=== PATIENT | female | born 1945 | race Caucasian/White ===

== ENCOUNTER 2017-05-10 16:34 | Inpatient (IN) | payer MEDICARE ==
[~2017-05-10] VITALS: Ht 157.5 cm; Wt 82.7 kg
[~2017-05-10 16:34] MED LIST: AMLO10TA2 PO; AMLO5TAB2 PO; ASPI-515 PO; ASPI-614 PO; ATOR40TA78 PO; CARV6.252 PO; CIPR250T27 PO; CITA20TA5 PO; DOCU-30 PO; DOCU100C8 PO; DOXY100T PO; FURO20TA3 PO; HYDR-3138 PO; HYDR-3241 PO; HYDR-3342 PO; ISOS30TA8 PO; LEVO100T5 PO; LEVO75TA5 PO; LORA-446 PO; LORA10TA62 PO; MECL12.5 PO; MECL12.52 PO; METO10TA82 PO; MOME17SP NAS; OMEP-110 PO; ONDA-39 PO; OXYB10TA PO; OXYB5TAB7 PO; POLY17PO5 PO; POTA10TA11 PO; RAMI10CA PO; TEMA15CA PO; TIZA2TAB PO
[2017-05-10] MEDS ORDERED: SODIUM CHLORIDE 0.9% 1,000 ML IV ONE (16:54)
[2017-05-10] MEDS ORDERED: SODIUM CHLORIDE FLUSH 10ML SYR IVF ONE (17:00)
[2017-05-10 17:26] LABS: BLOOD UREA NITROGEN 23 mg/dL (7-18)
[2017-05-10 17:34] LABS: IS PT STATUS REG ER OR PRE ER? YES
[2017-05-10] MEDS ORDERED: HYDROcodone/APAP 5/325 TABLET ONE (18:27)
[2017-05-10] MEDS ORDERED: HYDROcodone/APAP 5/325 TABLET PO ONE (18:30)
[2017-05-10] MEDS ORDERED: PROMETHAZINE 25 MG/ML, 1ML IM PRN (19:30)
[2017-05-10] MEDS ORDERED: LISINOPRIL 20 MG TABLET PO ONE (19:30)
[2017-05-10] MEDS ORDERED: ACETAMINOPHEN 325 MG TABLET PO PRN (19:30)
[2017-05-10] MEDS ORDERED: ONDANSETRON 2MG/ML, 2ML IVPush PRN (19:30)
[2017-05-10 20:00] VITALS: BP 190/79
[2017-05-10] MEDS ORDERED: TEMPLATE NON-FORMULARY MED. (Ramipril** 10 MG) PO SCH (21:00)
[2017-05-10] MEDS: NS + 20MEQ KCL 1,000 ML IV SCH ×2 (21:00→21:41)
[2017-05-10] MEDS: DOCUSATE 100 MG CAPSULE PO SCH (21:00)
[2017-05-10] MEDS: hydrALAzine 20 MG/ML, 1ML IVPush PRN (21:39)
[2017-05-10] MEDS: LORazepam 1MG TABLET PO PRN (21:39)
[2017-05-10] MEDS: OMEPRAZOLE 20 MG CAPSULE.DR PO SCH (21:40)
[2017-05-10] MEDS: ENOXAPARIN 40 MG/0.4 ML SQ SCH (21:40)
[2017-05-10] MEDS: CEFDINIR 300 MG CAPSULE PO SCH (21:40)
[2017-05-10] MEDS: DOXYCYCLINE 100MG TABLET PO SCH (21:40)
[2017-05-11 00:07] VITALS: BP 180/85
[2017-05-11] MEDS ORDERED: DIPHENHYDRAMINE 25 MG CAPSULE ONE ×2 (00:20→21:45)
[2017-05-11] MEDS: DIPHENHYDRAMINE 50 MG CAPSULE PO PRN ×2 (00:27→21:57)
[2017-05-11] MEDS ORDERED: AMLODIPINE 5 MG TABLET PO ONE (02:00)
[2017-05-11 02:10] VITALS: BP 182/82
[2017-05-11 02:47] LABS: IS PT STATUS REG ER OR PRE ER? NO
[2017-05-11] MEDS: NS + 20MEQ KCL 1,000 ML IV SCH ×2 (03:40→15:34)
[2017-05-11 03:41] VITALS: BP 174/82
[2017-05-11] MEDS: LORazepam 1MG TABLET PO PRN (03:41)
[2017-05-11 05:43] LABS: BLOOD UREA NITROGEN 17 mg/dL (7-18)
[2017-05-11 05:58] LABS: IS PT STATUS REG ER OR PRE ER? NO
[2017-05-11] MEDS ORDERED: POTASSIUM CHLORIDE 20 MEQ TAB.ER.PRT PO ONE (08:00)
[2017-05-11] MEDS ORDERED: LEVOTHYROXINE 75 MCG TABLET PO SCH (09:00)
[2017-05-11] MEDS: OXYBUTYNIN CHLORIDE 10 MG HOMEMEDPO SCH (09:00)
[2017-05-11] MEDS ORDERED: OMNIPAQUE 350 MG/ML, 100ML BOTTLE ONE (09:07)
[2017-05-11] MEDS: LISINOPRIL 20 MG TABLET PO SCH (09:15)
[2017-05-11] MEDS: DOXYCYCLINE 100MG TABLET PO SCH ×2 (09:15→21:56)
[2017-05-11] MEDS: CEFDINIR 300 MG CAPSULE PO SCH ×2 (09:15→21:56)
[2017-05-11] MEDS: OMEPRAZOLE 20 MG CAPSULE.DR PO SCH ×2 (09:15→21:56)
[2017-05-11] MEDS: DOCUSATE 100 MG CAPSULE PO SCH ×2 (09:15→21:00)
[2017-05-11] MEDS: ASPIRIN 81 MG TABLET EC PO SCH (09:15)
[2017-05-11 09:44] VITALS: BP 169/89
[2017-05-11] MEDS: LIDODERM 5% PATCH TD PRN (10:32)
[2017-05-11 14:25] VITALS: BP 179/83
[2017-05-11] MEDS: CARVEDILOL 6.25 MG TABLET PO SCH (17:45)
[2017-05-11] MEDS: ENOXAPARIN 40 MG/0.4 ML SQ SCH (21:00)
[2017-05-11] MEDS: AMLODIPINE 5 MG TABLET PO SCH (21:56)
[2017-05-12] MEDS: NS + 20MEQ KCL 1,000 ML IV SCH ×2 (00:04→09:30)
[2017-05-12 01:33] VITALS: BP 187/75
[2017-05-12] MEDS: LORazepam 1MG TABLET PO PRN (01:42)
[2017-05-12] MEDS: hydrALAzine 20 MG/ML, 1ML IVPush PRN (01:42)
[2017-05-12] MEDS ORDERED: LEVOTHYROXINE 88 MCG TABLET PO SCH (06:00)
[2017-05-12 06:22] VITALS: BP 163/88
[2017-05-12] MEDS: CARVEDILOL 6.25 MG TABLET PO SCH (06:22)
[2017-05-12 08:06] VITALS: BP 158/79
[2017-05-12 08:13] VITALS: BP_SYST 134; BP_SYST 139; BP_SYST 151; BP_DIAS 78; BP_DIAS 80; BP_DIAS 84
[2017-05-12 09:09] LABS: BLOOD UREA NITROGEN 11 mg/dL (7-18)
[2017-05-12] MEDS: AMLODIPINE 5 MG TABLET PO SCH (09:29)
[2017-05-12] MEDS: DOXYCYCLINE 100MG TABLET PO SCH (09:29)
[2017-05-12] MEDS: LISINOPRIL 20 MG TABLET PO SCH (09:29)
[2017-05-12] MEDS: CEFDINIR 300 MG CAPSULE PO SCH (09:29)
[2017-05-12] MEDS: DOCUSATE 100 MG CAPSULE PO SCH (09:30)
[2017-05-12] MEDS: OMEPRAZOLE 20 MG CAPSULE.DR PO SCH (09:30)
[2017-05-12] MEDS: ASPIRIN 81 MG TABLET EC PO SCH (09:30)
[2017-05-12] MEDS: OXYBUTYNIN CHLORIDE 10 MG HOMEMEDPO SCH (09:30)
[2017-05-12 13:45] VITALS: BP_SYST 110; BP_SYST 121; BP_SYST 140; BP_DIAS 68; BP_DIAS 69; BP_DIAS 73
[2017-05-12] MEDS: LIDODERM 5% PATCH TD PRN (14:57)
[2017-05-12] MEDS ORDERED: AMLO5TAB2 PO (16:12)
[2017-05-12] MEDS ORDERED: CARV6.2512 PO (16:12)
[2017-05-12] MEDS ORDERED: LISI-170 PO (16:12)
[2017-05-12] MEDS ORDERED: CEFD300C37 PO (16:12)
[2017-05-12] MEDS ORDERED: DOXY100T PO (16:12)
[2017-05-12] MEDS ORDERED: LEVO88TA2 PO (16:12)
== END 2017-05-12 17:20 | disposition home or self-care (01) | DRG 292 ==
LOC: ED 18:12 → EDIP 18:15 → 4EST 19:08 → DCLOUNGE 05-12 16:54
DX: I13.0 Hypertensive heart and chronic kidney disease with heart failure and stage 1 through stage 4 chronic kidney disease, or unspecified chronic kidney disease (principal); I50.32 Chronic diastolic (congestive) heart failure; G90.8 Other disorders of autonomic nervous system; R55 Syncope and collapse; E78.5 Hyperlipidemia, unspecified; E03.9 Hypothyroidism, unspecified; G47.33 Obstructive sleep apnea (adult) (pediatric); K21.9 Gastro-esophageal reflux disease without esophagitis; N18.2 Chronic kidney disease, stage 2 (mild); Z80.1 Family history of malignant neoplasm of trachea, bronchus and lung; Z82.49 Family history of ischemic heart disease and other diseases of the circulatory system; Z85.828 Personal history of other malignant neoplasm of skin; Z86.73 Personal history of transient ischemic attack (TIA), and cerebral infarction without residual deficits; Z87.01 Personal history of pneumonia (recurrent); Z88.2 Allergy status to sulfonamides; Z91.018 Allergy to other foods; Z90.49 Acquired absence of other specified parts of digestive tract; Z90.710 Acquired absence of both cervix and uterus; Z98.51 Tubal ligation status; Z98.49 Cataract extraction status, unspecified eye
CPT/HCPCS: 36415; 36569; 70450; 71010; 71275; 76700; 76937; 77001; 80048; 81001; 82040; 82533; 83735; 83880; 84439; 84443; 84484; 85025; 87086; 93005; 93306; J1650; J3480; Q9967; C1751; J0360

== ENCOUNTER 2017-12-08 14:28 | Emergency (ER) | payer MEDICARE ==
[~2017-12-08] VITALS: Ht 157.5 cm; Wt 87.0 kg
[~2017-12-08 14:28] MED LIST changes: +ATOR-2 PO; +CARV6.2512 PO; +CEFD300C37 PO; +CLON-275 PO; +DOCU-131 PO; -DOCU-30 PO; +DOCU100C33 PO; -DOCU100C8 PO; +GABA300C10 PO; -HYDR-3138 PO; +HYDR-3237 PO; +HYDR-3341 PO; +LEVO88TA2 PO; +LISI-170 PO; -ONDA-39 PO; +ONDA4TAB10 PO; +ONDA4TAB12 PO; +ONDA4TAB7 PO; +TIZA4CAP PO
[2017-12-08 14:37] VITALS: BP 156/96
[2017-12-08 16:10] LABS: BASOPHILS # (AUTO) 0.02 x10^3/uL (0-0.1); BASOPHILS % (AUTO) 0 % (0-1); EOSINOPHILS # (AUTO) 0.08 x10^3/uL (0-0.4); EOSINOPHILS % (AUTO) 1 % (1-7); LYMPHOCYTES # (AUTO) 1.57 x10^3/uL (1-3.4); LYMPHOCYTES % (AUTO) 26 % (22-44); MD NO; MEAN CORPUSCULAR HEMOGLOBIN 31.1 pg (27.0-34.8); MEAN CORPUSCULAR HGB CONC 33.5 g/dL (32.4-35.8); MEAN PLATELET VOLUME 8.9 fL (7.4-10.4); MONOCYTES # (AUTO) 0.46 x10^3/uL (0.2-0.8); MONOCYTES % (AUTO) 8 % (2-9); NEUTROPHILS # (AUTO) 3.85 x10^3/uL (1.8-6.8); NEUTROPHILS % (AUTO) 64 % (42-75); PLATELET COUNT 211 x10^3/uL (130-400); RED BLOOD COUNT 4.53 x10^6/uL (3.82-5.3); RED CELL DISTRIBUTION WIDTH 15.6 % (9.6-15.2)
[2017-12-08 16:17] LABS: MICROSCOPIC AUTO
[2017-12-08 16:20] LABS: ALANINE AMINOTRANSFERASE 28 U/L (12-78); ALBUMIN 3.6 g/dL (3.4-5.0); ANION GAP 8 mmol/L (5-15); CALCIUM 8.5 mg/dL (8.5-10.1); CHLORIDE 110 mmol/L (98-107); CREATININE 0.85 mg/dL (0.55-1.02)
[2017-12-08 16:21] LABS: CULTURE INDICATED? YES
[2017-12-08 16:23] LABS: ALKALINE PHOSPHATASE 42 U/L (45-117); BILIRUBIN,TOTAL 0.4 mg/dL (0.2-1.0); TOTAL PROTEIN 6.8 g/dL (6.4-8.2)
[2017-12-08] MEDS ORDERED: MECLIZINE CHEWABLE 25 MG TAB PO ONE (17:00)
[2017-12-08] MEDS ORDERED: MECLIZINE CHEWABLE 25 MG TAB ONE (17:12)
== END 2017-12-08 17:18 | disposition home or self-care (01) ==
LOC: ED 16:27
DX: S63.522A Sprain of radiocarpal joint of left wrist, initial encounter (principal); I12.9 Hypertensive chronic kidney disease with stage 1 through stage 4 chronic kidney disease, or unspecified chronic kidney disease; N18.2 Chronic kidney disease, stage 2 (mild); E03.9 Hypothyroidism, unspecified; G89.29 Other chronic pain; W18.39XA Other fall on same level, initial encounter; Y93.89 Activity, other specified; Y92.098 Other place in other non-institutional residence as the place of occurrence of the external cause; Y99.8 Other external cause status
CPT/HCPCS: 36415; 80053; 81001; 85025; 87086; 99285

== ENCOUNTER 2017-12-11 17:24 | Observation (INO) | payer MEDICARE ==
[~2017-12-11] VITALS: Ht 157.5 cm; Wt 85.2 kg
[2017-12-11] MEDS ORDERED: ASPIRIN 81 MG TABLET CHEW ONE (18:16)
[2017-12-11] MEDS ORDERED: NITROGLYCERIN SINGLE TAB 0.4 MG SL ONE (18:16)
[2017-12-11] MEDS ORDERED: SODIUM CHLORIDE FLUSH 10ML SYR IVF ONE (18:30)
[2017-12-11] MEDS ORDERED: ASPIRIN 81 MG TABLET CHEW PO ONE (18:30)
[2017-12-11] MEDS ORDERED: NITROGLYCERIN SINGLE TAB 0.4 MG SL PRN (18:30)
[2017-12-11 18:40] LABS: BASOPHILS # (AUTO) 0.07 x10^3/uL (0-0.1); BASOPHILS % (AUTO) 1 % (0-1); EOSINOPHILS # (AUTO) 0.07 x10^3/uL (0-0.4); EOSINOPHILS % (AUTO) 1 % (1-7); LYMPHOCYTES # (AUTO) 2.09 x10^3/uL (1-3.4); LYMPHOCYTES % (AUTO) 33 % (22-44); MD NO; MEAN CORPUSCULAR HEMOGLOBIN 30.8 pg (27.0-34.8); MEAN CORPUSCULAR HGB CONC 33.4 g/dL (32.4-35.8); MEAN CORPUSCULAR VOLUME 92.3 fL (80-100); MEAN PLATELET VOLUME 8.8 fL (7.4-10.4); MONOCYTES # (AUTO) 0.47 x10^3/uL (0.2-0.8); MONOCYTES % (AUTO) 8 % (2-9); NEUTROPHILS # (AUTO) 3.61 x10^3/uL (1.8-6.8); NEUTROPHILS % (AUTO) 57 % (42-75); PLATELET COUNT 202 x10^3/uL (130-400); RED BLOOD COUNT 4.34 x10^6/uL (3.82-5.3); RED CELL DISTRIBUTION WIDTH 15.9 % (9.6-15.2)
[2017-12-11 18:53] LABS: ALBUMIN 3.2 g/dL (3.4-5.0); ANION GAP 8 mmol/L (5-15); CALCIUM 7.9 mg/dL (8.5-10.1); CHLORIDE 114 mmol/L (98-107)
[2017-12-11 18:54] LABS: INTERNATIONAL NORMALIZED RATIO 0.97 (0.93-1.1)
[2017-12-11 18:59] LABS: ALANINE AMINOTRANSFERASE 22 U/L (12-78); ALKALINE PHOSPHATASE 36 U/L (45-117); BILIRUBIN,TOTAL 0.5 mg/dL (0.2-1.0); CREATININE 1.15 mg/dL (0.55-1.02); TOTAL PROTEIN 6.1 g/dL (6.4-8.2); TROPONIN I < 0.015 ng/mL (0.000-0.045)
[2017-12-11] MEDS ORDERED: MORPHINE SULFATE 4 MG/ML, 1ML ONE (19:14)
[2017-12-11] MEDS ORDERED: MORPHINE SULFATE 4 MG/ML, 1ML IVPush ONE (19:30)
[2017-12-11] MEDS ORDERED: OMNIPAQUE 350 MG/ML, 100ML BOTTLE ONE (20:00)
[2017-12-11] MEDS ORDERED: LABETALOL 5MG/ML, 20ML ONE (21:56)
[2017-12-11] MEDS ORDERED: ONDANSETRON ODT 4 MG PO PRN (22:00)
[2017-12-11] MEDS ORDERED: DOCUSATE 100 MG CAPSULE PO PRN (22:00)
[2017-12-11] MEDS ORDERED: ACETAMINOPHEN 325 MG TABLET PO PRN (22:00)
[2017-12-11] MEDS: LABETALOL 5MG/ML, 20ML IVPush PRN (22:03)
[2017-12-11 22:50] VITALS: BP 202/105
[2017-12-11 23:05] VITALS: BP 202/105
[2017-12-11] MEDS: DOCUSATE 100 MG CAPSULE PO SCH (23:17)
[2017-12-11] MEDS: HEPARIN 5,000 UNITS/ML, 1ML SQ SCH (23:18)
[2017-12-11] MEDS: OMEPRAZOLE 20 MG CAPSULE.DR PO SCH (23:18)
[2017-12-11] MEDS: AMLODIPINE 5 MG TABLET PO SCH (23:18)
[2017-12-11] MEDS: TEMAZEPAM 15 MG CAPSULE PO PRN (23:26)
[2017-12-11] MEDS ORDERED: POTASSIUM CHLORIDE 20 MEQ TAB.ER.PRT PO ONE (23:30)
[2017-12-12 00:48] LABS: TROPONIN I < 0.015 ng/mL (0.000-0.045)
[2017-12-12 01:52] VITALS: BP 167/82
[2017-12-12] MEDS: TEMAZEPAM 15 MG CAPSULE PO PRN ×2 (04:01→20:42)
[2017-12-12] MEDS: LEVOTHYROXINE 88 MCG TABLET PO SCH (06:17)
[2017-12-12] MEDS: CARVEDILOL 6.25 MG TABLET PO SCH ×2 (06:17→17:03)
[2017-12-12 06:21] LABS: BASOPHILS # (AUTO) 0.01 x10^3/uL (0-0.1); BASOPHILS % (AUTO) 0 % (0-1); EOSINOPHILS # (AUTO) 0.06 x10^3/uL (0-0.4); EOSINOPHILS % (AUTO) 1 % (1-7); LYMPHOCYTES # (AUTO) 1.22 x10^3/uL (1-3.4); LYMPHOCYTES % (AUTO) 28 % (22-44); MD NO; MEAN CORPUSCULAR HEMOGLOBIN 30.9 pg (27.0-34.8); MEAN CORPUSCULAR HGB CONC 33.1 g/dL (32.4-35.8); MEAN CORPUSCULAR VOLUME 93.2 fL (80-100); MEAN PLATELET VOLUME 8.6 fL (7.4-10.4); MONOCYTES # (AUTO) 0.36 x10^3/uL (0.2-0.8); MONOCYTES % (AUTO) 8 % (2-9); NEUTROPHILS # (AUTO) 2.67 x10^3/uL (1.8-6.8); NEUTROPHILS % (AUTO) 62 % (42-75); PLATELET COUNT 175 x10^3/uL (130-400); RED BLOOD COUNT 4.18 x10^6/uL (3.82-5.3); RED CELL DISTRIBUTION WIDTH 15.3 % (9.6-15.2)
[2017-12-12 06:28] LABS: ANION GAP 6 mmol/L (5-15); CALCIUM 7.9 mg/dL (8.5-10.1); CHLORIDE 115 mmol/L (98-107); CHOLESTEROL, TOTAL 170 mg/dL (140-239); CREATININE 0.78 mg/dL (0.55-1.02); TRIGLYCERIDES 59 mg/dL (50-200); VLDL CHOLESTEROL 12 mg/dL (0-25)
[2017-12-12 06:31] LABS: HDL CHOL % 34 % (28-40); HDL CHOLESTEROL (DIRECT) 57 mg/dL (40-60); LDL CHOLESTEROL,CALCULATED 101 mg/dL (54-169); LDL/HDL RATIO 1.8 (0.5-3.0)
[2017-12-12 06:44] LABS: TROPONIN I < 0.015 ng/mL (0.000-0.045)
[2017-12-12 08:03] VITALS: BP 156/94
[2017-12-12] MEDS: OMEPRAZOLE 20 MG CAPSULE.DR PO SCH ×2 (08:09→20:41)
[2017-12-12] MEDS: DOCUSATE 100 MG CAPSULE PO SCH ×2 (08:09→20:41)
[2017-12-12] MEDS: ASPIRIN 81 MG TABLET EC PO SCH (08:10)
[2017-12-12] MEDS: AMLODIPINE 5 MG TABLET PO SCH ×2 (08:10→20:42)
[2017-12-12] MEDS: GABAPENTIN 300 MG CAPSULE PO SCH (08:10)
[2017-12-12] MEDS ORDERED: REGADENOSON 0.4 MG/5 ML SYRINGE ONE (08:49)
[2017-12-12] MEDS: HEPARIN 5,000 UNITS/ML, 1ML SQ SCH ×2 (08:54→17:03)
[2017-12-12] MEDS ORDERED: ONDANSETRON 2MG/ML, 2ML IVPush PRN (09:00)
[2017-12-12 13:47] VITALS: BP 176/95
[2017-12-12] MEDS: LABETALOL 5MG/ML, 20ML IVPush PRN (13:54)
[2017-12-12] MEDS ORDERED: IBUPROFEN 200 MG TABLET PO ONE (15:00)
[2017-12-12 15:08] VITALS: BP 146/76
[2017-12-12 17:05] VITALS: BP 154/77
[2017-12-12] MEDS ORDERED: SCOPOLAMINE PATCH, 1.5MG PATCH.TD72 TD SCH (18:00)
[2017-12-12 21:14] VITALS: BP 135/75
[2017-12-13] MEDS: HEPARIN 5,000 UNITS/ML, 1ML SQ SCH ×2 (01:17→08:24)
[2017-12-13 01:24] VITALS: BP 152/79
[2017-12-13] MEDS: TEMAZEPAM 15 MG CAPSULE PO PRN (02:42)
[2017-12-13] MEDS: LEVOTHYROXINE 88 MCG TABLET PO SCH (06:28)
[2017-12-13] MEDS: CARVEDILOL 6.25 MG TABLET PO SCH (06:29)
[2017-12-13 07:58] VITALS: BP 164/79
[2017-12-13] MEDS: GABAPENTIN 300 MG CAPSULE PO SCH (08:23)
[2017-12-13] MEDS: ASPIRIN 81 MG TABLET EC PO SCH (08:23)
[2017-12-13] MEDS: DOCUSATE 100 MG CAPSULE PO SCH (08:24)
[2017-12-13] MEDS: OMEPRAZOLE 20 MG CAPSULE.DR PO SCH (08:24)
[2017-12-13] MEDS: AMLODIPINE 5 MG TABLET PO SCH (08:24)
[2017-12-13 12:31] VITALS: BP 186/79
[2017-12-13] MEDS ORDERED: ACET650S21 PO (14:40)
[2017-12-13] MEDS ORDERED: IBUP200C8 PO (14:41)
== END 2017-12-13 13:45 | disposition home or self-care (01) ==
LOC: ED 19:39 → EDIP 21:26 → INTOOBSV 21:26 → 5SO 22:32
PROVIDERS: ADMIT Family Medicine; ATTEND Family Medicine
DX: R07.9 Chest pain, unspecified (principal); I13.0 Hypertensive heart and chronic kidney disease with heart failure and stage 1 through stage 4 chronic kidney disease, or unspecified chronic kidney disease; I50.32 Chronic diastolic (congestive) heart failure; N18.2 Chronic kidney disease, stage 2 (mild); I73.9 Peripheral vascular disease, unspecified; G47.33 Obstructive sleep apnea (adult) (pediatric); F33.9 Major depressive disorder, recurrent, unspecified; I16.0 Hypertensive urgency; E87.6 Hypokalemia; N17.0 Acute kidney failure with tubular necrosis; E03.9 Hypothyroidism, unspecified; E44.1 Mild protein-calorie malnutrition; E78.5 Hyperlipidemia, unspecified; I25.10 Atherosclerotic heart disease of native coronary artery without angina pectoris; Z80.1 Family history of malignant neoplasm of trachea, bronchus and lung; Z82.49 Family history of ischemic heart disease and other diseases of the circulatory system
CPT/HCPCS: 36415; 71045; 71275; 76770; 78452; 80048; 80053; 80061; 83690; 83735; 83880; 84484; 85025; 85379; 85610; 85730; 93005; 93017; 93306; 96372; 96374; 96375; 96376; 99285; A9502; C9898; G0378; J1644; J2405; J2785; Q9967

== ENCOUNTER 2017-12-13 13:51 | Emergency (ER) | payer MEDICARE ==
[2017-12-13 14:07] VITALS: BP 175/88
[2017-12-13] MEDS ORDERED: ACET650S21 PO (14:40)
[2017-12-13] MEDS ORDERED: IBUP200C8 PO (14:41)
== END 2017-12-13 15:18 | disposition home or self-care (01) ==
LOC: ED 14:45
DX: F41.1 Generalized anxiety disorder (principal); K21.9 Gastro-esophageal reflux disease without esophagitis; E78.5 Hyperlipidemia, unspecified; E03.9 Hypothyroidism, unspecified; J44.9 Chronic obstructive pulmonary disease, unspecified; I25.10 Atherosclerotic heart disease of native coronary artery without angina pectoris; Z86.73 Personal history of transient ischemic attack (TIA), and cerebral infarction without residual deficits; I13.0 Hypertensive heart and chronic kidney disease with heart failure and stage 1 through stage 4 chronic kidney disease, or unspecified chronic kidney disease; N18.2 Chronic kidney disease, stage 2 (mild); I50.9 Heart failure, unspecified
CPT/HCPCS: 71045; 93005; 99284

== ENCOUNTER 2018-01-04 16:59 | Emergency (ER) | payer MEDICARE ==
[~2018-01-04] VITALS: Ht 157.5 cm; Wt 81.0 kg
[~2018-01-04 16:59] MED LIST changes: +ACET650S21 PO; +IBUP200C8 PO
[2018-01-04] MEDS ORDERED: GABA300C10 PO (17:09)
[2018-01-04] MEDS ORDERED: CLON0.1T PO (17:09)
[2018-01-04] MEDS ORDERED: ONDANSETRON 2MG/ML, 2ML ONE (17:24)
[2018-01-04] MEDS ORDERED: LORazepam 1MG TABLET ONE (17:25)
[2018-01-04] MEDS ORDERED: LORazepam 1MG TABLET PO ONE (17:30)
[2018-01-04] MEDS ORDERED: SODIUM CHLORIDE 0.9% 1,000ML IVBOLUS ONE (17:30)
[2018-01-04] MEDS ORDERED: SODIUM CHLORIDE FLUSH 10ML SYR IVF ONE (17:30)
[2018-01-04] MEDS ORDERED: ONDANSETRON 2MG/ML, 2ML IVPush ONE (17:30)
[2018-01-04 17:47] LABS: BASOPHILS # (AUTO) 0.03 x10^3/uL (0-0.1); BASOPHILS % (AUTO) 1 % (0-1); EOSINOPHILS # (AUTO) 0.05 x10^3/uL (0-0.4); EOSINOPHILS % (AUTO) 1 % (1-7); LYMPHOCYTES # (AUTO) 1.54 x10^3/uL (1-3.4); LYMPHOCYTES % (AUTO) 33 % (22-44); MD NO; MEAN CORPUSCULAR HEMOGLOBIN 30.5 pg (27.0-34.8); MEAN CORPUSCULAR HGB CONC 33.2 g/dL (32.4-35.8); MEAN CORPUSCULAR VOLUME 91.6 fL (80-100); MEAN PLATELET VOLUME 8.5 fL (7.4-10.4); MONOCYTES % (AUTO) 7 % (2-9); NEUTROPHILS # (AUTO) 2.77 x10^3/uL (1.8-6.8); NEUTROPHILS % (AUTO) 59 % (42-75); PLATELET COUNT 185 x10^3/uL (130-400); RED BLOOD COUNT 4.44 x10^6/uL (3.82-5.3); RED CELL DISTRIBUTION WIDTH 15.6 % (9.6-15.2)
[2018-01-04 17:57] LABS: ALANINE AMINOTRANSFERASE 15 U/L (12-78); ALBUMIN 3.3 g/dL (3.4-5.0); ANION GAP 9 mmol/L (5-15); CALCIUM 8.5 mg/dL (8.5-10.1); CHLORIDE 112 mmol/L (98-107); CREATININE 0.81 mg/dL (0.55-1.02)
[2018-01-04 18:02] LABS: ALKALINE PHOSPHATASE 31 U/L (45-117); BILIRUBIN,TOTAL 0.3 mg/dL (0.2-1.0); TOTAL PROTEIN 6.1 g/dL (6.4-8.2); TROPONIN I < 0.015 ng/mL (0.000-0.045)
[2018-01-04 18:42] LABS: CULTURE INDICATED? YES; MICROSCOPIC INDICATED
[2018-01-04 19:37] VITALS: BP 192/90
== END 2018-01-04 20:31 | disposition home or self-care (01) ==
LOC: ED 18:16
DX: N30.00 Acute cystitis without hematuria (principal); E86.0 Dehydration; R11.2 Nausea with vomiting, unspecified; Z90.49 Acquired absence of other specified parts of digestive tract; Z90.710 Acquired absence of both cervix and uterus; E03.9 Hypothyroidism, unspecified; E78.5 Hyperlipidemia, unspecified; F32.9 Major depressive disorder, single episode, unspecified; F41.9 Anxiety disorder, unspecified; G89.29 Other chronic pain; I25.10 Atherosclerotic heart disease of native coronary artery without angina pectoris; J44.9 Chronic obstructive pulmonary disease, unspecified; K21.9 Gastro-esophageal reflux disease without esophagitis; Z95.0 Presence of cardiac pacemaker
CPT/HCPCS: 36415; 71045; 80053; 81001; 83690; 84484; 85025; 87086; 93005; 96361; 96374; 99285; J2405; J7030

== ENCOUNTER 2018-01-06 15:43 | Inpatient (IN) | payer MEDICARE ==
[~2018-01-06] VITALS: Ht 157.5 cm; Wt 86.4 kg
[~2018-01-06 15:43] MED LIST changes: +CLON0.1T PO
[2018-01-06] MEDS ORDERED: SODIUM CHLORIDE FLUSH 10ML SYR IVF ONE (16:00)
[2018-01-06] MEDS ORDERED: ACETAMINOPHEN 325 MG TABLET PO ONE (16:00)
[2018-01-06] MEDS ORDERED: ACETAMINOPHEN 325 MG TABLET ONE (16:02)
[2018-01-06 16:20] LABS: BASOPHILS # (AUTO) 0.02 x10^3/uL (0-0.1); BASOPHILS % (AUTO) 0 % (0-1); EOSINOPHILS # (AUTO) 0.03 x10^3/uL (0-0.4); EOSINOPHILS % (AUTO) 1 % (1-7); LYMPHOCYTES # (AUTO) 1.55 x10^3/uL (1-3.4); LYMPHOCYTES % (AUTO) 28 % (22-44); MD NO; MEAN CORPUSCULAR HGB CONC 33.5 g/dL (32.4-35.8); MEAN CORPUSCULAR VOLUME 92.7 fL (80-100); MEAN PLATELET VOLUME 8.4 fL (7.4-10.4); MONOCYTES # (AUTO) 0.37 x10^3/uL (0.2-0.8); MONOCYTES % (AUTO) 7 % (2-9); NEUTROPHILS # (AUTO) 3.49 x10^3/uL (1.8-6.8); NEUTROPHILS % (AUTO) 64 % (42-75); PLATELET COUNT 176 x10^3/uL (130-400); RED BLOOD COUNT 4.48 x10^6/uL (3.82-5.3); RED CELL DISTRIBUTION WIDTH 15.9 % (9.6-15.2)
[2018-01-06 16:30] LABS: ALANINE AMINOTRANSFERASE 15 U/L (12-78); ALBUMIN 3.6 g/dL (3.4-5.0); ANION GAP 10 mmol/L (5-15); CALCIUM 8.7 mg/dL (8.5-10.1); CHLORIDE 112 mmol/L (98-107); CREATININE 1.08 mg/dL (0.55-1.02)
[2018-01-06 16:35] LABS: ALKALINE PHOSPHATASE 35 U/L (45-117); BILIRUBIN,TOTAL 0.4 mg/dL (0.2-1.0); TOTAL PROTEIN 6.5 g/dL (6.4-8.2); TROPONIN I < 0.015 ng/mL (0.000-0.045)
[2018-01-06 16:41] LABS: THYROID STIMULATING HORMONE 0.808 mIU/L (0.358-3.740)
[2018-01-06] MEDS ORDERED: AMLO10TA2 PO (16:46)
[2018-01-06] MEDS ORDERED: MECL-76 PO (16:46)
[2018-01-06] MEDS ORDERED: ISOS30TA8 PO (16:46)
[2018-01-06] MEDS ORDERED: HYDR-3343 PO (16:46)
[2018-01-06 17:14] LABS: MICROSCOPIC NOT IND
[2018-01-06 17:18] LABS: CULTURE INDICATED? NO
[2018-01-06] MEDS ORDERED: hydrALAzine 20 MG/ML, 1ML ONE (17:42)
[2018-01-06] MEDS ORDERED: hydrALAzine 20 MG/ML, 1ML IV ONE (18:00)
[2018-01-06] MEDS ORDERED: SODIUM CHLORIDE FLUSH 10ML SYR IVF PRN (18:00)
[2018-01-06] MEDS ORDERED: ACETAMINOPHEN 325 MG TABLET PO PRN (19:00)
[2018-01-06] MEDS ORDERED: POLYETHYLENE GLYCOL 17 GM PACKET PO PRN (19:00)
[2018-01-06] MEDS ORDERED: MAGNESIUM SULFATE PMX 2GM/50ML 50 ML IV ONE (19:00)
[2018-01-06] MEDS ORDERED: hydrALAzine 20 MG/ML, 1ML IVPush PRN (19:00)
[2018-01-06] MEDS ORDERED: BISACODYL 10 MG SUPP PR PRN (19:00)
[2018-01-06] MEDS: HEPARIN 5,000 UNITS/ML, 1ML SQ SCH (20:07)
[2018-01-06] MEDS: MECLIZINE CHEWABLE 25 MG TAB PO SCH (20:08)
[2018-01-06] MEDS: POTASSIUM CHLORIDE 20 MEQ TAB.ER.PRT PO SCH (20:09)
[2018-01-06] MEDS: SODIUM CHLORIDE FLUSH 10ML SYR IVF SCH (20:09)
[2018-01-06] MEDS ORDERED: ATORVASTATIN 80 MG TABLET PO SCH (21:00)
[2018-01-06 22:54] VITALS: BP 199/98
[2018-01-06 22:54] LABS: TROPONIN I < 0.015 ng/mL (0.000-0.045)
[2018-01-07] VITALS (8 sets, daily range): BP systolic 100–165; BP diastolic 58–82
[2018-01-07] MEDS: TEMAZEPAM 15 MG CAPSULE PO PRN ×2 (01:21→21:51)
[2018-01-07] MEDS: HEPARIN 5,000 UNITS/ML, 1ML SQ SCH ×3 (02:45→18:23)
[2018-01-07] MEDS: ONDANSETRON 2MG/ML, 2ML IVPush PRN ×3 (03:49→20:15)
[2018-01-07 05:16] LABS: BASOPHILS # (AUTO) 0.02 x10^3/uL (0-0.1); BASOPHILS % (AUTO) 1 % (0-1); EOSINOPHILS # (AUTO) 0.06 x10^3/uL (0-0.4); EOSINOPHILS % (AUTO) 1 % (1-7); LYMPHOCYTES # (AUTO) 1.44 x10^3/uL (1-3.4); LYMPHOCYTES % (AUTO) 32 % (22-44); MD NO; MEAN CORPUSCULAR HEMOGLOBIN 30.7 pg (27.0-34.8); MEAN CORPUSCULAR HGB CONC 33.3 g/dL (32.4-35.8); MEAN CORPUSCULAR VOLUME 92.3 fL (80-100); MEAN PLATELET VOLUME 8.8 fL (7.4-10.4); MONOCYTES # (AUTO) 0.38 x10^3/uL (0.2-0.8); MONOCYTES % (AUTO) 8 % (2-9); NEUTROPHILS # (AUTO) 2.64 x10^3/uL (1.8-6.8); NEUTROPHILS % (AUTO) 58 % (42-75); PLATELET COUNT 165 x10^3/uL (130-400); RED BLOOD COUNT 4.05 x10^6/uL (3.82-5.3); RED CELL DISTRIBUTION WIDTH 16.4 % (9.6-15.2)
[2018-01-07 05:25] LABS: CHLORIDE 113 mmol/L (98-107)
[2018-01-07 05:39] LABS: ALANINE AMINOTRANSFERASE 14 U/L (12-78); ALBUMIN 2.9 g/dL (3.4-5.0); ALKALINE PHOSPHATASE 29 U/L (45-117); ANION GAP 9 mmol/L (5-15); BILIRUBIN,TOTAL 0.3 mg/dL (0.2-1.0); CALCIUM 8.1 mg/dL (8.5-10.1); CREATININE 1.05 mg/dL (0.55-1.02); TOTAL PROTEIN 5.6 g/dL (6.4-8.2); TROPONIN I < 0.015 ng/mL (0.000-0.045)
[2018-01-07] MEDS: NITROGLYCERIN 0.4 MG BOTTLE (25 TABS) SL PRN ×2 (07:15→07:23)
[2018-01-07] MEDS ORDERED: NITROGLYCERIN 0.4 MG/SPRAY SL PRN (07:30)
[2018-01-07] MEDS: POTASSIUM CHLORIDE 20 MEQ TAB.ER.PRT PO SCH ×2 (09:02→16:58)
[2018-01-07] MEDS: SENNA/DOCUSATE TABLET PO SCH (09:02)
[2018-01-07] MEDS: ISOSORBIDE MONONITRATE ER 30 MG TABLET PO SCH (09:02)
[2018-01-07] MEDS: AMLODIPINE 5 MG TABLET PO SCH (09:02)
[2018-01-07] MEDS: SODIUM CHLORIDE FLUSH 10ML SYR IVF SCH ×2 (09:03→20:15)
[2018-01-07] MEDS: MECLIZINE CHEWABLE 25 MG TAB PO SCH ×3 (09:10→21:51)
[2018-01-07] MEDS: KETOROLAC 30 MG/1 ML IVPush SCH ×2 (12:38→18:23)
[2018-01-07] MEDS: ATORVASTATIN 40 MG TABLET PO SCH (21:51)
[2018-01-08] VITALS (7 sets, daily range): BP systolic 113–160; BP diastolic 67–85
[2018-01-08] MEDS: KETOROLAC 30 MG/1 ML IVPush SCH ×2 (01:18→07:42)
[2018-01-08] MEDS: HEPARIN 5,000 UNITS/ML, 1ML SQ SCH ×3 (03:39→18:29)
[2018-01-08] MEDS: POTASSIUM CHLORIDE 20 MEQ TAB.ER.PRT PO SCH (07:43)
[2018-01-08] MEDS: SODIUM CHLORIDE FLUSH 10ML SYR IVF SCH ×2 (09:09→20:13)
[2018-01-08] MEDS: ISOSORBIDE MONONITRATE ER 30 MG TABLET PO SCH (09:11)
[2018-01-08] MEDS: SENNA/DOCUSATE TABLET PO SCH (09:11)
[2018-01-08] MEDS: AMLODIPINE 5 MG TABLET PO SCH (09:11)
[2018-01-08] MEDS: MECLIZINE CHEWABLE 25 MG TAB PO SCH ×3 (09:11→20:12)
[2018-01-08] MEDS ORDERED: CALCIUM CARBONATE 500 MG TAB.CHEW PO PRN (12:00)
[2018-01-08] MEDS: TEMAZEPAM 15 MG CAPSULE PO PRN (20:12)
[2018-01-08] MEDS: ATORVASTATIN 40 MG TABLET PO SCH (20:13)
[2018-01-09] MEDS: HEPARIN 5,000 UNITS/ML, 1ML SQ SCH ×3 (01:59→19:30)
[2018-01-09 02:01] VITALS: BP 168/73
[2018-01-09 08:09] VITALS: BP 179/81
[2018-01-09] MEDS: SODIUM CHLORIDE FLUSH 10ML SYR IVF SCH ×2 (08:23→19:30)
[2018-01-09] MEDS: AMLODIPINE 5 MG TABLET PO SCH (08:24)
[2018-01-09] MEDS: ISOSORBIDE MONONITRATE ER 30 MG TABLET PO SCH (08:24)
[2018-01-09] MEDS: MECLIZINE CHEWABLE 25 MG TAB PO SCH ×3 (08:25→21:00)
[2018-01-09] MEDS: SENNA/DOCUSATE TABLET PO SCH (08:25)
[2018-01-09 09:20] VITALS: BP 115/68
[2018-01-09] MEDS ORDERED: ASA/APAP/ CAFFEINE TABLET ONE (09:49)
[2018-01-09] MEDS: ASA/APAP/ CAFFEINE TABLET PO PRN ×4 (09:53→23:49)
[2018-01-09] MEDS ORDERED: SODIUM CHLORIDE 0.9% 1,000 ML IV SCH (11:00)
[2018-01-09 14:55] VITALS: BP 152/75
[2018-01-09 16:57] VITALS: BP_SYST 107; BP_SYST 125; BP_SYST 130; BP_DIAS 68; BP_DIAS 69; BP_DIAS 72
[2018-01-09] MEDS: SODIUM CHLORIDE 0.9% 1,000 ML IV SCH (17:19)
[2018-01-09 19:34] VITALS: BP 119/68
[2018-01-09] MEDS: ATORVASTATIN 40 MG TABLET PO SCH (21:30)
[2018-01-09] MEDS: TEMAZEPAM 15 MG CAPSULE PO PRN (21:30)
[2018-01-10 02:23] VITALS: BP 117/68
[2018-01-10] MEDS: ONDANSETRON 2MG/ML, 2ML IVPush PRN (03:20)
[2018-01-10] MEDS: HEPARIN 5,000 UNITS/ML, 1ML SQ SCH ×2 (03:22→09:33)
[2018-01-10] MEDS: SODIUM CHLORIDE 0.9% 1,000 ML IV SCH (03:24)
[2018-01-10 06:32] VITALS: BP 161/80
[2018-01-10 06:34] VITALS: BP 161/82
[2018-01-10 06:36] VITALS: BP 151/86
[2018-01-10] MEDS: ISOSORBIDE MONONITRATE ER 30 MG TABLET PO SCH (07:29)
[2018-01-10] MEDS: AMLODIPINE 5 MG TABLET PO SCH (07:29)
[2018-01-10] MEDS: SODIUM CHLORIDE FLUSH 10ML SYR IVF SCH (07:30)
[2018-01-10] MEDS: MECLIZINE CHEWABLE 25 MG TAB PO SCH (07:30)
[2018-01-10] MEDS: SENNA/DOCUSATE TABLET PO SCH (07:31)
[2018-01-10] MEDS ORDERED: SODIUM CHLORIDE 0.9% 1,000 ML IV SCH (11:00)
== END 2018-01-10 12:05 | disposition home health service (06) | DRG 73 ==
LOC: ED 16:26 → EDIP 17:47 → 5SO 18:13 → DCLOUNGE 01-10 11:59
PROVIDERS: ADMIT Family Medicine; ATTEND Hospitalist
PROC: 0T9B70Z Drainage of Bladder with Drainage Device, Via Natural or Artificial Opening (ICD-10-PCS; principal; 2018-01-06)
DX: G90.8 Other disorders of autonomic nervous system (principal); E43 Unspecified severe protein-calorie malnutrition; E87.8 Other disorders of electrolyte and fluid balance, not elsewhere classified; I50.32 Chronic diastolic (congestive) heart failure; I13.0 Hypertensive heart and chronic kidney disease with heart failure and stage 1 through stage 4 chronic kidney disease, or unspecified chronic kidney disease; E87.6 Hypokalemia; Z91.030 Bee allergy status; Z88.2 Allergy status to sulfonamides; Z91.018 Allergy to other foods; E03.9 Hypothyroidism, unspecified; E78.5 Hyperlipidemia, unspecified; F32.9 Major depressive disorder, single episode, unspecified; F41.1 Generalized anxiety disorder; G47.33 Obstructive sleep apnea (adult) (pediatric); I25.10 Atherosclerotic heart disease of native coronary artery without angina pectoris; I69.30 Unspecified sequelae of cerebral infarction; I73.9 Peripheral vascular disease, unspecified; J44.9 Chronic obstructive pulmonary disease, unspecified; K21.9 Gastro-esophageal reflux disease without esophagitis; N18.2 Chronic kidney disease, stage 2 (mild); R62.7 Adult failure to thrive; Z82.49 Family history of ischemic heart disease and other diseases of the circulatory system; Z90.710 Acquired absence of both cervix and uterus; Z95.0 Presence of cardiac pacemaker
CPT/HCPCS: 36415; 71045; 80053; 81003; 83690; 83735; 83880; 84443; 84484; 85025; 93005; 93880; 96374; J1644; J1885; J2405; J0360; J3475; J7030

== ENCOUNTER 2018-01-14 12:41 | Emergency (ER) | payer MEDICARE ==
[~2018-01-14] VITALS: Ht 157.5 cm; Wt 81.4 kg
[~2018-01-14 12:41] MED LIST changes: +HYDR-3343 PO; +MECL-76 PO
[2018-01-14 13:35] LABS: BASOPHILS # (AUTO) 0.04 x10^3/uL (0-0.1); BASOPHILS % (AUTO) 1 % (0-1); EOSINOPHILS # (AUTO) 0.05 x10^3/uL (0-0.4); EOSINOPHILS % (AUTO) 1 % (1-7); LYMPHOCYTES % (AUTO) 34 % (22-44); MD NO; MEAN CORPUSCULAR HEMOGLOBIN 30.4 pg (27.0-34.8); MEAN CORPUSCULAR HGB CONC 32.7 g/dL (32.4-35.8); MEAN CORPUSCULAR VOLUME 92.8 fL (80-100); MEAN PLATELET VOLUME 8.9 fL (7.4-10.4); MONOCYTES # (AUTO) 0.34 x10^3/uL (0.2-0.8); MONOCYTES % (AUTO) 7 % (2-9); NEUTROPHILS # (AUTO) 2.64 x10^3/uL (1.8-6.8); NEUTROPHILS % (AUTO) 57 % (42-75); PLATELET COUNT 192 x10^3/uL (130-400); RED BLOOD COUNT 4.46 x10^6/uL (3.82-5.3)
[2018-01-14 13:40] LABS: INTERNATIONAL NORMALIZED RATIO 0.96 (0.93-1.1)
[2018-01-14 13:44] LABS: ALBUMIN 3.5 g/dL (3.4-5.0); ANION GAP 7 mmol/L (5-15); CALCIUM 8.3 mg/dL (8.5-10.1); CHLORIDE 115 mmol/L (98-107); CREATININE 1.03 mg/dL (0.55-1.02)
[2018-01-14 14:03] LABS: TROPONIN I < 0.015 ng/mL (0.000-0.045)
[2018-01-14 14:06] VITALS: BP 193/96
[2018-01-14] MEDS ORDERED: AMLODIPINE 5 MG TABLET PO ONE (14:30)
[2018-01-14] MEDS ORDERED: AMLODIPINE 5 MG TABLET ONE (14:41)
== END 2018-01-14 15:06 | disposition home or self-care (01) ==
LOC: ED 13:00
DX: R07.89 Other chest pain (principal); R06.00 Dyspnea, unspecified; J44.9 Chronic obstructive pulmonary disease, unspecified; E03.9 Hypothyroidism, unspecified; I25.10 Atherosclerotic heart disease of native coronary artery without angina pectoris; Z86.73 Personal history of transient ischemic attack (TIA), and cerebral infarction without residual deficits; E78.5 Hyperlipidemia, unspecified; I11.0 Hypertensive heart disease with heart failure; I50.9 Heart failure, unspecified; K21.9 Gastro-esophageal reflux disease without esophagitis; Z90.710 Acquired absence of both cervix and uterus
CPT/HCPCS: 36415; 71045; 80048; 82040; 84484; 85025; 85610; 85730; 93005; 99285

== ENCOUNTER 2018-01-18 17:46 | Emergency (ER) | payer MEDICARE ==
[~2018-01-18] VITALS: Ht 162.6 cm; Wt 80.0 kg
[2018-01-18] MEDS ORDERED: PLEASE ENTER HEIGHT AND WEIGHT MC SCH (18:00)
[2018-01-18] MEDS ORDERED: LORazepam 1MG TABLET PO ONE (18:00)
[2018-01-18 18:18] LABS: BASOPHILS # (AUTO) 0.03 x10^3/uL (0-0.1); BASOPHILS % (AUTO) 0 % (0-1); EOSINOPHILS # (AUTO) 0.04 x10^3/uL (0-0.4); EOSINOPHILS % (AUTO) 1 % (1-7); LYMPHOCYTES # (AUTO) 1.79 x10^3/uL (1-3.4); LYMPHOCYTES % (AUTO) 29 % (22-44); MD NO; MEAN CORPUSCULAR HGB CONC 33.4 g/dL (32.4-35.8); MEAN CORPUSCULAR VOLUME 92.8 fL (80-100); MONOCYTES # (AUTO) 0.43 x10^3/uL (0.2-0.8); MONOCYTES % (AUTO) 7 % (2-9); NEUTROPHILS # (AUTO) 3.97 x10^3/uL (1.8-6.8); NEUTROPHILS % (AUTO) 64 % (42-75); PLATELET COUNT 229 x10^3/uL (130-400); RED BLOOD COUNT 4.76 x10^6/uL (3.82-5.3); RED CELL DISTRIBUTION WIDTH 15.9 % (9.6-15.2)
[2018-01-18 18:26] LABS: ALANINE AMINOTRANSFERASE 15 U/L (12-78); ANION GAP 13 mmol/L (5-15); CHLORIDE 110 mmol/L (98-107)
[2018-01-18 18:31] LABS: ALKALINE PHOSPHATASE 38 U/L (45-117); BILIRUBIN,TOTAL 0.4 mg/dL (0.2-1.0); TOTAL PROTEIN 7.3 g/dL (6.4-8.2); TROPONIN I < 0.015 ng/mL (0.000-0.045)
[2018-01-18] MEDS ORDERED: LORazepam 1MG TABLET ONE (18:33)
[2018-01-18 18:37] VITALS: BP 171/77
[2018-01-18 18:38] LABS: MICROSCOPIC AUTO
[2018-01-18 18:48] LABS: CULTURE INDICATED? YES
== END 2018-01-18 19:32 | disposition home or self-care (01) ==
LOC: ED 18:33
DX: N30.00 Acute cystitis without hematuria (principal); F41.1 Generalized anxiety disorder; K21.9 Gastro-esophageal reflux disease without esophagitis; J44.9 Chronic obstructive pulmonary disease, unspecified; E03.9 Hypothyroidism, unspecified; I13.0 Hypertensive heart and chronic kidney disease with heart failure and stage 1 through stage 4 chronic kidney disease, or unspecified chronic kidney disease; N18.2 Chronic kidney disease, stage 2 (mild); I50.9 Heart failure, unspecified; Z86.73 Personal history of transient ischemic attack (TIA), and cerebral infarction without residual deficits; I25.10 Atherosclerotic heart disease of native coronary artery without angina pectoris; Z90.49 Acquired absence of other specified parts of digestive tract; Z90.710 Acquired absence of both cervix and uterus
CPT/HCPCS: 36415; 71045; 74018; 80053; 81001; 82140; 83690; 83880; 84484; 85025; 87086; 93005; 99285

== ENCOUNTER 2018-01-25 16:38 | Inpatient (IN) | payer MEDICARE ==
[~2018-01-25] VITALS: Ht 157.5 cm; Wt 79.1 kg
[2018-01-25] MEDS ORDERED: SODIUM CHLORIDE FLUSH 10ML SYR IVF ONE ×2 (17:00)
[2018-01-25 17:41] LABS: ALBUMIN 3.4 g/dL (3.4-5.0); ANION GAP 10 mmol/L (5-15); CALCIUM 8.3 mg/dL (8.5-10.1); CHLORIDE 115 mmol/L (98-107)
[2018-01-25 17:47] LABS: ALANINE AMINOTRANSFERASE 18 U/L (12-78); ALKALINE PHOSPHATASE 33 U/L (45-117); BILIRUBIN,TOTAL 0.4 mg/dL (0.2-1.0); CREATININE 1.18 mg/dL (0.55-1.02); TOTAL PROTEIN 6.4 g/dL (6.4-8.2); TROPONIN I < 0.015 ng/mL (0.000-0.045)
[2018-01-25] MEDS ORDERED: MECLIZINE CHEWABLE 25 MG TAB ONE (18:11)
[2018-01-25] MEDS ORDERED: MECLIZINE CHEWABLE 25 MG TAB PO ONE (18:30)
[2018-01-25 19:18] LABS: MICROSCOPIC INDICATED
[2018-01-25 19:21] LABS: CULTURE INDICATED? YES
[2018-01-25 19:44] LABS: BASOPHILS # (AUTO) 0.03 x10^3/uL (0-0.1); BASOPHILS % (AUTO) 1 % (0-1); EOSINOPHILS # (AUTO) 0.07 x10^3/uL (0-0.4); EOSINOPHILS % (AUTO) 2 % (1-7); LYMPHOCYTES # (AUTO) 1.62 x10^3/uL (1-3.4); LYMPHOCYTES % (AUTO) 36 % (22-44); MD NO; MEAN CORPUSCULAR HEMOGLOBIN 30.7 pg (27.0-34.8); MEAN CORPUSCULAR HGB CONC 33.1 g/dL (32.4-35.8); MEAN CORPUSCULAR VOLUME 92.8 fL (80-100); MEAN PLATELET VOLUME 9.1 fL (7.4-10.4); MONOCYTES # (AUTO) 0.38 x10^3/uL (0.2-0.8); MONOCYTES % (AUTO) 9 % (2-9); NEUTROPHILS # (AUTO) 2.35 x10^3/uL (1.8-6.8); NEUTROPHILS % (AUTO) 53 % (42-75); PLATELET COUNT 196 x10^3/uL (130-400); RED BLOOD COUNT 4.85 x10^6/uL (3.82-5.3); RED CELL DISTRIBUTION WIDTH 16.1 % (9.6-15.2)
[2018-01-25] MEDS ORDERED: hydrALAzine 20 MG/ML, 1ML IVPush PRN (21:30)
[2018-01-25] MEDS ORDERED: ACETAMINOPHEN 325 MG TABLET PO PRN (21:30)
[2018-01-25] MEDS ORDERED: KETOROLAC 30 MG/1 ML IVPush SCH (23:00)
[2018-01-25] MEDS: KETOROLAC 30 MG/1 ML IVPush PRN (23:09)
[2018-01-25] MEDS: HEPARIN 5,000 UNITS/ML, 1ML SQ SCH (23:10)
[2018-01-25] MEDS: ONDANSETRON 4 MG TABLET PO PRN (23:10)
[2018-01-25] MEDS: SODIUM CHLORIDE 0.9% 1,000 ML IV SCH (23:10)
[2018-01-25] MEDS: ATORVASTATIN 40 MG TABLET PO SCH (23:10)
[2018-01-25 23:19] VITALS: BP_SYST 167; BP_SYST 172; BP_SYST 175; BP_DIAS 80; BP_DIAS 84; BP_DIAS 89
[2018-01-26] VITALS (7 sets, daily range): BP systolic 110–177; BP diastolic 66–82
[2018-01-26 06:07] LABS: ALANINE AMINOTRANSFERASE 15 U/L (12-78); ALBUMIN 2.9 g/dL (3.4-5.0); ANION GAP 8 mmol/L (5-15); CALCIUM 7.9 mg/dL (8.5-10.1); CHLORIDE 115 mmol/L (98-107)
[2018-01-26 06:19] LABS: ALKALINE PHOSPHATASE 31 U/L (45-117); BILIRUBIN,TOTAL 0.4 mg/dL (0.2-1.0); CREATININE 0.88 mg/dL (0.55-1.02); TOTAL PROTEIN 5.6 g/dL (6.4-8.2)
[2018-01-26 06:23] LABS: BASOPHILS # (AUTO) 0.03 x10^3/uL (0-0.1); BASOPHILS % (AUTO) 1 % (0-1); EOSINOPHILS # (AUTO) 0.07 x10^3/uL (0-0.4); EOSINOPHILS % (AUTO) 2 % (1-7); LYMPHOCYTES # (AUTO) 1.76 x10^3/uL (1-3.4); LYMPHOCYTES % (AUTO) 45 % (22-44); MD NO; MEAN CORPUSCULAR HEMOGLOBIN 30.7 pg (27.0-34.8); MEAN CORPUSCULAR VOLUME 93.1 fL (80-100); MEAN PLATELET VOLUME 9.3 fL (7.4-10.4); MONOCYTES # (AUTO) 0.33 x10^3/uL (0.2-0.8); MONOCYTES % (AUTO) 9 % (2-9); NEUTROPHILS % (AUTO) 44 % (42-75); PLATELET COUNT 172 x10^3/uL (130-400); RED BLOOD COUNT 4.12 x10^6/uL (3.82-5.3); RED CELL DISTRIBUTION WIDTH 16.2 % (9.6-15.2)
[2018-01-26] MEDS: KETOROLAC 30 MG/1 ML IVPush PRN (06:31)
[2018-01-26] MEDS: HEPARIN 5,000 UNITS/ML, 1ML SQ SCH ×3 (07:00→23:00)
[2018-01-26] MEDS: SODIUM CHLORIDE 0.9% 1,000 ML IV SCH ×3 (07:15→22:00)
[2018-01-26] MEDS: MECLIZINE CHEWABLE 25 MG TAB PO SCH ×4 (09:00→21:52)
[2018-01-26] MEDS: ISOSORBIDE MONONITRATE ER 30 MG TABLET PO SCH (09:00)
[2018-01-26] MEDS: AMLODIPINE 5 MG TABLET PO SCH (09:00)
[2018-01-26] MEDS: IBUPROFEN 200 MG TABLET PO PRN ×3 (11:06→23:22)
[2018-01-26] MEDS: ATORVASTATIN 40 MG TABLET PO SCH (21:52)
[2018-01-27 01:36] VITALS: BP 182/81
[2018-01-27 01:55] VITALS: BP 169/73
[2018-01-27 07:56] VITALS: BP 158/78
[2018-01-27] MEDS: HEPARIN 5,000 UNITS/ML, 1ML SQ SCH ×2 (09:00→17:00)
[2018-01-27] MEDS: SODIUM CHLORIDE 0.9% 1,000 ML IV SCH ×2 (09:19→20:30)
[2018-01-27] MEDS: ISOSORBIDE MONONITRATE ER 30 MG TABLET PO SCH (09:20)
[2018-01-27] MEDS: MECLIZINE CHEWABLE 25 MG TAB PO SCH ×3 (09:20→21:09)
[2018-01-27] MEDS: IBUPROFEN 200 MG TABLET PO PRN (09:20)
[2018-01-27] MEDS: AMLODIPINE 5 MG TABLET PO SCH (09:20)
[2018-01-27 13:17] VITALS: BP 159/71
[2018-01-27 16:43] LABS: MICROSCOPIC NOT IND
[2018-01-27 17:04] LABS: CULTURE INDICATED? NO
[2018-01-27] MEDS: HYDROcodone/APAP 5/325 TABLET PO PRN ×2 (17:16→23:36)
[2018-01-27 20:04] VITALS: BP 184/78
[2018-01-27] MEDS: ONDANSETRON 4 MG TABLET PO PRN (20:27)
[2018-01-27] MEDS: ATORVASTATIN 40 MG TABLET PO SCH (21:09)
[2018-01-27 21:12] VITALS: BP 143/78
[2018-01-28] MEDS: HEPARIN 5,000 UNITS/ML, 1ML SQ SCH ×3 (01:00→16:05)
[2018-01-28 02:56] VITALS: BP 164/82
[2018-01-28] MEDS: KETOROLAC 30 MG/1 ML IVPush PRN (03:37)
[2018-01-28] MEDS: SODIUM CHLORIDE 0.9% 1,000 ML IV SCH ×2 (06:40→16:05)
[2018-01-28 07:44] VITALS: BP 159/78
[2018-01-28] MEDS: HYDROcodone/APAP 5/325 TABLET PO PRN ×2 (08:11→16:22)
[2018-01-28] MEDS: ONDANSETRON 4 MG TABLET PO PRN (08:11)
[2018-01-28] MEDS: AMLODIPINE 5 MG TABLET PO SCH (10:25)
[2018-01-28] MEDS: ISOSORBIDE MONONITRATE ER 30 MG TABLET PO SCH (10:25)
[2018-01-28] MEDS: MECLIZINE CHEWABLE 25 MG TAB PO SCH ×2 (10:26→16:22)
[2018-01-28] MEDS: IBUPROFEN 200 MG TABLET PO PRN (14:37)
== END 2018-01-28 17:46 | disposition home or self-care (01) | DRG 312 ==
LOC: ED 20:41 → EDIP 21:03 → 4EST 21:36
PROVIDERS: ADMIT Hospitalist; ATTEND Family Medicine
DX: R55 Syncope and collapse (principal); I11.0 Hypertensive heart disease with heart failure; I50.32 Chronic diastolic (congestive) heart failure; R53.1 Weakness; E78.5 Hyperlipidemia, unspecified; F32.9 Major depressive disorder, single episode, unspecified; R51 Headache; Z60.2 Problems related to living alone; F60.3 Borderline personality disorder; F43.10 Post-traumatic stress disorder, unspecified; G47.33 Obstructive sleep apnea (adult) (pediatric); I73.9 Peripheral vascular disease, unspecified; F09 Unspecified mental disorder due to known physiological condition; H53.149 Visual discomfort, unspecified; Z90.49 Acquired absence of other specified parts of digestive tract; Z91.19 Patient's noncompliance with other medical treatment and regimen; Z95.0 Presence of cardiac pacemaker; Z80.1 Family history of malignant neoplasm of trachea, bronchus and lung; Z90.710 Acquired absence of both cervix and uterus; Z91.030 Bee allergy status; Z88.2 Allergy status to sulfonamides; Z91.018 Allergy to other foods
CPT/HCPCS: 36415; 70450; 71045; 80053; 81001; 81003; 83735; 83880; 84100; 84484; 85025; 87086; 93005; 99285; J1644; J1885; Q0162; 92523-GN; G0515-GN; J7030

== ENCOUNTER 2018-06-18 11:04 | Emergency (ER) | payer MEDICARE ==
[~2018-06-18 11:04] MED LIST changes: -CITA20TA5 PO; +CITA20TA6 PO
[2018-06-18] MEDS ORDERED: SODIUM CHLORIDE FLUSH 10ML SYR IVF ONE (11:30)
[2018-06-18] MEDS ORDERED: LORazepam 2 MG/ML, 1ML IVPush ONE (11:30)
[2018-06-18] MEDS ORDERED: LORazepam 2 MG/ML, 1ML ONE (11:48)
[2018-06-18 11:54] LABS: BASOPHILS # (AUTO) 0.02 x10^3/uL (0-0.1); BASOPHILS % (AUTO) 1 % (0-1); EOSINOPHILS # (AUTO) 0.09 x10^3/uL (0-0.4); EOSINOPHILS % (AUTO) 3 % (1-7); LYMPHOCYTES # (AUTO) 1.25 x10^3/uL (1-3.4); LYMPHOCYTES % (AUTO) 41 % (22-44); MD NO; MEAN CORPUSCULAR HEMOGLOBIN 30.9 pg (27.0-34.8); MEAN CORPUSCULAR HGB CONC 34.1 g/dL (32.4-35.8); MEAN CORPUSCULAR VOLUME 90.8 fL (80-100); MEAN PLATELET VOLUME 8.6 fL (7.4-10.4); MONOCYTES # (AUTO) 0.35 x10^3/uL (0.2-0.8); MONOCYTES % (AUTO) 11 % (2-9); NEUTROPHILS # (AUTO) 1.37 x10^3/uL (1.8-6.8); NEUTROPHILS % (AUTO) 45 % (42-75); PLATELET COUNT 193 x10^3/uL (130-400); RED BLOOD COUNT 3.88 x10^6/uL (3.82-5.3); RED CELL DISTRIBUTION WIDTH 14.5 % (9.6-15.2)
[2018-06-18 12:05] LABS: ALANINE AMINOTRANSFERASE 13 U/L (12-78); ALBUMIN 3.6 g/dL (3.4-5.0); ANION GAP 11 mmol/L (5-15); CALCIUM 8.8 mg/dL (8.5-10.1); CHLORIDE 112 mmol/L (98-107); CREATININE 1.27 mg/dL (0.55-1.02)
[2018-06-18 12:09] LABS: ALKALINE PHOSPHATASE 51 U/L (45-117); BILIRUBIN,TOTAL 0.5 mg/dL (0.2-1.0); TOTAL PROTEIN 6.6 g/dL (6.4-8.2); TROPONIN I < 0.015 ng/mL (0.000-0.045)
[2018-06-18] MEDS ORDERED: LEVO100T5 PO (13:56)
[2018-06-18] MEDS ORDERED: OMEP40CA6 PO (13:56)
[2018-06-18] MEDS ORDERED: HYDROXYZINE HCL PO (13:56)
[2018-06-18] MEDS ORDERED: IBUPROFEN PO (13:56)
[2018-06-18] MEDS ORDERED: LEVOTHYROXINE PO (13:56)
[2018-06-18] MEDS ORDERED: METHOCARBAMOL PO (13:56)
[2018-06-18] MEDS ORDERED: MAGNESIUM OXIDE PO (13:56)
[2018-06-18] MEDS ORDERED: ASPI-650 PO (13:56)
[2018-06-18] MEDS ORDERED: CARV12.52 PO (13:56)
[2018-06-18] MEDS ORDERED: OMNIPAQUE 350 MG/ML, 100ML BOTTLE ONE (14:04)
[2018-06-18 14:22] VITALS: BP 179/85
== END 2018-06-18 14:54 | disposition home or self-care (01) ==
LOC: ED 14:51
DX: R07.89 Other chest pain (principal); J44.9 Chronic obstructive pulmonary disease, unspecified; K21.9 Gastro-esophageal reflux disease without esophagitis; E78.5 Hyperlipidemia, unspecified; I13.0 Hypertensive heart and chronic kidney disease with heart failure and stage 1 through stage 4 chronic kidney disease, or unspecified chronic kidney disease; N18.2 Chronic kidney disease, stage 2 (mild); I50.9 Heart failure, unspecified; F32.9 Major depressive disorder, single episode, unspecified; E03.9 Hypothyroidism, unspecified; Z86.73 Personal history of transient ischemic attack (TIA), and cerebral infarction without residual deficits; Z88.1 Allergy status to other antibiotic agents
CPT/HCPCS: 36415; 71045; 71275; 80053; 83880; 84484; 85025; 85379; 93005; 96374; 99285; J2060; Q9967

== ENCOUNTER 2018-06-23 14:22 | Observation (INO) | payer MEDICARE ==
[~2018-06-23] VITALS: Ht 157.5 cm; Wt 78.2 kg
[~2018-06-23 14:22] MED LIST changes: -AMLO10TA2 PO; +AMLO10TA6 PO; -AMLO5TAB2 PO; +AMLO5TAB7 PO; +ASPI-650 PO; +CARV12.52 PO; +HYDROXYZINE HCL PO; +IBUPROFEN PO; +LEVOTHYROXINE PO; +MAGNESIUM OXIDE PO; +METHOCARBAMOL PO; +OMEP40CA6 PO; -RAMI10CA PO; +RAMI10CA59 PO
[2018-06-23] MEDS ORDERED: SODIUM CHLORIDE FLUSH 10ML SYR IVF ONE (15:00)
[2018-06-23] MEDS ORDERED: ASPIRIN 81 MG TABLET CHEW PO ONE (15:00)
[2018-06-23] MEDS ORDERED: NITROGLYCERIN SINGLE TAB 0.4 MG SL ONE (15:01)
[2018-06-23] MEDS ORDERED: MORPHINE SULFATE 4 MG/ML, 1ML ONE ×2 (15:02→15:45)
[2018-06-23] MEDS: NITROGLYCERIN SINGLE TAB 0.4 MG SL PRN ×3 (15:04→15:18)
[2018-06-23 15:25] LABS: BASOPHILS # (AUTO) 0.02 x10^3/uL (0-0.1); BASOPHILS % (AUTO) 1 % (0-1); EOSINOPHILS # (AUTO) 0.08 x10^3/uL (0-0.4); EOSINOPHILS % (AUTO) 2 % (1-7); LYMPHOCYTES # (AUTO) 1.34 x10^3/uL (1-3.4); LYMPHOCYTES % (AUTO) 38 % (22-44); MD NO; MEAN CORPUSCULAR HEMOGLOBIN 30.7 pg (27.0-34.8); MEAN CORPUSCULAR VOLUME 90.2 fL (80-100); MEAN PLATELET VOLUME 8.5 fL (7.4-10.4); MONOCYTES # (AUTO) 0.32 x10^3/uL (0.2-0.8); MONOCYTES % (AUTO) 9 % (2-9); NEUTROPHILS # (AUTO) 1.82 x10^3/uL (1.8-6.8); NEUTROPHILS % (AUTO) 51 % (42-75); PLATELET COUNT 228 x10^3/uL (130-400); RED BLOOD COUNT 4.26 x10^6/uL (3.82-5.3); RED CELL DISTRIBUTION WIDTH 14.4 % (9.6-15.2)
[2018-06-23 15:31] LABS: ALANINE AMINOTRANSFERASE 12 U/L (12-78); ALBUMIN 3.7 g/dL (3.4-5.0); ANION GAP 11 mmol/L (5-15); CALCIUM 8.7 mg/dL (8.5-10.1); CHLORIDE 113 mmol/L (98-107); CREATININE 1.17 mg/dL (0.55-1.02)
[2018-06-23 15:35] LABS: ALKALINE PHOSPHATASE 51 U/L (45-117); BILIRUBIN,TOTAL 0.4 mg/dL (0.2-1.0); TOTAL PROTEIN 6.7 g/dL (6.4-8.2); TROPONIN I < 0.015 ng/mL (0.000-0.045)
[2018-06-23] MEDS: MORPHINE SULFATE 4 MG/ML, 1ML IVPush PRN ×2 (15:38→15:48)
[2018-06-23 15:39] LABS: INTERNATIONAL NORMALIZED RATIO 0.95 (0.93-1.1); PROTHROMBIN TIME 9.9 Seconds (9.6-11.5)
[2018-06-23] MEDS ORDERED: ACETAMINOPHEN 325 MG TABLET PO PRN (16:30)
[2018-06-23] MEDS ORDERED: POLYETHYLENE GLYCOL 17 GM PACKET PO PRN (16:30)
[2018-06-23] MEDS ORDERED: POTASSIUM CHLORIDE 20 MEQ TAB.ER.PRT ONE (16:52)
[2018-06-23] MEDS: SODIUM CHLORIDE 0.9% 1,000 ML IV SCH (16:59)
[2018-06-23] MEDS ORDERED: POTASSIUM CHLORIDE 20 MEQ TAB.ER.PRT PO ONE (17:00)
[2018-06-23 17:40] VITALS: BP 179/96
[2018-06-23] MEDS ORDERED: HYDR25TA11 PO (18:20)
[2018-06-23] MEDS ORDERED: ASPI-621 PO (18:20)
[2018-06-23] MEDS ORDERED: HYDR-3237 PO (18:21)
[2018-06-23] MEDS ORDERED: KETOROLAC 30 MG/1 ML IVPush ONE (19:00)
[2018-06-23 19:17] VITALS: BP 171/100
[2018-06-23] MEDS: hydrALAzine 20 MG/ML, 1ML IVPush PRN (20:35)
[2018-06-23] MEDS: HYDROcodone/APAP 5/325 TABLET PO PRN (21:31)
[2018-06-23] MEDS: MECLIZINE 12.5 MG TABLET PO SCH (21:31)
[2018-06-23 21:37] VITALS: BP 197/97
[2018-06-23] MEDS: CARVEDILOL 12.5 MG TABLET PO SCH (21:38)
[2018-06-23 22:19] VITALS: BP 156/78
[2018-06-23] MEDS ORDERED: ONDANSETRON 4 MG TABLET PO PRN (23:30)
[2018-06-23] MEDS ORDERED: KETOROLAC 30 MG/1 ML IV SCH (23:30)
[2018-06-23 23:31] LABS: TROPONIN I < 0.015 ng/mL (0.000-0.045)
[2018-06-23] MEDS: CALCIUM CARBONATE 500 MG TAB.CHEW PO PRN (23:33)
[2018-06-24 01:18] VITALS: BP 144/75
[2018-06-24] MEDS: SODIUM CHLORIDE 0.9% 1,000 ML IV SCH ×2 (02:21→13:30)
[2018-06-24] MEDS: HYDROcodone/APAP 5/325 TABLET PO PRN ×3 (05:33→19:49)
[2018-06-24 06:01] LABS: TROPONIN I < 0.015 ng/mL (0.000-0.045)
[2018-06-24] MEDS: CALCIUM CARBONATE 500 MG TAB.CHEW PO PRN (06:34)
[2018-06-24 08:20] VITALS: BP 202/97
[2018-06-24] MEDS: AMLODIPINE 10 MG TAB PO SCH (08:44)
[2018-06-24] MEDS: MECLIZINE 12.5 MG TABLET PO SCH ×2 (08:44→21:21)
[2018-06-24] MEDS: LEVOTHYROXINE 100 MCG TABLET PO SCH (08:45)
[2018-06-24] MEDS: ASPIRIN 81 MG TABLET EC PO SCH (08:45)
[2018-06-24] MEDS: CARVEDILOL 12.5 MG TABLET PO SCH ×2 (08:45→21:21)
[2018-06-24] MEDS: OMEPRAZOLE 20 MG CAPSULE.DR PO SCH (08:45)
[2018-06-24 11:12] VITALS: BP 197/75
[2018-06-24] MEDS: hydrALAzine 20 MG/ML, 1ML IVPush PRN (11:23)
[2018-06-24 12:06] VITALS: BP 148/64
[2018-06-24 13:07] VITALS: BP 157/79
[2018-06-24 15:29] LABS: CULTURE INDICATED? NO; MICROSCOPIC NOT IND
[2018-06-24] MEDS: DOCUSATE 100 MG CAPSULE PO PRN (16:16)
[2018-06-24 19:40] VITALS: BP 148/81
[2018-06-25 00:31] VITALS: BP 157/78
[2018-06-25] MEDS: SODIUM CHLORIDE 0.9% 1,000 ML IV SCH ×3 (01:08→21:00)
[2018-06-25] MEDS: HYDROcodone/APAP 5/325 TABLET PO PRN ×4 (01:52→21:13)
[2018-06-25] MEDS: CALCIUM CARBONATE 500 MG TAB.CHEW PO PRN (03:01)
[2018-06-25 07:22] VITALS: BP 165/81
[2018-06-25] MEDS: AMLODIPINE 10 MG TAB PO SCH (07:59)
[2018-06-25] MEDS: ASPIRIN 81 MG TABLET EC PO SCH (07:59)
[2018-06-25] MEDS: OMEPRAZOLE 20 MG CAPSULE.DR PO SCH (07:59)
[2018-06-25] MEDS: LEVOTHYROXINE 100 MCG TABLET PO SCH (07:59)
[2018-06-25] MEDS: MECLIZINE 12.5 MG TABLET PO SCH ×2 (08:00→21:14)
[2018-06-25] MEDS: CARVEDILOL 12.5 MG TABLET PO SCH ×2 (08:00→21:12)
[2018-06-25 09:27] LABS: ALANINE AMINOTRANSFERASE 12 U/L (12-78); ALBUMIN 2.9 g/dL (3.4-5.0); ANION GAP 9 mmol/L (5-15); CHLORIDE 115 mmol/L (98-107)
[2018-06-25 09:30] LABS: ALKALINE PHOSPHATASE 46 U/L (45-117); BILIRUBIN,TOTAL 0.3 mg/dL (0.2-1.0); CREATININE 0.87 mg/dL (0.55-1.02); TOTAL PROTEIN 5.4 g/dL (6.4-8.2)
[2018-06-25 10:07] VITALS: BP_SYST 115; BP_SYST 129; BP_SYST 134; BP_DIAS 69; BP_DIAS 70
[2018-06-25] MEDS ORDERED: OMNIPAQUE 350 MG/ML, 100ML BOTTLE ONE (10:51)
[2018-06-25 12:44] VITALS: BP 150/82
[2018-06-25 19:00] VITALS: BP 180/91
[2018-06-25] MEDS ORDERED: ATORVASTATIN 40 MG TABLET PO SCH (21:00)
[2018-06-25] MEDS: DOCUSATE 100 MG CAPSULE PO PRN (21:14)
[2018-06-26 01:42] VITALS: BP 147/70
[2018-06-26 02:18] VITALS: BP 156/83
[2018-06-26] MEDS: HYDROcodone/APAP 5/325 TABLET PO PRN (04:26)
[2018-06-26 05:02] LABS: BASOPHILS # (AUTO) 0.03 x10^3/uL (0-0.1); BASOPHILS % (AUTO) 1 % (0-1); EOSINOPHILS # (AUTO) 0.13 x10^3/uL (0-0.4); EOSINOPHILS % (AUTO) 4 % (1-7); LYMPHOCYTES # (AUTO) 1.55 x10^3/uL (1-3.4); LYMPHOCYTES % (AUTO) 47 % (22-44); MD NO; MEAN CORPUSCULAR HEMOGLOBIN 30.1 pg (27.0-34.8); MEAN CORPUSCULAR HGB CONC 32.9 g/dL (32.4-35.8); MEAN CORPUSCULAR VOLUME 91.4 fL (80-100); MEAN PLATELET VOLUME 8.3 fL (7.4-10.4); MONOCYTES # (AUTO) 0.37 x10^3/uL (0.2-0.8); MONOCYTES % (AUTO) 12 % (2-9); NEUTROPHILS # (AUTO) 1.19 x10^3/uL (1.8-6.8); NEUTROPHILS % (AUTO) 37 % (42-75); PLATELET COUNT 209 x10^3/uL (130-400); RED BLOOD COUNT 4.13 x10^6/uL (3.82-5.3); RED CELL DISTRIBUTION WIDTH 14.6 % (9.6-15.2)
[2018-06-26 05:06] LABS: ALBUMIN 3.2 g/dL (3.4-5.0); ANION GAP 9 mmol/L (5-15); CALCIUM 8.6 mg/dL (8.5-10.1); CHLORIDE 117 mmol/L (98-107)
[2018-06-26] MEDS ORDERED: LEVOTHYROXINE 100 MCG TABLET PO SCH (06:00)
[2018-06-26 07:21] VITALS: BP 171/77
[2018-06-26] MEDS: AMLODIPINE 10 MG TAB PO SCH (08:26)
[2018-06-26] MEDS: CARVEDILOL 12.5 MG TABLET PO SCH (08:27)
[2018-06-26] MEDS: ASPIRIN 81 MG TABLET EC PO SCH (08:27)
[2018-06-26] MEDS: OMEPRAZOLE 20 MG CAPSULE.DR PO SCH (08:27)
[2018-06-26] MEDS: MECLIZINE 12.5 MG TABLET PO SCH (08:27)
[2018-06-26] MEDS ORDERED: KETOROLAC 30 MG/1 ML IVPush ONE (08:30)
[2018-06-26] MEDS ORDERED: HYDROcodone/APAP 5/325 TABLET PO PRN (10:30)
[2018-06-26 11:01] LABS: TROPONIN I < 0.015 ng/mL (0.000-0.045)
[2018-06-26 13:16] VITALS: BP 121/69
[2018-06-26] MEDS ORDERED: POLY17PO5 PO (15:07)
[2018-06-26] MEDS ORDERED: ATOR40TA78 PO (15:10)
== END 2018-06-26 16:15 | disposition home or self-care (01) ==
LOC: ED 16:18 → SUATTDRO 16:18 → ORIP 16:19 → ED 17:08 → 5SO 17:27 → 3NE 06-24 12:49
PROVIDERS: ADMIT Hospitalist; ATTEND Hospitalist
DX: R07.89 Other chest pain (principal); E03.9 Hypothyroidism, unspecified; E78.5 Hyperlipidemia, unspecified; G47.33 Obstructive sleep apnea (adult) (pediatric); I13.0 Hypertensive heart and chronic kidney disease with heart failure and stage 1 through stage 4 chronic kidney disease, or unspecified chronic kidney disease; I50.9 Heart failure, unspecified; N18.2 Chronic kidney disease, stage 2 (mild); I25.10 Atherosclerotic heart disease of native coronary artery without angina pectoris; I73.9 Peripheral vascular disease, unspecified; J44.9 Chronic obstructive pulmonary disease, unspecified; K21.9 Gastro-esophageal reflux disease without esophagitis; K59.00 Constipation, unspecified; K92.0 Hematemesis; Z86.73 Personal history of transient ischemic attack (TIA), and cerebral infarction without residual deficits; Z95.0 Presence of cardiac pacemaker
CPT/HCPCS: 36415; 70450; 71045; 72126; 72129; 72132; 74018; 80048; 80053; 81003; 82040; 83880; 84439; 84443; 84484; 85025; 85610; 86850; 86900; 92523; 93005; 93308; 93880; 96374; 96375; 96376; 97162; 97166; 99285; G0378; J0360; J1885; J7030; Q0177; Q9967

== ENCOUNTER 2018-07-02 20:46 | Inpatient (IN) | payer MEDICARE ==
[~2018-07-02] VITALS: Ht 167.6 cm; Wt 80.1 kg
[~2018-07-02 20:46] MED LIST changes: +ASPI-621 PO; +HYDR25TA11 PO
[2018-07-02] MEDS ORDERED: ASPIRIN 81 MG TABLET CHEW ONE (21:17)
[2018-07-02] MEDS ORDERED: ONDANSETRON ODT 4 MG ONE (21:17)
[2018-07-02 21:29] LABS: BASOPHILS # (AUTO) 0.04 x10^3/uL (0-0.1); BASOPHILS % (AUTO) 1 % (0-1); EOSINOPHILS # (AUTO) 0.09 x10^3/uL (0-0.4); EOSINOPHILS % (AUTO) 3 % (1-7); LYMPHOCYTES # (AUTO) 1.59 x10^3/uL (1-3.4); LYMPHOCYTES % (AUTO) 46 % (22-44); MD NO; MEAN CORPUSCULAR HEMOGLOBIN 30.7 pg (27.0-34.8); MEAN CORPUSCULAR VOLUME 90.3 fL (80-100); MEAN PLATELET VOLUME 8.4 fL (7.4-10.4); MONOCYTES # (AUTO) 0.33 x10^3/uL (0.2-0.8); MONOCYTES % (AUTO) 10 % (2-9); NEUTROPHILS # (AUTO) 1.38 x10^3/uL (1.8-6.8); NEUTROPHILS % (AUTO) 40 % (42-75); PLATELET COUNT 222 x10^3/uL (130-400); RED BLOOD COUNT 3.85 x10^6/uL (3.82-5.3); RED CELL DISTRIBUTION WIDTH 14.6 % (9.6-15.2)
[2018-07-02] MEDS ORDERED: SODIUM CHLORIDE FLUSH 10ML SYR IVF ONE (21:30)
[2018-07-02] MEDS ORDERED: ASPIRIN 81 MG TABLET CHEW PO ONE (21:30)
[2018-07-02] MEDS ORDERED: SODIUM CHLORIDE 0.9% 1,000ML IVBOLUS ONE (21:30)
[2018-07-02] MEDS ORDERED: ONDANSETRON ODT 4 MG PO ONE (21:30)
[2018-07-02 21:39] LABS: ALANINE AMINOTRANSFERASE 13 U/L (12-78); ALBUMIN 2.9 g/dL (3.4-5.0); ANION GAP 5 mmol/L (5-15); CALCIUM 7.9 mg/dL (8.5-10.1); CHLORIDE 117 mmol/L (98-107)
[2018-07-02 21:43] LABS: ALKALINE PHOSPHATASE 44 U/L (45-117); BILIRUBIN,TOTAL 0.2 mg/dL (0.2-1.0); TOTAL PROTEIN 5.5 g/dL (6.4-8.2); TROPONIN I < 0.015 ng/mL (0.000-0.045)
[2018-07-02 23:35] VITALS: BP 176/90
[2018-07-03] MEDS ORDERED: ONDANSETRON 2MG/ML, 2ML IVPush PRN
[2018-07-03] MEDS ORDERED: D5%-0.9% NACL+KCL 20MEQ 1,000 ML IV SCH
[2018-07-03] MEDS ORDERED: BISACODYL 10 MG SUPP PR PRN
[2018-07-03] MEDS ORDERED: hydrALAzine 20 MG/ML, 1ML IVPush PRN
[2018-07-03] MEDS ORDERED: POLYETHYLENE GLYCOL 17 GM PACKET PO PRN
[2018-07-03] MEDS ORDERED: PROMETHAZINE 25 MG/ML, 1ML IM PRN
[2018-07-03] MEDS ORDERED: ALUMINUM/MAG/SIMETHICONE 30 ML UDC PO PRN
[2018-07-03] MEDS ORDERED: ACETAMINOPHEN 325 MG TABLET PO PRN
[2018-07-03] MEDS ORDERED: DOCUSATE 100 MG CAPSULE PO PRN
[2018-07-03] MEDS: morphine SULFATE 10 MG/ML, 1ML IVPush PRN ×5 (00:56→21:20)
[2018-07-03] MEDS: PANTOPRAZOLE 40 MG IV IVPush SCH ×2 (00:56→11:21)
[2018-07-03] MEDS: ATORVASTATIN 40 MG TABLET PO SCH ×2 (00:57→19:58)
[2018-07-03 01:10] LABS: HEMOGLOBIN A1C 5.8 % (4.2-6.3)
[2018-07-03 01:11] LABS: FREE T4 (FREE THYROXINE) 0.77 ng/dL (0.76-1.46); THYROID STIMULATING HORMONE 11.7 mIU/L (0.358-3.740)
[2018-07-03 05:04] LABS: MICROSCOPIC AUTO
[2018-07-03 05:08] LABS: CULTURE INDICATED? YES
[2018-07-03 06:07] LABS: BASOPHILS # (AUTO) 0.03 x10^3/uL (0-0.1); BASOPHILS % (AUTO) 1 % (0-1); EOSINOPHILS # (AUTO) 0.11 x10^3/uL (0-0.4); EOSINOPHILS % (AUTO) 3 % (1-7); LYMPHOCYTES # (AUTO) 1.41 x10^3/uL (1-3.4); LYMPHOCYTES % (AUTO) 44 % (22-44); MD NO; MEAN CORPUSCULAR HEMOGLOBIN 29.7 pg (27.0-34.8); MEAN CORPUSCULAR HGB CONC 33.2 g/dL (32.4-35.8); MEAN CORPUSCULAR VOLUME 89.4 fL (80-100); MEAN PLATELET VOLUME 8.2 fL (7.4-10.4); MONOCYTES # (AUTO) 0.28 x10^3/uL (0.2-0.8); MONOCYTES % (AUTO) 9 % (2-9); NEUTROPHILS # (AUTO) 1.41 x10^3/uL (1.8-6.8); NEUTROPHILS % (AUTO) 44 % (42-75); PLATELET COUNT 211 x10^3/uL (130-400); RED BLOOD COUNT 4.14 x10^6/uL (3.82-5.3); RED CELL DISTRIBUTION WIDTH 14.6 % (9.6-15.2)
[2018-07-03 06:30] LABS: CALCIUM 8.4 mg/dL (8.5-10.1); CHLORIDE 115 mmol/L (98-107)
[2018-07-03 06:36] LABS: ALANINE AMINOTRANSFERASE 15 U/L (12-78); ALBUMIN 3.3 g/dL (3.4-5.0); ALKALINE PHOSPHATASE 44 U/L (45-117); ANION GAP 7 mmol/L (5-15); BILIRUBIN,TOTAL 0.2 mg/dL (0.2-1.0); CHOL/HDL RATIO 4.8; CHOLESTEROL, TOTAL 240 mg/dL (140-239); CREATININE 0.89 mg/dL (0.55-1.02); HDL CHOL % 21 % (28-40); HDL CHOLESTEROL (DIRECT) 50 mg/dL (40-60); LDL CHOLESTEROL,CALCULATED 155 mg/dL (54-169); LDL/HDL RATIO 3.1 (0.5-3.0); TOTAL PROTEIN 6.1 g/dL (6.4-8.2); TRIGLYCERIDES 174 mg/dL (50-200); VLDL CHOLESTEROL 35 mg/dL (0-25)
[2018-07-03] MEDS: HEPARIN 5,000 UNITS/ML, 1ML SQ SCH ×4 (08:00→19:58)
[2018-07-03 08:29] LABS: TROPONIN I < 0.015 ng/mL (0.000-0.045)
[2018-07-03 08:53] VITALS: BP 161/72
[2018-07-03] MEDS: AMLODIPINE 10 MG TAB PO SCH (08:57)
[2018-07-03] MEDS: MECLIZINE 12.5 MG TABLET PO SCH ×2 (08:57→20:00)
[2018-07-03] MEDS: ASPIRIN 81 MG TABLET EC PO SCH (08:57)
[2018-07-03] MEDS: LEVOTHYROXINE 100 MCG TABLET PO SCH (08:58)
[2018-07-03] MEDS: SODIUM CHLORIDE 0.45% 1,000 ML IV SCH ×2 (08:59→20:08)
[2018-07-03] MEDS: NYSTATIN TOPICAL POWDER 15GM TP SCH ×4 (08:59→21:22)
[2018-07-03 14:45] VITALS: BP 168/77
[2018-07-03 15:04] LABS: TROPONIN I < 0.015 ng/mL (0.000-0.045)
[2018-07-03] MEDS ORDERED: MORPHINE SULFATE 4 MG/ML, 1ML ONE (15:47)
[2018-07-03] MEDS ORDERED: OMNIPAQUE 350 MG/ML, 100ML BOTTLE ONE (16:35)
[2018-07-03 18:55] VITALS: BP 177/75
[2018-07-03] MEDS: CARVEDILOL 12.5 MG TABLET PO SCH (20:00)
[2018-07-03] MEDS ORDERED: HYDROXYZINE HCL 25 MG PO SCH (21:00)
[2018-07-03 21:25] VITALS: BP 153/77
[2018-07-04 00:48] VITALS: BP 144/79
[2018-07-04] MEDS: PANTOPRAZOLE 40 MG IV IVPush SCH ×2 (01:02→13:30)
[2018-07-04] MEDS: HYDROcodone/APAP 5/325 TABLET PO PRN ×3 (01:02→16:44)
[2018-07-04] MEDS: HEPARIN 5,000 UNITS/ML, 1ML SQ SCH ×3 (04:32→20:19)
[2018-07-04] MEDS: SODIUM CHLORIDE 0.45% 1,000 ML IV SCH ×2 (04:32→16:43)
[2018-07-04] MEDS: OXYcodone/APAP 5/325MG TABLET PO PRN ×2 (04:42→19:51)
[2018-07-04 06:27] LABS: MEAN CORPUSCULAR HEMOGLOBIN 30.4 pg (27.0-34.8); MEAN CORPUSCULAR HGB CONC 33.8 g/dL (32.4-35.8); MEAN CORPUSCULAR VOLUME 89.9 fL (80-100); MEAN PLATELET VOLUME 8.4 fL (7.4-10.4); PLATELET COUNT 168 x10^3/uL (130-400); RED BLOOD COUNT 3.84 x10^6/uL (3.82-5.3); RED CELL DISTRIBUTION WIDTH 13.9 % (9.6-15.2)
[2018-07-04 06:32] LABS: ALBUMIN 2.8 g/dL (3.4-5.0); ANION GAP 8 mmol/L (5-15); CALCIUM 7.8 mg/dL (8.5-10.1); CHLORIDE 113 mmol/L (98-107)
[2018-07-04 06:36] LABS: ALANINE AMINOTRANSFERASE 14 U/L (12-78); ALKALINE PHOSPHATASE 49 U/L (45-117); BILIRUBIN,TOTAL 0.4 mg/dL (0.2-1.0); CREATININE 0.77 mg/dL (0.55-1.02); TOTAL PROTEIN 5.5 g/dL (6.4-8.2)
[2018-07-04 07:02] LABS: BASOPHILS # (AUTO) 0.03 x10^3/uL (0-0.1); BASOPHILS % (AUTO) 1 % (0-1); EOSINOPHILS # (AUTO) 0.08 x10^3/uL (0-0.4); EOSINOPHILS % (AUTO) 3 % (1-7); LYMPHOCYTES # (AUTO) 0.96 x10^3/uL (1-3.4); LYMPHOCYTES % (AUTO) 40 % (22-44); MD SCAN; MONOCYTES # (AUTO) 0.31 x10^3/uL (0.2-0.8); MONOCYTES % (AUTO) 13 % (2-9); NEUTROPHILS # (AUTO) 1.05 x10^3/uL (1.8-6.8); NEUTROPHILS % (AUTO) 43 % (42-75)
[2018-07-04 07:21] VITALS: BP 152/77
[2018-07-04] MEDS: MECLIZINE 12.5 MG TABLET PO SCH ×2 (09:34→20:18)
[2018-07-04] MEDS: AMLODIPINE 10 MG TAB PO SCH (09:34)
[2018-07-04] MEDS: ASPIRIN 81 MG TABLET EC PO SCH (09:34)
[2018-07-04] MEDS: LEVOTHYROXINE 100 MCG TABLET PO SCH (09:35)
[2018-07-04] MEDS: CARVEDILOL 12.5 MG TABLET PO SCH ×2 (09:35→20:18)
[2018-07-04] MEDS: NYSTATIN TOPICAL POWDER 15GM TP SCH ×3 (09:36→20:34)
[2018-07-04 12:48] VITALS: BP 160/81
[2018-07-04] MEDS: ONDANSETRON ODT 4 MG PO PRN (13:30)
[2018-07-04] MEDS: morphine SULFATE 10 MG/ML, 1ML IVPush PRN (13:30)
[2018-07-04 13:42] VITALS: BP 169/74
[2018-07-04 13:44] LABS: HCT (SEDRATE) 37.6 % (34.6-47.8)
[2018-07-04 13:52] LABS: C-REACTIVE PROTEIN, QUANT 0.31 mg/dL (0.02-0.49)
[2018-07-04] MEDS ORDERED: CEFTRIAXONE 1,000 MG in SODIUM CHLORIDE 0.9% 50 ML IV SCH (18:00)
[2018-07-04 19:14] VITALS: BP 120/68
[2018-07-04] MEDS: ATORVASTATIN 40 MG TABLET PO SCH (20:18)
[2018-07-04] MEDS ORDERED: DIPHENHYDRAMINE 25 MG CAPSULE PO ONE (20:30)
[2018-07-05] MEDS: SODIUM CHLORIDE 0.45% 1,000 ML IV SCH ×3 (01:13→22:30)
[2018-07-05] MEDS: PANTOPRAZOLE 40 MG IV IVPush SCH ×3 (01:13→23:40)
[2018-07-05 01:16] VITALS: BP 122/66
[2018-07-05] MEDS: HEPARIN 5,000 UNITS/ML, 1ML SQ SCH ×3 (05:00→20:35)
[2018-07-05] MEDS: HYDROcodone/APAP 5/325 TABLET PO PRN ×3 (05:49→23:40)
[2018-07-05 08:08] VITALS: BP 147/71
[2018-07-05] MEDS: OXYcodone/APAP 5/325MG TABLET PO PRN ×3 (08:51→19:31)
[2018-07-05] MEDS: ASPIRIN 81 MG TABLET EC PO SCH (09:56)
[2018-07-05] MEDS: AMLODIPINE 10 MG TAB PO SCH (09:56)
[2018-07-05] MEDS: NYSTATIN TOPICAL POWDER 15GM TP SCH ×3 (09:57→20:36)
[2018-07-05] MEDS: CARVEDILOL 12.5 MG TABLET PO SCH ×2 (09:57→20:35)
[2018-07-05] MEDS: MECLIZINE 12.5 MG TABLET PO SCH ×2 (09:57→20:35)
[2018-07-05] MEDS: LEVOTHYROXINE 100 MCG TABLET PO SCH (09:57)
[2018-07-05 12:10] VITALS: BP 152/69
[2018-07-05] MEDS: ONDANSETRON ODT 4 MG PO PRN (19:30)
[2018-07-05 20:00] VITALS: BP 169/75
[2018-07-05] MEDS: DIPHENHYDRAMINE 25 MG CAPSULE PO PRN (20:28)
[2018-07-05] MEDS: ATORVASTATIN 40 MG TABLET PO SCH (20:35)
[2018-07-06] VITALS (7 sets, daily range): BP systolic 122–187; BP diastolic 64–89
[2018-07-06] MEDS: OXYcodone/APAP 5/325MG TABLET PO PRN (02:54)
[2018-07-06] MEDS: HEPARIN 5,000 UNITS/ML, 1ML SQ SCH ×3 (05:00→20:22)
[2018-07-06] MEDS: HYDROcodone/APAP 5/325 TABLET PO PRN ×3 (06:18→20:20)
[2018-07-06] MEDS ORDERED: SENNA/DOCUSATE TABLET PO PRN (09:00)
[2018-07-06] MEDS: ONDANSETRON ODT 4 MG PO PRN (09:53)
[2018-07-06] MEDS: MECLIZINE 12.5 MG TABLET PO SCH ×2 (09:53→20:19)
[2018-07-06] MEDS: AMLODIPINE 10 MG TAB PO SCH (09:53)
[2018-07-06] MEDS: LEVOTHYROXINE 100 MCG TABLET PO SCH (09:53)
[2018-07-06] MEDS: CARVEDILOL 12.5 MG TABLET PO SCH ×2 (09:54→20:21)
[2018-07-06] MEDS: ASPIRIN 81 MG TABLET EC PO SCH (09:54)
[2018-07-06] MEDS: NYSTATIN TOPICAL POWDER 15GM TP SCH ×3 (09:54→20:21)
[2018-07-06] MEDS: SODIUM CHLORIDE 0.45% 1,000 ML IV SCH (09:55)
[2018-07-06] MEDS: PANTOPRAZOLE 40 MG IV IVPush SCH ×2 (13:37→23:49)
[2018-07-06] MEDS: ATORVASTATIN 40 MG TABLET PO SCH (20:19)
[2018-07-06] MEDS: DIPHENHYDRAMINE 25 MG CAPSULE PO PRN (20:19)
[2018-07-07 01:38] VITALS: BP 117/67
[2018-07-07] MEDS: HYDROcodone/APAP 5/325 TABLET PO PRN ×3 (02:27→20:30)
[2018-07-07] MEDS: SODIUM CHLORIDE 0.45% 1,000 ML IV SCH (04:50)
[2018-07-07] MEDS: HEPARIN 5,000 UNITS/ML, 1ML SQ SCH ×3 (04:50→20:30)
[2018-07-07 05:29] LABS: MEAN CORPUSCULAR HGB CONC 33.4 g/dL (32.4-35.8); MEAN CORPUSCULAR VOLUME 89.8 fL (80-100); MEAN PLATELET VOLUME 8.2 fL (7.4-10.4); PLATELET COUNT 160 x10^3/uL (130-400); RED BLOOD COUNT 3.81 x10^6/uL (3.82-5.3); RED CELL DISTRIBUTION WIDTH 14.5 % (9.6-15.2)
[2018-07-07 06:10] LABS: MD YES
[2018-07-07 06:18] LABS: EOS#(MANUAL) 0.05 x10^3/uL (0.0-0.4); EOS% (MANUAL) 2 % (1-7); LYMPH#(MANUAL) 1.17 x10^3/uL (1-3.4); LYMPHS% (MANUAL) 51 % (22-44); MONOS% (MANUAL) 13 % (2-9); SEG#(MANUAL) 0.78 x10^3/uL (1.8-6.8); SEGS% (MANUAL) 34 % (42-75)
[2018-07-07 06:20] LABS: ANISOCYTOSIS 1+; OVALOCYTES 1+
[2018-07-07 06:21] LABS: <PLATELET ESTIMATE> ADEQUATE; <PLT MORPHOLOGY> NORMAL PLT MORPH
[2018-07-07 08:00] VITALS: BP 150/64
[2018-07-07] MEDS: AMLODIPINE 10 MG TAB PO SCH (09:00)
[2018-07-07] MEDS: MECLIZINE 12.5 MG TABLET PO SCH ×2 (09:00→20:30)
[2018-07-07] MEDS: LEVOTHYROXINE 100 MCG TABLET PO SCH (09:00)
[2018-07-07] MEDS: NYSTATIN TOPICAL POWDER 15GM TP SCH ×3 (09:00→20:32)
[2018-07-07] MEDS: CARVEDILOL 12.5 MG TABLET PO SCH ×2 (09:00→20:30)
[2018-07-07] MEDS ORDERED: MIDAZOLAM 1 MG/ML, 2ML ONE (12:08)
[2018-07-07] MEDS ORDERED: FENTANYL PF 100 MCG/2ML ONE (12:08)
[2018-07-07] MEDS ORDERED: PROPOFOL 10 MG/ML, 20ML ONE (12:10)
[2018-07-07] MEDS ORDERED: FENTANYL PF 100 MCG/2ML IV PRN (13:00)
[2018-07-07] MEDS ORDERED: OXYcodone 5 MG/5 ML ORAL.SOL UDC PO PRN (13:00)
[2018-07-07] MEDS ORDERED: MEPERIDINE/PF 25MG/0.5ML IVPush PRN (13:00)
[2018-07-07] MEDS ORDERED: PROMETHAZINE 25 MG/ML, 1ML IV PRN (13:00)
[2018-07-07] MEDS ORDERED: hydrALAzine 20 MG/ML, 1ML IV PRN (13:00)
[2018-07-07] MEDS ORDERED: HALOPERIDOL 5 MG/ML IV PRN (13:00)
[2018-07-07] MEDS ORDERED: LABETALOL 5MG/ML, 20ML IV PRN (13:00)
[2018-07-07] MEDS ORDERED: ACETAMINOPHEN 325 MG TABLET PO PRN (13:00)
[2018-07-07] MEDS ORDERED: HYDROmorphone 1 MG/ML, 1ML IV PRN (13:00)
[2018-07-07] MEDS ORDERED: ONDANSETRON ODT 8 MG ONE (13:11)
[2018-07-07] MEDS ORDERED: ONDANSETRON ODT 8 MG SL PRN (13:30)
[2018-07-07 14:43] VITALS: BP 150/80
[2018-07-07] MEDS: PANTOPRAZOLE 40 MG IV IVPush SCH (15:31)
[2018-07-07] MEDS: ASPIRIN 81 MG TABLET EC PO SCH (15:31)
[2018-07-07] MEDS: SUCRALFATE 1 GM/10 ML UDC PO SCH ×2 (15:31→20:30)
[2018-07-07 20:26] VITALS: BP 134/69
[2018-07-07] MEDS: ATORVASTATIN 40 MG TABLET PO SCH (20:31)
[2018-07-07] MEDS: DIPHENHYDRAMINE 25 MG CAPSULE PO PRN (20:31)
[2018-07-08] MEDS: PANTOPRAZOLE 40 MG IV IVPush SCH (00:51)
[2018-07-08 00:52] VITALS: BP 128/71
[2018-07-08] MEDS: HYDROcodone/APAP 5/325 TABLET PO PRN ×3 (02:37→16:00)
[2018-07-08] MEDS ORDERED: MAALOX/HYOSCYAMINE/LIDOCAINE 45 ML BTL PO ONE (04:30)
[2018-07-08 04:47] VITALS: BP 139/64
[2018-07-08] MEDS: HEPARIN 5,000 UNITS/ML, 1ML SQ SCH (05:00)
[2018-07-08] MEDS: SUCRALFATE 1 GM/10 ML UDC PO SCH ×2 (05:26→10:14)
[2018-07-08 07:40] VITALS: BP 142/79
[2018-07-08] MEDS ORDERED: PANTOPROZOLE 40MG TABLET PO SCH (08:30)
[2018-07-08] MEDS: NYSTATIN TOPICAL POWDER 15GM TP SCH (08:39)
[2018-07-08] MEDS: AMLODIPINE 10 MG TAB PO SCH (08:39)
[2018-07-08] MEDS: ASPIRIN 81 MG TABLET EC PO SCH (08:40)
[2018-07-08] MEDS: LEVOTHYROXINE 100 MCG TABLET PO SCH (08:40)
[2018-07-08] MEDS: MECLIZINE 12.5 MG TABLET PO SCH (08:40)
[2018-07-08] MEDS: CARVEDILOL 12.5 MG TABLET PO SCH (08:40)
[2018-07-08 12:50] VITALS: BP 115/67
[2018-07-08] MEDS ORDERED: SUCR1ORA5 PO (15:14)
[2018-07-08] MEDS ORDERED: PANT40TA5 PO (15:14)
== END 2018-07-08 17:06 | disposition home or self-care (01) | DRG 381 ==
LOC: ED 22:13 → 4WST 22:47
PROVIDERS: ADMIT Hospitalist; ATTEND Hospitalist
PROC: 0DB58ZX Excision of Esophagus, Via Natural or Artificial Opening Endoscopic, Diagnostic (ICD-10-PCS; principal; 2018-07-07 12:00)
DX: K22.70 Barrett's esophagus without dysplasia (principal); I50.32 Chronic diastolic (congestive) heart failure; E87.0 Hyperosmolality and hypernatremia; E87.1 Hypo-osmolality and hyponatremia; K44.9 Diaphragmatic hernia without obstruction or gangrene; K59.00 Constipation, unspecified; E87.6 Hypokalemia; K21.0 Gastro-esophageal reflux disease with esophagitis; F32.9 Major depressive disorder, single episode, unspecified; E78.5 Hyperlipidemia, unspecified; E03.9 Hypothyroidism, unspecified; D64.9 Anemia, unspecified; I11.0 Hypertensive heart disease with heart failure; E66.9 Obesity, unspecified; I73.9 Peripheral vascular disease, unspecified; G47.33 Obstructive sleep apnea (adult) (pediatric); Z91.030 Bee allergy status; Z88.2 Allergy status to sulfonamides; Z91.018 Allergy to other foods; Z68.28 Body mass index [BMI] 28.0-28.9, adult; Z86.73 Personal history of transient ischemic attack (TIA), and cerebral infarction without residual deficits; Z91.19 Patient's noncompliance with other medical treatment and regimen; Z90.710 Acquired absence of both cervix and uterus; Z90.49 Acquired absence of other specified parts of digestive tract
CPT/HCPCS: 36415; 71045; 74018; 74021; 74177; 80053; 80061; 81001; 82150; 83036; 83735; 84439; 84443; 84484; 85025; 85651; 86140; 87086; 88305; 88312; 93005; 96360; 99285; G0378; J0696; J1644; J2250; J2550; J2704; J3010; Q0162; Q9967; C9113; J0360; J2270; J3480; J7030; Q0163; Q0177

== ENCOUNTER 2018-07-10 11:57 | Emergency (ER) | payer MEDICARE ==
[~2018-07-10] VITALS: Ht 157.5 cm; Wt 72.7 kg
[~2018-07-10 11:57] MED LIST changes: +PANT40TA5 PO; +SUCR1ORA5 PO
[2018-07-10 12:00] VITALS: BP 156/90
[2018-07-10] MEDS ORDERED: FAMOTIDINE 20 MG TABLET ONE (12:27)
[2018-07-10] MEDS ORDERED: FAMOTIDINE 20 MG TABLET PO ONE (12:30)
== END 2018-07-10 13:26 | disposition home or self-care (01) ==
LOC: ED 12:13
DX: S60.561A Insect bite (nonvenomous) of right hand, initial encounter (principal); J44.9 Chronic obstructive pulmonary disease, unspecified; I13.0 Hypertensive heart and chronic kidney disease with heart failure and stage 1 through stage 4 chronic kidney disease, or unspecified chronic kidney disease; N18.2 Chronic kidney disease, stage 2 (mild); I50.9 Heart failure, unspecified; Z90.49 Acquired absence of other specified parts of digestive tract; E78.5 Hyperlipidemia, unspecified; E03.9 Hypothyroidism, unspecified; Z86.73 Personal history of transient ischemic attack (TIA), and cerebral infarction without residual deficits; K21.9 Gastro-esophageal reflux disease without esophagitis; W57.XXXA Bitten or stung by nonvenomous insect and other nonvenomous arthropods, initial encounter; Y93.89 Activity, other specified; Y99.8 Other external cause status; Y92.410 Unspecified street and highway as the place of occurrence of the external cause
CPT/HCPCS: 99283; Q0177

== ENCOUNTER 2018-07-14 11:35 | Emergency (ER) | payer MEDICARE ==
[~2018-07-14] VITALS: Ht 157.5 cm; Wt 70.4 kg
[2018-07-14] MEDS ORDERED: SODIUM CHLORIDE 0.9% 1,000ML IVBOLUS ONE (12:00)
[2018-07-14] MEDS ORDERED: SODIUM CHLORIDE FLUSH 10ML SYR IVF ONE (12:00)
[2018-07-14 12:23] LABS: MEAN CORPUSCULAR HEMOGLOBIN 29.6 pg (27.0-34.8); MEAN CORPUSCULAR VOLUME 89.8 fL (80-100); MEAN PLATELET VOLUME 8.2 fL (7.4-10.4); PLATELET COUNT 195 x10^3/uL (130-400); RED BLOOD COUNT 3.78 x10^6/uL (3.82-5.3); RED CELL DISTRIBUTION WIDTH 15.2 % (9.6-15.2)
[2018-07-14 12:32] LABS: ANION GAP 7 mmol/L (5-15); CHLORIDE 114 mmol/L (98-107)
[2018-07-14 12:37] LABS: ALANINE AMINOTRANSFERASE 19 U/L (12-78); ALKALINE PHOSPHATASE 41 U/L (45-117); BILIRUBIN,TOTAL 0.4 mg/dL (0.2-1.0); CREATININE 0.91 mg/dL (0.55-1.02); TOTAL PROTEIN 5.7 g/dL (6.4-8.2); TROPONIN I < 0.015 ng/mL (0.000-0.045)
[2018-07-14 12:38] LABS: BASOPHILS # (AUTO) 0.02 x10^3/uL (0-0.1); BASOPHILS % (AUTO) 1 % (0-1); EOSINOPHILS % (AUTO) 4 % (1-7); LYMPHOCYTES # (AUTO) 1.18 x10^3/uL (1-3.4); LYMPHOCYTES % (AUTO) 44 % (22-44); MD SCAN; MONOCYTES # (AUTO) 0.24 x10^3/uL (0.2-0.8); MONOCYTES % (AUTO) 9 % (2-9); NEUTROPHILS # (AUTO) 1.17 x10^3/uL (1.8-6.8); NEUTROPHILS % (AUTO) 43 % (42-75)
[2018-07-14 12:44] VITALS: BP 167/85
== END 2018-07-14 13:37 | disposition home or self-care (01) ==
LOC: ED 13:30
DX: K20.9 Esophagitis, unspecified (principal); K21.9 Gastro-esophageal reflux disease without esophagitis; R11.2 Nausea with vomiting, unspecified; Z90.49 Acquired absence of other specified parts of digestive tract; I12.9 Hypertensive chronic kidney disease with stage 1 through stage 4 chronic kidney disease, or unspecified chronic kidney disease; N18.2 Chronic kidney disease, stage 2 (mild); J44.9 Chronic obstructive pulmonary disease, unspecified; F41.1 Generalized anxiety disorder; E78.5 Hyperlipidemia, unspecified; E03.9 Hypothyroidism, unspecified; Z86.73 Personal history of transient ischemic attack (TIA), and cerebral infarction without residual deficits
CPT/HCPCS: 36415; 71045; 80053; 83690; 84484; 85025; 93005; 96360; 96361; 99285; J7030

== ENCOUNTER 2018-07-18 05:10 | Emergency (ER) | payer MEDICARE ==
[~2018-07-18] VITALS: Ht 157.5 cm; Wt 100.0 kg
[2018-07-18] MEDS ORDERED: PROMETHAZINE 25 MG SUPP PR ONE ×2 (05:39→06:00)
[2018-07-18] MEDS ORDERED: PROMETHAZINE 25 MG/ML, 1ML IM ONE (06:00)
[2018-07-18] MEDS ORDERED: ACETAMINOPHEN 500 MG TABLET ONE (06:42)
[2018-07-18] MEDS ORDERED: ACETAMINOPHEN 500 MG TABLET PO ONE (07:00)
[2018-07-18 08:52] VITALS: BP 154/88
== END 2018-07-18 09:01 | disposition home or self-care (01) ==
LOC: ED 06:19
DX: G44.221 Chronic tension-type headache, intractable (principal); I13.0 Hypertensive heart and chronic kidney disease with heart failure and stage 1 through stage 4 chronic kidney disease, or unspecified chronic kidney disease; N18.2 Chronic kidney disease, stage 2 (mild); E78.5 Hyperlipidemia, unspecified; F32.9 Major depressive disorder, single episode, unspecified; Z86.73 Personal history of transient ischemic attack (TIA), and cerebral infarction without residual deficits
CPT/HCPCS: 93005; 99283

== ENCOUNTER 2018-07-23 11:07 | Emergency (ER) | payer MEDICARE ==
[~2018-07-23] VITALS: Ht 157.5 cm; Wt 80.9 kg
[2018-07-23 11:56] LABS: CULTURE INDICATED? YES; MICROSCOPIC INDICATED
[2018-07-23 12:00] LABS: BASOPHILS # (AUTO) 0.01 x10^3/uL (0-0.1); BASOPHILS % (AUTO) 0 % (0-1); EOSINOPHILS # (AUTO) 0.07 x10^3/uL (0-0.4); EOSINOPHILS % (AUTO) 2 % (1-7); LYMPHOCYTES # (AUTO) 1.51 x10^3/uL (1-3.4); LYMPHOCYTES % (AUTO) 33 % (22-44); MD NO; MEAN CORPUSCULAR HEMOGLOBIN 30.3 pg (27.0-34.8); MEAN CORPUSCULAR HGB CONC 33.6 g/dL (32.4-35.8); MEAN CORPUSCULAR VOLUME 90.3 fL (80-100); MONOCYTES # (AUTO) 0.47 x10^3/uL (0.2-0.8); MONOCYTES % (AUTO) 10 % (2-9); NEUTROPHILS % (AUTO) 55 % (42-75); PLATELET COUNT 222 x10^3/uL (130-400); RED BLOOD COUNT 4.04 x10^6/uL (3.82-5.3); RED CELL DISTRIBUTION WIDTH 14.9 % (9.6-15.2)
[2018-07-23] MEDS ORDERED: SODIUM CHLORIDE 0.9% 1,000ML IVBOLUS ONE (12:00)
[2018-07-23] MEDS ORDERED: SODIUM CHLORIDE FLUSH 10ML SYR IVF ONE (12:00)
[2018-07-23 12:13] LABS: ALANINE AMINOTRANSFERASE 17 U/L (12-78); ALBUMIN 3.4 g/dL (3.4-5.0); ANION GAP 9 mmol/L (5-15); CALCIUM 7.9 mg/dL (8.5-10.1); CHLORIDE 111 mmol/L (98-107); CREATININE 0.88 mg/dL (0.55-1.02)
[2018-07-23 12:15] LABS: INTERNATIONAL NORMALIZED RATIO 0.95 (0.93-1.1); PROTHROMBIN TIME 9.8 Seconds (9.6-11.5)
[2018-07-23 12:17] LABS: ALKALINE PHOSPHATASE 41 U/L (45-117); BILIRUBIN,TOTAL 0.2 mg/dL (0.2-1.0); TOTAL PROTEIN 6.3 g/dL (6.4-8.2); TROPONIN I < 0.015 ng/mL (0.000-0.045)
[2018-07-23 12:46] VITALS: BP 187/94
== END 2018-07-23 14:25 | disposition home or self-care (01) ==
LOC: ED 14:15
DX: R55 Syncope and collapse (principal); F41.1 Generalized anxiety disorder; J44.9 Chronic obstructive pulmonary disease, unspecified; I25.10 Atherosclerotic heart disease of native coronary artery without angina pectoris; I13.0 Hypertensive heart and chronic kidney disease with heart failure and stage 1 through stage 4 chronic kidney disease, or unspecified chronic kidney disease; N18.2 Chronic kidney disease, stage 2 (mild); E03.9 Hypothyroidism, unspecified; I50.9 Heart failure, unspecified; K21.9 Gastro-esophageal reflux disease without esophagitis; E78.5 Hyperlipidemia, unspecified; G89.29 Other chronic pain; Z90.89 Acquired absence of other organs; Z86.73 Personal history of transient ischemic attack (TIA), and cerebral infarction without residual deficits; Z90.49 Acquired absence of other specified parts of digestive tract; Z90.710 Acquired absence of both cervix and uterus; Z95.0 Presence of cardiac pacemaker; Z88.2 Allergy status to sulfonamides
CPT/HCPCS: 36415; 70450; 71045; 80053; 81001; 84484; 85025; 85610; 85730; 87077; 87086; 87186; 93005; 99285

== ENCOUNTER 2018-07-28 11:19 | Emergency (ER) | payer MEDICARE ==
[~2018-07-28] VITALS: Ht 157.5 cm; Wt 79.5 kg
[2018-07-28 11:35] VITALS: BP 167/78
[2018-07-28 12:44] LABS: ALANINE AMINOTRANSFERASE 14 U/L (12-78); ALBUMIN 3.2 g/dL (3.4-5.0); ANION GAP 8 mmol/L (5-15); CALCIUM 7.6 mg/dL (8.5-10.1); CHLORIDE 115 mmol/L (98-107); CREATININE 0.97 mg/dL (0.55-1.02)
[2018-07-28 12:47] LABS: MD YES; MEAN CORPUSCULAR HEMOGLOBIN 30.6 pg (27.0-34.8); MEAN CORPUSCULAR HGB CONC 34.1 g/dL (32.4-35.8); MEAN CORPUSCULAR VOLUME 89.8 fL (80-100); MEAN PLATELET VOLUME 8.3 fL (7.4-10.4); PLATELET COUNT 226 x10^3/uL (130-400); RED CELL DISTRIBUTION WIDTH 15.3 % (9.6-15.2)
[2018-07-28 12:48] LABS: ALKALINE PHOSPHATASE 38 U/L (45-117); BILIRUBIN,TOTAL 0.3 mg/dL (0.2-1.0); TROPONIN I < 0.015 ng/mL (0.000-0.045)
[2018-07-28 12:49] LABS: <PLATELET ESTIMATE> ADEQUATE; <PLT MORPHOLOGY> NORMAL PLT MORPH; ANISOCYTOSIS 1+; BAND#(MANUAL) 0.05 x10^3/uL; BANDS%(MANUAL) 1 % (0-7); EOS% (MANUAL) 2 % (1-7); LYMPH#(MANUAL) 2.24 x10^3/uL (1-3.4); LYMPHS% (MANUAL) 43 % (22-44); MONOS#(MANUAL) 0.31 x10^3/uL (0.3-2.7); MONOS% (MANUAL) 6 % (2-9); SEGS% (MANUAL) 48 % (42-75)
[2018-07-28 13:48] LABS: CULTURE INDICATED? NO; MICROSCOPIC NOT IND
== END 2018-07-28 14:47 | disposition home or self-care (01) ==
LOC: ED 12:31
DX: J20.8 Acute bronchitis due to other specified organisms (principal); B97.89 Other viral agents as the cause of diseases classified elsewhere; J44.9 Chronic obstructive pulmonary disease, unspecified; N18.2 Chronic kidney disease, stage 2 (mild); I13.0 Hypertensive heart and chronic kidney disease with heart failure and stage 1 through stage 4 chronic kidney disease, or unspecified chronic kidney disease; I50.9 Heart failure, unspecified; E78.5 Hyperlipidemia, unspecified; K21.9 Gastro-esophageal reflux disease without esophagitis; F32.9 Major depressive disorder, single episode, unspecified; Z86.73 Personal history of transient ischemic attack (TIA), and cerebral infarction without residual deficits; Z90.49 Acquired absence of other specified parts of digestive tract; Z95.0 Presence of cardiac pacemaker
CPT/HCPCS: 36415; 71045; 80053; 81003; 84484; 85025; 93005; 99285

== ENCOUNTER 2018-07-28 15:35 | Emergency (ER) | payer MEDICARE ==
[~2018-07-28] VITALS: Ht 157.5 cm; Wt 77.5 kg
[2018-07-28 15:48] VITALS: BP 188/100
== END 2018-07-28 17:27 | disposition home or self-care (01) ==
LOC: ED 16:25
DX: R06.00 Dyspnea, unspecified (principal)
CPT/HCPCS: 93005; 99283

== ENCOUNTER 2018-08-14 18:16 | Emergency (ER) | payer MEDICARE ==
[~2018-08-14] VITALS: Ht 157.5 cm; Wt 73.0 kg
[2018-08-14] MEDS: ASPIRIN 81 MG TABLET CHEW PO ONE ×2 (18:47→18:48)
[2018-08-14] MEDS ORDERED: OMEP20TA9 PO (18:51)
[2018-08-14] MEDS ORDERED: PROM25TA10 PO (18:55)
[2018-08-14] MEDS ORDERED: MECL25TA4 PO (18:55)
[2018-08-14] MEDS ORDERED: VALS40TA2 PO (19:00)
[2018-08-14 19:45] LABS: ALBUMIN 3.3 g/dL (3.4-5.0); ANION GAP 12 mmol/L (5-15); CALCIUM 8.2 mg/dL (8.5-10.1); CHLORIDE 112 mmol/L (98-107); CREATININE 0.97 mg/dL (0.55-1.02)
[2018-08-14 19:48] LABS: TROPONIN I < 0.015 ng/mL (0.000-0.045)
[2018-08-14 19:55] LABS: MEAN CORPUSCULAR HEMOGLOBIN 30.8 pg (27.0-34.8); MEAN CORPUSCULAR HGB CONC 33.8 g/dL (32.4-35.8); MEAN PLATELET VOLUME 8.5 fL (7.4-10.4); PLATELET COUNT 138 x10^3/uL (130-400); RED BLOOD COUNT 3.97 x10^6/uL (3.82-5.3); RED CELL DISTRIBUTION WIDTH 16.5 % (9.6-15.2)
[2018-08-14 19:56] LABS: BASOPHILS # (AUTO) 0.03 x10^3/uL (0-0.1); BASOPHILS % (AUTO) 1 % (0-1); EOSINOPHILS # (AUTO) 0.08 x10^3/uL (0-0.4); EOSINOPHILS % (AUTO) 2 % (1-7); LYMPHOCYTES # (AUTO) 1.36 x10^3/uL (1-3.4); LYMPHOCYTES % (AUTO) 41 % (22-44); MD MORPH REVIEW ONLY; MONOCYTES % (AUTO) 9 % (2-9); NEUTROPHILS # (AUTO) 1.55 x10^3/uL (1.8-6.8); NEUTROPHILS % (AUTO) 47 % (42-75)
[2018-08-14 19:59] LABS: <PLATELET ESTIMATE> ADEQUATE; <PLT MORPHOLOGY> NORMAL PLT MORPH; ANISOCYTOSIS 1+; OVALOCYTES 1+
[2018-08-14] MEDS ORDERED: ACETAMINOPHEN 500 MG TABLET PO ONE (20:30)
[2018-08-14] MEDS ORDERED: ACETAMINOPHEN 500 MG TABLET ONE (20:36)
[2018-08-14 20:41] VITALS: BP 205/99
== END 2018-08-14 21:03 | disposition home or self-care (01) ==
LOC: ED 18:36
DX: M94.0 Chondrocostal junction syndrome [Tietze] (principal); E78.5 Hyperlipidemia, unspecified; K21.9 Gastro-esophageal reflux disease without esophagitis; I11.0 Hypertensive heart disease with heart failure; I50.9 Heart failure, unspecified; I13.0 Hypertensive heart and chronic kidney disease with heart failure and stage 1 through stage 4 chronic kidney disease, or unspecified chronic kidney disease; N18.2 Chronic kidney disease, stage 2 (mild); J44.9 Chronic obstructive pulmonary disease, unspecified; M54.9 Dorsalgia, unspecified; R51 Headache; G89.29 Other chronic pain; E03.9 Hypothyroidism, unspecified; F41.1 Generalized anxiety disorder; F32.9 Major depressive disorder, single episode, unspecified; Z86.73 Personal history of transient ischemic attack (TIA), and cerebral infarction without residual deficits; Z90.49 Acquired absence of other specified parts of digestive tract; Z90.710 Acquired absence of both cervix and uterus
CPT/HCPCS: 36415; 71046; 80048; 82040; 83880; 84484; 85025; 93005; 99285

== ENCOUNTER 2018-08-27 11:36 | Emergency (ER) | payer MEDICARE ==
[~2018-08-27] VITALS: Ht 157.5 cm; Wt 73.0 kg
[~2018-08-27 11:36] MED LIST changes: +MECL25TA4 PO; +OMEP20TA9 PO; +PROM25TA10 PO; +VALS40TA2 PO
[2018-08-27] MEDS ORDERED: MAALOX/HYOSCYAMINE/LIDOCAINE 45 ML BTL PO ONE (12:00)
[2018-08-27] MEDS ORDERED: MAALOX/HYOSCYAMINE/LIDOCAINE 45 ML BTL ONE (12:07)
[2018-08-27] MEDS ORDERED: PROMETHAZINE 25 MG/ML, 1ML ONE (12:07)
[2018-08-27 12:16] LABS: BASOPHILS # (AUTO) 0.02 x10^3/uL (0-0.1); BASOPHILS % (AUTO) 1 % (0-1); EOSINOPHILS # (AUTO) 0.05 x10^3/uL (0-0.4); EOSINOPHILS % (AUTO) 1 % (1-7); LYMPHOCYTES % (AUTO) 32 % (22-44); MD NO; MEAN CORPUSCULAR VOLUME 91.1 fL (80-100); MONOCYTES # (AUTO) 0.31 x10^3/uL (0.2-0.8); MONOCYTES % (AUTO) 8 % (2-9); NEUTROPHILS # (AUTO) 2.35 x10^3/uL (1.8-6.8); NEUTROPHILS % (AUTO) 58 % (42-75); PLATELET COUNT 197 x10^3/uL (130-400); RED BLOOD COUNT 4.24 x10^6/uL (3.82-5.3); RED CELL DISTRIBUTION WIDTH 16.7 % (9.6-15.2)
[2018-08-27 12:30] LABS: ALBUMIN 3.6 g/dL (3.4-5.0); ANION GAP 11 mmol/L (5-15); CALCIUM 8.8 mg/dL (8.5-10.1); CHLORIDE 113 mmol/L (98-107)
[2018-08-27 12:34] LABS: ALANINE AMINOTRANSFERASE 17 U/L (12-78); ALKALINE PHOSPHATASE 46 U/L (45-117); BILIRUBIN,TOTAL 0.4 mg/dL (0.2-1.0); CREATININE 1.22 mg/dL (0.55-1.02); TOTAL PROTEIN 6.5 g/dL (6.4-8.2)
[2018-08-27] MEDS ORDERED: PROMETHAZINE 25 MG/ML, 1ML IM ONE (13:00)
[2018-08-27 14:04] VITALS: BP 152/88
== END 2018-08-27 14:06 | disposition home or self-care (01) ==
LOC: ED 12:29
DX: K21.0 Gastro-esophageal reflux disease with esophagitis (principal); K29.50 Unspecified chronic gastritis without bleeding; E86.0 Dehydration; J44.9 Chronic obstructive pulmonary disease, unspecified; E78.5 Hyperlipidemia, unspecified; E11.22 Type 2 diabetes mellitus with diabetic chronic kidney disease; I13.0 Hypertensive heart and chronic kidney disease with heart failure and stage 1 through stage 4 chronic kidney disease, or unspecified chronic kidney disease; N18.2 Chronic kidney disease, stage 2 (mild); I50.9 Heart failure, unspecified; E03.9 Hypothyroidism, unspecified; F17.200 Nicotine dependence, unspecified, uncomplicated; Z90.49 Acquired absence of other specified parts of digestive tract; Z90.710 Acquired absence of both cervix and uterus; Z95.0 Presence of cardiac pacemaker; Z86.73 Personal history of transient ischemic attack (TIA), and cerebral infarction without residual deficits
CPT/HCPCS: 36415; 71045; 80053; 83690; 85025; 96372; 99285; J2550

== ENCOUNTER 2018-09-02 10:28 | Emergency (ER) | payer MEDICARE ==
[2018-09-02 10:33] VITALS: BP 184/81
[2018-09-02] MEDS ORDERED: AMLODIPINE 5 MG TABLET ONE (10:59)
[2018-09-02] MEDS ORDERED: PLEASE ENTER HEIGHT AND WEIGHT MC SCH (11:00)
[2018-09-02] MEDS ORDERED: AMLODIPINE 5 MG TABLET PO ONE (11:00)
== END 2018-09-02 11:19 | disposition home or self-care (01) ==
LOC: ED 10:42
DX: I10 Essential (primary) hypertension (principal)
CPT/HCPCS: 99283

== ENCOUNTER 2018-09-06 15:14 | Emergency (ER) | payer MEDICARE ==
[2018-09-06 16:13] LABS: ALANINE AMINOTRANSFERASE 23 U/L (12-78); ALBUMIN 3.2 g/dL (3.4-5.0); ANION GAP 8 mmol/L (5-15); CALCIUM 8.7 mg/dL (8.5-10.1); CHLORIDE 113 mmol/L (98-107); CREATININE 0.93 mg/dL (0.55-1.02)
[2018-09-06 16:17] LABS: ALKALINE PHOSPHATASE 40 U/L (45-117); BILIRUBIN,TOTAL 0.2 mg/dL (0.2-1.0); TOTAL PROTEIN 5.9 g/dL (6.4-8.2); TROPONIN I < 0.015 ng/mL (0.000-0.045)
[2018-09-06 16:44] LABS: MEAN CORPUSCULAR HEMOGLOBIN 30.5 pg (27.0-34.8); MEAN CORPUSCULAR HGB CONC 33.3 g/dL (32.4-35.8); MEAN CORPUSCULAR VOLUME 91.6 fL (80-100); MEAN PLATELET VOLUME 8.2 fL (7.4-10.4); PLATELET COUNT 221 x10^3/uL (130-400); RED BLOOD COUNT 3.86 x10^6/uL (3.82-5.3); RED CELL DISTRIBUTION WIDTH 15.6 % (9.6-15.2)
[2018-09-06 16:50] LABS: BASOPHILS # (AUTO) 0.03 x10^3/uL (0-0.1); BASOPHILS % (AUTO) 1 % (0-1); EOSINOPHILS # (AUTO) 0.07 x10^3/uL (0-0.4); EOSINOPHILS % (AUTO) 2 % (1-7); LYMPHOCYTES # (AUTO) 1.48 x10^3/uL (1-3.4); LYMPHOCYTES % (AUTO) 34 % (22-44); MD SCAN; MONOCYTES # (AUTO) 0.45 x10^3/uL (0.2-0.8); MONOCYTES % (AUTO) 10 % (2-9); NEUTROPHILS % (AUTO) 54 % (42-75)
[2018-09-06] MEDS ORDERED: ACETAMINOPHEN 325 MG TABLET PO ONE (17:00)
[2018-09-06 17:15] VITALS: BP 162/88
[2018-09-07] MEDS ORDERED: MAGN400T36 PO (16:31)
== END 2018-09-06 17:18 | disposition home or self-care (01) ==
LOC: ED 16:39
DX: M25.512 Pain in left shoulder (principal); I25.10 Atherosclerotic heart disease of native coronary artery without angina pectoris; J44.9 Chronic obstructive pulmonary disease, unspecified; E03.9 Hypothyroidism, unspecified; K21.9 Gastro-esophageal reflux disease without esophagitis; E11.22 Type 2 diabetes mellitus with diabetic chronic kidney disease; N18.2 Chronic kidney disease, stage 2 (mild); I13.0 Hypertensive heart and chronic kidney disease with heart failure and stage 1 through stage 4 chronic kidney disease, or unspecified chronic kidney disease; I50.9 Heart failure, unspecified; Z88.2 Allergy status to sulfonamides
CPT/HCPCS: 36415; 71045; 80053; 84484; 85025; 93005; 99284

== ENCOUNTER 2018-09-07 16:00 | Emergency (ER) | payer MEDICARE ==
[~2018-09-07] VITALS: Ht 157.5 cm; Wt 77.6 kg
[2018-09-07] MEDS ORDERED: MAGN400T36 PO (16:31)
[2018-09-07 16:44] LABS: BASOPHILS # (AUTO) 0.02 x10^3/uL (0-0.1); BASOPHILS % (AUTO) 1 % (0-1); EOSINOPHILS # (AUTO) 0.05 x10^3/uL (0-0.4); EOSINOPHILS % (AUTO) 1 % (1-7); LYMPHOCYTES # (AUTO) 1.38 x10^3/uL (1-3.4); LYMPHOCYTES % (AUTO) 37 % (22-44); MD NO; MEAN CORPUSCULAR HEMOGLOBIN 30.8 pg (27.0-34.8); MEAN CORPUSCULAR HGB CONC 33.6 g/dL (32.4-35.8); MEAN CORPUSCULAR VOLUME 91.7 fL (80-100); MEAN PLATELET VOLUME 7.6 fL (7.4-10.4); MONOCYTES # (AUTO) 0.34 x10^3/uL (0.2-0.8); MONOCYTES % (AUTO) 9 % (2-9); NEUTROPHILS # (AUTO) 1.94 x10^3/uL (1.8-6.8); NEUTROPHILS % (AUTO) 52 % (42-75); PLATELET COUNT 215 x10^3/uL (130-400); RED BLOOD COUNT 4.02 x10^6/uL (3.82-5.3); RED CELL DISTRIBUTION WIDTH 16.1 % (9.6-15.2)
[2018-09-07 16:53] LABS: INTERNATIONAL NORMALIZED RATIO 0.98 (0.93-1.1); PROTHROMBIN TIME 10.4 Seconds (9.6-11.5)
[2018-09-07 16:55] LABS: ALANINE AMINOTRANSFERASE 22 U/L (12-78); ALBUMIN 3.4 g/dL (3.4-5.0); ANION GAP 12 mmol/L (5-15); CALCIUM 8.5 mg/dL (8.5-10.1); CHLORIDE 114 mmol/L (98-107); CREATININE 0.89 mg/dL (0.55-1.02)
[2018-09-07 17:00] LABS: ALKALINE PHOSPHATASE 46 U/L (45-117); BILIRUBIN,TOTAL 0.4 mg/dL (0.2-1.0); TOTAL PROTEIN 6.3 g/dL (6.4-8.2); TROPONIN I < 0.015 ng/mL (0.000-0.045)
[2018-09-07] MEDS ORDERED: CARVEDILOL 12.5 MG TABLET PO ONE (17:15)
[2018-09-07] MEDS ORDERED: KETOROLAC 30 MG/1 ML ONE (17:16)
[2018-09-07] MEDS ORDERED: CARVEDILOL 3.125 MG TABLET ONE (17:21)
[2018-09-07] MEDS ORDERED: KETOROLAC 30 MG/1 ML IM ONE (17:30)
[2018-09-07] MEDS ORDERED: MECLIZINE CHEWABLE 25 MG TAB ONE (18:09)
[2018-09-07] MEDS ORDERED: MECLIZINE CHEWABLE 25 MG TAB PO ONE (18:30)
[2018-09-07] MEDS ORDERED: HYDROcodone/APAP 5/325 TABLET PO STA (18:32)
[2018-09-07] MEDS ORDERED: HYDROcodone/APAP 5/325 TABLET ONE (18:44)
[2018-09-07 19:10] VITALS: BP 185/97
== END 2018-09-07 19:29 | disposition home or self-care (01) ==
LOC: ED 16:21
DX: K21.9 Gastro-esophageal reflux disease without esophagitis (principal); J44.9 Chronic obstructive pulmonary disease, unspecified; I13.0 Hypertensive heart and chronic kidney disease with heart failure and stage 1 through stage 4 chronic kidney disease, or unspecified chronic kidney disease; N18.2 Chronic kidney disease, stage 2 (mild); E11.22 Type 2 diabetes mellitus with diabetic chronic kidney disease; I25.10 Atherosclerotic heart disease of native coronary artery without angina pectoris; E03.9 Hypothyroidism, unspecified; I50.9 Heart failure, unspecified; E78.5 Hyperlipidemia, unspecified; F17.200 Nicotine dependence, unspecified, uncomplicated; Z86.73 Personal history of transient ischemic attack (TIA), and cerebral infarction without residual deficits
CPT/HCPCS: 36415; 71045; 80053; 84484; 85025; 85610; 93005; 96372; 99284; J1885

== ENCOUNTER 2018-09-11 16:00 | Emergency (ER) | payer MEDICARE ==
[~2018-09-11] VITALS: Ht 157.5 cm; Wt 72.0 kg
[~2018-09-11 16:00] MED LIST changes: +MAGN400T36 PO
[2018-09-11] MEDS ORDERED: VALS40TA2 PO (16:10)
[2018-09-11 16:26] LABS: BASOPHILS # (AUTO) 0.02 x10^3/uL (0-0.1); BASOPHILS % (AUTO) 1 % (0-1); EOSINOPHILS # (AUTO) 0.07 x10^3/uL (0-0.4); EOSINOPHILS % (AUTO) 2 % (1-7); LYMPHOCYTES # (AUTO) 1.17 x10^3/uL (1-3.4); LYMPHOCYTES % (AUTO) 33 % (22-44); MD NO; MEAN CORPUSCULAR HEMOGLOBIN 30.1 pg (27.0-34.8); MEAN CORPUSCULAR HGB CONC 32.9 g/dL (32.4-35.8); MEAN CORPUSCULAR VOLUME 91.5 fL (80-100); MEAN PLATELET VOLUME 7.9 fL (7.4-10.4); MONOCYTES # (AUTO) 0.37 x10^3/uL (0.2-0.8); MONOCYTES % (AUTO) 10 % (2-9); NEUTROPHILS # (AUTO) 1.92 x10^3/uL (1.8-6.8); NEUTROPHILS % (AUTO) 54 % (42-75); PLATELET COUNT 219 x10^3/uL (130-400); RED BLOOD COUNT 3.94 x10^6/uL (3.82-5.3); RED CELL DISTRIBUTION WIDTH 16.3 % (9.6-15.2)
[2018-09-11 16:33] LABS: ALANINE AMINOTRANSFERASE 15 U/L (12-78); ALBUMIN 3.1 g/dL (3.4-5.0); ANION GAP 9 mmol/L (5-15); CALCIUM 8.2 mg/dL (8.5-10.1); CHLORIDE 112 mmol/L (98-107); CREATININE 0.95 mg/dL (0.55-1.02)
[2018-09-11 16:38] LABS: ALKALINE PHOSPHATASE 44 U/L (45-117); BILIRUBIN,TOTAL 0.2 mg/dL (0.2-1.0); TOTAL PROTEIN 6.1 g/dL (6.4-8.2); TROPONIN I < 0.015 ng/mL (0.000-0.045)
[2018-09-11 16:56] VITALS: BP 173/79
[2018-09-11 17:30] LABS: CULTURE INDICATED? YES; MICROSCOPIC AUTO
== END 2018-09-11 19:23 | disposition home or self-care (01) ==
LOC: ED 16:40
DX: R55 Syncope and collapse (principal); R53.1 Weakness; L30.8 Other specified dermatitis; Z72.9 Problem related to lifestyle, unspecified; J44.9 Chronic obstructive pulmonary disease, unspecified; I25.10 Atherosclerotic heart disease of native coronary artery without angina pectoris; M54.9 Dorsalgia, unspecified; K21.9 Gastro-esophageal reflux disease without esophagitis; E11.22 Type 2 diabetes mellitus with diabetic chronic kidney disease; I13.0 Hypertensive heart and chronic kidney disease with heart failure and stage 1 through stage 4 chronic kidney disease, or unspecified chronic kidney disease; F17.200 Nicotine dependence, unspecified, uncomplicated; I50.9 Heart failure, unspecified; N18.2 Chronic kidney disease, stage 2 (mild)
CPT/HCPCS: 36415; 71045; 80053; 81001; 83690; 84484; 85025; 87086; 93005; 99284

== ENCOUNTER 2018-09-13 12:40 | Inpatient (IN) | payer MEDICARE ==
[~2018-09-13] VITALS: Ht 157.5 cm; Wt 77.3 kg
[~2018-09-13 12:40] MED LIST changes: +AMLO-150 PO; -AMLO5TAB7 PO; -ASPI-621 PO; +ASPI81TA45 PO
[2018-09-13 14:26] LABS: ALANINE AMINOTRANSFERASE 21 U/L (12-78); ALBUMIN 3.5 g/dL (3.4-5.0); ANION GAP 10 mmol/L (5-15); CALCIUM 8.6 mg/dL (8.5-10.1); CHLORIDE 114 mmol/L (98-107); CREATININE 0.71 mg/dL (0.55-1.02)
[2018-09-13 14:28] LABS: MICROSCOPIC AUTO
[2018-09-13 14:28] LABS: MD YES; MEAN CORPUSCULAR HGB CONC 32.9 g/dL (32.4-35.8); MEAN CORPUSCULAR VOLUME 91.3 fL (80-100); MEAN PLATELET VOLUME 8.1 fL (7.4-10.4); PLATELET COUNT 213 x10^3/uL (130-400); RED BLOOD COUNT 4.42 x10^6/uL (3.82-5.3); RED CELL DISTRIBUTION WIDTH 15.6 % (9.6-15.2)
[2018-09-13 14:29] LABS: ALKALINE PHOSPHATASE 47 U/L (45-117); BILIRUBIN,TOTAL 0.4 mg/dL (0.2-1.0); TOTAL PROTEIN 6.6 g/dL (6.4-8.2)
[2018-09-13 14:33] LABS: CULTURE INDICATED? YES
[2018-09-13 14:35] LABS: EOS#(MANUAL) 0.03 x10^3/uL (0.0-0.4); EOS% (MANUAL) 1 % (1-7); LYMPH#(MANUAL) 1.28 x10^3/uL (1-3.4); LYMPHS% (MANUAL) 40 % (22-44); MONOS#(MANUAL) 0.38 x10^3/uL (0.3-2.7); MONOS% (MANUAL) 12 % (2-9); SEGS% (MANUAL) 47 % (42-75)
[2018-09-13 14:36] LABS: <PLATELET ESTIMATE> ADEQUATE; <PLT MORPHOLOGY> NORMAL PLT MORPH; ANISOCYTOSIS 1+
[2018-09-13] MEDS ORDERED: HYDROmorphone 2 MG/ML, 1ML ONE (15:07)
[2018-09-13] MEDS ORDERED: ONDANSETRON 2MG/ML, 2ML ONE (15:07)
[2018-09-13] MEDS ORDERED: ONDANSETRON 2MG/ML, 2ML IVPush ONE (15:30)
[2018-09-13] MEDS ORDERED: HYDROmorphone 2 MG/ML, 1ML IVPush PRN (15:30)
[2018-09-13] MEDS ORDERED: LABETALOL 5MG/ML, 20ML IVPush ONE (16:30)
[2018-09-13] MEDS ORDERED: LABETALOL 20 MG/4 ML ONE (16:35)
[2018-09-13] MEDS ORDERED: ASPIRIN 81 MG TABLET CHEW ONE (16:44)
[2018-09-13] MEDS ORDERED: SODIUM CHLORIDE FLUSH 10ML SYR IVF PRN (17:00)
[2018-09-13] MEDS ORDERED: NITROGLYCERIN SINGLE TAB 0.4 MG SL PRN (17:00)
[2018-09-13] MEDS ORDERED: ASPIRIN 81 MG TABLET CHEW PO ONE (17:00)
[2018-09-13 17:12] LABS: TROPONIN I < 0.015 ng/mL (0.000-0.045)
[2018-09-13] MEDS ORDERED: DOCUSATE 100 MG CAPSULE PO PRN (17:30)
[2018-09-13] MEDS ORDERED: BISACODYL 10 MG SUPP PR PRN (17:30)
[2018-09-13] MEDS ORDERED: POLYETHYLENE GLYCOL 17 GM PACKET PO PRN (17:30)
[2018-09-13] MEDS ORDERED: PROMETHAZINE 25 MG/ML, 1ML IM PRN (17:30)
[2018-09-13] MEDS ORDERED: ACETAMINOPHEN 325 MG TABLET PO PRN (17:30)
[2018-09-13] MEDS ORDERED: hydrALAzine 20 MG/ML, 1ML IVPush PRN (17:30)
[2018-09-13] MEDS ORDERED: ONDANSETRON 2MG/ML, 2ML IVPush PRN (17:30)
[2018-09-13] MEDS ORDERED: ONDANSETRON ODT 4 MG PO PRN (17:30)
[2018-09-13] MEDS ORDERED: MECLIZINE CHEWABLE 25 MG TAB PO PRN (17:30)
[2018-09-13] MEDS ORDERED: LABETALOL 5MG/ML, 20ML IVPush PRN (17:30)
[2018-09-13] MEDS ORDERED: MORPHINE SULFATE 4 MG/ML, 1ML ONE (18:29)
[2018-09-13] MEDS: MORPHINE SULFATE 4 MG/ML, 1ML IVPush PRN (18:40)
[2018-09-13] MEDS ORDERED: ALBUTEROL SULFATE 2.5 MG/3 ML NPPB PRN (19:30)
[2018-09-13 19:32] LABS: HEMOGLOBIN A1C 5.6 % (4.2-6.3)
[2018-09-13 19:35] VITALS: BP 167/82
[2018-09-13 19:43] LABS: FREE T4 (FREE THYROXINE) 1.1 ng/dL (0.76-1.46); THYROID STIMULATING HORMONE 0.069 mIU/L (0.358-3.740)
[2018-09-13] MEDS: HYDROcodone/APAP 5/325 TABLET PO PRN (19:50)
[2018-09-13] MEDS ORDERED: OMNIPAQUE 350 MG/ML, 100ML BOTTLE ONE (20:25)
[2018-09-13] MEDS: ATORVASTATIN 40 MG TABLET PO SCH (20:51)
[2018-09-13] MEDS: SUCRALFATE 1 GM/10 ML UDC PO SCH ×2 (20:51→21:00)
[2018-09-13] MEDS: PANTOPRAZOLE 40 MG IV IVPush SCH (20:51)
[2018-09-13] MEDS: SODIUM CHLORIDE 0.9% 1,000 ML IV SCH (20:52)
[2018-09-13] MEDS: NYSTATIN CRM 15GM TP SCH (22:25)
[2018-09-13] MEDS: CARVEDILOL 12.5 MG TABLET PO SCH (22:25)
[2018-09-13 22:47] VITALS: BP_SYST 167; BP_SYST 174; BP_DIAS 82
[2018-09-14] MEDS: MORPHINE SULFATE 4 MG/ML, 1ML IVPush PRN ×3 (00:07→20:55)
[2018-09-14 02:29] VITALS: BP 172/85
[2018-09-14] MEDS: HYDROcodone/APAP 5/325 TABLET PO PRN ×3 (03:04→15:52)
[2018-09-14 04:12] VITALS: BP 145/73
[2018-09-14] MEDS: LEVOTHYROXINE 100 MCG TABLET PO SCH (06:00)
[2018-09-14] MEDS: SODIUM CHLORIDE 0.9% 1,000 ML IV SCH (06:19)
[2018-09-14 06:57] LABS: MEAN CORPUSCULAR HGB CONC 32.7 g/dL (32.4-35.8); MEAN CORPUSCULAR VOLUME 91.7 fL (80-100); MEAN PLATELET VOLUME 8.2 fL (7.4-10.4); PLATELET COUNT 197 x10^3/uL (130-400); RED BLOOD COUNT 3.94 x10^6/uL (3.82-5.3); RED CELL DISTRIBUTION WIDTH 15.9 % (9.6-15.2)
[2018-09-14 07:07] LABS: ALANINE AMINOTRANSFERASE 86 U/L (12-78); ANION GAP 8 mmol/L (5-15); CALCIUM 7.7 mg/dL (8.5-10.1); CHLORIDE 112 mmol/L (98-107)
[2018-09-14 07:10] LABS: ALKALINE PHOSPHATASE 136 U/L (45-117); BILIRUBIN,TOTAL 0.5 mg/dL (0.2-1.0); CHOL/HDL RATIO 3.4; CHOLESTEROL, TOTAL 177 mg/dL (140-239); HDL CHOL % 29 % (28-40); HDL CHOLESTEROL (DIRECT) 52 mg/dL (40-60); LDL CHOLESTEROL,CALCULATED 113 mg/dL (54-169); LDL/HDL RATIO 2.2 (0.5-3.0); TOTAL PROTEIN 5.8 g/dL (6.4-8.2); TRIGLYCERIDES 58 mg/dL (50-200); VLDL CHOLESTEROL 12 mg/dL (0-25)
[2018-09-14 07:16] LABS: BASOPHILS # (AUTO) 0.02 x10^3/uL (0-0.1); BASOPHILS % (AUTO) 1 % (0-1); EOSINOPHILS # (AUTO) 0.06 x10^3/uL (0-0.4); EOSINOPHILS % (AUTO) 3 % (1-7); LYMPHOCYTES # (AUTO) 0.75 x10^3/uL (1-3.4); LYMPHOCYTES % (AUTO) 31 % (22-44); MD SCAN; MONOCYTES # (AUTO) 0.29 x10^3/uL (0.2-0.8); MONOCYTES % (AUTO) 12 % (2-9); NEUTROPHILS # (AUTO) 1.27 x10^3/uL (1.8-6.8); NEUTROPHILS % (AUTO) 53 % (42-75)
[2018-09-14] MEDS: SUCRALFATE 1 GM/10 ML UDC PO SCH ×4 (08:00→20:55)
[2018-09-14] MEDS: CARVEDILOL 12.5 MG TABLET PO SCH ×2 (08:01→20:54)
[2018-09-14] MEDS: AMLODIPINE 10 MG TAB PO SCH (08:01)
[2018-09-14] MEDS: PANTOPRAZOLE 40 MG IV IVPush SCH ×2 (08:02→20:55)
[2018-09-14] MEDS: VALSARTAN 80 MG TABLET PO SCH (08:07)
[2018-09-14] MEDS: NYSTATIN CRM 15GM TP SCH ×2 (08:10→23:25)
[2018-09-14 08:18] VITALS: BP 161/86
[2018-09-14 13:50] VITALS: BP 113/61
[2018-09-14 18:48] VITALS: BP 123/72
[2018-09-14] MEDS: ATORVASTATIN 40 MG TABLET PO SCH (20:54)
[2018-09-15 02:41] VITALS: BP 126/76
[2018-09-15] MEDS: MORPHINE SULFATE 4 MG/ML, 1ML IVPush PRN ×2 (02:56→11:57)
[2018-09-15 05:34] LABS: CHLORIDE 114 mmol/L (98-107)
[2018-09-15 05:47] LABS: ALANINE AMINOTRANSFERASE 53 U/L (12-78); ALBUMIN 2.8 g/dL (3.4-5.0); ALKALINE PHOSPHATASE 97 U/L (45-117); ANION GAP 9 mmol/L (5-15); BILIRUBIN,TOTAL 0.3 mg/dL (0.2-1.0); TOTAL PROTEIN 5.2 g/dL (6.4-8.2)
[2018-09-15] MEDS: LEVOTHYROXINE 100 MCG TABLET PO SCH (06:00)
[2018-09-15] MEDS: HYDROcodone/APAP 5/325 TABLET PO PRN ×3 (06:15→14:12)
[2018-09-15] MEDS: SUCRALFATE 1 GM/10 ML UDC PO SCH ×2 (06:46→11:00)
[2018-09-15 08:02] VITALS: BP 148/79
[2018-09-15] MEDS: NYSTATIN CRM 15GM TP SCH (09:00)
[2018-09-15] MEDS: PANTOPRAZOLE 40 MG IV IVPush SCH (11:55)
[2018-09-15] MEDS: AMLODIPINE 10 MG TAB PO SCH (11:56)
[2018-09-15] MEDS: CARVEDILOL 12.5 MG TABLET PO SCH (11:56)
[2018-09-15] MEDS: VALSARTAN 80 MG TABLET PO SCH (12:07)
[2018-09-15 12:28] VITALS: BP 112/71
[2018-09-15] MEDS ORDERED: OMEP-110 PO (12:29)
[2018-09-15] MEDS ORDERED: SUCR1ORA5 PO (12:29)
== END 2018-09-15 15:14 | disposition home or self-care (01) | DRG 392 ==
LOC: ED 17:07 → EDIP 17:08 → ED 17:11 → 4WST 18:17
PROVIDERS: ADMIT Family Medicine; ATTEND Family Medicine
DX: K21.0 Gastro-esophageal reflux disease with esophagitis (principal); I50.32 Chronic diastolic (congestive) heart failure; I13.0 Hypertensive heart and chronic kidney disease with heart failure and stage 1 through stage 4 chronic kidney disease, or unspecified chronic kidney disease; L53.9 Erythematous condition, unspecified; I16.0 Hypertensive urgency; E11.51 Type 2 diabetes mellitus with diabetic peripheral angiopathy without gangrene; K44.9 Diaphragmatic hernia without obstruction or gangrene; K22.70 Barrett's esophagus without dysplasia; J44.9 Chronic obstructive pulmonary disease, unspecified; N18.2 Chronic kidney disease, stage 2 (mild); I25.10 Atherosclerotic heart disease of native coronary artery without angina pectoris; G89.29 Other chronic pain; F32.9 Major depressive disorder, single episode, unspecified; E11.22 Type 2 diabetes mellitus with diabetic chronic kidney disease; E03.9 Hypothyroidism, unspecified; E78.5 Hyperlipidemia, unspecified; G47.33 Obstructive sleep apnea (adult) (pediatric); G43.909 Migraine, unspecified, not intractable, without status migrainosus; F41.1 Generalized anxiety disorder; Z86.73 Personal history of transient ischemic attack (TIA), and cerebral infarction without residual deficits; Z90.710 Acquired absence of both cervix and uterus; Z91.19 Patient's noncompliance with other medical treatment and regimen; Z95.0 Presence of cardiac pacemaker; Z90.49 Acquired absence of other specified parts of digestive tract; Z91.041 Radiographic dye allergy status; Z88.2 Allergy status to sulfonamides; Z91.018 Allergy to other foods
CPT/HCPCS: 36415; 74022; 74177; 80053; 80061; 81001; 83036; 83690; 83735; 84100; 84439; 84443; 84484; 85025; 87086; 93005; 96374; 96375; 99285; G0378; J1170; J2405; Q0162; Q9967; C9113; J7030; Q0177

== ENCOUNTER 2018-09-19 12:55 | Emergency (ER) | payer MEDICARE ==
[~2018-09-19] VITALS: Ht 157.5 cm; Wt 160.0 kg
[2018-09-19 12:59] VITALS: BP 176/86
== END 2018-09-19 13:54 | disposition left against medical advice (07) ==
LOC: ED 13:00
DX: R10.9 Unspecified abdominal pain (principal); R30.0 Dysuria
CPT/HCPCS: 99281

== ENCOUNTER 2018-10-12 11:06 | Inpatient (IN) | payer MEDICARE ==
[~2018-10-12] VITALS: Ht 157.5 cm; Wt 77.0 kg
[~2018-10-12 11:06] MED LIST changes: -CLON0.1T PO; +CLON0.1T22 PO
[2018-10-12] MEDS ORDERED: CYAN25009 PO (11:23)
[2018-10-12] MEDS ORDERED: CARV6.2512 PO (11:23)
[2018-10-12] MEDS ORDERED: PANT40TA5 PO (11:23)
--- NOTE | 2018-10-12 11:33 | NUR ---
ERMD AT BEDSIDE.
[2018-10-12] MEDS ORDERED: ONDANSETRON ODT 4 MG ONE (11:41)
[2018-10-12] MEDS ORDERED: IBUPROFEN 600 MG TABLET ONE (11:41)
--- NOTE | 2018-10-12 11:44 | NUR ---
PT MEDICATED PER EMAR. LAB AT BEDSIDE OBTAINING BLOOD.
[2018-10-12] MEDS ORDERED: IBUPROFEN 200 MG TABLET PO ONE (12:00)
[2018-10-12] MEDS ORDERED: ONDANSETRON ODT 4 MG PO ONE (12:00)
[2018-10-12 12:03] LABS: BASOPHILS # (AUTO) 0.01 x10^3/uL (0-0.1); BASOPHILS % (AUTO) 0 % (0-1); EOSINOPHILS # (AUTO) 0.07 x10^3/uL (0-0.4); EOSINOPHILS % (AUTO) 2 % (1-7); LYMPHOCYTES # (AUTO) 1.14 x10^3/uL (1-3.4); LYMPHOCYTES % (AUTO) 30 % (22-44); MD NO; MEAN CORPUSCULAR HEMOGLOBIN 30.5 pg (27.0-34.8); MEAN CORPUSCULAR HGB CONC 33.7 g/dL (32.4-35.8); MEAN CORPUSCULAR VOLUME 90.6 fL (80-100); MEAN PLATELET VOLUME 9.1 fL (7.4-10.4); MONOCYTES # (AUTO) 0.23 x10^3/uL (0.2-0.8); MONOCYTES % (AUTO) 6 % (2-9); NEUTROPHILS % (AUTO) 62 % (42-75); PLATELET COUNT 196 x10^3/uL (130-400); RED CELL DISTRIBUTION WIDTH 14.9 % (9.6-15.2)
[2018-10-12 12:12] LABS: ALANINE AMINOTRANSFERASE 17 U/L (12-78); ALBUMIN 3.7 g/dL (3.4-5.0); ANION GAP 9 mmol/L (5-15); CALCIUM 8.2 mg/dL (8.5-10.1); CHLORIDE 114 mmol/L (98-107)
[2018-10-12 12:14] LABS: MICROSCOPIC AUTO
[2018-10-12 12:17] LABS: ALKALINE PHOSPHATASE 55 U/L (45-117); BILIRUBIN,TOTAL 0.4 mg/dL (0.2-1.0); CREATININE 0.96 mg/dL (0.55-1.02); TOTAL PROTEIN 6.7 g/dL (6.4-8.2); TROPONIN I < 0.015 ng/mL (0.000-0.045)
[2018-10-12 12:21] LABS: CULTURE INDICATED? YES
[2018-10-12] MEDS ORDERED: MECLIZINE CHEWABLE 25 MG TAB ONE (12:53)
[2018-10-12] MEDS ORDERED: AMLODIPINE 5 MG TABLET ONE (12:54)
[2018-10-12] MEDS ORDERED: AMLODIPINE 10 MG TAB PO SCH (13:00)
[2018-10-12] MEDS ORDERED: MECLIZINE CHEWABLE 25 MG TAB PO ONE (13:00)
[2018-10-12] MEDS ORDERED: SODIUM CHLORIDE FLUSH 10ML SYR IVF PRN (13:00)
[2018-10-12] MEDS ORDERED: HYDROXYZINE PAMOATE 25MG CAP PO ONE (13:00)
--- NOTE | 2018-10-12 13:09 | NUR ---
HOSPITALIST AT BEDSIDE ADMITTING PT.
--- NOTE | 2018-10-12 13:15 | NUR ---
REPORT TO ESTEFANI BURCH RN.
[2018-10-12] MEDS ORDERED: ENOXAPARIN 40 MG/0.4 ML SQ SCH (13:30)
[2018-10-12] MEDS ORDERED: BISACODYL 10 MG SUPP PR PRN (13:30)
[2018-10-12] MEDS ORDERED: ONDANSETRON 2MG/ML, 2ML IVPush PRN (13:30)
[2018-10-12] MEDS ORDERED: ONDANSETRON ODT 4 MG PO PRN (13:30)
[2018-10-12] MEDS ORDERED: LIDODERM 5% PATCH TD PRN (13:30)
[2018-10-12] MEDS ORDERED: hydrALAzine 20 MG/ML, 1ML IVPush PRN (13:30)
[2018-10-12] MEDS ORDERED: ACETAMINOPHEN 325 MG TABLET PO PRN (13:30)
[2018-10-12] MEDS ORDERED: DOCUSATE 100 MG CAPSULE PO PRN (13:30)
[2018-10-12] MEDS ORDERED: ENOXAPARIN 40 MG/0.4 ML ONE (13:57)
[2018-10-12] MEDS ORDERED: HYDROcodone/APAP 5/325 TABLET ONE (13:57)
[2018-10-12] MEDS: HYDROcodone/APAP 5/325 TABLET PO PRN ×2 (13:59→18:16)
--- NOTE | 2018-10-12 14:00 | NUR ---
PT STATING 10/10 GENERALIZED PAIN AT THIS TIME. RN ADMINISTERED NORCO PER EMAR. PT STILL HYPERTENSIVE AT THIS TIME, 192/95. RN TO RECHECK BP AFTER PAIN MEDICATIONS ADMINISTERED. AWAITING ROOM ASSIGNMENT. PT TBAD.
[2018-10-12 14:14] LABS: FREE T4 (FREE THYROXINE) 1.26 ng/dL (0.76-1.46); TROPONIN I < 0.015 ng/mL (0.000-0.045)
[2018-10-12 14:19] LABS: HCT (SEDRATE) 38.7 % (34.6-47.8)
[2018-10-12 14:38] LABS: HEMOGLOBIN A1C 5.8 % (4.2-6.3)
--- NOTE | 2018-10-12 14:42 | NUR ---
REPORT TO MANUEL ROBERSON. PER DA ROOM IS NOT CLEAN AT THIS TIME AND WILL CALL ONCE ROOM IS CLEAN FOR PT TO BE TRANSPORTED TO FLOOR.
--- NOTE | 2018-10-12 15:01 | NUR ---
PER THROUGHPUT PT DOES NOT HAVE A ROOM ON THE MEDICAL/TELEMETRY FLOOR AT THIS TIME. AWAITING BED ASSIGNMENT.
[2018-10-12] MEDS ORDERED: hydrALAzine 20 MG/ML, 1ML ONE (15:15)
--- NOTE | 2018-10-12 15:18 | NUR ---
RN RECHECKED PT'S BP AFTER ADMINISTRATION OF PAIN MEDICATION PER EMAR. PT STILL HYPERTENSIVE AT THIS TIME. PRN BP MEDICATION ADMINISTERED PER EMAR. RN TO RECHECK PT'S BP.
--- NOTE | 2018-10-12 15:46 | NUR ---
PT REQUESTING "ANXIETY" MEDICATION AT THIS TIME. RN CALLED HOSPITALIST TO OBTAIN ORDERS FOR PRN MEDICATION. HOSPITALIST WOULD LIKE RN TO ADD XANAX 0.25MG Q8H PRN. RN TO ADMINISER MEDICATION ONCE VERIFIED BY PHARMACY.
[2018-10-12] MEDS: INSULIN LISPRO 100 UNITS/ML, PEN SQ-INSULIN SCH ×2 (15:52→21:00)
--- NOTE | 2018-10-12 15:55 | NUR ---
PT MEDICATED PER EMAR.
--- NOTE | 2018-10-12 17:00 | NUR ---
REPORT TO MANUEL SWANSON. PER REPORT BED IS NOT CLEAN AT THIS TIME. [employer] SERVICE TECHNICIAN TO CALL ONCE BED IS CLEANED.
[2018-10-12 17:58] VITALS: BP 163/83
[2018-10-12 20:06] LABS: TROPONIN I < 0.015 ng/mL (0.000-0.045)
[2018-10-12] MEDS ORDERED: BUTALB/APAP/CAFFEINE 50MG/325MG/40MG PO PRN (20:30)
[2018-10-12 20:49] VITALS: BP 117/68
[2018-10-12] MEDS ORDERED: KETOROLAC 30 MG/1 ML IVPush ONE ×2 (21:00→21:30)
[2018-10-12] MEDS: ATORVASTATIN 40 MG TABLET PO SCH (21:34)
[2018-10-12] MEDS: OMEPRAZOLE 20 MG CAPSULE.DR PO SCH (21:34)
[2018-10-13 03:50] VITALS: BP 114/62
[2018-10-13 05:02] LABS: BASOPHILS # (AUTO) 0.01 x10^3/uL (0-0.1); BASOPHILS % (AUTO) 1 % (0-1); EOSINOPHILS # (AUTO) 0.12 x10^3/uL (0-0.4); EOSINOPHILS % (AUTO) 4 % (1-7); LYMPHOCYTES # (AUTO) 1.28 x10^3/uL (1-3.4); LYMPHOCYTES % (AUTO) 41 % (22-44); MD NO; MEAN CORPUSCULAR HEMOGLOBIN 30.7 pg (27.0-34.8); MEAN CORPUSCULAR VOLUME 90.3 fL (80-100); MEAN PLATELET VOLUME 8.8 fL (7.4-10.4); MONOCYTES # (AUTO) 0.35 x10^3/uL (0.2-0.8); MONOCYTES % (AUTO) 11 % (2-9); NEUTROPHILS # (AUTO) 1.36 x10^3/uL (1.8-6.8); NEUTROPHILS % (AUTO) 44 % (42-75); PLATELET COUNT 183 x10^3/uL (130-400); RED BLOOD COUNT 3.88 x10^6/uL (3.82-5.3); RED CELL DISTRIBUTION WIDTH 15.3 % (9.6-15.2)
[2018-10-13] MEDS: LEVOTHYROXINE 100 MCG TABLET PO SCH (05:09)
[2018-10-13 05:17] LABS: ANION GAP 8 mmol/L (5-15); CHLORIDE 114 mmol/L (98-107); CHOLESTEROL, TOTAL 211 mg/dL (140-239); CREATININE 1.36 mg/dL (0.55-1.02); TRIGLYCERIDES 105 mg/dL (50-200); VLDL CHOLESTEROL 21 mg/dL (0-25)
[2018-10-13] MEDS: HYDROcodone/APAP 5/325 TABLET PO PRN ×3 (05:18→20:19)
[2018-10-13 05:20] LABS: CHOL/HDL RATIO 4.8; HDL CHOL % 21 % (28-40); HDL CHOLESTEROL (DIRECT) 44 mg/dL (40-60); LDL CHOLESTEROL,CALCULATED 146 mg/dL (54-169); LDL/HDL RATIO 3.3 (0.5-3.0)
[2018-10-13] MEDS: INSULIN LISPRO 100 UNITS/ML, PEN SQ-INSULIN SCH ×4 (07:00→21:00)
[2018-10-13 07:46] VITALS: BP 177/83
[2018-10-13] MEDS: CARVEDILOL 6.25 MG TABLET PO SCH (09:05)
[2018-10-13] MEDS: OMEPRAZOLE 20 MG CAPSULE.DR PO SCH ×2 (09:05→20:19)
[2018-10-13] MEDS ORDERED: ENOXAPARIN 30 MG/0.3 ML SQ SCH (13:00)
[2018-10-13] MEDS: SODIUM CHLORIDE 0.9% 1,000 ML IV SCH ×2 (13:14→22:30)
[2018-10-13 20:09] VITALS: BP 161/83
[2018-10-13] MEDS: ATORVASTATIN 40 MG TABLET PO SCH (20:19)
[2018-10-14 01:20] VITALS: BP 153/75
[2018-10-14] MEDS: HYDROcodone/APAP 5/325 TABLET PO PRN ×3 (01:45→10:16)
[2018-10-14] MEDS: LEVOTHYROXINE 100 MCG TABLET PO SCH (04:59)
[2018-10-14] MEDS: SODIUM CHLORIDE 0.9% 1,000 ML IV SCH (05:02)
[2018-10-14 06:20] LABS: BASOPHILS # (AUTO) 0.03 x10^3/uL (0-0.1); BASOPHILS % (AUTO) 1 % (0-1); EOSINOPHILS # (AUTO) 0.11 x10^3/uL (0-0.4); EOSINOPHILS % (AUTO) 3 % (1-7); LYMPHOCYTES % (AUTO) 35 % (22-44); MD NO; MEAN CORPUSCULAR HEMOGLOBIN 30.3 pg (27.0-34.8); MEAN CORPUSCULAR HGB CONC 33.1 g/dL (32.4-35.8); MEAN CORPUSCULAR VOLUME 91.5 fL (80-100); MEAN PLATELET VOLUME 9.3 fL (7.4-10.4); MONOCYTES % (AUTO) 10 % (2-9); NEUTROPHILS # (AUTO) 1.61 x10^3/uL (1.8-6.8); NEUTROPHILS % (AUTO) 51 % (42-75); PLATELET COUNT 168 x10^3/uL (130-400); RED BLOOD COUNT 4.02 x10^6/uL (3.82-5.3); RED CELL DISTRIBUTION WIDTH 15.3 % (9.6-15.2)
[2018-10-14 06:34] LABS: ANION GAP 10 mmol/L (5-15); CALCIUM 8.3 mg/dL (8.5-10.1); CHLORIDE 114 mmol/L (98-107)
[2018-10-14 06:36] LABS: CREATININE 1.23 mg/dL (0.55-1.02)
[2018-10-14] MEDS: INSULIN LISPRO 100 UNITS/ML, PEN SQ-INSULIN SCH ×2 (07:00→11:00)
[2018-10-14 07:16] VITALS: BP 147/70
[2018-10-14] MEDS: OMEPRAZOLE 20 MG CAPSULE.DR PO SCH (09:32)
[2018-10-14] MEDS: CARVEDILOL 6.25 MG TABLET PO SCH (09:33)
[2018-10-14] MEDS ORDERED: ENOXAPARIN 40 MG/0.4 ML SQ SCH (13:00)
== END 2018-10-14 12:04 | disposition left against medical advice (07) | DRG 683 ==
LOC: ED 12:03 → EDIP 12:52 → 4WST 17:31
PROVIDERS: ADMIT Internal Medicine; ATTEND Internal Medicine
DX: N17.9 Acute kidney failure, unspecified (principal); I50.32 Chronic diastolic (congestive) heart failure; K50.90 Crohn's disease, unspecified, without complications; I13.0 Hypertensive heart and chronic kidney disease with heart failure and stage 1 through stage 4 chronic kidney disease, or unspecified chronic kidney disease; I16.0 Hypertensive urgency; R42 Dizziness and giddiness; E03.9 Hypothyroidism, unspecified; E11.22 Type 2 diabetes mellitus with diabetic chronic kidney disease; E78.5 Hyperlipidemia, unspecified; F41.1 Generalized anxiety disorder; G47.33 Obstructive sleep apnea (adult) (pediatric); G89.29 Other chronic pain; I48.2 Chronic atrial fibrillation; I25.10 Atherosclerotic heart disease of native coronary artery without angina pectoris; J44.9 Chronic obstructive pulmonary disease, unspecified; K21.0 Gastro-esophageal reflux disease with esophagitis; K29.70 Gastritis, unspecified, without bleeding; N18.2 Chronic kidney disease, stage 2 (mild); F32.9 Major depressive disorder, single episode, unspecified; M54.5 Low back pain; Z86.73 Personal history of transient ischemic attack (TIA), and cerebral infarction without residual deficits; Z87.440 Personal history of urinary (tract) infections; Z90.710 Acquired absence of both cervix and uterus; Z91.19 Patient's noncompliance with other medical treatment and regimen; Z90.49 Acquired absence of other specified parts of digestive tract; Z79.899 Other long term (current) drug therapy; I10 Essential (primary) hypertension
CPT/HCPCS: 36415; 71045; 80048; 80053; 80061; 81001; 82962; 83036; 83690; 83880; 84439; 84443; 84484; 85025; 85651; 87086; 93005; 96372; 96374; 99285; G0378; J1650; J1885; J2405; Q0162; J0360; J7030

== ENCOUNTER 2018-10-31 14:25 | Emergency (ER) | payer MEDICARE ==
[~2018-10-31] VITALS: Ht 157.5 cm; Wt 85.0 kg
[~2018-10-31 14:25] MED LIST changes: +CYAN25009 PO
[2018-10-31 14:39] VITALS: BP 192/95
--- NOTE | 2018-10-31 14:45 | NUR ---
BIB [facility]. C/O "worst MIDDLETON of my life" x 3 days. C/O dizziness, double vision and nausea. 9/10 left sided CP radiating to left shoulder and neck. Patient reports hematuria. EKG done. Placed on NIBP, pulse ox and environmental monitoring technician. Will continue to monitor
[2018-10-31 15:35] LABS: BASOPHILS # (AUTO) 0.02 x10^3/uL (0-0.1); BASOPHILS % (AUTO) 1 % (0-1); EOSINOPHILS # (AUTO) 0.08 x10^3/uL (0-0.4); EOSINOPHILS % (AUTO) 3 % (1-7); LYMPHOCYTES # (AUTO) 1.45 x10^3/uL (1-3.4); LYMPHOCYTES % (AUTO) 44 % (22-44); MD NO; MEAN CORPUSCULAR HEMOGLOBIN 30.9 pg (27.0-34.8); MEAN CORPUSCULAR HGB CONC 34.1 g/dL (32.4-35.8); MEAN CORPUSCULAR VOLUME 90.6 fL (80-100); MEAN PLATELET VOLUME 8.7 fL (7.4-10.4); MONOCYTES # (AUTO) 0.33 x10^3/uL (0.2-0.8); MONOCYTES % (AUTO) 10 % (2-9); NEUTROPHILS # (AUTO) 1.42 x10^3/uL (1.8-6.8); NEUTROPHILS % (AUTO) 43 % (42-75); PLATELET COUNT 176 x10^3/uL (130-400); RED BLOOD COUNT 4.31 x10^6/uL (3.82-5.3)
--- NOTE | 2018-10-31 15:41 | NUR ---
Assisted to BSC. Voided about 400mL.
[2018-10-31 15:47] LABS: ALBUMIN 3.8 g/dL (3.4-5.0); ANION GAP 10 mmol/L (5-15); CHLORIDE 114 mmol/L (98-107); CREATININE 0.97 mg/dL (0.55-1.02)
[2018-10-31 15:51] LABS: TROPONIN I < 0.015 ng/mL (0.000-0.045)
[2018-10-31 15:54] LABS: MICROSCOPIC NOT IND
[2018-10-31 16:03] LABS: CULTURE INDICATED? NO
[2018-10-31] MEDS ORDERED: IBUPROFEN 200 MG TABLET ONE (16:39)
--- NOTE | 2018-10-31 16:41 | NUR ---
C/O MIDDLETON. Ibuprofen admin.
[2018-10-31] MEDS ORDERED: IBUPROFEN 200 MG TABLET PO ONE (17:00)
--- NOTE | 2018-10-31 17:18 | NUR ---
Patient/Caregiver given discharge instructions and they have confirmed that they understand the instructions. Patient ambulatory with steady gait.
== END 2018-10-31 17:19 | disposition home or self-care (01) ==
LOC: ED 16:00
DX: S00.93XA Contusion of unspecified part of head, initial encounter (principal); I48.91 Unspecified atrial fibrillation; E11.9 Type 2 diabetes mellitus without complications; J44.9 Chronic obstructive pulmonary disease, unspecified; E78.5 Hyperlipidemia, unspecified; K21.9 Gastro-esophageal reflux disease without esophagitis; E03.9 Hypothyroidism, unspecified; I25.10 Atherosclerotic heart disease of native coronary artery without angina pectoris; R51 Headache; F41.1 Generalized anxiety disorder; F32.9 Major depressive disorder, single episode, unspecified; Z86.73 Personal history of transient ischemic attack (TIA), and cerebral infarction without residual deficits; W01.0XXA Fall on same level from slipping, tripping and stumbling without subsequent striking against object, initial encounter; Y93.89 Activity, other specified; Y92.009 Unspecified place in unspecified non-institutional (private) residence as the place of occurrence of the external cause; Y99.8 Other external cause status
CPT/HCPCS: 36415; 70450; 71045; 80048; 81003; 82040; 84484; 85025; 93005; 99284

== ENCOUNTER 2018-11-08 09:56 | Emergency (ER) | payer MEDICARE ==
[~2018-11-08] VITALS: Ht 157.5 cm; Wt 80.0 kg
[~2018-11-08 09:56] MED LIST changes: -AMLO10TA6 PO; +AMLO10TA8 PO
[2018-11-08] MEDS ORDERED: AMLO10TA8 PO (10:13)
[2018-11-08] MEDS ORDERED: OMEP20TA62 PO (10:13)
[2018-11-08] MEDS ORDERED: HYDR-3653 PO (10:13)
--- NOTE | 2018-11-08 10:26 | NUR ---
MEDICAL STUDENT TO BS FOR EXAM. VSS. NO APPARENT DISTRESS.
[2018-11-08] MEDS ORDERED: ACETAMINOPHEN 500 MG TABLET PO ONE (11:00)
[2018-11-08 11:28] LABS: MEAN CORPUSCULAR HGB CONC 32.7 g/dL (32.4-35.8); MEAN CORPUSCULAR VOLUME 91.5 fL (80-100); MEAN PLATELET VOLUME 8.9 fL (7.4-10.4); PLATELET COUNT 155 x10^3/uL (130-400); RED BLOOD COUNT 4.14 x10^6/uL (3.82-5.3); RED CELL DISTRIBUTION WIDTH 14.8 % (9.6-15.2)
--- NOTE | 2018-11-08 11:35 | NUR ---
REFUSES TYLENOL, "NOT STRONG ENOUGH!"
[2018-11-08 11:43] LABS: ALANINE AMINOTRANSFERASE 14 U/L (12-78); ALBUMIN 3.6 g/dL (3.4-5.0); ANION GAP 8 mmol/L (5-15); CALCIUM 8.4 mg/dL (8.5-10.1); CHLORIDE 112 mmol/L (98-107)
[2018-11-08 11:45] LABS: ALKALINE PHOSPHATASE 47 U/L (45-117); BILIRUBIN,TOTAL 0.5 mg/dL (0.2-1.0); TOTAL PROTEIN 6.2 g/dL (6.4-8.2)
[2018-11-08 11:54] LABS: MICROSCOPIC NOT IND
[2018-11-08 11:59] LABS: RAPID INFLUENZA A Negative (Negative); RAPID INFLUENZA B Negative (Negative)
[2018-11-08 12:00] LABS: BASOPHILS # (AUTO) 0.01 x10^3/uL (0-0.1); BASOPHILS % (AUTO) 1 % (0-1); EOSINOPHILS # (AUTO) 0.08 x10^3/uL (0-0.4); EOSINOPHILS % (AUTO) 3 % (1-7); LYMPHOCYTES # (AUTO) 0.98 x10^3/uL (1-3.4); LYMPHOCYTES % (AUTO) 34 % (22-44); MD SCAN; MONOCYTES # (AUTO) 0.26 x10^3/uL (0.2-0.8); MONOCYTES % (AUTO) 9 % (2-9); NEUTROPHILS # (AUTO) 1.58 x10^3/uL (1.8-6.8); NEUTROPHILS % (AUTO) 54 % (42-75)
[2018-11-08 12:01] LABS: CULTURE INDICATED? NO
[2018-11-08 13:08] VITALS: BP 189/76
--- NOTE | 2018-11-08 13:09 | NUR ---
Patient resting in gurney, able to reposition self for comfort. Lab and imaging results posted, waiting for reevaluation by provider.
--- NOTE | 2018-11-08 13:09 | NUR ---
REPORT TO DEWAYNE JACKSON. PT UP FOR MD REASSESSMENT
[2018-11-08] MEDS ORDERED: POTASSIUM CHLORIDE 20 MEQ TAB.ER.PRT ONE (13:25)
[2018-11-08] MEDS ORDERED: POTASSIUM CHLORIDE 20 MEQ TAB.ER.PRT PO ONE (13:30)
--- NOTE | 2018-11-08 13:32 | NUR ---
Patient declines potassium, states "I don't need that". Purpose of medication explained to patient, patient verbalizes understanding and refuses.
--- NOTE | 2018-11-08 14:05 | NUR ---
Discharge instructions discussed with patient, verbalizes understanding. Patient demands taxi voucher, tax voucher provided.
== END 2018-11-08 14:07 | disposition home or self-care (01) ==
LOC: ED 11:37
DX: B34.9 Viral infection, unspecified (principal); I11.0 Hypertensive heart disease with heart failure; I50.9 Heart failure, unspecified; E11.9 Type 2 diabetes mellitus without complications; I48.91 Unspecified atrial fibrillation; J44.9 Chronic obstructive pulmonary disease, unspecified; I25.10 Atherosclerotic heart disease of native coronary artery without angina pectoris; E03.9 Hypothyroidism, unspecified; G89.29 Other chronic pain; F32.9 Major depressive disorder, single episode, unspecified; K21.9 Gastro-esophageal reflux disease without esophagitis; E78.5 Hyperlipidemia, unspecified; Z86.73 Personal history of transient ischemic attack (TIA), and cerebral infarction without residual deficits
CPT/HCPCS: 36415; 71045; 80053; 81003; 83605; 85025; 87040; 87400; 99284

== ENCOUNTER 2018-11-09 15:54 | Emergency (ER) | payer MEDICARE ==
[~2018-11-09] VITALS: Ht 157.5 cm; Wt 78.8 kg
[~2018-11-09 15:54] MED LIST changes: +HYDR-3653 PO; +OMEP20TA62 PO
[2018-11-09 17:32] LABS: BASOPHILS # (AUTO) 0.05 x10^3/uL (0-0.1); BASOPHILS % (AUTO) 1 % (0-1); EOSINOPHILS # (AUTO) 0.08 x10^3/uL (0-0.4); EOSINOPHILS % (AUTO) 2 % (1-7); HEMOGRAM NOTE RECHECKED; LYMPHOCYTES # (AUTO) 1.47 x10^3/uL (1-3.4); LYMPHOCYTES % (AUTO) 38 % (22-44); MD NO; MEAN CORPUSCULAR HEMOGLOBIN 30.6 pg (27.0-34.8); MEAN CORPUSCULAR HGB CONC 33.9 g/dL (32.4-35.8); MEAN CORPUSCULAR VOLUME 90.3 fL (80-100); MEAN PLATELET VOLUME 9.1 fL (7.4-10.4); MONOCYTES % (AUTO) 10 % (2-9); NEUTROPHILS # (AUTO) 1.84 x10^3/uL (1.8-6.8); NEUTROPHILS % (AUTO) 48 % (42-75); PLATELET COUNT 172 x10^3/uL (130-400); RED BLOOD COUNT 4.06 x10^6/uL (3.82-5.3); RED CELL DISTRIBUTION WIDTH 14.7 % (9.6-15.2)
[2018-11-09 17:34] LABS: ALBUMIN 3.5 g/dL (3.4-5.0); ANION GAP 12 mmol/L (5-15); CALCIUM 8.3 mg/dL (8.5-10.1); CHLORIDE 110 mmol/L (98-107)
[2018-11-09 17:41] LABS: ALANINE AMINOTRANSFERASE 15 U/L (12-78); ALKALINE PHOSPHATASE 48 U/L (45-117); BILIRUBIN,TOTAL 0.4 mg/dL (0.2-1.0); CREATININE 1.35 mg/dL (0.55-1.02); TOTAL PROTEIN 6.1 g/dL (6.4-8.2); TROPONIN I < 0.015 ng/mL (0.000-0.045)
[2018-11-09 19:32] VITALS: BP 161/87
[2018-11-09] MEDS ORDERED: IBUPROFEN 200 MG TABLET ONE (19:39)
--- NOTE | 2018-11-09 19:42 | NUR ---
PT REQUESTING PAIN MEDICATION, INFORMED. MD STATES TO ASK PT ABOUT HER ALLERIES TO NSAIDS. PT DENIES AN ALLERGY TO NSAIDS. ATTEMPTED TO MEDICATE PT WITH AN NSAID TO WHICH PT REPLIES "ONLY MORPHINE WORKS, I'M ALLERGIC TO NSAIDS".
--- NOTE | 2018-11-09 19:54 | NUR ---
MD STATES NO MORPHINE. PT THEN STATES SHE WANTS TO LEAVE. INFORMED. AWAITING DC PAPERS. PT TO BE GIVEN TAXI VOUCHER PER REQUEST.
[2018-11-09] MEDS ORDERED: IBUPROFEN 200 MG TABLET PO ONE (20:00)
== END 2018-11-09 20:32 | disposition home or self-care (01) ==
LOC: ED 17:46
DX: S16.1XXA Strain of muscle, fascia and tendon at neck level, initial encounter (principal); S39.012A Strain of muscle, fascia and tendon of lower back, initial encounter; E11.22 Type 2 diabetes mellitus with diabetic chronic kidney disease; I13.0 Hypertensive heart and chronic kidney disease with heart failure and stage 1 through stage 4 chronic kidney disease, or unspecified chronic kidney disease; N18.2 Chronic kidney disease, stage 2 (mild); J44.9 Chronic obstructive pulmonary disease, unspecified; F41.1 Generalized anxiety disorder; K21.9 Gastro-esophageal reflux disease without esophagitis; E78.5 Hyperlipidemia, unspecified; I25.10 Atherosclerotic heart disease of native coronary artery without angina pectoris; I48.91 Unspecified atrial fibrillation; E03.9 Hypothyroidism, unspecified; Z87.01 Personal history of pneumonia (recurrent); Z95.0 Presence of cardiac pacemaker; Z90.49 Acquired absence of other specified parts of digestive tract; Z90.89 Acquired absence of other organs; Z90.710 Acquired absence of both cervix and uterus; Z72.9 Problem related to lifestyle, unspecified; X58.XXXA Exposure to other specified factors, initial encounter; Y93.89 Activity, other specified; Y92.89 Other specified places as the place of occurrence of the external cause; Y99.8 Other external cause status
CPT/HCPCS: 36415; 71045; 72050; 72110; 80053; 84484; 85025; 93005; 99284

== ENCOUNTER 2018-11-13 08:26 | Emergency (ER) | payer MEDICARE ==
[~2018-11-13] VITALS: Ht 160 cm; Wt 73.0 kg
[2018-11-13] MEDS ORDERED: SODIUM CHLORIDE FLUSH 10ML SYR IVF ONE (09:00)
[2018-11-13] MEDS ORDERED: METOCLOPRAMIDE 5 MG/ML, 2ML IVPush ONE (09:00)
[2018-11-13 09:11] LABS: BASOPHILS # (AUTO) 0.02 x10^3/uL (0-0.1); BASOPHILS % (AUTO) 1 % (0-1); EOSINOPHILS # (AUTO) 0.09 x10^3/uL (0-0.4); EOSINOPHILS % (AUTO) 3 % (1-7); LYMPHOCYTES # (AUTO) 1.17 x10^3/uL (1-3.4); LYMPHOCYTES % (AUTO) 35 % (22-44); MD NO; MEAN CORPUSCULAR HEMOGLOBIN 30.1 pg (27.0-34.8); MEAN CORPUSCULAR HGB CONC 33.1 g/dL (32.4-35.8); MEAN CORPUSCULAR VOLUME 91.1 fL (80-100); MEAN PLATELET VOLUME 9.1 fL (7.4-10.4); MONOCYTES # (AUTO) 0.26 x10^3/uL (0.2-0.8); MONOCYTES % (AUTO) 8 % (2-9); NEUTROPHILS # (AUTO) 1.79 x10^3/uL (1.8-6.8); NEUTROPHILS % (AUTO) 54 % (42-75); PLATELET COUNT 158 x10^3/uL (130-400); RED BLOOD COUNT 4.54 x10^6/uL (3.82-5.3); RED CELL DISTRIBUTION WIDTH 14.7 % (9.6-15.2)
[2018-11-13 09:25] LABS: ALANINE AMINOTRANSFERASE 16 U/L (12-78); ALBUMIN 3.8 g/dL (3.4-5.0); ANION GAP 7 mmol/L (5-15); CALCIUM 8.8 mg/dL (8.5-10.1); CHLORIDE 114 mmol/L (98-107); CREATININE 0.95 mg/dL (0.55-1.02)
[2018-11-13 09:29] LABS: ALKALINE PHOSPHATASE 50 U/L (45-117); BILIRUBIN,TOTAL 0.3 mg/dL (0.2-1.0); TROPONIN I < 0.015 ng/mL (0.000-0.045)
[2018-11-13] MEDS ORDERED: DIAZEPAM 5 MG/ML, 2ML IV ONE (09:30)
[2018-11-13] MEDS ORDERED: POTASSIUM CHLORIDE 20 MEQ PACKET PO ONE (10:00)
[2018-11-13] MEDS ORDERED: METOCLOPRAMIDE 5 MG/ML, 2ML ONE (10:12)
[2018-11-13] MEDS ORDERED: POTASSIUM CHLORIDE 20 MEQ PACKET ONE (10:12)
[2018-11-13 10:18] LABS: MICROSCOPIC INDICATED
[2018-11-13 10:19] LABS: CULTURE INDICATED? YES
--- NOTE | 2018-11-13 11:13 | NUR ---
PT AMBULATING TO BEDSIDE COMMODE AND IN ROOM WELL. NO ACUTE S/S OF DISTRESS
[2018-11-13 11:39] VITALS: BP 140/80
== END 2018-11-13 11:49 | disposition home or self-care (01) ==
LOC: ED 09:10
DX: G44.201 Tension-type headache, unspecified, intractable (principal); R42 Dizziness and giddiness; R11.2 Nausea with vomiting, unspecified; I48.91 Unspecified atrial fibrillation; I13.0 Hypertensive heart and chronic kidney disease with heart failure and stage 1 through stage 4 chronic kidney disease, or unspecified chronic kidney disease; N18.2 Chronic kidney disease, stage 2 (mild); I50.9 Heart failure, unspecified; F41.9 Anxiety disorder, unspecified; J44.9 Chronic obstructive pulmonary disease, unspecified; E11.22 Type 2 diabetes mellitus with diabetic chronic kidney disease; E78.5 Hyperlipidemia, unspecified; K21.9 Gastro-esophageal reflux disease without esophagitis; F32.9 Major depressive disorder, single episode, unspecified; G89.29 Other chronic pain; E03.9 Hypothyroidism, unspecified; I25.10 Atherosclerotic heart disease of native coronary artery without angina pectoris; Z86.73 Personal history of transient ischemic attack (TIA), and cerebral infarction without residual deficits
CPT/HCPCS: 36415; 70450; 71045; 80053; 81001; 82375; 84484; 85025; 87077; 87086; 93005; 96374; 96375; 99284; J2765; J3360; 87186

== ENCOUNTER 2018-11-23 17:25 | Emergency (ER) | payer MEDICARE ==
[~2018-11-23] VITALS: Ht 157.5 cm; Wt 73.0 kg
--- NOTE | 2018-11-23 17:35 | NUR ---
PT REPORT FROM MANUEL CASTILLO. PT CARE ASSUMED.
--- NOTE | 2018-11-23 17:39 | NUR ---
LAB AT BS. PT A&OX4, RESP EVEN & UNLABORED, SPEECH CLEAR, SKIN PALE/W/D. C/O "FLU" SX - FEVER, CHILLS, NAUSEA, DIARRHEA. TOOK [employer] PSYCHOLOGY SPECIALIST. WAS SEEN AT [facility] YESTERDAY FOR CP. C/O PAIN "BY MY PACEMAKER". C/O LLQ PAIN - STARTED LAST NOC.
[2018-11-23 18:03] LABS: ALANINE AMINOTRANSFERASE 18 U/L (12-78); ALBUMIN 3.4 g/dL (3.4-5.0); ANION GAP 9 mmol/L (5-15); CALCIUM 8.5 mg/dL (8.5-10.1); CHLORIDE 113 mmol/L (98-107); CREATININE 1.36 mg/dL (0.55-1.02)
[2018-11-23 18:06] LABS: ALKALINE PHOSPHATASE 51 U/L (45-117); BILIRUBIN,TOTAL 0.4 mg/dL (0.2-1.0); TOTAL PROTEIN 6.1 g/dL (6.4-8.2)
[2018-11-23] MEDS ORDERED: SUCR1TAB PO (18:09)
[2018-11-23] MEDS ORDERED: IBUP-1222 PO (18:10)
[2018-11-23] MEDS ORDERED: METH500T7 PO (18:10)
[2018-11-23] MEDS ORDERED: HYDR25TA11 PO (18:10)
[2018-11-23] MEDS ORDERED: FLUT16SP NAS (18:10)
[2018-11-23] MEDS ORDERED: OMEP20CA14 PO (18:10)
[2018-11-23] MEDS ORDERED: NITR100C6 PO (18:10)
[2018-11-23] MEDS ORDERED: ATOR40TA78 PO (18:10)
[2018-11-23] MEDS ORDERED: CEPHALEXIN (18:10)
[2018-11-23 18:39] LABS: BASOPHILS # (AUTO) 0.01 x10^3/uL (0-0.1); BASOPHILS % (AUTO) 0 % (0-1); EOSINOPHILS # (AUTO) 0.09 x10^3/uL (0-0.4); EOSINOPHILS % (AUTO) 2 % (1-7); LYMPHOCYTES # (AUTO) 1.31 x10^3/uL (1-3.4); LYMPHOCYTES % (AUTO) 33 % (22-44); MD NO; MEAN CORPUSCULAR HEMOGLOBIN 30.6 pg (27.0-34.8); MEAN CORPUSCULAR HGB CONC 33.8 g/dL (32.4-35.8); MEAN CORPUSCULAR VOLUME 90.4 fL (80-100); MEAN PLATELET VOLUME 8.6 fL (7.4-10.4); MONOCYTES # (AUTO) 0.33 x10^3/uL (0.2-0.8); MONOCYTES % (AUTO) 8 % (2-9); NEUTROPHILS # (AUTO) 2.28 x10^3/uL (1.8-6.8); NEUTROPHILS % (AUTO) 57 % (42-75); PLATELET COUNT 176 x10^3/uL (130-400); RED BLOOD COUNT 4.23 x10^6/uL (3.82-5.3); RED CELL DISTRIBUTION WIDTH 14.7 % (9.6-15.2)
--- NOTE | 2018-11-23 18:47 | NUR ---
PT UP TO BS COMMODE, VOIDED SPECIMEN PROVIDED (MARA, CLEAR); PT ASSISTED BACK TO [facility]. SIDE RAILS UP X2, CALL LIGHT W/IN REACH, THREE BLANKETS ON PT. OBSERVED PT INTERMITTENTLY BREATHING HEAVILY WHEN RN IN ROOM; C/O TROUBLE BREATHING; LS CLEAR ALL GARCIA BILAT, PULSE OX 98%RA, SKIN WNL, SPEECH CLEAR.
[2018-11-23 19:02] VITALS: BP 152/64
== END 2018-11-23 19:50 | disposition home or self-care (01) ==
LOC: ED 17:44
DX: R11.2 Nausea with vomiting, unspecified (principal); R19.7 Diarrhea, unspecified; I48.91 Unspecified atrial fibrillation; E11.9 Type 2 diabetes mellitus without complications; J44.9 Chronic obstructive pulmonary disease, unspecified; I13.0 Hypertensive heart and chronic kidney disease with heart failure and stage 1 through stage 4 chronic kidney disease, or unspecified chronic kidney disease; E11.22 Type 2 diabetes mellitus with diabetic chronic kidney disease; N18.2 Chronic kidney disease, stage 2 (mild); I50.9 Heart failure, unspecified; E78.5 Hyperlipidemia, unspecified; K21.9 Gastro-esophageal reflux disease without esophagitis; E03.9 Hypothyroidism, unspecified; Z90.49 Acquired absence of other specified parts of digestive tract; Z86.73 Personal history of transient ischemic attack (TIA), and cerebral infarction without residual deficits; Z90.710 Acquired absence of both cervix and uterus; Z95.0 Presence of cardiac pacemaker
CPT/HCPCS: 36415; 74021; 80053; 85025; 93005; 99284

== ENCOUNTER 2018-11-27 15:37 | Emergency (ER) | payer MEDICARE ==
[~2018-11-27] VITALS: Ht 157.5 cm; Wt 73.0 kg
[~2018-11-27 15:37] MED LIST changes: +CEPHALEXIN; +FLUT16SP NAS; +IBUP-1222 PO; +METH500T7 PO; +NITR100C6 PO; +OMEP20CA14 PO; +SUCR1TAB PO
--- NOTE | 2018-11-27 15:40 | NUR ---
pt BIB [facility] from home c/o CP and states that she feel like she has "electricity in her chest" pt states that she has a pacemaker but does not know any informaiton about it. states that she is not aware if it is also and AICD. pt has intermittent pacer spikes on monitor. nausea and SOB. pt medicated fot pain TAR HEATER but states that she has not had much relief. pt placed on O2. EKG has bene to bedside. no family at bedside. awaiting MD to see
--- NOTE | 2018-11-27 16:08 | NUR ---
awaiting MD to see. pt resting in position of comfort. report to Shannon Griffin RN for lunch
--- NOTE | 2018-11-27 17:00 | NUR ---
entered room to intiate D/C process. asked pt if she had someone to pick her up and pt states "no, you give me a cab voucher. I get one every time I'm here".
--- NOTE | 2018-11-27 17:05 | NUR ---
attempted to enter room to give pt D/C information, pt not in room
[2018-11-27 17:17] VITALS: BP 156/74
== END 2018-11-27 17:23 | disposition home or self-care (01) ==
LOC: ED 15:51
DX: R07.89 Other chest pain (principal); I48.91 Unspecified atrial fibrillation; J44.9 Chronic obstructive pulmonary disease, unspecified; I25.10 Atherosclerotic heart disease of native coronary artery without angina pectoris; E03.9 Hypothyroidism, unspecified; K21.9 Gastro-esophageal reflux disease without esophagitis; E78.5 Hyperlipidemia, unspecified; E11.22 Type 2 diabetes mellitus with diabetic chronic kidney disease; I13.0 Hypertensive heart and chronic kidney disease with heart failure and stage 1 through stage 4 chronic kidney disease, or unspecified chronic kidney disease; N18.2 Chronic kidney disease, stage 2 (mild); I50.9 Heart failure, unspecified; Z86.73 Personal history of transient ischemic attack (TIA), and cerebral infarction without residual deficits
CPT/HCPCS: 93005; 99283

== ENCOUNTER 2018-12-02 09:35 | Emergency (ER) | payer MEDICARE ==
[~2018-12-02] VITALS: Ht 157.5 cm; Wt 80.0 kg
[2018-12-02] MEDS ORDERED: PLEASE ENTER HEIGHT AND WEIGHT MC SCH (09:50)
--- NOTE | 2018-12-02 09:55 | NUR ---
73 Y/O FEMALE BIB AMBULANCE WITH C/O ABD PAIN. "I HAVE SOME PAIN AROUND MY BELLY BUTTON. IT'S MY HERNIA'S. I HAVE 2. ANYTIME I STOOP OVER OR MOVE A BOX IT HURTS. I ALSO HAVE THIS RASH AROUND MY BELLY BUTTON." NO ACUTE DISTRESS NOTED. NO C/O N/V/D, TRAUMA, SYNCOPE, CP, SOB. PT PLACED ON CONTPULSE OX,NIBP.
[2018-12-02] MEDS ORDERED: KETOROLAC 30 MG/1 ML IM ONE (10:00)
[2018-12-02] MEDS ORDERED: KETOROLAC 30 MG/1 ML ONE (10:11)
--- NOTE | 2018-12-02 10:15 | NUR ---
PT RESTING ON GURNEY. NO ACUTE DISTRESS NOTED. LAB BEDSIDE. PT EDUCATED REGARDING UA. PT STATES "I JUST WENT. MAYBE IN A HALF HOUR." NO OTHER NEEDS REQUESTED AT THIS TIME
[2018-12-02 10:28] LABS: BASOPHILS # (AUTO) 0.01 x10^3/uL (0-0.1); BASOPHILS % (AUTO) 1 % (0-1); EOSINOPHILS # (AUTO) 0.09 x10^3/uL (0-0.4); EOSINOPHILS % (AUTO) 3 % (1-7); LYMPHOCYTES # (AUTO) 1.08 x10^3/uL (1-3.4); LYMPHOCYTES % (AUTO) 36 % (22-44); MD NO; MEAN CORPUSCULAR HEMOGLOBIN 29.8 pg (27.0-34.8); MEAN CORPUSCULAR HGB CONC 33.1 g/dL (32.4-35.8); MEAN PLATELET VOLUME 8.1 fL (7.4-10.4); MONOCYTES # (AUTO) 0.29 x10^3/uL (0.2-0.8); MONOCYTES % (AUTO) 10 % (2-9); NEUTROPHILS # (AUTO) 1.52 x10^3/uL (1.8-6.8); NEUTROPHILS % (AUTO) 51 % (42-75); PLATELET COUNT 188 x10^3/uL (130-400); RED BLOOD COUNT 4.18 x10^6/uL (3.82-5.3); RED CELL DISTRIBUTION WIDTH 15.1 % (9.6-15.2)
--- NOTE | 2018-12-02 10:35 | NUR ---
PT AMBULATORY WITH STEADY GAIT TO BATHROOM. PT PROVIDED UA. SENT TO LAB. PT REATTACHED TO ALL MONITORS. NO ACUTE DISTRESS NOTED. MEDICATIONS ADMINISTERED PER EMAR.
[2018-12-02 10:38] LABS: ALANINE AMINOTRANSFERASE 31 U/L (12-78); ALBUMIN 3.3 g/dL (3.4-5.0); ANION GAP 7 mmol/L (5-15); CALCIUM 8.8 mg/dL (8.5-10.1); CHLORIDE 112 mmol/L (98-107); CREATININE 1.06 mg/dL (0.55-1.02)
[2018-12-02 10:40] LABS: ALKALINE PHOSPHATASE 50 U/L (45-117); BILIRUBIN,TOTAL 0.2 mg/dL (0.2-1.0); TOTAL PROTEIN 6.1 g/dL (6.4-8.2)
[2018-12-02 10:53] LABS: MICROSCOPIC AUTO
[2018-12-02 10:58] LABS: CULTURE INDICATED? YES
[2018-12-02] MEDS ORDERED: HYDROcodone/APAP 5/325 TABLET PO STA (11:30)
[2018-12-02] MEDS ORDERED: HYDROcodone/APAP 5/325 TABLET ONE (11:33)
--- NOTE | 2018-12-02 11:39 | NUR ---
PT RESTING ON GURNEY. NO ACUTE DISTRESS NOTED. NO NEEDS REQUESTED AT THIS TIME. MEDICATION ADMINISTERED PER EMAR.
--- NOTE | 2018-12-02 12:22 | NUR ---
PT RESTING ON GURNEY.PT STATES SHE WENT TO THE BATHROOM. REATTACHED PT TO MONITORS. NO ACUTE DISTRESS NOTED. PT STATES "THE MED HELPED SOME." NO NEEDS REQUESTED AT THIS TIME
[2018-12-02 12:23] VITALS: BP 172/78
--- NOTE | 2018-12-02 12:54 | NUR ---
BEDSIDE REPORT TO MANUEL JARAMILLO
--- NOTE | 2018-12-02 12:59 | NUR ---
PT REFUSED REPEAT VS PRIOR TO DC. PT GIVEN DC INSTRUCTIONS AND SCRIPT. PT EDUCATED REGARDING KETONAZOLE CREAM AND BENTYL RX. PT A&O, REPS EVEN AND UNLABORED. NO N/V AT DC. PT AMB TO DC DESK WITH STEADY GAIT, PT PROVIDED WITH CAB VOUCHER. BRIAN AT MS.
== END 2018-12-02 13:00 | disposition home or self-care (01) ==
LOC: ED 11:44
DX: G89.29 Other chronic pain (principal); R10.13 Epigastric pain; R10.33 Periumbilical pain; B35.4 Tinea corporis; I48.91 Unspecified atrial fibrillation; E11.9 Type 2 diabetes mellitus without complications; F41.1 Generalized anxiety disorder; J44.9 Chronic obstructive pulmonary disease, unspecified; I25.10 Atherosclerotic heart disease of native coronary artery without angina pectoris; N18.2 Chronic kidney disease, stage 2 (mild); I13.0 Hypertensive heart and chronic kidney disease with heart failure and stage 1 through stage 4 chronic kidney disease, or unspecified chronic kidney disease; I50.9 Heart failure, unspecified; E78.5 Hyperlipidemia, unspecified; K21.9 Gastro-esophageal reflux disease without esophagitis; E03.9 Hypothyroidism, unspecified; F32.9 Major depressive disorder, single episode, unspecified; Z86.73 Personal history of transient ischemic attack (TIA), and cerebral infarction without residual deficits; Z90.49 Acquired absence of other specified parts of digestive tract; Z95.0 Presence of cardiac pacemaker; Z90.710 Acquired absence of both cervix and uterus
CPT/HCPCS: 36415; 76700; 80053; 81001; 83690; 85025; 87086; 96372; 99284; J1885

== ENCOUNTER 2018-12-08 13:31 | Emergency (ER) | payer MEDICARE ==
[~2018-12-08] VITALS: Ht 157.5 cm; Wt 100.0 kg
[2018-12-08 13:57] VITALS: BP 156/68
[2018-12-08] MEDS ORDERED: METHOCARBAMOL 750 MG TABLET PO ONE (15:00)
[2018-12-08] MEDS ORDERED: METHOCARBAMOL 750 MG TABLET ONE (15:22)
[2018-12-08] MEDS ORDERED: KETOROLAC 30 MG/1 ML ONE (15:43)
[2018-12-08] MEDS ORDERED: KETOROLAC 30 MG/1 ML IM ONE (16:00)
[2018-12-08 16:01] LABS: TROPONIN I < 0.015 ng/mL (0.000-0.045)
--- NOTE | 2018-12-08 16:03 | NUR ---
REPORT TO KALEN Ahn RN
== END 2018-12-08 16:32 | disposition home or self-care (01) ==
LOC: ED 14:46
DX: M47.896 Other spondylosis, lumbar region (principal); G89.29 Other chronic pain; R07.9 Chest pain, unspecified; Z72.9 Problem related to lifestyle, unspecified; Z91.14 Patient's other noncompliance with medication regimen; Z75.9 Unspecified problem related to medical facilities and other health care
CPT/HCPCS: 36415; 72110; 84484; 93005; 96372; 99284; J1885

== ENCOUNTER 2018-12-15 19:02 | Emergency (ER) | payer MEDICARE ==
[~2018-12-15] VITALS: Ht 157.5 cm; Wt 85.0 kg
[2018-12-15 19:42] LABS: BASOPHILS # (AUTO) 0.03 x10^3/uL (0-0.1); BASOPHILS % (AUTO) 1 % (0-1); EOSINOPHILS # (AUTO) 0.11 x10^3/uL (0-0.4); EOSINOPHILS % (AUTO) 3 % (1-7); LYMPHOCYTES # (AUTO) 1.54 x10^3/uL (1-3.4); LYMPHOCYTES % (AUTO) 46 % (22-44); MD NO; MEAN CORPUSCULAR HEMOGLOBIN 30.6 pg (27.0-34.8); MEAN CORPUSCULAR HGB CONC 33.5 g/dL (32.4-35.8); MEAN CORPUSCULAR VOLUME 91.2 fL (80-100); MEAN PLATELET VOLUME 8.8 fL (7.4-10.4); MONOCYTES # (AUTO) 0.35 x10^3/uL (0.2-0.8); MONOCYTES % (AUTO) 11 % (2-9); NEUTROPHILS # (AUTO) 1.33 x10^3/uL (1.8-6.8); NEUTROPHILS % (AUTO) 40 % (42-75); PLATELET COUNT 160 x10^3/uL (130-400); RED BLOOD COUNT 4.26 x10^6/uL (3.82-5.3); RED CELL DISTRIBUTION WIDTH 15.6 % (9.6-15.2)
[2018-12-15 19:47] LABS: INTERNATIONAL NORMALIZED RATIO 1.01 (0.93-1.1); PROTHROMBIN TIME 10.6 Seconds (9.6-11.5)
[2018-12-15 19:50] LABS: ALANINE AMINOTRANSFERASE 17 U/L (12-78); ALBUMIN 3.6 g/dL (3.4-5.0); ANION GAP 7 mmol/L (5-15); CALCIUM 8.7 mg/dL (8.5-10.1); CHLORIDE 113 mmol/L (98-107); CREATININE 1.26 mg/dL (0.55-1.02)
[2018-12-15 19:54] LABS: ALKALINE PHOSPHATASE 50 U/L (45-117); BILIRUBIN,TOTAL 0.3 mg/dL (0.2-1.0); TOTAL PROTEIN 6.3 g/dL (6.4-8.2); TROPONIN I < 0.015 ng/mL (0.000-0.045)
--- NOTE | 2018-12-15 19:55 | NUR ---
PT BIB [facility] FOR RIGHT SHARP CHEST PAIN THAT RADIATES UP NECK AND DOWN LEFT AR,. PT HAS A PACER. PT MEDICATED WITH 324 ASA WORKDAY MANAGER AND 100 MCG FENTYNAL. VSS. EKG DONE AND LABS HAVE BEEN DRAWN. PT HAS NO NEEDS AT THIS TIME. CALL LIGHT IN REACH
--- NOTE | 2018-12-15 20:24 | NUR ---
PA AT BEDSIDE
[2018-12-15] MEDS ORDERED: APAP/CODEINE 300/30MG TABLET PO PRN (20:30)
[2018-12-15 20:40] VITALS: BP 153/57
[2018-12-15] MEDS ORDERED: APAP/CODEINE 300/30MG TABLET PO ONE (21:00)
--- NOTE | 2018-12-15 21:07 | NUR ---
Patient given discharge instructions and they have confirmed that they understand the instructions. Patient ambulatory with steady gait. Pt given cab voucher
== END 2018-12-15 21:10 | disposition home or self-care (01) ==
LOC: ED 21:04
DX: R07.89 Other chest pain (principal); I25.10 Atherosclerotic heart disease of native coronary artery without angina pectoris; I50.9 Heart failure, unspecified; Z90.49 Acquired absence of other specified parts of digestive tract; Z95.0 Presence of cardiac pacemaker; Z90.710 Acquired absence of both cervix and uterus
CPT/HCPCS: 36415; 71045; 80053; 83880; 84484; 85025; 85610; 85730; 93005; 99284

== ENCOUNTER 2019-02-11 10:31 | Emergency (ER) | payer MEDICARE ==
[~2019-02-11] VITALS: Ht 157.5 cm; Wt 79.6 kg
[2019-02-11] MEDS ORDERED: LORazepam 2 MG/ML, 1ML IVPush ONE (11:30)
[2019-02-11] MEDS ORDERED: SODIUM CHLORIDE FLUSH 10ML SYR IVF ONE (11:30)
--- NOTE | 2019-02-11 11:40 | NUR ---
PT STATES SHE HAS HAD A MIDDLETON FOR SEVERAL DAYS. STATES SHE HAS NOT BEEN FEELING WELL AND NOTED HER BP TO BE HIGH TODAY. PT HAS RAPID, SHALLOW BREATH. PT STATES THAT SHE ALWAYS BREATHES THIS WAY. ATTEMPTED IV TIMES 2. AMBULATED SHORT DISTANCE TO BATHROOM WITH USE OF CANE. SOLO JACKSON AT BEDSIDE ATTEMPTING IV
[2019-02-11 11:43] LABS: ALBUMIN 3.6 g/dL (3.4-5.0); ANION GAP 11 mmol/L (5-15); CALCIUM 8.8 mg/dL (8.5-10.1); CHLORIDE 113 mmol/L (98-107); CREATININE 0.95 mg/dL (0.55-1.02)
[2019-02-11 11:47] LABS: TROPONIN I < 0.015 ng/mL (0.000-0.045)
--- NOTE | 2019-02-11 12:07 | NUR ---
UNSUCCESSFUL AT OBTAINING IV ACCESS. MADE AWARE. TO HOLD OFF AT THIS TIME.
[2019-02-11] MEDS ORDERED: LORazepam 1MG TABLET ONE (12:09)
--- NOTE | 2019-02-11 12:11 | NUR ---
MEDICATED PER ORDERS TO HELP PT RELAX. LAB AT BEDSIDE REDRAWING
[2019-02-11] MEDS ORDERED: LORazepam 1MG TABLET PO ONE (12:30)
[2019-02-11 12:36] LABS: BASOPHILS # (AUTO) 0.01 x10^3/uL (0-0.1); BASOPHILS % (AUTO) 0 % (0-1); EOSINOPHILS % (AUTO) 0 % (1-7); LYMPHOCYTES # (AUTO) 0.73 x10^3/uL (1-3.4); LYMPHOCYTES % (AUTO) 15 % (22-44); MD NO; MEAN CORPUSCULAR HEMOGLOBIN 30.5 pg (27.0-34.8); MEAN CORPUSCULAR HGB CONC 33.8 g/dL (32.4-35.8); MEAN CORPUSCULAR VOLUME 90.3 fL (80-100); MEAN PLATELET VOLUME 8.5 fL (7.4-10.4); MONOCYTES # (AUTO) 0.14 x10^3/uL (0.2-0.8); MONOCYTES % (AUTO) 3 % (2-9); NEUTROPHILS # (AUTO) 3.86 x10^3/uL (1.8-6.8); NEUTROPHILS % (AUTO) 82 % (42-75); PLATELET COUNT 183 x10^3/uL (130-400); RED BLOOD COUNT 4.55 x10^6/uL (3.82-5.3); RED CELL DISTRIBUTION WIDTH 14.1 % (9.6-15.2)
--- NOTE | 2019-02-11 13:07 | NUR ---
MD RE-EVALUATING PT. DISCUSSING HER CONCERNS ABOUT HER HEART. PT STATES SHE GETS CP AND IT MAKES HER PASS OUT AT HOME. MD REASSURING PT LABS AND VITALS ARE NORMAL AND DISCUSSING HER NEED TO SEE HER DIRECTOR LOSS PREVENTION REGULARLY. TO ADDITIONALLY BE MEDICATED FOR PAIN.
[2019-02-11] MEDS ORDERED: KETOROLAC 30 MG/1 ML ONE (13:21)
[2019-02-11 13:26] VITALS: BP 180/79
--- NOTE | 2019-02-11 13:27 | NUR ---
UOB WALKING AROUND ROOM. MEDICATED PER ORDERS. TO BE DISCHARGED WITH TAXI VOUCHER REQUESTED
[2019-02-11] MEDS ORDERED: KETOROLAC 30 MG/1 ML IM ONE (13:30)
--- NOTE | 2019-02-11 13:39 | NUR ---
PT STATES CONTINUES TO HAVE SHORT BURSTS OF CP BUT THAT THE MEDICATION SEEMED TO HAVE HELPED HER JOINT PAIN
== END 2019-02-11 13:42 | disposition home or self-care (01) ==
LOC: ED 11:04
DX: I25.10 Atherosclerotic heart disease of native coronary artery without angina pectoris (principal); I11.0 Hypertensive heart disease with heart failure; I50.9 Heart failure, unspecified; E03.9 Hypothyroidism, unspecified; J44.9 Chronic obstructive pulmonary disease, unspecified; I48.91 Unspecified atrial fibrillation; F41.1 Generalized anxiety disorder; K21.9 Gastro-esophageal reflux disease without esophagitis; Z95.0 Presence of cardiac pacemaker; R06.4 Hyperventilation; Z90.49 Acquired absence of other specified parts of digestive tract; Z90.710 Acquired absence of both cervix and uterus; Z86.73 Personal history of transient ischemic attack (TIA), and cerebral infarction without residual deficits
CPT/HCPCS: 36415; 71045; 80048; 82040; 84484; 85025; 93005; 96372; 99284; J1885

== ENCOUNTER 2019-02-21 17:57 | Emergency (ER) | payer MEDICARE ==
[~2019-02-21] VITALS: Ht 157.5 cm; Wt 81.1 kg
--- NOTE | 2019-02-21 18:08 | NUR ---
Pt ambulates with steady gait and balance to room from triage. X-ray tech ambulates with pt to x-ray from room. Pt not in room at this time.
[2019-02-21] MEDS ORDERED: MORPHINE SULFATE 4 MG/ML, 1ML IVPush PRN (18:30)
[2019-02-21] MEDS: ONDANSETRON 2MG/ML, 2ML IVPush ONE ×2 (18:30→19:52)
[2019-02-21] MEDS ORDERED: SODIUM CHLORIDE 0.9% 1,000ML IVBOLUS ONE (18:30)
[2019-02-21] MEDS ORDERED: MORPHINE SULFATE 4 MG/ML, 1ML ONE (18:35)
[2019-02-21] MEDS ORDERED: ONDANSETRON 2MG/ML, 2ML ONE (18:35)
[2019-02-21 18:39] LABS: ALANINE AMINOTRANSFERASE 25 U/L (12-78); ALBUMIN 3.5 g/dL (3.4-5.0); ANION GAP 6 mmol/L (5-15); CALCIUM 8.4 mg/dL (8.5-10.1); CHLORIDE 117 mmol/L (98-107); CREATININE 1.07 mg/dL (0.55-1.02)
[2019-02-21 18:41] LABS: ALKALINE PHOSPHATASE 60 U/L (45-117); BILIRUBIN,TOTAL 0.3 mg/dL (0.2-1.0); TOTAL PROTEIN 6.1 g/dL (6.4-8.2)
[2019-02-21 18:47] LABS: BASOPHILS # (AUTO) 0.04 x10^3/uL (0-0.1); BASOPHILS % (AUTO) 1 % (0-1); EOSINOPHILS # (AUTO) 0.12 x10^3/uL (0-0.4); EOSINOPHILS % (AUTO) 3 % (1-7); LYMPHOCYTES # (AUTO) 1.19 x10^3/uL (1-3.4); LYMPHOCYTES % (AUTO) 25 % (22-44); MD NO; MEAN CORPUSCULAR HEMOGLOBIN 30.9 pg (27.0-34.8); MEAN CORPUSCULAR HGB CONC 33.8 g/dL (32.4-35.8); MEAN CORPUSCULAR VOLUME 91.4 fL (80-100); MEAN PLATELET VOLUME 8.8 fL (7.4-10.4); MONOCYTES % (AUTO) 8 % (2-9); NEUTROPHILS # (AUTO) 2.96 x10^3/uL (1.8-6.8); NEUTROPHILS % (AUTO) 63 % (42-75); PLATELET COUNT 154 x10^3/uL (130-400); RED BLOOD COUNT 4.05 x10^6/uL (3.82-5.3); RED CELL DISTRIBUTION WIDTH 15.1 % (9.6-15.2)
[2019-02-21 19:00] LABS: TROPONIN I < 0.015 ng/mL (0.000-0.045)
--- NOTE | 2019-02-21 19:13 | NUR ---
Provided bedside report to MANUEL Posey. All questions answered. MANUEL Posey to establish PIV and to administer pulled medications from [facility] as instructed per EMAR. Straight cath done and urine sent to lab. EKG completed. This ED RN attempted PIV with three missed attempts. MANUEL Posey aware. NADN. Pt connected to NIBP, continous pulse ox, and monitor tech. Both bedrails up for safety measures. Call light within reach.
[2019-02-21 19:32] LABS: MICROSCOPIC NOT IND
[2019-02-21 19:44] LABS: CULTURE INDICATED? NO
[2019-02-21 19:52] VITALS: BP 189/89
--- NOTE | 2019-02-21 19:57 | NUR ---
PT HAS BEEN UP TO BSC X2, STATES SHE HAS OVERACTIVE BLADDER. ERP WAS IN FOR RE-EVAL, RECOMENDED NO MORPHINE D/T PT BEING DISCHARGED. PT REQUESTS SOMETHING FOR PAIN. NEW ORDERS RC'VD. IV BOLUS INFUSING.
[2019-02-21] MEDS ORDERED: MAALOX/HYOSCYAMINE/LIDOCAINE 45 ML BTL ONE (20:00)
[2019-02-21] MEDS ORDERED: MAALOX/HYOSCYAMINE/LIDOCAINE 45 ML BTL PO ONE (20:00)
[2019-02-21] MEDS ORDERED: DICYCLOMINE 20 MG TABLET PO ONE (20:00)
[2019-02-21] MEDS ORDERED: DICYCLOMINE 10 MG CAPSULE ONE (20:00)
--- NOTE | 2019-02-21 20:09 | NUR ---
PT UPSET THAT ERP CANCELLED MORPHINE ORDER. REQUESTING SOMETHING FOR PAIN. MEDICATED WITH BENTYL PER ORDERS. PT REFUSED ZOFRAN. STATES, "I'M JUST GOING TO BE THROWING UP AT HOME, THEN WHAT AM I GOING TO DO? AND WHAT ARE YOU GOING TO DO ABOUT THIS CHEST PAIN?" RV'WD DIAGNOSIS WITH PT, ALL QUESTIONS ANSWERED. Addendum: 02/21/19 at 2041 by NELLIE PT REFUSED ZOFRAN AND CHEPE MEYER.
--- NOTE | 2019-02-21 20:42 | NUR ---
D/C INSTRUCTIONS, MEDS & F/U APPT RV'WD WITH PT BY MOBILE DEVICE ENGINEER. PT AMBULATED OUT OF ED WITHOUT DIFFICULTY.
== END 2019-02-21 20:38 | disposition home or self-care (01) ==
LOC: ED 20:32
DX: R10.13 Epigastric pain (principal); R11.2 Nausea with vomiting, unspecified; R51 Headache; I12.9 Hypertensive chronic kidney disease with stage 1 through stage 4 chronic kidney disease, or unspecified chronic kidney disease; N18.2 Chronic kidney disease, stage 2 (mild); J44.9 Chronic obstructive pulmonary disease, unspecified; I25.10 Atherosclerotic heart disease of native coronary artery without angina pectoris; E03.9 Hypothyroidism, unspecified; K21.9 Gastro-esophageal reflux disease without esophagitis; F32.9 Major depressive disorder, single episode, unspecified; I48.91 Unspecified atrial fibrillation; Z90.89 Acquired absence of other organs; Z90.49 Acquired absence of other specified parts of digestive tract; Z90.710 Acquired absence of both cervix and uterus; Z95.0 Presence of cardiac pacemaker
CPT/HCPCS: 36415; 71046; 80053; 81003; 83690; 84484; 85025; 93005; 96360; 96361; 99284; J7030; J2405

== ENCOUNTER 2019-02-24 13:35 | Inpatient (IN) | payer MEDICARE ==
[~2019-02-24] VITALS: Ht 157.5 cm; Wt 79.4 kg
[2019-02-24] MEDS ORDERED: SODIUM CHLORIDE FLUSH 10ML SYR IVF ONE (14:00)
--- NOTE | 2019-02-24 14:30 | NUR ---
BREAK RN FOR PRIMARY RN'S TRAVIS. PT ASSISTED TO BEDSIDE COMMODE, BACK TO BED, RESTING COMFORTABLY. THIS RN ATTEMPTED IV STARTX1, UNSUCCESSFUL, PT HAS HAD MULTIPLE IV START ATTEMPTS FROM EMS AND PRIMARY RN'S, ALL UNSUCCESFUL. DISCUSSED WITH PATRICK DUNHAM AND DR. LAYTON, AWARE. PT REPORTS 06/27 "CHEST TIGHTNESS WITH COUGHING." PATHOLOGIST AT BEDSIDE FOR EKG. DISCUSSED BP AND PAIN WITH DR. LAYTON, AWARE, AWAITING ORDERS. SR ON MONITOR. CALL LIGHT IN REACH. FALL PRECAUTIONS IN PLACE.
[2019-02-24] MEDS ORDERED: NITROGLYCERIN OINT 2%, 1GM TP STA (14:36)
[2019-02-24] MEDS ORDERED: NITROGLYCERIN OINT 2%, 1GM TP ONE ×2 (14:41→15:30)
--- NOTE | 2019-02-24 14:46 | NUR ---
NITRO-BID OINTMENT APPLIED TO RIGHT CHEST PER DR. LAYTON AT THIS TIME FOR ELEVATED BP AND CP REPORT. BEDSIDE REPORT AND CARE BACK TO PINO AND JOY RN'S.
[2019-02-24 14:50] LABS: BASOPHILS # (AUTO) 0.01 x10^3/uL (0-0.1); BASOPHILS % (AUTO) 1 % (0-1); EOSINOPHILS # (AUTO) 0.09 x10^3/uL (0-0.4); EOSINOPHILS % (AUTO) 3 % (1-7); LYMPHOCYTES # (AUTO) 1.08 x10^3/uL (1-3.4); LYMPHOCYTES % (AUTO) 36 % (22-44); MD NO; MEAN CORPUSCULAR HEMOGLOBIN 29.7 pg (27.0-34.8); MEAN CORPUSCULAR HGB CONC 32.7 g/dL (32.4-35.8); MEAN CORPUSCULAR VOLUME 91.1 fL (80-100); MEAN PLATELET VOLUME 8.9 fL (7.4-10.4); MONOCYTES # (AUTO) 0.34 x10^3/uL (0.2-0.8); MONOCYTES % (AUTO) 11 % (2-9); NEUTROPHILS % (AUTO) 50 % (42-75); PLATELET COUNT 150 x10^3/uL (130-400); RED BLOOD COUNT 4.41 x10^6/uL (3.82-5.3); RED CELL DISTRIBUTION WIDTH 14.6 % (9.6-15.2)
[2019-02-24 14:55] LABS: INTERNATIONAL NORMALIZED RATIO 0.97 (0.93-1.1); PROTHROMBIN TIME 10.2 Seconds (9.6-11.5)
[2019-02-24 14:58] LABS: ALANINE AMINOTRANSFERASE 19 U/L (12-78); ALBUMIN 3.6 g/dL (3.4-5.0); ANION GAP 9 mmol/L (5-15); CALCIUM 8.4 mg/dL (8.5-10.1); CHLORIDE 116 mmol/L (98-107); CREATININE 1.27 mg/dL (0.55-1.02)
[2019-02-24 15:02] LABS: ALKALINE PHOSPHATASE 63 U/L (45-117); BILIRUBIN,TOTAL 0.4 mg/dL (0.2-1.0); TOTAL PROTEIN 6.5 g/dL (6.4-8.2); TROPONIN I < 0.015 ng/mL (0.000-0.045)
--- NOTE | 2019-02-24 15:13 | NUR ---
PT CONT SR PER MONITOR, AUTO BP, PT WITH NITRO PASTE IN PLACE, BP CONT ELEVATED. ATTEMPTS TO PLACE IV UNSUCCESSFUL. DISCUSSED WITH MD. PT REQUESTING EJ BE "NUMBED" PRIOR TO ATTEMPTING IV IN EJ. PT UP TO BSC WITH SBA.
[2019-02-24] MEDS ORDERED: L.E.T SOLUTION TP ONE (15:14)
--- NOTE | 2019-02-24 15:48 | NUR ---
DR LAYTON AWARE OF NO IV ACCESS, CENTRAL LINE TO BE PLACED.
--- NOTE | 2019-02-24 16:23 | NUR ---
PT NOT WANTING TO USE BSC R/T "I HAVE TO HAVE A BM" PT AMB TO BR WITH SBA. SLOW AND STEADY, USES AT WALKER OR CANE AT HOME. PT RETURNED TO ROOM, RETURNED TO MONITORING EQUIPMENT. CONT TO WAIT FOR CENTRAL LINE PLACEMENT.
--- NOTE | 2019-02-24 17:01 | NUR ---
DUE TO POOR VENOUS ACCESS CENTRAL LINE PLACED BY DR. LAYTON, PT TOELRATED PROCEDURE WELL. CONSENT ON CHART.
[2019-02-24] MEDS ORDERED: LABETALOL 5 MG/ML SYRINGE IVPush STA (17:21)
[2019-02-24] MEDS ORDERED: HYDROmorphone 2 MG/ML, 1ML ONE (17:51)
--- NOTE | 2019-02-24 17:58 | NUR ---
Ok to use central line per Dr. Guevara Hospitalist at assessing pt, ordered to hold DIlaudid and use oral medication for pain
[2019-02-24] MEDS ORDERED: HYDROmorphone 2 MG/ML, 1ML IVPush PRN (18:00)
[2019-02-24] MEDS ORDERED: OMNIPAQUE 350 MG/ML, 100ML BOTTLE ONE (18:00)
[2019-02-24] MEDS ORDERED: FERR324T18 PO (18:15)
[2019-02-24] MEDS ORDERED: ISOS20TA3 PO (18:16)
[2019-02-24] MEDS ORDERED: MORPHINE SULFATE 4 MG/ML, 1ML ONE (18:18)
[2019-02-24] MEDS: morphine SULFATE 10 MG/ML, 1ML IVPush PRN ×2 (18:21→22:41)
[2019-02-24] MEDS ORDERED: ACETAMINOPHEN 325 MG TABLET PO PRN (18:30)
[2019-02-24] MEDS ORDERED: BISACODYL 10 MG SUPP PR PRN (18:30)
[2019-02-24] MEDS ORDERED: TEMAZEPAM 15 MG CAPSULE PO PRN (18:30)
[2019-02-24] MEDS ORDERED: ENALAPRILAT 1.25 MG/ML, 2ML IVPush PRN (18:30)
[2019-02-24] MEDS ORDERED: LIDODERM 5% PATCH TD PRN (18:30)
--- NOTE | 2019-02-24 18:32 | NUR ---
Report called to Orquidea JACKSON on tele
[2019-02-24] MEDS ORDERED: ENALAPRILAT 1.25 MG/ML, 1ML ONE (18:49)
[2019-02-24 19:56] VITALS: BP 184/94
[2019-02-24] MEDS: D5%-0.45NACL+KCL 20MEQ 1,000 ML IV SCH (19:58)
[2019-02-24] MEDS ORDERED: hydrALAzine 20 MG/ML, 1ML IV PRN (20:00)
[2019-02-24 20:57] LABS: TROPONIN I 0.109 ng/mL (0.000-0.045)
[2019-02-24 22:47] VITALS: BP 193/105
[2019-02-24 23:24] VITALS: BP 125/77
[2019-02-24] MEDS: CARVEDILOL 25 MG TABLET PO SCH (23:25)
[2019-02-24] MEDS: AMLODIPINE 5 MG TABLET PO SCH (23:25)
[2019-02-24] MEDS: METHOCARBAMOL 500 MG TABLET PO SCH (23:26)
[2019-02-24] MEDS ORDERED: ASPIRIN 81 MG TABLET CHEW PO ONE (23:30)
[2019-02-24] MEDS ORDERED: HEPARIN 5,000 UNITS/ML, 1ML IV ONE (23:45)
[2019-02-24] MEDS ORDERED: HEPARIN 25,000 UNITS/500ML PMX 500 ML IV PRN (23:45)
[2019-02-24] MEDS ORDERED: HEPARIN 5,000 UNITS/ML, 1ML IV PRN (23:45)
[2019-02-25 00:21] VITALS: BP 133/77
[2019-02-25] MEDS: ONDANSETRON 2MG/ML, 2ML IVPush PRN ×3 (01:02→16:06)
[2019-02-25 02:51] LABS: ANION GAP 7 mmol/L (5-15); CALCIUM 7.3 mg/dL (8.5-10.1); CHLORIDE 116 mmol/L (98-107)
[2019-02-25 02:55] LABS: CREATININE 0.85 mg/dL (0.55-1.02); TROPONIN I 0.048 ng/mL (0.000-0.045)
[2019-02-25 03:19] LABS: MEAN CORPUSCULAR HEMOGLOBIN 31.2 pg (27.0-34.8); MEAN CORPUSCULAR HGB CONC 34.3 g/dL (32.4-35.8); MEAN CORPUSCULAR VOLUME 90.9 fL (80-100); MEAN PLATELET VOLUME 8.5 fL (7.4-10.4); PLATELET COUNT 128 x10^3/uL (130-400); RED BLOOD COUNT 3.61 x10^6/uL (3.82-5.3); RED CELL DISTRIBUTION WIDTH 14.4 % (9.6-15.2)
[2019-02-25 03:36] LABS: BASOPHILS # (AUTO) 0.01 x10^3/uL (0-0.1); BASOPHILS % (AUTO) 0 % (0-1); EOSINOPHILS # (AUTO) 0.09 x10^3/uL (0-0.4); EOSINOPHILS % (AUTO) 2 % (1-7); LYMPHOCYTES # (AUTO) 0.81 x10^3/uL (1-3.4); LYMPHOCYTES % (AUTO) 18 % (22-44); MD SCAN; MONOCYTES # (AUTO) 0.34 x10^3/uL (0.2-0.8); MONOCYTES % (AUTO) 8 % (2-9); NEUTROPHILS # (AUTO) 3.21 x10^3/uL (1.8-6.8); NEUTROPHILS % (AUTO) 72 % (42-75)
[2019-02-25 03:49] VITALS: BP 118/67
[2019-02-25] MEDS: morphine SULFATE 10 MG/ML, 1ML IVPush PRN ×4 (03:50→22:37)
[2019-02-25] MEDS: D5%-0.45NACL+KCL 20MEQ 1,000 ML IV SCH (04:52)
[2019-02-25] MEDS ORDERED: POTASSIUM CHLORIDE 20 MEQ TAB.ER.PRT PO SCH (07:30)
[2019-02-25 07:46] LABS: BASOPHILS # (AUTO) 0.01 x10^3/uL (0-0.1); BASOPHILS % (AUTO) 0 % (0-1); EOSINOPHILS # (AUTO) 0.07 x10^3/uL (0-0.4); EOSINOPHILS % (AUTO) 2 % (1-7); LYMPHOCYTES # (AUTO) 0.87 x10^3/uL (1-3.4); LYMPHOCYTES % (AUTO) 28 % (22-44); MD NO; MEAN CORPUSCULAR HEMOGLOBIN 29.9 pg (27.0-34.8); MEAN CORPUSCULAR HGB CONC 32.9 g/dL (32.4-35.8); MEAN CORPUSCULAR VOLUME 90.8 fL (80-100); MEAN PLATELET VOLUME 8.9 fL (7.4-10.4); MONOCYTES # (AUTO) 0.33 x10^3/uL (0.2-0.8); MONOCYTES % (AUTO) 11 % (2-9); NEUTROPHILS # (AUTO) 1.88 x10^3/uL (1.8-6.8); NEUTROPHILS % (AUTO) 59 % (42-75); PLATELET COUNT 128 x10^3/uL (130-400); RED BLOOD COUNT 3.75 x10^6/uL (3.82-5.3)
[2019-02-25] MEDS: ISOSORBIDE MONONITRATE ER 60 MG TABLET PO SCH (07:48)
[2019-02-25] MEDS: LEVOTHYROXINE 100 MCG TABLET PO SCH (07:49)
[2019-02-25] MEDS: SUCRALFATE 1 GM TABLET PO SCH (07:50)
[2019-02-25] MEDS: OMEPRAZOLE 20 MG CAPSULE.DR PO SCH (07:50)
[2019-02-25] MEDS: CARVEDILOL 25 MG TABLET PO SCH ×2 (07:50→21:37)
[2019-02-25] MEDS: METHOCARBAMOL 500 MG TABLET PO SCH ×2 (07:50→21:37)
[2019-02-25] MEDS: AMLODIPINE 5 MG TABLET PO SCH ×2 (07:50→21:37)
[2019-02-25] MEDS ORDERED: LEVOTHYROXINE 100 MCG TABLET PO SCH (09:00)
[2019-02-25] MEDS ORDERED: REGADENOSON 0.4 MG/5 ML SYRINGE ONE (09:48)
[2019-02-25] MEDS ORDERED: METOCLOPRAMIDE 5 MG/ML, 2ML IVPush PRN (10:30)
--- NOTE | 2019-02-25 11:14 | NUR ---
REC: Diet as tolerated; crus meds for now Addendum: 02/25/19 at 1114 by Denisha TOLEDO Amended: Links added.
[2019-02-25] MEDS ORDERED: ONDA4TAB7 PO (11:28)
[2019-02-25] MEDS: FLUTICASONE NASAL SPRAY 16GM NAS SCH (12:06)
[2019-02-25] MEDS: FERROUS GLUCONATE 324 MG TABLET PO SCH (12:06)
[2019-02-25] MEDS: POTASSIUM CHLORIDE 10% 40 MEQ/30 ML UDC PO SCH ×2 (12:06→14:44)
[2019-02-25 14:34] VITALS: BP 119/67
[2019-02-25] MEDS: ENOXAPARIN 40 MG/0.4 ML SQ SCH (15:31)
[2019-02-25 16:58] LABS: ANION GAP 6 mmol/L (5-15); CALCIUM 7.6 mg/dL (8.5-10.1); CHLORIDE 119 mmol/L (98-107); CREATININE 0.73 mg/dL (0.55-1.02)
[2019-02-25] MEDS ORDERED: D5%-0.45NACL+KCL 20MEQ 1,000 ML IV SCH (18:02)
[2019-02-25 19:10] VITALS: BP 113/71
[2019-02-25] MEDS ORDERED: NITROGLYCERIN 0.4 MG/SPRAY SL PRN (22:00)
[2019-02-25] MEDS ORDERED: NITROGLYCERIN 0.4 MG BOTTLE (25 TABS) SL PRN (22:00)
[2019-02-26 02:48] VITALS: BP 121/70
[2019-02-26] MEDS: morphine SULFATE 10 MG/ML, 1ML IVPush PRN ×2 (04:27→10:49)
[2019-02-26 05:05] LABS: MEAN CORPUSCULAR HEMOGLOBIN 30.9 pg (27.0-34.8); MEAN CORPUSCULAR HGB CONC 33.9 g/dL (32.4-35.8); MEAN CORPUSCULAR VOLUME 91.1 fL (80-100); MEAN PLATELET VOLUME 8.6 fL (7.4-10.4); PLATELET COUNT 133 x10^3/uL (130-400); RED BLOOD COUNT 3.63 x10^6/uL (3.82-5.3); RED CELL DISTRIBUTION WIDTH 14.6 % (9.6-15.2)
[2019-02-26 05:06] LABS: ANION GAP 5 mmol/L (5-15); CALCIUM 8.1 mg/dL (8.5-10.1); CHLORIDE 117 mmol/L (98-107); CREATININE 0.87 mg/dL (0.55-1.02)
[2019-02-26 05:44] LABS: BASOPHILS # (AUTO) 0.02 x10^3/uL (0-0.1); BASOPHILS % (AUTO) 1 % (0-1); EOSINOPHILS # (AUTO) 0.09 x10^3/uL (0-0.4); EOSINOPHILS % (AUTO) 4 % (1-7); LYMPHOCYTES # (AUTO) 1.23 x10^3/uL (1-3.4); LYMPHOCYTES % (AUTO) 57 % (22-44); MD SCAN; MONOCYTES # (AUTO) 0.26 x10^3/uL (0.2-0.8); MONOCYTES % (AUTO) 12 % (2-9); NEUTROPHILS # (AUTO) 0.58 x10^3/uL (1.8-6.8); NEUTROPHILS % (AUTO) 27 % (42-75)
[2019-02-26] MEDS: LEVOTHYROXINE 100 MCG TABLET PO SCH (06:09)
[2019-02-26 06:45] VITALS: BP 144/73
[2019-02-26] MEDS ORDERED: REGADENOSON 0.4 MG/5 ML SYRINGE ONE (07:54)
[2019-02-26] MEDS: ONDANSETRON 2MG/ML, 2ML IVPush PRN ×3 (08:22→18:12)
[2019-02-26] MEDS: SUCRALFATE 1 GM TABLET PO SCH (08:24)
[2019-02-26] MEDS: OMEPRAZOLE 20 MG CAPSULE.DR PO SCH (08:25)
[2019-02-26] MEDS: METHOCARBAMOL 500 MG TABLET PO SCH ×2 (08:31→20:19)
[2019-02-26] MEDS: BENZONATATE 100 MG CAPSULE PO PRN ×2 (08:39→18:07)
[2019-02-26 10:45] VITALS: BP 162/80
[2019-02-26] MEDS: AMLODIPINE 5 MG TABLET PO SCH ×2 (10:49→20:23)
[2019-02-26] MEDS: FERROUS GLUCONATE 324 MG TABLET PO SCH (10:51)
[2019-02-26] MEDS: LISINOPRIL 10 MG TABLET PO SCH (10:52)
[2019-02-26] MEDS: ISOSORBIDE MONONITRATE ER 60 MG TABLET PO SCH (10:52)
[2019-02-26] MEDS: CARVEDILOL 25 MG TABLET PO SCH ×2 (10:52→20:22)
[2019-02-26] MEDS: FLUTICASONE NASAL SPRAY 16GM NAS SCH (10:53)
[2019-02-26] MEDS ORDERED: DEXTROSE 5% 500 ML IV SCH (13:00)
[2019-02-26 13:18] VITALS: BP 133/70
[2019-02-26] MEDS: ENOXAPARIN 40 MG/0.4 ML SQ SCH (16:19)
[2019-02-26] MEDS: OXYcodone IR 5MG TABLET PO PRN ×2 (18:07→23:49)
[2019-02-26 19:11] VITALS: BP 109/60
[2019-02-26 20:24] VITALS: BP 105/56
[2019-02-27 02:47] VITALS: BP 130/77
[2019-02-27 05:58] LABS: CHLORIDE 113 mmol/L (98-107)
[2019-02-27 06:03] LABS: ANION GAP 3 mmol/L (5-15); CALCIUM 8.4 mg/dL (8.5-10.1); CREATININE 1.01 mg/dL (0.55-1.02)
[2019-02-27] MEDS: OXYcodone IR 5MG TABLET PO PRN (06:18)
[2019-02-27] MEDS: LEVOTHYROXINE 100 MCG TABLET PO SCH (06:19)
[2019-02-27 07:40] VITALS: BP 147/76
[2019-02-27] MEDS: FERROUS GLUCONATE 324 MG TABLET PO SCH (08:54)
[2019-02-27] MEDS: LISINOPRIL 10 MG TABLET PO SCH (08:54)
[2019-02-27] MEDS: OMEPRAZOLE 20 MG CAPSULE.DR PO SCH (08:54)
[2019-02-27] MEDS: METHOCARBAMOL 500 MG TABLET PO SCH (08:54)
[2019-02-27] MEDS: SUCRALFATE 1 GM TABLET PO SCH (08:54)
[2019-02-27] MEDS: FLUTICASONE NASAL SPRAY 16GM NAS SCH (08:54)
[2019-02-27] MEDS: AMLODIPINE 5 MG TABLET PO SCH (08:54)
[2019-02-27] MEDS: ISOSORBIDE MONONITRATE ER 60 MG TABLET PO SCH (08:55)
[2019-02-27] MEDS: CARVEDILOL 25 MG TABLET PO SCH (08:55)
[2019-02-27] MEDS ORDERED: OMNIPAQUE 350 MG/ML, 75ML BOTTLE ONE (10:29)
[2019-02-27] MEDS ORDERED: LISI-167 PO (12:33)
[2019-02-27] MEDS ORDERED: BENZ-17 PO (12:33)
== END 2019-02-27 14:33 | disposition home or self-care (01) | DRG 640 ==
LOC: ED 14:13 → EDIP 17:22 → 5SO 19:13
PROVIDERS: ADMIT Internal Medicine; ATTEND Internal Medicine
PROC: 02HV33Z Insertion of Infusion Device into Superior Vena Cava, Percutaneous Approach (ICD-10-PCS; principal; 2019-02-24)
DX: E86.0 Dehydration (principal); N17.0 Acute kidney failure with tubular necrosis; R04.2 Hemoptysis; I13.0 Hypertensive heart and chronic kidney disease with heart failure and stage 1 through stage 4 chronic kidney disease, or unspecified chronic kidney disease; I50.32 Chronic diastolic (congestive) heart failure; N39.0 Urinary tract infection, site not specified; I25.10 Atherosclerotic heart disease of native coronary artery without angina pectoris; E87.0 Hyperosmolality and hypernatremia; I48.91 Unspecified atrial fibrillation; C44.90 Unspecified malignant neoplasm of skin, unspecified; D72.819 Decreased white blood cell count, unspecified; E03.9 Hypothyroidism, unspecified; E11.22 Type 2 diabetes mellitus with diabetic chronic kidney disease; E78.5 Hyperlipidemia, unspecified; E87.6 Hypokalemia; E87.8 Other disorders of electrolyte and fluid balance, not elsewhere classified; N18.3 Chronic kidney disease, stage 3 (moderate); M54.2 Cervicalgia; F41.9 Anxiety disorder, unspecified; G47.33 Obstructive sleep apnea (adult) (pediatric); G89.29 Other chronic pain; J44.9 Chronic obstructive pulmonary disease, unspecified; K21.9 Gastro-esophageal reflux disease without esophagitis; Z80.1 Family history of malignant neoplasm of trachea, bronchus and lung; Z82.49 Family history of ischemic heart disease and other diseases of the circulatory system; Z86.73 Personal history of transient ischemic attack (TIA), and cerebral infarction without residual deficits; Z90.710 Acquired absence of both cervix and uterus; Z87.891 Personal history of nicotine dependence; Z95.0 Presence of cardiac pacemaker; Z90.49 Acquired absence of other specified parts of digestive tract
CPT/HCPCS: 36415; 36569; 70460; 71045; 71275; 74018; 78452; 80048; 80053; 82962; 83605; 83690; 83735; 84484; 85025; 85520; 85610; 85730; 87070; 87205; 93005; 93017; 96374; G0378; J1644; J1650; J2405; J2785; Q9967; A9502; C9898; J0360; J2270; J2765; J3480; J7060; Q0177

== ENCOUNTER 2019-03-02 13:31 | Emergency (ER) | payer MEDICARE ==
[~2019-03-02] VITALS: Ht 157.5 cm; Wt 78.1 kg
[~2019-03-02 13:31] MED LIST changes: +BENZ-17 PO; +FERR324T18 PO; +ISOS20TA3 PO; +LISI-167 PO
--- NOTE | 2019-03-02 14:39 | NUR ---
PATIENT BIB [facility], PT STATES SHE IS CONCERNED FOR PANCREATITIS, NO C/O ABD PAIN. PT C/O CP X 2 DAYS. N/V X 1 DAY. ALSO NOTES SORE THROAT AND COUGH X 16 DAYS. LAB AT BEDSIDE, XRAY COMPLETED. PATIENT URINATED PRIOR TO COMING IN, UNABLE TO URINATE AT THIS TIME PER PATIENT. FINISHER MACHINE ON PATIENT. CALL LIGHT WITHIN REACH.
[2019-03-02 14:47] LABS: BASOPHILS # (AUTO) 0.02 x10^3/uL (0-0.1); BASOPHILS % (AUTO) 1 % (0-1); EOSINOPHILS % (AUTO) 3 % (1-7); LYMPHOCYTES % (AUTO) 46 % (22-44); MD NO; MEAN CORPUSCULAR HEMOGLOBIN 30.4 pg (27.0-34.8); MEAN CORPUSCULAR HGB CONC 33.8 g/dL (32.4-35.8); MEAN CORPUSCULAR VOLUME 90.1 fL (80-100); MEAN PLATELET VOLUME 8.3 fL (7.4-10.4); MONOCYTES # (AUTO) 0.31 x10^3/uL (0.2-0.8); MONOCYTES % (AUTO) 10 % (2-9); NEUTROPHILS # (AUTO) 1.23 x10^3/uL (1.8-6.8); NEUTROPHILS % (AUTO) 40 % (42-75); PLATELET COUNT 209 x10^3/uL (130-400); RED CELL DISTRIBUTION WIDTH 14.4 % (9.6-15.2)
[2019-03-02 15:00] LABS: ALANINE AMINOTRANSFERASE 13 U/L (12-78); ALBUMIN 3.2 g/dL (3.4-5.0); ANION GAP 10 mmol/L (5-15); CALCIUM 8.4 mg/dL (8.5-10.1); CHLORIDE 118 mmol/L (98-107); CREATININE 1.07 mg/dL (0.55-1.02)
[2019-03-02 15:04] LABS: ALKALINE PHOSPHATASE 49 U/L (45-117); BILIRUBIN,TOTAL 0.2 mg/dL (0.2-1.0); TROPONIN I < 0.015 ng/mL (0.000-0.045)
[2019-03-02 15:31] VITALS: BP 152/83
== END 2019-03-02 15:33 | disposition home or self-care (01) ==
LOC: ED 15:27
DX: J00 Acute nasopharyngitis [common cold] (principal); E87.0 Hyperosmolality and hypernatremia; R07.9 Chest pain, unspecified; I11.0 Hypertensive heart disease with heart failure; I50.9 Heart failure, unspecified; E11.9 Type 2 diabetes mellitus without complications; J44.9 Chronic obstructive pulmonary disease, unspecified; E78.5 Hyperlipidemia, unspecified; F32.9 Major depressive disorder, single episode, unspecified; Z90.89 Acquired absence of other organs; Z90.49 Acquired absence of other specified parts of digestive tract; Z90.710 Acquired absence of both cervix and uterus; Z95.0 Presence of cardiac pacemaker
CPT/HCPCS: 36415; 71045; 80053; 83690; 84484; 85025; 93005; 99284

== ENCOUNTER 2019-03-07 07:45 | Emergency (ER) | payer MEDICARE ==
--- NOTE | 2019-03-07 07:50 | NUR ---
PT. ARRIVES BY [facility] WITH C/O HTN, MIDDLETON X 2 WEEKS AND ELEVATED BLOOD PRESSURE. PT. IS AMBULATORY AND CHANGED INTO A GOWN. PT. HAS THE PULSE OX AND BP CUFF IN PLACE. PT. IS PINK, WARM AND DRY. LUNGS ARE CTA. MM ARE MOIST. SIDERAILS REMAIN UP X 2.
[2019-03-07 08:27] LABS: BASOPHILS # (AUTO) 0.02 x10^3/uL (0-0.1); BASOPHILS % (AUTO) 1 % (0-1); EOSINOPHILS # (AUTO) 0.11 x10^3/uL (0-0.4); EOSINOPHILS % (AUTO) 4 % (1-7); LYMPHOCYTES # (AUTO) 1.29 x10^3/uL (1-3.4); LYMPHOCYTES % (AUTO) 42 % (22-44); MD NO; MEAN CORPUSCULAR HGB CONC 31.4 g/dL (32.4-35.8); MEAN CORPUSCULAR VOLUME 92.4 fL (80-100); MEAN PLATELET VOLUME 7.7 fL (7.4-10.4); MONOCYTES # (AUTO) 0.24 x10^3/uL (0.2-0.8); MONOCYTES % (AUTO) 8 % (2-9); NEUTROPHILS % (AUTO) 46 % (42-75); PLATELET COUNT 219 x10^3/uL (130-400); RED BLOOD COUNT 4.14 x10^6/uL (3.82-5.3); RED CELL DISTRIBUTION WIDTH 14.6 % (9.6-15.2)
[2019-03-07] MEDS ORDERED: LORazepam 2 MG/ML, 1ML IVPush ONE (08:30)
[2019-03-07] MEDS ORDERED: SODIUM CHLORIDE FLUSH 10ML SYR IVF ONE (08:30)
[2019-03-07 08:35] LABS: ALBUMIN 3.3 g/dL (3.4-5.0); ANION GAP 8 mmol/L (5-15); CALCIUM 8.7 mg/dL (8.5-10.1); CHLORIDE 119 mmol/L (98-107); CREATININE 0.81 mg/dL (0.55-1.02)
--- NOTE | 2019-03-07 08:35 | NUR ---
RN EXPLAINED TO THE PT. THE IMPORTANCE OF ALL TREATMENTS IN RELATION TO HER CARE, DIAGNOSIS AND TREATMENT. PT. IS UNCOOPERATIVE WITH STAFF, YELLING AT STAFF, ACCUSING [facility] OF STEALING AND LOOSING HER MEDICATIONS AND REFUSING IV PLACEMENT. DISCUSSED WITH THE PROVIDER.
[2019-03-07 08:39] LABS: TROPONIN I < 0.015 ng/mL (0.000-0.045)
--- NOTE | 2019-03-07 08:39 | NUR ---
PT. REFUSED XRAY, IV THERAPY AND LABS.
--- NOTE | 2019-03-07 08:44 | NUR ---
GERMÁN DUNHAM TO THE BEDSIDE TO EDUCATE THE PT. PT. IS SCREAMING AT THE PROVIDER AND TELLING THE PROVIDER HOW SHE WILL HAVE HER CARE DELIVERED. ROLY DUNLAP EDUCATED THE PT. ON THE PLAN OF CARE AND TREATMENT.
[2019-03-07] MEDS ORDERED: PLEASE ENTER HEIGHT AND WEIGHT MC SCH (09:00)
--- NOTE | 2019-03-07 09:44 | NUR ---
PT. STATES SHE WANTED AN IV. MANUEL JAYNE TO THE BEDSIDE. RN WAS UNABLE TO ESTABLISH IV ACCESS, DISCUSSED WITH ROLY CABRERA.
--- NOTE | 2019-03-07 10:40 | NUR ---
MANUEL DUNN AND MANUEL GLYNN GAVE THE PT. DISCHARGE INSTRUCTIONS. PT. WANTS ATIVAN, ROLY DUNLAP SAID NO THE PT. IS SAFE FOR DISCHARGE. PT. IS NON-COMPLIANT WITH HOME MEDICATIONS AND PT. STATES SHE HAS PO ATIVAN AT HOME. PT. WAS AMBULATORY WITH A STEADY GAIT TO THE DISCHARGE DESK. PT. WAS GIVEN A CAB SLIP.
[2019-03-07 10:42] VITALS: BP 189/104
== END 2019-03-07 10:44 | disposition home or self-care (01) ==
LOC: ED 09:09
DX: F41.1 Generalized anxiety disorder (principal); I11.0 Hypertensive heart disease with heart failure; I50.9 Heart failure, unspecified; I48.91 Unspecified atrial fibrillation; G89.29 Other chronic pain; J44.9 Chronic obstructive pulmonary disease, unspecified; I11.9 Hypertensive heart disease without heart failure
CPT/HCPCS: 36415; 71045; 80048; 82040; 83880; 84484; 85025; 93005; 99284

== ENCOUNTER 2019-03-12 12:46 | Emergency (ER) | payer MEDICARE ==
[~2019-03-12] VITALS: Ht 157.5 cm; Wt 72.7 kg
[2019-03-12 13:58] LABS: ALANINE AMINOTRANSFERASE 16 U/L (12-78); ALBUMIN 3.4 g/dL (3.4-5.0); ANION GAP 8 mmol/L (5-15); CALCIUM 8.8 mg/dL (8.5-10.1); CHLORIDE 118 mmol/L (98-107); CREATININE 1.35 mg/dL (0.55-1.02)
[2019-03-12 14:01] LABS: ALKALINE PHOSPHATASE 52 U/L (45-117); BILIRUBIN,TOTAL 0.5 mg/dL (0.2-1.0); TOTAL PROTEIN 6.2 g/dL (6.4-8.2)
--- NOTE | 2019-03-12 14:05 | NUR ---
PT TO ROOM FROM LOBBY
[2019-03-12 14:11] LABS: BASOPHILS # (AUTO) 0.02 x10^3/uL (0-0.1); BASOPHILS % (AUTO) 1 % (0-1); EOSINOPHILS # (AUTO) 0.09 x10^3/uL (0-0.4); EOSINOPHILS % (AUTO) 2 % (1-7); LYMPHOCYTES % (AUTO) 38 % (22-44); MD NO; MEAN CORPUSCULAR HEMOGLOBIN 30.7 pg (27.0-34.8); MEAN CORPUSCULAR HGB CONC 32.9 g/dL (32.4-35.8); MEAN CORPUSCULAR VOLUME 93.3 fL (80-100); MEAN PLATELET VOLUME 8.3 fL (7.4-10.4); MONOCYTES # (AUTO) 0.31 x10^3/uL (0.2-0.8); MONOCYTES % (AUTO) 8 % (2-9); NEUTROPHILS # (AUTO) 2.07 x10^3/uL (1.8-6.8); NEUTROPHILS % (AUTO) 52 % (42-75); PLATELET COUNT 213 x10^3/uL (130-400); RED BLOOD COUNT 4.31 x10^6/uL (3.82-5.3); RED CELL DISTRIBUTION WIDTH 14.9 % (9.6-15.2)
--- NOTE | 2019-03-12 14:17 | NUR ---
pt c/o of swelling in the left leg x 2 days. pain is 9/10 in left leg, sharp pain. swelling is evident in both legs, the left is more then the right. bp is elevated.
[2019-03-12 14:19] LABS: INTERNATIONAL NORMALIZED RATIO 1.03 (0.93-1.1); PROTHROMBIN TIME 10.8 Seconds (9.6-11.5)
[2019-03-12 14:21] VITALS: BP 184/81
--- NOTE | 2019-03-12 14:21 | NUR ---
ER PA in to see pt. US in to see pt also.
[2019-03-12] MEDS ORDERED: CEPHALEXIN 500 MG CAPSULE PO ONE (14:30)
[2019-03-12] MEDS ORDERED: ACETAMINOPHEN 325 MG TABLET PO ONE (15:00)
[2019-03-12] MEDS ORDERED: CEPHALEXIN 500 MG CAPSULE ONE (15:04)
[2019-03-12] MEDS ORDERED: ACETAMINOPHEN 325 MG TABLET ONE (15:05)
== END 2019-03-12 15:27 | disposition home or self-care (01) ==
LOC: ED 14:53
DX: L03.116 Cellulitis of left lower limb (principal); I11.0 Hypertensive heart disease with heart failure; I50.9 Heart failure, unspecified; I25.10 Atherosclerotic heart disease of native coronary artery without angina pectoris; I13.0 Hypertensive heart and chronic kidney disease with heart failure and stage 1 through stage 4 chronic kidney disease, or unspecified chronic kidney disease; N18.2 Chronic kidney disease, stage 2 (mild); E11.22 Type 2 diabetes mellitus with diabetic chronic kidney disease; J44.9 Chronic obstructive pulmonary disease, unspecified; I48.91 Unspecified atrial fibrillation; K21.9 Gastro-esophageal reflux disease without esophagitis; Z90.49 Acquired absence of other specified parts of digestive tract; Z90.710 Acquired absence of both cervix and uterus; Z86.73 Personal history of transient ischemic attack (TIA), and cerebral infarction without residual deficits
CPT/HCPCS: 36415; 80053; 85025; 85610; 85730; 99284

== ENCOUNTER 2019-03-13 10:21 | Inpatient (IN) | payer MEDICARE ==
[~2019-03-13] VITALS: Ht 157.5 cm; Wt 75.9 kg
--- NOTE | 2019-03-13 11:01 | NUR ---
FIRST CONTACT WITH PT. "TODAY MY CHEST HURTS AND I KEEP PASSING OUT, I HIT MY HEAD FACE DOWN THIS MORNING, THREW UP LAST NIGHT AND THIS MORING, I'M WEAK A KITTEN, MY BLOOD PRESSURE WAS 195/115 THIS MORNING, I'M DIZZY HELL." EKG COMPLETED. NOT TAKING BP MEDICATION, PT STATES "MY MEDICINE WAS STOLEN." PT'S AOX4. RESPS EVEN AND UNLABORED. ALL MONITORS IN PLACE. CALL LIGHT WITHIN REACH. SNR ON THERAPIST OCCUPATIONAL RATE 80'S AT THIS TIME.
[2019-03-13] MEDS ORDERED: ONDANSETRON 2MG/ML, 2ML ONE (11:13)
[2019-03-13] MEDS ORDERED: MORPHINE SULFATE 4 MG/ML, 1ML ONE (11:14)
[2019-03-13] MEDS ORDERED: ENALAPRILAT 1.25 MG/ML, 2ML IV ONE (11:30)
[2019-03-13] MEDS ORDERED: ONDANSETRON 2MG/ML, 2ML IVPush ONE (11:30)
[2019-03-13] MEDS ORDERED: MORPHINE SULFATE 4 MG/ML, 1ML IVPush PRN (11:30)
[2019-03-13] MEDS ORDERED: SODIUM CHLORIDE FLUSH 10ML SYR IVF ONE (11:30)
--- NOTE | 2019-03-13 11:37 | NUR ---
PT AMB TO BR AND BACK TO ROOM. UA SENT.
[2019-03-13] MEDS ORDERED: LORazepam 2 MG/ML, 1ML IVPush ONE (12:00)
[2019-03-13 12:22] LABS: BASOPHILS # (AUTO) 0.02 x10^3/uL (0-0.1); BASOPHILS % (AUTO) 1 % (0-1); EOSINOPHILS # (AUTO) 0.08 x10^3/uL (0-0.4); EOSINOPHILS % (AUTO) 3 % (1-7); LYMPHOCYTES # (AUTO) 1.13 x10^3/uL (1-3.4); LYMPHOCYTES % (AUTO) 36 % (22-44); MD NO; MEAN CORPUSCULAR HEMOGLOBIN 30.6 pg (27.0-34.8); MEAN CORPUSCULAR VOLUME 92.7 fL (80-100); MEAN PLATELET VOLUME 8.5 fL (7.4-10.4); MONOCYTES # (AUTO) 0.27 x10^3/uL (0.2-0.8); MONOCYTES % (AUTO) 9 % (2-9); NEUTROPHILS # (AUTO) 1.62 x10^3/uL (1.8-6.8); NEUTROPHILS % (AUTO) 52 % (42-75); PLATELET COUNT 202 x10^3/uL (130-400); RED BLOOD COUNT 4.07 x10^6/uL (3.82-5.3); RED CELL DISTRIBUTION WIDTH 14.8 % (9.6-15.2)
--- NOTE | 2019-03-13 12:22 | NUR ---
PT MEDICATED PER EMAR FOR PAIN/NAUSEA. PT TOLERATED WELL.
[2019-03-13] MEDS ORDERED: ENALAPRILAT 1.25 MG/ML, 1ML ONE (12:24)
[2019-03-13] MEDS ORDERED: LORazepam 2 MG/ML, 1ML ONE (12:25)
[2019-03-13 12:29] LABS: ALBUMIN 3.5 g/dL (3.4-5.0); ANION GAP 8 mmol/L (5-15); CALCIUM 8.5 mg/dL (8.5-10.1); CHLORIDE 115 mmol/L (98-107)
[2019-03-13 12:35] LABS: ALANINE AMINOTRANSFERASE 13 U/L (12-78); ALKALINE PHOSPHATASE 47 U/L (45-117); BILIRUBIN,TOTAL 0.6 mg/dL (0.2-1.0); CREATININE 1.01 mg/dL (0.55-1.02); TOTAL PROTEIN 6.2 g/dL (6.4-8.2); TROPONIN I < 0.015 ng/mL (0.000-0.045)
[2019-03-13 13:36] LABS: CULTURE INDICATED? YES; MICROSCOPIC INDICATED
--- NOTE | 2019-03-13 13:59 | NUR ---
PT RESTING IN [facility]. ALL MONITORS IN PLACE. CALL LIGHT WITHIN REACH. RESPS EVEN AND UNLABORED.
--- NOTE | 2019-03-13 14:30 | NUR ---
hospitalist at bedside now.
[2019-03-13] MEDS ORDERED: D5%-0.45% NACL 1,000 ML IV SCH (14:49)
--- NOTE | 2019-03-13 14:54 | NUR ---
REPORT GIVEN TO ANUM JACKSON. ALL QUESTIONS ANSWERED.
[2019-03-13] MEDS ORDERED: HYDROcodone/APAP 5/325 TABLET PO PRN (15:00)
[2019-03-13] MEDS ORDERED: HEPARIN 5,000 UNITS/ML, 1ML SQ SCH (15:00)
[2019-03-13] MEDS ORDERED: ACETAMINOPHEN 325 MG TABLET PO PRN (15:00)
[2019-03-13] MEDS ORDERED: POTASSIUM CHLORIDE 40 MEQ in SODIUM CHLORIDE 0.9% 500 ML IV ONE (15:00)
[2019-03-13] MEDS ORDERED: hydrALAzine 20 MG/ML, 1ML IVPush PRN (15:00)
[2019-03-13] MEDS ORDERED: ONDANSETRON ODT 4 MG PO PRN (15:00)
[2019-03-13] MEDS ORDERED: LABETALOL 5MG/ML, 20ML IVPush PRN (15:00)
--- NOTE | 2019-03-13 15:18 | NUR ---
HOUSE KEEPING PAGED FOR TERMINAL CLEAN.
[2019-03-13] MEDS ORDERED: ASPIRIN 81 MG TABLET CHEW PO ONE (15:30)
[2019-03-13] MEDS ORDERED: NITROGLYCERIN 0.4 MG BOTTLE (25 TABS) SL PRN (15:30)
[2019-03-13] MEDS ORDERED: PLEASE ENTER HEIGHT AND WEIGHT MC SCH (15:30)
[2019-03-13 15:47] VITALS: BP 169/85
[2019-03-13] MEDS: morphine SULFATE 10 MG/ML, 1ML IVPush PRN ×2 (16:03→20:01)
[2019-03-13 16:39] LABS: TROPONIN I < 0.015 ng/mL (0.000-0.045)
[2019-03-13 19:47] VITALS: BP 185/109
[2019-03-13 20:20] VITALS: BP 183/105
[2019-03-13] MEDS: CARVEDILOL 25 MG TABLET PO SCH (20:25)
[2019-03-13] MEDS: ATORVASTATIN 40 MG TABLET PO SCH (20:25)
[2019-03-13] MEDS: AMLODIPINE 5 MG TABLET PO SCH (20:25)
[2019-03-13 21:09] LABS: TROPONIN I < 0.015 ng/mL (0.000-0.045)
[2019-03-13 21:40] VITALS: BP 167/89
[2019-03-13 21:42] VITALS: BP 158/87
[2019-03-13 21:43] VITALS: BP 151/91
[2019-03-14] VITALS (12 sets, daily range): BP systolic 105–220; BP diastolic 62–86
[2019-03-14] MEDS: morphine SULFATE 10 MG/ML, 1ML IVPush PRN ×6 (00:24→21:20)
[2019-03-14 03:46] LABS: MEAN CORPUSCULAR HEMOGLOBIN 30.7 pg (27.0-34.8); MEAN CORPUSCULAR HGB CONC 32.9 g/dL (32.4-35.8); MEAN CORPUSCULAR VOLUME 93.2 fL (80-100); MEAN PLATELET VOLUME 8.1 fL (7.4-10.4); PLATELET COUNT 191 x10^3/uL (130-400); RED BLOOD COUNT 4.08 x10^6/uL (3.82-5.3); RED CELL DISTRIBUTION WIDTH 15.1 % (9.6-15.2)
[2019-03-14 03:58] LABS: ALANINE AMINOTRANSFERASE 35 U/L (12-78); ALBUMIN 3.2 g/dL (3.4-5.0); ANION GAP 5 mmol/L (5-15); CALCIUM 8.2 mg/dL (8.5-10.1); CHLORIDE 114 mmol/L (98-107); CREATININE 0.91 mg/dL (0.55-1.02)
[2019-03-14 04:00] LABS: ALKALINE PHOSPHATASE 83 U/L (45-117); BILIRUBIN,TOTAL 0.3 mg/dL (0.2-1.0); TOTAL PROTEIN 5.8 g/dL (6.4-8.2)
[2019-03-14 04:02] LABS: TROPONIN I < 0.015 ng/mL (0.000-0.045)
[2019-03-14 05:48] LABS: BASOPHILS # (AUTO) 0.02 x10^3/uL (0-0.1); BASOPHILS % (AUTO) 1 % (0-1); EOSINOPHILS # (AUTO) 0.06 x10^3/uL (0-0.4); EOSINOPHILS % (AUTO) 2 % (1-7); LYMPHOCYTES # (AUTO) 0.86 x10^3/uL (1-3.4); LYMPHOCYTES % (AUTO) 32 % (22-44); MD SCAN; MONOCYTES # (AUTO) 0.27 x10^3/uL (0.2-0.8); MONOCYTES % (AUTO) 10 % (2-9); NEUTROPHILS # (AUTO) 1.49 x10^3/uL (1.8-6.8); NEUTROPHILS % (AUTO) 55 % (42-75)
[2019-03-14] MEDS ORDERED: PANTOPRAZOLE 40 MG IV IVPush SCH (07:30)
[2019-03-14] MEDS: ONDANSETRON 2MG/ML, 2ML IVPush PRN ×3 (08:37→17:49)
[2019-03-14] MEDS: CARVEDILOL 25 MG TABLET PO SCH ×2 (08:38→21:10)
[2019-03-14] MEDS: LEVOTHYROXINE 100 MCG TABLET PO SCH (08:38)
[2019-03-14] MEDS: AMLODIPINE 5 MG TABLET PO SCH ×2 (08:38→21:10)
[2019-03-14] MEDS: FLUTICASONE NASAL SPRAY 16GM NAS SCH (08:43)
[2019-03-14] MEDS ORDERED: LISINOPRIL 10 MG TABLET PO SCH ×2 (09:00)
[2019-03-14] MEDS: LISINOPRIL 5 MG TABLET PO SCH (09:00)
[2019-03-14] MEDS ORDERED: DEXTROSE 5% 1,000 ML IV SCH (09:00)
[2019-03-14] MEDS: HEPARIN 5,000 UNITS/ML, 1ML SQ SCH ×2 (09:42→21:11)
[2019-03-14] MEDS ORDERED: D5%-0.45% NACL 1,000 ML IV SCH (14:49)
[2019-03-14] MEDS: ATORVASTATIN 40 MG TABLET PO SCH (21:10)
[2019-03-15] VITALS: BP 108/63
[2019-03-15 00:01] VITALS: BP 111/68
[2019-03-15 00:02] VITALS: BP 111/66
[2019-03-15] MEDS: morphine SULFATE 10 MG/ML, 1ML IVPush PRN ×2 (00:34→05:02)
[2019-03-15 05:59] LABS: MEAN CORPUSCULAR HEMOGLOBIN 30.9 pg (27.0-34.8); MEAN CORPUSCULAR HGB CONC 33.1 g/dL (32.4-35.8); MEAN CORPUSCULAR VOLUME 93.3 fL (80-100); MEAN PLATELET VOLUME 8.4 fL (7.4-10.4); PLATELET COUNT 155 x10^3/uL (130-400); RED BLOOD COUNT 3.84 x10^6/uL (3.82-5.3); RED CELL DISTRIBUTION WIDTH 15.1 % (9.6-15.2)
[2019-03-15] MEDS ORDERED: PANTOPROZOLE 40MG TABLET PO SCH (06:00)
[2019-03-15 06:09] LABS: ALANINE AMINOTRANSFERASE 21 U/L (12-78); ANION GAP 5 mmol/L (5-15); CALCIUM 8.1 mg/dL (8.5-10.1); CHLORIDE 113 mmol/L (98-107); CREATININE 0.98 mg/dL (0.55-1.02)
[2019-03-15 06:11] VITALS: BP 122/71
[2019-03-15 06:11] LABS: ALKALINE PHOSPHATASE 64 U/L (45-117); BILIRUBIN,TOTAL 0.2 mg/dL (0.2-1.0); TOTAL PROTEIN 5.3 g/dL (6.4-8.2)
[2019-03-15 06:30] LABS: BASOPHILS # (AUTO) 0.02 x10^3/uL (0-0.1); BASOPHILS % (AUTO) 1 % (0-1); EOSINOPHILS # (AUTO) 0.07 x10^3/uL (0-0.4); EOSINOPHILS % (AUTO) 3 % (1-7); LYMPHOCYTES # (AUTO) 1.13 x10^3/uL (1-3.4); LYMPHOCYTES % (AUTO) 42 % (22-44); MD SCAN; MONOCYTES # (AUTO) 0.27 x10^3/uL (0.2-0.8); MONOCYTES % (AUTO) 10 % (2-9); NEUTROPHILS # (AUTO) 1.18 x10^3/uL (1.8-6.8); NEUTROPHILS % (AUTO) 45 % (42-75)
[2019-03-15] MEDS ORDERED: ENOXAPARIN 40 MG/0.4 ML SQ SCH (07:30)
[2019-03-15 07:54] LABS: TROPONIN I < 0.015 ng/mL (0.000-0.045)
[2019-03-15] MEDS: FLUTICASONE NASAL SPRAY 16GM NAS SCH (09:00)
[2019-03-15] MEDS ORDERED: AMLODIPINE 5 MG TABLET PO SCH (09:00)
[2019-03-15] MEDS: LEVOTHYROXINE 100 MCG TABLET PO SCH (09:24)
[2019-03-15] MEDS: CARVEDILOL 25 MG TABLET PO SCH (09:24)
[2019-03-15] MEDS: LISINOPRIL 5 MG TABLET PO SCH (09:24)
[2019-03-15 12:58] LABS: TROPONIN I < 0.015 ng/mL (0.000-0.045)
[2019-03-15 14:02] VITALS: BP 121/69
[2019-03-15] MEDS ORDERED: ATOR40TA78 PO (14:25)
[2019-03-15] MEDS ORDERED: AMLO-150 PO (14:25)
[2019-03-15] MEDS ORDERED: PANT40TA5 PO (14:25)
[2019-03-15] MEDS ORDERED: ONDA4TAB13 PO (14:25)
[2019-03-15] MEDS ORDERED: LISI5TAB7 PO (14:25)
[2019-03-15] MEDS ORDERED: CYCL5TAB PO (14:27)
== END 2019-03-15 15:18 | disposition home or self-care (01) | DRG 305 ==
LOC: ED 13:36 → EDIP 14:13 → 4WST 15:42
PROVIDERS: ADMIT Internal Medicine; ATTEND Internal Medicine
DX: I16.1 Hypertensive emergency (principal); E87.0 Hyperosmolality and hypernatremia; I50.32 Chronic diastolic (congestive) heart failure; R07.89 Other chest pain; I13.0 Hypertensive heart and chronic kidney disease with heart failure and stage 1 through stage 4 chronic kidney disease, or unspecified chronic kidney disease; E87.6 Hypokalemia; Z95.0 Presence of cardiac pacemaker; K21.0 Gastro-esophageal reflux disease with esophagitis; K22.70 Barrett's esophagus without dysplasia; R13.10 Dysphagia, unspecified; G47.33 Obstructive sleep apnea (adult) (pediatric); E03.9 Hypothyroidism, unspecified; E11.22 Type 2 diabetes mellitus with diabetic chronic kidney disease; E78.5 Hyperlipidemia, unspecified; G89.29 Other chronic pain; M54.2 Cervicalgia; H53.8 Other visual disturbances; E86.0 Dehydration; F32.9 Major depressive disorder, single episode, unspecified; F41.1 Generalized anxiety disorder; I25.10 Atherosclerotic heart disease of native coronary artery without angina pectoris; I48.91 Unspecified atrial fibrillation; R31.9 Hematuria, unspecified; J44.9 Chronic obstructive pulmonary disease, unspecified; N18.2 Chronic kidney disease, stage 2 (mild); Z82.49 Family history of ischemic heart disease and other diseases of the circulatory system; Z86.73 Personal history of transient ischemic attack (TIA), and cerebral infarction without residual deficits; Z90.710 Acquired absence of both cervix and uterus; Z91.81 History of falling; Z91.030 Bee allergy status; Z88.2 Allergy status to sulfonamides; Z88.8 Allergy status to other drugs, medicaments and biological substances; Z91.018 Allergy to other foods; Z90.49 Acquired absence of other specified parts of digestive tract
CPT/HCPCS: 36415; 70450; 71045; 71275; 74175; 80053; 81001; 82150; 83690; 83735; 83880; 84100; 84443; 84484; 85025; 85379; 87086; 93005; 96374; 96375; G0378; J1644; J1650; J2405; J3480; J7070; Q0162; C9113; J2060; J2270; J7040

== ENCOUNTER 2019-03-18 12:06 | Emergency (ER) | payer MEDICARE ==
[~2019-03-18] VITALS: Ht 157.5 cm; Wt 74.4 kg
[~2019-03-18 12:06] MED LIST changes: +CYCL5TAB PO; +LISI5TAB7 PO; +ONDA4TAB13 PO
[2019-03-18] MEDS ORDERED: ONDANSETRON ODT 4 MG PO ONE (13:00)
[2019-03-18 13:36] LABS: MEAN CORPUSCULAR HGB CONC 33.2 g/dL (32.4-35.8); MEAN CORPUSCULAR VOLUME 93.2 fL (80-100); MEAN PLATELET VOLUME 8.9 fL (7.4-10.4); PLATELET COUNT 145 x10^3/uL (130-400); RED BLOOD COUNT 3.71 x10^6/uL (3.82-5.3); RED CELL DISTRIBUTION WIDTH 15.5 % (9.6-15.2)
[2019-03-18 13:46] LABS: ALBUMIN 3.3 g/dL (3.4-5.0); CALCIUM 8.7 mg/dL (8.5-10.1); CHLORIDE 117 mmol/L (98-107)
[2019-03-18] MEDS ORDERED: ONDANSETRON ODT 4 MG ONE (13:54)
[2019-03-18 13:58] LABS: ALANINE AMINOTRANSFERASE 22 U/L (12-78); ALKALINE PHOSPHATASE 63 U/L (45-117); BILIRUBIN,TOTAL 0.7 mg/dL (0.2-1.0); CREATININE 0.96 mg/dL (0.55-1.02); TOTAL PROTEIN 5.8 g/dL (6.4-8.2)
--- NOTE | 2019-03-18 14:00 | NUR ---
PT REFUSED ZOFRAN.
[2019-03-18 14:02] LABS: ANION GAP 8 mmol/L (5-15)
[2019-03-18] MEDS ORDERED: METOCLOPRAMIDE 10MG TABLET ONE (14:16)
[2019-03-18 14:17] LABS: BASOPHILS # (AUTO) 0.02 x10^3/uL (0-0.1); BASOPHILS % (AUTO) 1 % (0-1); EOSINOPHILS # (AUTO) 0.08 x10^3/uL (0-0.4); EOSINOPHILS % (AUTO) 3 % (1-7); LYMPHOCYTES # (AUTO) 1.13 x10^3/uL (1-3.4); LYMPHOCYTES % (AUTO) 40 % (22-44); MD SCAN; MONOCYTES # (AUTO) 0.27 x10^3/uL (0.2-0.8); MONOCYTES % (AUTO) 10 % (2-9); NEUTROPHILS # (AUTO) 1.35 x10^3/uL (1.8-6.8); NEUTROPHILS % (AUTO) 47 % (42-75)
[2019-03-18] MEDS ORDERED: METOCLOPRAMIDE 10MG TABLET PO ONE (14:30)
[2019-03-18] MEDS ORDERED: POTASSIUM CHLORIDE 20 MEQ TAB.ER.PRT ONE (14:54)
[2019-03-18] MEDS ORDERED: POTASSIUM CHLORIDE 20 MEQ TAB.ER.PRT PO ONE (15:00)
[2019-03-18 15:38] VITALS: BP 159/93
== END 2019-03-18 15:38 | disposition home or self-care (01) ==
LOC: ED 12:37
DX: R11.0 Nausea (principal); M54.2 Cervicalgia; I13.0 Hypertensive heart and chronic kidney disease with heart failure and stage 1 through stage 4 chronic kidney disease, or unspecified chronic kidney disease; N18.2 Chronic kidney disease, stage 2 (mild); I50.9 Heart failure, unspecified; I48.91 Unspecified atrial fibrillation; J44.9 Chronic obstructive pulmonary disease, unspecified; E78.5 Hyperlipidemia, unspecified; K21.9 Gastro-esophageal reflux disease without esophagitis; E03.9 Hypothyroidism, unspecified; Z90.89 Acquired absence of other organs; Z90.49 Acquired absence of other specified parts of digestive tract; Z90.710 Acquired absence of both cervix and uterus; Z95.0 Presence of cardiac pacemaker; Z86.73 Personal history of transient ischemic attack (TIA), and cerebral infarction without residual deficits
CPT/HCPCS: 36415; 80053; 83690; 85025; 93005; 99284

== ENCOUNTER 2019-03-20 14:46 | Emergency (ER) | payer MEDICARE ==
[~2019-03-20] VITALS: Ht 157.5 cm; Wt 80.0 kg
[2019-03-20 15:12] VITALS: BP 164/109
--- NOTE | 2019-03-20 17:45 | NUR ---
Patient given discharge instructions and they have confirmed that they understand the instructions. Patient ambulatory with steady gait. Pt left with d/c paperwork, prescription, taxi voucher, and all personal belongings.
== END 2019-03-20 18:00 | disposition home or self-care (01) ==
LOC: ED 17:25
DX: M54.2 Cervicalgia (principal); M25.562 Pain in left knee; M25.561 Pain in right knee; Z72.9 Problem related to lifestyle, unspecified; G89.29 Other chronic pain; Z76.0 Encounter for issue of repeat prescription
CPT/HCPCS: 72125; 99284

== ENCOUNTER 2019-03-21 17:05 | Emergency (ER) | payer MEDICARE ==
[~2019-03-21] VITALS: Ht 157.5 cm; Wt 78.7 kg
[2019-03-21 17:07] VITALS: BP 165/71
--- NOTE | 2019-03-21 17:28 | NUR ---
ERP WAS IN TO SEE PT. PT AMBULATED TO BR WITHOUT DIFFICULTY, URINE SENT TO LAB.
[2019-03-21 17:40] LABS: CULTURE INDICATED? YES; MICROSCOPIC INDICATED
[2019-03-21 17:57] LABS: BASOPHILS # (AUTO) 0.02 x10^3/uL (0-0.1); BASOPHILS % (AUTO) 1 % (0-1); EOSINOPHILS % (AUTO) 3 % (1-7); LYMPHOCYTES # (AUTO) 1.33 x10^3/uL (1-3.4); LYMPHOCYTES % (AUTO) 42 % (22-44); MD NO; MEAN CORPUSCULAR HEMOGLOBIN 30.5 pg (27.0-34.8); MEAN CORPUSCULAR HGB CONC 32.6 g/dL (32.4-35.8); MEAN CORPUSCULAR VOLUME 93.7 fL (80-100); MEAN PLATELET VOLUME 8.9 fL (7.4-10.4); MONOCYTES % (AUTO) 10 % (2-9); NEUTROPHILS % (AUTO) 44 % (42-75); PLATELET COUNT 162 x10^3/uL (130-400); RED CELL DISTRIBUTION WIDTH 15.8 % (9.6-15.2)
[2019-03-21 18:06] LABS: ALBUMIN 3.3 g/dL (3.4-5.0); ANION GAP 8 mmol/L (5-15); CALCIUM 8.5 mg/dL (8.5-10.1); CHLORIDE 114 mmol/L (98-107); CREATININE 0.99 mg/dL (0.55-1.02)
--- NOTE | 2019-03-21 18:57 | NUR ---
D/C INSTRUCTIONS, MEDS & F/U APPT RV'WD WITH PT BY ASSIST RN. RX GIVEN X1. PT AMBULATED OUT OF ED WITHOUT DIFFICULTY.
== END 2019-03-21 18:59 | disposition home or self-care (01) ==
LOC: ED 18:30
DX: N30.00 Acute cystitis without hematuria (principal)
CPT/HCPCS: 36415; 80048; 81001; 82040; 85025; 87086; 99283

== ENCOUNTER 2019-03-24 10:22 | Emergency (ER) | payer MEDICARE ==
[~2019-03-24] VITALS: Ht 157.5 cm; Wt 78.5 kg
[~2019-03-24 10:22] MED LIST changes: -FLUT16SP NAS; +FLUT16SP24 NAS
[2019-03-24 10:28] VITALS: BP 149/64
--- NOTE | 2019-03-24 10:56 | NUR ---
Ny monzon in [facility] - 03/24/19 at 1057 by COOPER STUDIO ASSISTANT: PT TO ROOM FROM [facility] AT THIS TIME.
--- NOTE | 2019-03-24 10:57 | NUR ---
CALLED FOR PT. PT NOT IN LOBBY AT THIS TIME.
--- NOTE | 2019-03-24 10:58 | NUR ---
ENVIRONMENTAL STUDIES FACULTY MEMBER: PT WALKED BACK FROM LOBBY TO ROOM AT THIS TIME. STEADY UPON AMBULATION. NAD NOTED.
--- NOTE | 2019-03-24 11:08 | NUR ---
73 Y/O FEMALE PRESENTS TO ED WITH C/O SORE THROAT. PER PT "I'VE HAD THIS SORE THROAT FOR A MOONTH. I'VE BEEN HERE BUT NEVER TOLD THE DR. I CAN'T SEE MY DR UNTIL ." NO ACUTE DISTRESS NOTED. NO C/O N/V/D, TRAUMA, SYNCOPE, CP, SOB.
--- NOTE | 2019-03-24 11:18 | NUR ---
PT REFUSING MOTRIN THAT IS ORDERED. PT STATES "I TOOK SOME ADVIL BEFORE I LEFT HOME."
--- NOTE | 2019-03-24 11:29 | NUR ---
pt back from imaging. pt fully clothed and sitting on chair. no acute distress noted. no needs requested at this time.
[2019-03-24] MEDS ORDERED: IBUPROFEN 600 MG TABLET PO ONE (11:30)
--- NOTE | 2019-03-24 12:05 | NUR ---
TASK RN: PATIENT WALKING HALLS RESTLESSLY ASKING TO LEAVE. TESTING RESULTS REVIEWED PATIENT CONTINUES TO REFUSE MOTRIN. PROVIDER MADE AWARE-PLAN TO D/C SHORTLY
== END 2019-03-24 12:37 | disposition home or self-care (01) ==
LOC: ED 11:12
DX: J06.9 Acute upper respiratory infection, unspecified (principal); J30.2 Other seasonal allergic rhinitis
CPT/HCPCS: 71046; 93005; 99283

== ENCOUNTER 2019-04-04 23:30 | Emergency (ER) | payer MEDICARE ==
[~2019-04-04] VITALS: Ht 157.5 cm; Wt 80.2 kg
--- NOTE | 2019-04-05 00:05 | NUR ---
PT STATES THAT SHE HAS HAD BEEN NAUSEATED AND "CAN'T TAKE MY PILLS". PT STATES THAT SHE IS STILL VOMITING BLOOD SINCE VISIT LAST NIGHT. MONITORS APPLIED, SIDERAIL SUP X2, CALL LIGHT WITHIN REACH
[2019-04-05] MEDS ORDERED: ONDANSETRON ODT 4 MG ONE (00:07)
--- NOTE | 2019-04-05 00:10 | NUR ---
PT MEDICATED PER MAR
[2019-04-05] MEDS ORDERED: ONDANSETRON ODT 4 MG PO ONE (00:30)
[2019-04-05 01:00] VITALS: BP 171/80
--- NOTE | 2019-04-05 01:01 | NUR ---
PT RESTING ON [employer] TECH AT BEDSIDE FOR LAB DRAW. MONITORS IN PLACE, CALL LIGHT WITHIN REACH, DENIES NEEDS. AWAITING LAB AND XRAY RESULT
[2019-04-05 01:23] LABS: BASOPHILS # (AUTO) 0.02 x10^3/uL (0-0.1); BASOPHILS % (AUTO) 1 % (0-1); EOSINOPHILS # (AUTO) 0.12 x10^3/uL (0-0.4); EOSINOPHILS % (AUTO) 3 % (1-7); LYMPHOCYTES # (AUTO) 1.38 x10^3/uL (1-3.4); LYMPHOCYTES % (AUTO) 37 % (22-44); MD NO; MEAN CORPUSCULAR HEMOGLOBIN 30.9 pg (27.0-34.8); MEAN CORPUSCULAR HGB CONC 32.8 g/dL (32.4-35.8); MEAN PLATELET VOLUME 8.6 fL (7.4-10.4); MONOCYTES # (AUTO) 0.41 x10^3/uL (0.2-0.8); MONOCYTES % (AUTO) 11 % (2-9); NEUTROPHILS # (AUTO) 1.77 x10^3/uL (1.8-6.8); NEUTROPHILS % (AUTO) 48 % (42-75); PLATELET COUNT 152 x10^3/uL (130-400); RED BLOOD COUNT 3.78 x10^6/uL (3.82-5.3); RED CELL DISTRIBUTION WIDTH 15.8 % (9.6-15.2)
[2019-04-05 01:28] LABS: ALANINE AMINOTRANSFERASE 14 U/L (12-78); ALBUMIN 3.2 g/dL (3.4-5.0); ANION GAP 7 mmol/L (5-15); CALCIUM 8.3 mg/dL (8.5-10.1); CHLORIDE 116 mmol/L (98-107); CREATININE 1.02 mg/dL (0.55-1.02)
[2019-04-05 01:32] LABS: ALKALINE PHOSPHATASE 43 U/L (45-117); BILIRUBIN,TOTAL 0.2 mg/dL (0.2-1.0); TOTAL PROTEIN 5.5 g/dL (6.4-8.2); TROPONIN I < 0.015 ng/mL (0.000-0.045)
[2019-04-05] MEDS ORDERED: PROMETHAZINE 25 MG/ML, 1ML ONE (01:48)
[2019-04-05] MEDS ORDERED: MAALOX/HYOSCYAMINE/LIDOCAINE 45 ML BTL ONE (01:48)
--- NOTE | 2019-04-05 01:51 | NUR ---
pt medicate hernan hedrick
[2019-04-05] MEDS ORDERED: MAALOX/HYOSCYAMINE/LIDOCAINE 45 ML BTL PO ONE (02:00)
[2019-04-05] MEDS ORDERED: PROMETHAZINE 25 MG/ML, 1ML IM ONE (02:00)
== END 2019-04-05 03:59 | disposition home or self-care (01) ==
LOC: ED 23:59
DX: R11.2 Nausea with vomiting, unspecified (principal); I48.91 Unspecified atrial fibrillation; J44.9 Chronic obstructive pulmonary disease, unspecified; I25.10 Atherosclerotic heart disease of native coronary artery without angina pectoris; I13.0 Hypertensive heart and chronic kidney disease with heart failure and stage 1 through stage 4 chronic kidney disease, or unspecified chronic kidney disease; N18.2 Chronic kidney disease, stage 2 (mild); E03.9 Hypothyroidism, unspecified; I50.9 Heart failure, unspecified; E78.5 Hyperlipidemia, unspecified; Z95.0 Presence of cardiac pacemaker; Z91.018 Allergy to other foods; Z88.2 Allergy status to sulfonamides; Z91.030 Bee allergy status; Z88.8 Allergy status to other drugs, medicaments and biological substances
CPT/HCPCS: 36415; 74021; 80053; 83690; 84484; 85025; 93005; 99284; J2550; Q0162

== ENCOUNTER 2019-04-06 10:27 | Emergency (ER) | payer MEDICARE ==
[~2019-04-06] VITALS: Ht 157.5 cm; Wt 79.9 kg
--- NOTE | 2019-04-06 11:53 | NUR ---
CONTACT WITH PT, 73 YR OLD FEMALE HERE WITH C/O "I'M THROWING UP BLOOD AND MY BACK, NECK AND KNEES ARE HURTING. I'M STILL SICK TO MY STOMACH" THE SICKNESS HAS BEEN FOR "ABOUT A WEEK", PAINS AND THROWING UP BLOOD "BEGAN YESTERDAY" "THE [facility] SAID I HAD TO HAVE A REFERRAL TO GET AN INJECTION IN MY BACK"
--- NOTE | 2019-04-06 12:01 | NUR ---
POULTRY VACCINATOR AT BEDSIDE TO DRAW LABS. PT UPDATED ON POC.
[2019-04-06 12:24] LABS: ALBUMIN 3.4 g/dL (3.4-5.0); ANION GAP 6 mmol/L (5-15); BASOPHILS # (AUTO) 0.02 x10^3/uL (0-0.1); BASOPHILS % (AUTO) 1 % (0-1); CALCIUM 8.4 mg/dL (8.5-10.1); CHLORIDE 116 mmol/L (98-107); EOSINOPHILS # (AUTO) 0.16 x10^3/uL (0-0.4); EOSINOPHILS % (AUTO) 5 % (1-7); LYMPHOCYTES # (AUTO) 1.18 x10^3/uL (1-3.4); LYMPHOCYTES % (AUTO) 36 % (22-44); MD NO; MEAN CORPUSCULAR HEMOGLOBIN 30.8 pg (27.0-34.8); MEAN CORPUSCULAR HGB CONC 32.9 g/dL (32.4-35.8); MEAN CORPUSCULAR VOLUME 93.6 fL (80-100); MEAN PLATELET VOLUME 8.8 fL (7.4-10.4); MONOCYTES # (AUTO) 0.38 x10^3/uL (0.2-0.8); MONOCYTES % (AUTO) 12 % (2-9); NEUTROPHILS # (AUTO) 1.57 x10^3/uL (1.8-6.8); NEUTROPHILS % (AUTO) 47 % (42-75); PLATELET COUNT 163 x10^3/uL (130-400); RED CELL DISTRIBUTION WIDTH 15.6 % (9.6-15.2)
[2019-04-06 12:25] LABS: CREATININE 0.97 mg/dL (0.55-1.02)
--- NOTE | 2019-04-06 12:39 | NUR ---
BREAK RN: PATIENT ASSISTED TO BATHROOM, STEADY GAIT WITH CANE, STAND-BY ASSIST. PATIENT BACK TO BED, VS UPDATED IN CHART, NADN. AWAITING LAB RESULTS.
[2019-04-06 12:43] VITALS: BP 215/83
--- NOTE | 2019-04-06 13:09 | NUR ---
BREAK RN: Patient/Caregiver given discharge instructions and they have confirmed that they understand the instructions. Patient ambulatory with steady gait with cane to DC desk.
== END 2019-04-06 13:13 | disposition home or self-care (01) ==
LOC: ED 13:09
DX: K92.0 Hematemesis (principal); E03.9 Hypothyroidism, unspecified; I25.10 Atherosclerotic heart disease of native coronary artery without angina pectoris; I10 Essential (primary) hypertension; J44.9 Chronic obstructive pulmonary disease, unspecified; R51 Headache; G89.29 Other chronic pain; I48.91 Unspecified atrial fibrillation; K21.9 Gastro-esophageal reflux disease without esophagitis; E78.5 Hyperlipidemia, unspecified; Z86.73 Personal history of transient ischemic attack (TIA), and cerebral infarction without residual deficits; Z90.49 Acquired absence of other specified parts of digestive tract; Z90.710 Acquired absence of both cervix and uterus
CPT/HCPCS: 36415; 80048; 82040; 85025; 99283

== ENCOUNTER 2019-04-08 00:55 | Emergency (ER) | payer MEDICARE ==
[~2019-04-08] VITALS: Ht 157.5 cm; Wt 79.0 kg
--- NOTE | 2019-04-08 02:07 | NUR ---
Pt ambulated to room from triage, with EDT.
[2019-04-08] MEDS ORDERED: DIPH,PERTUSS(ACELL),TET VAC/PF NC IM-VACC ONE (02:30)
[2019-04-08] MEDS ORDERED: DIPH,PERTUSS(ACELL),TET VAC/PF 0.5 ML IM-VACC ONE (02:32)
[2019-04-08 02:37] VITALS: BP 182/99
== END 2019-04-08 03:02 | disposition home or self-care (01) ==
LOC: ED 01:28
DX: S60.222A Contusion of left hand, initial encounter (principal); I13.0 Hypertensive heart and chronic kidney disease with heart failure and stage 1 through stage 4 chronic kidney disease, or unspecified chronic kidney disease; I50.9 Heart failure, unspecified; N18.2 Chronic kidney disease, stage 2 (mild); J44.9 Chronic obstructive pulmonary disease, unspecified; I25.10 Atherosclerotic heart disease of native coronary artery without angina pectoris; E03.9 Hypothyroidism, unspecified; E78.5 Hyperlipidemia, unspecified; Z90.49 Acquired absence of other specified parts of digestive tract; Z90.89 Acquired absence of other organs; Z90.710 Acquired absence of both cervix and uterus; Z95.0 Presence of cardiac pacemaker; W22.8XXA Striking against or struck by other objects, initial encounter; Y93.89 Activity, other specified; Y92.89 Other specified places as the place of occurrence of the external cause; Y99.8 Other external cause status
CPT/HCPCS: 90471; 90715; 99283

== ENCOUNTER 2019-04-08 13:24 | Emergency (ER) | payer MEDICARE ==
[~2019-04-08] VITALS: Ht 157.5 cm; Wt 79.5 kg
--- NOTE | 2019-04-08 13:39 | NUR ---
PT INTO ROOM VIA [facility]. PT HERE IN ER EARLIER TODAY WITH COMPLAINT OF LEFT HAND LACERATION SHE SUSTAINED ON AN OBJECT IN THE BATHROOM THIS MORNING. LACERATION IS COVERED WITH A BAND AID. AT THIS TIME, PT STATING HER BP WAS "HIGH" AT HOME READING 240/130 AND SHE FELT LIKE SHE WAS GOING TO PASS OUT. [facility] STATES PT'S BP WAS 180/100 DURING RIDE OVER. PT STATES SHE HAS CP THAT FEELS LIKE "AN ELEPHANT SITTING ON HER CHEST." NADN. BP 193/90. AT PT BEDSIDE TO UPDATE PT ON POC. CALL LIGHT IN REACH.
[2019-04-08 14:02] LABS: MEAN CORPUSCULAR HGB CONC 33.1 g/dL (32.4-35.8); MEAN CORPUSCULAR VOLUME 93.7 fL (80-100); MEAN PLATELET VOLUME 8.9 fL (7.4-10.4); PLATELET COUNT 147 x10^3/uL (130-400); RED BLOOD COUNT 4.38 x10^6/uL (3.82-5.3); RED CELL DISTRIBUTION WIDTH 15.4 % (9.6-15.2)
[2019-04-08 14:12] LABS: ALANINE AMINOTRANSFERASE 15 U/L (12-78); ALBUMIN 3.3 g/dL (3.4-5.0); ANION GAP 7 mmol/L (5-15); CALCIUM 8.4 mg/dL (8.5-10.1); CHLORIDE 115 mmol/L (98-107); CREATININE 0.87 mg/dL (0.55-1.02)
[2019-04-08 14:17] LABS: ALKALINE PHOSPHATASE 47 U/L (45-117); BILIRUBIN,TOTAL 0.4 mg/dL (0.2-1.0); TROPONIN I < 0.015 ng/mL (0.000-0.045)
[2019-04-08 14:30] LABS: BASOPHILS # (AUTO) 0.02 x10^3/uL (0-0.1); BASOPHILS % (AUTO) 1 % (0-1); EOSINOPHILS # (AUTO) 0.12 x10^3/uL (0-0.4); EOSINOPHILS % (AUTO) 4 % (1-7); LYMPHOCYTES # (AUTO) 1.12 x10^3/uL (1-3.4); LYMPHOCYTES % (AUTO) 39 % (22-44); MD SCAN; MONOCYTES # (AUTO) 0.26 x10^3/uL (0.2-0.8); MONOCYTES % (AUTO) 9 % (2-9); NEUTROPHILS # (AUTO) 1.37 x10^3/uL (1.8-6.8); NEUTROPHILS % (AUTO) 48 % (42-75)
[2019-04-08] MEDS ORDERED: AMLODIPINE 5 MG TABLET PO ONE (14:30)
[2019-04-08] MEDS ORDERED: CARVEDILOL 25 MG TABLET PO ONE (14:30)
[2019-04-08 15:28] VITALS: BP 175/81
== END 2019-04-08 15:40 | disposition home or self-care (01) ==
LOC: ED 14:25
DX: R07.89 Other chest pain (principal); I10 Essential (primary) hypertension; I11.9 Hypertensive heart disease without heart failure; I48.91 Unspecified atrial fibrillation; F41.1 Generalized anxiety disorder; J44.9 Chronic obstructive pulmonary disease, unspecified; I25.10 Atherosclerotic heart disease of native coronary artery without angina pectoris; Z86.73 Personal history of transient ischemic attack (TIA), and cerebral infarction without residual deficits; E78.5 Hyperlipidemia, unspecified; G89.29 Other chronic pain; K21.9 Gastro-esophageal reflux disease without esophagitis; F32.9 Major depressive disorder, single episode, unspecified
CPT/HCPCS: 36415; 71045; 80053; 83690; 84484; 85025; 93005; 99284

== ENCOUNTER 2019-04-12 12:03 | Emergency (ER) | payer MEDICARE ==
[~2019-04-12] VITALS: Ht 157.5 cm; Wt 80.0 kg
--- NOTE | 2019-04-12 12:26 | NUR ---
Pt BIB EMS from home where pt lives alone for CP starting this morning at 0530. Pt states she woke with the pain and SOB. Pt states MIDDLETON and nausea last night. Here for same 4 days ago. Pt also c/o burning on urination. Pt hypertentive at 214s by EMS given Nitro and 324 ASA with bp down to 180/80.
--- NOTE | 2019-04-12 12:40 | NUR ---
MUSIC GRAPHER AT BEDSIDE.
[2019-04-12 12:56] LABS: BASOPHILS # (AUTO) 0.02 x10^3/uL (0-0.1); BASOPHILS % (AUTO) 1 % (0-1); EOSINOPHILS # (AUTO) 0.13 x10^3/uL (0-0.4); EOSINOPHILS % (AUTO) 4 % (1-7); LYMPHOCYTES # (AUTO) 1.15 x10^3/uL (1-3.4); LYMPHOCYTES % (AUTO) 34 % (22-44); MD NO; MEAN CORPUSCULAR HEMOGLOBIN 30.9 pg (27.0-34.8); MEAN CORPUSCULAR VOLUME 93.7 fL (80-100); MEAN PLATELET VOLUME 8.9 fL (7.4-10.4); MONOCYTES # (AUTO) 0.28 x10^3/uL (0.2-0.8); MONOCYTES % (AUTO) 8 % (2-9); NEUTROPHILS # (AUTO) 1.78 x10^3/uL (1.8-6.8); NEUTROPHILS % (AUTO) 53 % (42-75); PLATELET COUNT 146 x10^3/uL (130-400); RED BLOOD COUNT 4.31 x10^6/uL (3.82-5.3); RED CELL DISTRIBUTION WIDTH 15.4 % (9.6-15.2)
[2019-04-12 12:58] VITALS: BP 202/79
[2019-04-12 12:59] LABS: MICROSCOPIC AUTO
[2019-04-12 13:02] LABS: CULTURE INDICATED? YES
--- NOTE | 2019-04-12 13:06 | NUR ---
PT AMBULATORY TO BATHROOM STATING, "I DON'T NEED YOUR HELP." THIS RN WATCHED PT SHE AMBULATED DOWN HALLWAY WITHOUT NEED OF ASSISTIVE DEVICE OR HELP FROM THIS RN.
[2019-04-12 13:08] LABS: ALBUMIN 3.5 g/dL (3.4-5.0); ANION GAP 8 mmol/L (5-15); CALCIUM 8.8 mg/dL (8.5-10.1); CHLORIDE 117 mmol/L (98-107); CREATININE 0.92 mg/dL (0.55-1.02)
[2019-04-12 13:12] LABS: TROPONIN I < 0.015 ng/mL (0.000-0.045)
--- NOTE | 2019-04-12 13:13 | NUR ---
PT BACK IN BED AT THIS TIME. CONNECTED TO MONITOR. DENIES NEEDS. HYPERTENSIVE. WILL ALERT MD.
--- NOTE | 2019-04-12 13:50 | NUR ---
PT GETTING DRESSED AT THIS TIME. MATTRESS FILLING MACHINE TENDER IN ROOM. DISCHARGE INSTRUCTIONS GIVEN AND EXPLAINED TO PT. PT STATING SHE WANTS TO GO HOME TO "TAKE CARE OF HER CLOTHES." PT STATES SHE TOOK HER BP MEDS THIS MORNING. PT STATES SHE WANTS TO MOVE OUT AND GO TO [place] FOR "BETTER CARE."
== END 2019-04-12 14:00 | disposition home or self-care (01) ==
LOC: ED 13:48
DX: R07.89 Other chest pain (principal); I48.91 Unspecified atrial fibrillation; J44.9 Chronic obstructive pulmonary disease, unspecified; E03.9 Hypothyroidism, unspecified; I11.0 Hypertensive heart disease with heart failure; I50.9 Heart failure, unspecified; K21.9 Gastro-esophageal reflux disease without esophagitis; F32.9 Major depressive disorder, single episode, unspecified; E78.5 Hyperlipidemia, unspecified; Z86.73 Personal history of transient ischemic attack (TIA), and cerebral infarction without residual deficits
CPT/HCPCS: 36415; 71045; 80048; 81001; 82040; 84484; 85025; 87086; 93005; 99284

== ENCOUNTER 2019-04-14 12:34 | Inpatient (IN) | payer MEDICARE ==
[~2019-04-14] VITALS: Ht 157.5 cm; Wt 91.9 kg
--- NOTE | 2019-04-14 13:02 | NUR ---
EMT AT BEDSIDE FOR ASSISTANCE WITH PATIENT TO BEDSIDE COMMODE, UA COLLECTED AND SENT TO LAB. AWAITING FURTHER ORDERS, EMT ASSISTED PATIENT BACK TO BED.
--- NOTE | 2019-04-14 13:10 | NUR ---
PATIENT BIB [facility] TO LOBBY FOR DIZZINESS, BLURRED VISION, AND SYNCOPAL EPISODE AT 0400 TODAY, DENIES HITTING HEAD. DENIES CP/SOB. MD AT BEDSIDE, FORMULA WEIGHER ON PATIENT. AWAITING MD ORDERS, CALL LIGHT WITHIN REACH. NADN AT THIS TIME.
[2019-04-14 13:36] LABS: CULTURE INDICATED? YES; MICROSCOPIC INDICATED
[2019-04-14 13:53] LABS: BASOPHILS # (AUTO) 0.02 x10^3/uL (0-0.1); BASOPHILS % (AUTO) 1 % (0-1); EOSINOPHILS # (AUTO) 0.13 x10^3/uL (0-0.4); EOSINOPHILS % (AUTO) 4 % (1-7); LYMPHOCYTES # (AUTO) 0.98 x10^3/uL (1-3.4); LYMPHOCYTES % (AUTO) 32 % (22-44); MD NO; MEAN CORPUSCULAR HEMOGLOBIN 30.5 pg (27.0-34.8); MEAN CORPUSCULAR HGB CONC 32.8 g/dL (32.4-35.8); MEAN PLATELET VOLUME 8.8 fL (7.4-10.4); MONOCYTES # (AUTO) 0.29 x10^3/uL (0.2-0.8); MONOCYTES % (AUTO) 9 % (2-9); NEUTROPHILS # (AUTO) 1.62 x10^3/uL (1.8-6.8); NEUTROPHILS % (AUTO) 53 % (42-75); PLATELET COUNT 132 x10^3/uL (130-400); RED BLOOD COUNT 4.24 x10^6/uL (3.82-5.3); RED CELL DISTRIBUTION WIDTH 15.2 % (9.6-15.2)
[2019-04-14 13:59] LABS: ALANINE AMINOTRANSFERASE 15 U/L (12-78); ALBUMIN 3.2 g/dL (3.4-5.0); ANION GAP 9 mmol/L (5-15); CALCIUM 8.4 mg/dL (8.5-10.1); CHLORIDE 117 mmol/L (98-107); CREATININE 0.91 mg/dL (0.55-1.02)
--- NOTE | 2019-04-14 14:02 | NUR ---
PATIENT BACK FROM CT, NADN.
[2019-04-14 14:03] LABS: ALKALINE PHOSPHATASE 42 U/L (45-117); BILIRUBIN,TOTAL 0.4 mg/dL (0.2-1.0); TROPONIN I < 0.015 ng/mL (0.000-0.045)
[2019-04-14] MEDS ORDERED: CEPHALEXIN 500 MG CAPSULE PO ONE (15:00)
[2019-04-14] MEDS ORDERED: CEPHALEXIN 500 MG CAPSULE ONE (15:06)
--- NOTE | 2019-04-14 15:12 | NUR ---
PATIENT SITTING IN [facility]. A+OX4. PATIENT UPDATED ON POC, AWAITING ADMITTING RN TO CALL FOR REPORT. NO ADDITIONAL NEEDS AT THIS TIME.
--- NOTE | 2019-04-14 15:12 | NUR ---
XRAY AT BEDSIDE.
[2019-04-14] MEDS ORDERED: METOPROLOL 1 MG/ML, 5ML IVPush ONE (15:17)
[2019-04-14] MEDS ORDERED: hydrALAzine 20 MG/ML, 1ML IVPush PRN (15:30)
[2019-04-14] MEDS ORDERED: ACETAMINOPHEN 325 MG TABLET PO PRN ×2 (15:30→18:00)
[2019-04-14] MEDS ORDERED: ENALAPRILAT 1.25 MG/ML, 2ML IVPush PRN (15:30)
[2019-04-14] MEDS ORDERED: LABETALOL 5MG/ML, 20ML IVPush PRN (15:30)
[2019-04-14] MEDS ORDERED: METOPROLOL 1 MG/ML, 5ML ONE (15:32)
--- NOTE | 2019-04-14 15:34 | NUR ---
REPORT TO MANUEL FOURNIER.
--- NOTE | 2019-04-14 15:40 | NUR ---
BP 190/80, METOPROLOL ADMINISTERED PER ORDER. PATIENT UPDATED ON POC, AWAITING TRANSPORT.
--- NOTE | 2019-04-14 16:24 | NUR ---
PATIENT BEING TRANSFERRED/ADMITTED TO HOSPITAL BED UPSTAIRS AT THIS TIME.
[2019-04-14 16:47] VITALS: BP 201/75
[2019-04-14] MEDS ORDERED: ENOXAPARIN 40 MG/0.4 ML SQ SCH (17:00)
[2019-04-14 17:38] VITALS: BP 186/85
[2019-04-14] MEDS ORDERED: SUMATRIPTAN 25 MG TABLET PO PRN (18:00)
[2019-04-14] MEDS ORDERED: D5%-0.45% NACL 1,000 ML IV SCH (18:00)
[2019-04-14] MEDS ORDERED: KETOROLAC 30 MG/1 ML IVPush ONE (18:00)
[2019-04-14] MEDS ORDERED: BUTALB/APAP/CAFFEINE 50MG/325MG/40MG PO PRN (18:00)
[2019-04-14] MEDS ORDERED: ASA/APAP/ CAFFEINE TABLET PO PRN (18:00)
[2019-04-14] MEDS ORDERED: DIPHENHYDRAMINE 50 MG/ML, 1ML IVPush ONE (18:00)
[2019-04-14] MEDS ORDERED: PROCHLORPERAZINE 5 MG/ML, 2ML IVPush ONE (18:00)
[2019-04-15] MEDS ORDERED: IBUPROFEN 600 MG TABLET PO PRN (00:30)
== END 2019-04-14 18:50 | disposition left against medical advice (07) | DRG 74 ==
LOC: ED 13:43 → EDIP 14:40 → 4WST 16:31
PROVIDERS: ADMIT Internal Medicine; ATTEND Internal Medicine
DX: G90.8 Other disorders of autonomic nervous system (principal); E87.0 Hyperosmolality and hypernatremia; E44.0 Moderate protein-calorie malnutrition; I10 Essential (primary) hypertension; N30.90 Cystitis, unspecified without hematuria; Z53.21 Procedure and treatment not carried out due to patient leaving prior to being seen by health care provider; E66.9 Obesity, unspecified; Z68.37 Body mass index [BMI] 37.0-37.9, adult
CPT/HCPCS: 36415; 70450; 71045; 80048; 80053; 81001; 82040; 83605; 84484; 85025; 87086; 93005; 96374; G0378; J0360

== ENCOUNTER 2019-05-03 15:45 | Emergency (ER) | payer MEDICARE ==
--- NOTE | 2019-05-03 16:00 | NUR ---
PT BIB [facility] FOR ABD PAIN FOR 2 DAYS AND N/V, BLOOD IN STOOLS. PT REPORTS FEELING WEAK AND TIRED WITH NEAR SYNCOPE YESTERDAY WHILE AT THE [facility]. PT ON MONITOR. IV STARTED AFTER 2 FAILED ATTEMPTS BY [facility].
[2019-05-03] MEDS ORDERED: PLEASE ENTER HEIGHT AND WEIGHT MC SCH (16:30)
[2019-05-03] MEDS ORDERED: HYDROcodone/APAP 5/325 TABLET PO ONE ×2 (16:30→19:30)
[2019-05-03] MEDS ORDERED: HYDROcodone/APAP 5/325 TABLET ONE ×2 (16:40→19:03)
[2019-05-03] MEDS ORDERED: ONDANSETRON ODT 4 MG ONE (16:57)
[2019-05-03] MEDS ORDERED: ONDANSETRON ODT 4 MG PO ONE (17:00)
--- NOTE | 2019-05-03 17:23 | NUR ---
PT AMBULATED TO RESTROOM OF HER OWN POWER. PT PLACED BACK ON MONITOR.
--- NOTE | 2019-05-03 17:40 | NUR ---
PT REQUESTING MORE PAIN MEDS. DR. RAZO AWARE. AWAITING FURTHER ORDERS.
--- NOTE | 2019-05-03 17:46 | NUR ---
I AM ASSUMING CARE OF THIS PATIENT FROM PAT (MANUEL) WHILE HE HAS A LUNCHBREAK. SBAR REPORT WAS EXCHANGED AT THE BEDSIDE.
--- NOTE | 2019-05-03 17:48 | NUR ---
PATIENT AMBULATED TO THE RESTROOM UNASSISTED WITH A STEADY GAIT.
--- NOTE | 2019-05-03 18:28 | NUR ---
CHART UP FOR MD RECHECK. PT AWARE. PT WAS REQUESTING MORE PAIN MEDS. DR. RAZO AWARE.
[2019-05-03 19:18] VITALS: BP 189/95
== END 2019-05-03 19:22 | disposition home or self-care (01) ==
LOC: ED 19:00
DX: S22.040A Wedge compression fracture of fourth thoracic vertebra, initial encounter for closed fracture (principal); I13.0 Hypertensive heart and chronic kidney disease with heart failure and stage 1 through stage 4 chronic kidney disease, or unspecified chronic kidney disease; N18.2 Chronic kidney disease, stage 2 (mild); I50.9 Heart failure, unspecified; I48.91 Unspecified atrial fibrillation; F41.1 Generalized anxiety disorder; I25.10 Atherosclerotic heart disease of native coronary artery without angina pectoris; K21.9 Gastro-esophageal reflux disease without esophagitis; F32.9 Major depressive disorder, single episode, unspecified; J44.9 Chronic obstructive pulmonary disease, unspecified; Z90.89 Acquired absence of other organs; Z90.710 Acquired absence of both cervix and uterus; Z90.49 Acquired absence of other specified parts of digestive tract; Z95.0 Presence of cardiac pacemaker; Z88.2 Allergy status to sulfonamides; Z88.8 Allergy status to other drugs, medicaments and biological substances; Z86.73 Personal history of transient ischemic attack (TIA), and cerebral infarction without residual deficits; X58.XXXA Exposure to other specified factors, initial encounter; Y93.89 Activity, other specified; Y92.89 Other specified places as the place of occurrence of the external cause; Y99.8 Other external cause status
CPT/HCPCS: 72128; 93005; 99284; Q0162

== ENCOUNTER 2019-05-11 11:08 | Emergency (ER) | payer MEDICARE ==
[~2019-05-11] VITALS: Ht 157.5 cm; Wt 75.0 kg
[2019-05-11 12:24] VITALS: BP 133/67
== END 2019-05-11 13:11 ==
LOC: ED 12:47
DX: R53.1 Weakness (principal); I13.0 Hypertensive heart and chronic kidney disease with heart failure and stage 1 through stage 4 chronic kidney disease, or unspecified chronic kidney disease; N18.2 Chronic kidney disease, stage 2 (mild); R79.9 Abnormal finding of blood chemistry, unspecified; I48.91 Unspecified atrial fibrillation; G89.29 Other chronic pain; F41.1 Generalized anxiety disorder; J44.9 Chronic obstructive pulmonary disease, unspecified; I25.10 Atherosclerotic heart disease of native coronary artery without angina pectoris; E03.9 Hypothyroidism, unspecified; I50.9 Heart failure, unspecified; E78.5 Hyperlipidemia, unspecified
CPT/HCPCS: 36415; 71045; 80053; 81001; 84484; 85025; 93005; 99284

== ENCOUNTER 2019-05-22 12:18 | Emergency (ER) | payer MEDICARE ==
[~2019-05-22] VITALS: Ht 157.5 cm; Wt 73.0 kg
[2019-05-22 12:23] VITALS: BP 160/74
== END 2019-05-22 13:55 | disposition home or self-care (01) ==
LOC: ED 13:30
DX: M54.5 Low back pain (principal); K21.9 Gastro-esophageal reflux disease without esophagitis; E78.5 Hyperlipidemia, unspecified; I13.0 Hypertensive heart and chronic kidney disease with heart failure and stage 1 through stage 4 chronic kidney disease, or unspecified chronic kidney disease; I50.9 Heart failure, unspecified; N18.2 Chronic kidney disease, stage 2 (mild); I48.91 Unspecified atrial fibrillation; F32.9 Major depressive disorder, single episode, unspecified; J44.9 Chronic obstructive pulmonary disease, unspecified; E03.9 Hypothyroidism, unspecified; Z90.49 Acquired absence of other specified parts of digestive tract; Z90.710 Acquired absence of both cervix and uterus; Z95.0 Presence of cardiac pacemaker; Z72.9 Problem related to lifestyle, unspecified; Z86.73 Personal history of transient ischemic attack (TIA), and cerebral infarction without residual deficits
CPT/HCPCS: 96372; 99283; J1885; 96367

== ENCOUNTER 2019-06-04 09:24 | Emergency (ER) | payer MEDICARE ==
[~2019-06-04] VITALS: Ht 157.5 cm; Wt 70.0 kg
[2019-06-04 11:18] VITALS: BP 146/73
== END 2019-06-04 13:05 | disposition home or self-care (01) ==
LOC: ED 09:38
DX: I13.0 Hypertensive heart and chronic kidney disease with heart failure and stage 1 through stage 4 chronic kidney disease, or unspecified chronic kidney disease (principal); N18.2 Chronic kidney disease, stage 2 (mild); I50.9 Heart failure, unspecified; R11.2 Nausea with vomiting, unspecified; I48.91 Unspecified atrial fibrillation; J44.9 Chronic obstructive pulmonary disease, unspecified; K21.9 Gastro-esophageal reflux disease without esophagitis; E03.9 Hypothyroidism, unspecified; Z86.73 Personal history of transient ischemic attack (TIA), and cerebral infarction without residual deficits; Z90.89 Acquired absence of other organs; Z90.49 Acquired absence of other specified parts of digestive tract; Z90.710 Acquired absence of both cervix and uterus; Z95.5 Presence of coronary angioplasty implant and graft
CPT/HCPCS: 36415; 80053; 81001; 85025; 87086; 93005; 99284; Q0162

== ENCOUNTER 2019-08-08 11:06 | Emergency (ER) | payer MEDICARE ==
[~2019-08-08] VITALS: Ht 162.6 cm; Wt 79.0 kg
[~2019-08-08 11:06] MED LIST changes: +HYDR-826 PO; -HYDR25TA11 PO; -OXYB10TA PO; +OXYB10TA2 PO; +QUET100T PO; -TIZA2TAB PO; +TIZA2TAB2 PO
--- NOTE | 2019-08-08 11:45 | NUR ---
THIS IS A 74YO FEMALE THAT COMES IN WITH REPORTS OF N/V WITH TWO UNWITNESSED SYNCOPAL EPISODES LAST NIGHT. PT STATES SHE HAS BEEN FEELING NOT WELL FOR ABOUT TWO WEEKS. PT IS CONNECTED TO MONITORING VSS. PT SPEAKING IN FULL SENTENCES, NADN AT THIS TIME.
[2019-08-08 11:58] VITALS: BP 135/43
--- NOTE | 2019-08-08 11:58 | NUR ---
pt refusing iv and lab draws at this time. pt requesting phone to call "[facility] about medications stating her things will be stolen if she does not call right away."
--- NOTE | 2019-08-08 11:59 | NUR ---
UPDATED ON PT REFUSING LABS AND IV. PT TO XRAY AT THIS TIME
[2019-08-08] MEDS ORDERED: SODIUM CHLORIDE 0.9% 1,000ML IVBOLUS ONE (12:00)
[2019-08-08] MEDS ORDERED: ONDANSETRON 2MG/ML, 2ML IVPush ONE (12:00)
--- NOTE | 2019-08-08 12:15 | NUR ---
PT BACK FROM XRAY AT THIS TIME
[2019-08-08] MEDS ORDERED: SODIUM CHLORIDE FLUSH 10ML SYR IVF ONE (12:30)
[2019-08-08] MEDS ORDERED: ONDANSETRON ODT 4 MG ONE (12:41)
--- NOTE | 2019-08-08 12:42 | NUR ---
at bedside to reassess pt
[2019-08-08 12:50] LABS: BASOPHILS # (AUTO) 0.03 x10^3/uL (0-0.1); BASOPHILS % (AUTO) 1 % (0-1); EOSINOPHILS # (AUTO) 0.12 x10^3/uL (0-0.4); EOSINOPHILS % (AUTO) 5 % (1-7); LYMPHOCYTES # (AUTO) 1.08 x10^3/uL (1-3.4); LYMPHOCYTES % (AUTO) 41 % (22-44); MD NO; MEAN CORPUSCULAR HEMOGLOBIN 30.4 pg (27.0-34.8); MEAN CORPUSCULAR VOLUME 92.2 fL (80-100); MEAN PLATELET VOLUME 8.3 fL (7.4-10.4); MONOCYTES # (AUTO) 0.26 x10^3/uL (0.2-0.8); MONOCYTES % (AUTO) 10 % (2-9); NEUTROPHILS # (AUTO) 1.13 x10^3/uL (1.8-6.8); NEUTROPHILS % (AUTO) 43 % (42-75); PLATELET COUNT 199 x10^3/uL (130-400); RED BLOOD COUNT 4.06 x10^6/uL (3.82-5.3); RED CELL DISTRIBUTION WIDTH 15.3 % (9.6-15.2)
[2019-08-08 12:51] LABS: ALANINE AMINOTRANSFERASE 15 U/L (12-78); ALBUMIN 3.5 g/dL (3.4-5.0); ANION GAP 7 mmol/L (5-15); CALCIUM 8.7 mg/dL (8.5-10.1); CHLORIDE 114 mmol/L (98-107); CREATININE 1.31 mg/dL (0.55-1.02)
[2019-08-08 12:53] LABS: ALKALINE PHOSPHATASE 46 U/L (45-117); BILIRUBIN,TOTAL 0.7 mg/dL (0.2-1.0); TOTAL PROTEIN 6.4 g/dL (6.4-8.2)
--- NOTE | 2019-08-08 12:58 | NUR ---
PT INSISTING ON LEAVING, DOESNT WANT TO STAY FOR PO CHALLENGE OR MEDS. PT CONTINUES TO WALK OUT OF ROOM, WHEN ASKED TO WAIT FOR PAPERS. UPDATED. PT TO BE DCd
[2019-08-08] MEDS ORDERED: ONDANSETRON ODT 4 MG PO ONE (13:00)
== END 2019-08-08 13:03 | disposition home or self-care (01) ==
LOC: ED 13:00
DX: N28.9 Disorder of kidney and ureter, unspecified (principal); R55 Syncope and collapse; I13.0 Hypertensive heart and chronic kidney disease with heart failure and stage 1 through stage 4 chronic kidney disease, or unspecified chronic kidney disease; N18.2 Chronic kidney disease, stage 2 (mild); I50.9 Heart failure, unspecified; I48.91 Unspecified atrial fibrillation; Z72.9 Problem related to lifestyle, unspecified; J44.9 Chronic obstructive pulmonary disease, unspecified; K21.9 Gastro-esophageal reflux disease without esophagitis; Z90.49 Acquired absence of other specified parts of digestive tract; Z90.710 Acquired absence of both cervix and uterus; Z95.0 Presence of cardiac pacemaker
CPT/HCPCS: 36415; 74022; 80053; 83690; 85025; 93005; 99284; Q0162

== ENCOUNTER 2019-08-13 09:56 | Emergency (ER) | payer MEDICARE ==
[~2019-08-13] VITALS: Ht 157.5 cm; Wt 81.0 kg
[2019-08-13 10:02] VITALS: BP 141/67
[2019-08-13] MEDS ORDERED: ONDA4TAB12 PO (10:21)
[2019-08-13] MEDS ORDERED: OMEP-110 PO (10:21)
[2019-08-13] MEDS ORDERED: METHOCARBAMOL 500 MG TABLET ONE (10:24)
[2019-08-13] MEDS ORDERED: IBUPROFEN 200 MG TABLET ONE (10:24)
[2019-08-13] MEDS ORDERED: IBUPROFEN 200 MG TABLET PO ONE (10:30)
[2019-08-13] MEDS ORDERED: METHOCARBAMOL 500 MG TABLET PO ONE (10:30)
[2019-08-13] MEDS ORDERED: IBUPROFEN 600 MG TABLET PO ONE (10:30)
--- NOTE | 2019-08-13 10:55 | NUR ---
Patient discharged home, ambulatory with slow steaday gait. All belongings with patient. Discharge instructions provided. all questions and concerns addressed. NAD noted at discharge.
--- NOTE | 2019-08-13 10:56 | NUR ---
Late entry: Patient brought in via EMS for back pain x 3 days after moving boxes and containers at home. No loss of bowel or bladder function. Moves all extremities. EMS states they gave 25 mcg fentanyl en route.
== END 2019-08-13 10:59 | disposition home or self-care (01) ==
LOC: ED 10:09
DX: M51.36 Other intervertebral disc degeneration, lumbar region (principal); M54.2 Cervicalgia; G89.29 Other chronic pain; K21.9 Gastro-esophageal reflux disease without esophagitis; I11.0 Hypertensive heart disease with heart failure; I50.9 Heart failure, unspecified; I48.91 Unspecified atrial fibrillation; Z86.73 Personal history of transient ischemic attack (TIA), and cerebral infarction without residual deficits; Z72.9 Problem related to lifestyle, unspecified
CPT/HCPCS: 99283

== ENCOUNTER 2019-08-25 13:24 | Emergency (ER) | payer MEDICARE ==
[~2019-08-25] VITALS: Ht 157.5 cm; Wt 78.9 kg
[~2019-08-25 13:24] MED LIST changes: +OMEP40CA42 PO; -OMEP40CA6 PO; +OXYB5TAB10 PO; -OXYB5TAB7 PO
[2019-08-25 13:59] VITALS: BP 188/68
--- NOTE | 2019-08-25 14:09 | NUR ---
ekg in triage
--- NOTE | 2019-08-25 14:19 | NUR ---
c collar in triage
[2019-08-25 14:52] LABS: ALANINE AMINOTRANSFERASE 19 U/L (12-78); ALBUMIN 3.7 g/dL (3.4-5.0); ANION GAP 10 mmol/L (5-15); CALCIUM 8.5 mg/dL (8.5-10.1); CHLORIDE 115 mmol/L (98-107); CREATININE 0.96 mg/dL (0.55-1.02)
[2019-08-25 14:54] LABS: ALKALINE PHOSPHATASE 50 U/L (45-117); BILIRUBIN,TOTAL 0.4 mg/dL (0.2-1.0); TOTAL PROTEIN 6.4 g/dL (6.4-8.2)
[2019-08-25 16:36] LABS: MD YES; MEAN CORPUSCULAR HEMOGLOBIN 30.7 pg (27.0-34.8); MEAN CORPUSCULAR HGB CONC 32.6 g/dL (32.4-35.8); PLATELET COUNT 140 x10^3/uL (130-400); RED BLOOD COUNT 4.17 x10^6/uL (3.82-5.3); RED CELL DISTRIBUTION WIDTH 14.9 % (9.6-15.2)
[2019-08-25 16:47] LABS: <PLATELET ESTIMATE> ADEQUATE; <PLT MORPHOLOGY> NORMAL PLT MORPH; <RBC MORPHOLOGY> NORMAL; EOS#(MANUAL) 0.05 x10^3/uL (0.0-0.4); EOS% (MANUAL) 2 % (1-7); LYMPH#(MANUAL) 1.38 x10^3/uL (1-3.4); LYMPHS% (MANUAL) 51 % (22-44); MONOS#(MANUAL) 0.24 x10^3/uL (0.3-2.7); MONOS% (MANUAL) 9 % (2-9); SEG#(MANUAL) 1.03 x10^3/uL (1.8-6.8); SEGS% (MANUAL) 38 % (42-75)
--- NOTE | 2019-08-25 16:58 | NUR ---
wire coiner: Patient to room from lobby at this time.
[2019-08-25] MEDS ORDERED: NAPROXEN 500 MG TABLET PO ONE (18:00)
== END 2019-08-25 18:30 | disposition left against medical advice (07) ==
LOC: ED 17:28
DX: S06.0X9A Concussion with loss of consciousness of unspecified duration, initial encounter (principal); I13.0 Hypertensive heart and chronic kidney disease with heart failure and stage 1 through stage 4 chronic kidney disease, or unspecified chronic kidney disease; N18.2 Chronic kidney disease, stage 2 (mild); I50.9 Heart failure, unspecified; J44.9 Chronic obstructive pulmonary disease, unspecified; I48.91 Unspecified atrial fibrillation; I25.10 Atherosclerotic heart disease of native coronary artery without angina pectoris; Z86.73 Personal history of transient ischemic attack (TIA), and cerebral infarction without residual deficits; Z90.49 Acquired absence of other specified parts of digestive tract; Z90.710 Acquired absence of both cervix and uterus
CPT/HCPCS: 36415; 70450; 72125; 80053; 85025; 93005; 99284

== ENCOUNTER 2019-08-30 11:29 | Emergency (ER) | payer MEDICARE ==
[~2019-08-30] VITALS: Ht 157.5 cm; Wt 79.3 kg
[2019-08-30 11:40] VITALS: BP 187/78
[2019-08-30 12:33] LABS: MEAN CORPUSCULAR HEMOGLOBIN 30.6 pg (27.0-34.8); MEAN CORPUSCULAR HGB CONC 32.4 g/dL (32.4-35.8); MEAN CORPUSCULAR VOLUME 94.5 fL (80-100); MEAN PLATELET VOLUME 8.7 fL (7.4-10.4); PLATELET COUNT 167 x10^3/uL (130-400); RED BLOOD COUNT 4.44 x10^6/uL (3.82-5.3); RED CELL DISTRIBUTION WIDTH 14.8 % (9.6-15.2)
[2019-08-30 12:45] LABS: ALANINE AMINOTRANSFERASE 19 U/L (12-78); ALBUMIN 3.8 g/dL (3.4-5.0); ANION GAP 5 mmol/L (5-15); CALCIUM 8.6 mg/dL (8.5-10.1); CHLORIDE 116 mmol/L (98-107); CREATININE 0.91 mg/dL (0.55-1.02)
--- NOTE | 2019-08-30 12:45 | NUR ---
PT DOES STATE CONTINUED HEADACHE SINCE FALL.
[2019-08-30 12:49] LABS: ALKALINE PHOSPHATASE 49 U/L (45-117); BILIRUBIN,TOTAL 0.6 mg/dL (0.2-1.0); TROPONIN I < 0.015 ng/mL (0.000-0.045)
--- NOTE | 2019-08-30 12:50 | NUR ---
URINE SAMPLE OBTAINED. SENT TO LAB.
[2019-08-30] MEDS ORDERED: KETOROLAC 30 MG/1 ML ONE (12:59)
[2019-08-30] MEDS ORDERED: ACETAMINOPHEN 500 MG TABLET ONE (12:59)
[2019-08-30] MEDS ORDERED: PROMETHAZINE 25 MG/ML, 1ML ONE (12:59)
[2019-08-30] MEDS ORDERED: KETOROLAC 30 MG/1 ML IM ONE (13:00)
[2019-08-30] MEDS ORDERED: ACETAMINOPHEN 500 MG TABLET PO ONE (13:00)
[2019-08-30] MEDS ORDERED: PROMETHAZINE 25 MG/ML, 1ML IM ONE (13:00)
--- NOTE | 2019-08-30 13:06 | NUR ---
PATIENT MEDICATED PER DEC. RIGHTS VERIFIED PRIOR.
--- NOTE | 2019-08-30 13:15 | NUR ---
PATIENT TO CT VIA GURNEY.
[2019-08-30 13:23] LABS: MICROSCOPIC AUTO
[2019-08-30 13:23] LABS: BASOPHILS # (AUTO) 0.02 x10^3/uL (0-0.1); BASOPHILS % (AUTO) 1 % (0-1); EOSINOPHILS # (AUTO) 0.14 x10^3/uL (0-0.4); EOSINOPHILS % (AUTO) 5 % (1-7); LYMPHOCYTES # (AUTO) 1.02 x10^3/uL (1-3.4); LYMPHOCYTES % (AUTO) 38 % (22-44); MD SCAN; MONOCYTES # (AUTO) 0.22 x10^3/uL (0.2-0.8); MONOCYTES % (AUTO) 8 % (2-9); NEUTROPHILS # (AUTO) 1.27 x10^3/uL (1.8-6.8); NEUTROPHILS % (AUTO) 48 % (42-75)
[2019-08-30 13:24] LABS: CULTURE INDICATED? YES
--- NOTE | 2019-08-30 13:55 | NUR ---
RESULTS BACK. PT UP FOR RECHECK.
--- NOTE | 2019-08-30 14:55 | NUR ---
AWAITING ERP RECHECK AND DISPO. WILL CONTINUE TO MONITOR.
--- NOTE | 2019-08-30 15:00 | NUR ---
REPORT TO MANUEL GIBBS.
--- NOTE | 2019-08-30 15:57 | NUR ---
pt reporting new chest pain. pt got dressed and wanting to leave. pt informed we will repeat ekg. Pt aggreable.
--- NOTE | 2019-08-30 16:29 | NUR ---
Patient given discharge instructions and they have confirmed that they understand the instructions. Patient ambulatory with steady gait. Taxi voucher given to patient for a safe ride home.
== END 2019-08-30 16:30 | disposition home or self-care (01) ==
LOC: ED 13:22
DX: S06.0X0A Concussion without loss of consciousness, initial encounter (principal); I10 Essential (primary) hypertension; J44.9 Chronic obstructive pulmonary disease, unspecified; F32.9 Major depressive disorder, single episode, unspecified; E78.5 Hyperlipidemia, unspecified; I48.91 Unspecified atrial fibrillation; I45.10 Unspecified right bundle-branch block; Z90.49 Acquired absence of other specified parts of digestive tract; Z72.9 Problem related to lifestyle, unspecified; Z90.710 Acquired absence of both cervix and uterus; Z95.0 Presence of cardiac pacemaker; W19.XXXA Unspecified fall, initial encounter; Y93.89 Activity, other specified; Y92.89 Other specified places as the place of occurrence of the external cause; Y99.8 Other external cause status
CPT/HCPCS: 36415; 70450; 71045; 80053; 81001; 84484; 85025; 87086; 93005; 96372; 99284; J1885; J2550

== ENCOUNTER 2019-08-31 13:49 | Emergency (ER) | payer MEDICARE ==
[~2019-08-31] VITALS: Ht 157.5 cm; Wt 79.7 kg
--- NOTE | 2019-08-31 14:01 | NUR ---
PT REFUSING TO COME TO TRIAGE UNTIL SHE GETS A BAG THAT WAS LEFT IN THE AMBULANCE.
--- NOTE | 2019-08-31 14:04 | NUR ---
PT PROVIDED WITH BECKY'S NUMBER AND NUMBER OF MEDIC VEHICLE THAT PICKED HER UP.
[2019-08-31 14:10] VITALS: BP 165/92
--- NOTE | 2019-08-31 14:13 | NUR ---
PT VERBALIZING THAT SHE DOES NOT WANT TO BE SEEN. A&OX4, REFUSING TO SIGN AMA PAPERWORK.
== END 2019-08-31 14:17 | disposition left against medical advice (07) ==
LOC: ED 14:05
DX: R10.9 Unspecified abdominal pain (principal); Z53.21 Procedure and treatment not carried out due to patient leaving prior to being seen by health care provider

== ENCOUNTER 2019-09-08 15:54 | Emergency (ER) | payer MEDICARE ==
[~2019-09-08] VITALS: Ht 157.5 cm; Wt 80.3 kg
--- NOTE | 2019-09-08 17:07 | NUR ---
redrawer note: Pt to room from lobby.
--- NOTE | 2019-09-08 17:08 | NUR ---
PATIENT BROUGHT BACK WITH CHIEF COMPLAINT OF BACK PAIN STARTING AT 1600, NO REPORT OF SOB, CP, N/V, NO RECENT TRAUMA.
[2019-09-08] MEDS ORDERED: HYDROcodone/APAP 5/325 TABLET PO PRN (19:00)
[2019-09-08] MEDS ORDERED: ACETAMINOPHEN 325 MG TABLET ONE (19:06)
[2019-09-08 20:00] VITALS: BP 126/70
--- NOTE | 2019-09-08 20:00 | NUR ---
PROVIDER MADE AWARE OF TESTING RESULTS AND NEED FOR DISPO ORDERS NEURO EXAM REMAIN UNCHANGED. PATIENT CONTINUES TO REPORT "ENTIRE SPINE PAIN AT 10/10."
[2019-09-08] MEDS ORDERED: LIDODERM 5% PATCH TD ONE ×2 (21:06→21:30)
== END 2019-09-08 21:15 | disposition home or self-care (01) ==
LOC: ED 17:35
DX: S16.1XXA Strain of muscle, fascia and tendon at neck level, initial encounter (principal); S29.012A Strain of muscle and tendon of back wall of thorax, initial encounter; I13.0 Hypertensive heart and chronic kidney disease with heart failure and stage 1 through stage 4 chronic kidney disease, or unspecified chronic kidney disease; N18.2 Chronic kidney disease, stage 2 (mild); I50.9 Heart failure, unspecified; I25.10 Atherosclerotic heart disease of native coronary artery without angina pectoris; J44.9 Chronic obstructive pulmonary disease, unspecified; K21.9 Gastro-esophageal reflux disease without esophagitis; E78.5 Hyperlipidemia, unspecified; E03.9 Hypothyroidism, unspecified; Z86.73 Personal history of transient ischemic attack (TIA), and cerebral infarction without residual deficits; Z90.49 Acquired absence of other specified parts of digestive tract; Z90.710 Acquired absence of both cervix and uterus; Z90.89 Acquired absence of other organs; Z87.891 Personal history of nicotine dependence; W18.30XA Fall on same level, unspecified, initial encounter; Y93.89 Activity, other specified; Y92.89 Other specified places as the place of occurrence of the external cause; Y99.8 Other external cause status
CPT/HCPCS: 72050; 72072; 72110; 99283

== ENCOUNTER 2019-09-17 04:29 | Emergency (ER) | payer MEDICARE ==
[~2019-09-17] VITALS: Ht 157.5 cm; Wt 90.0 kg
[2019-09-17 04:32] VITALS: BP 150/75
[2019-09-17] MEDS ORDERED: MAALOX/HYOSCYAMINE/LIDOCAINE 45 ML BTL ONE (05:20)
[2019-09-17] MEDS ORDERED: MAALOX/HYOSCYAMINE/LIDOCAINE 45 ML BTL PO ONE (05:30)
[2019-10-17] MEDS ORDERED: SUCR1TAB33 PO (14:14)
[2019-10-17] MEDS ORDERED: AMLO10TA8 PO (14:14)
[2019-10-17] MEDS ORDERED: ATOR40TA78 PO (14:14)
[2019-10-17] MEDS ORDERED: OMEP-110 PO (14:14)
== END 2019-09-17 05:30 | disposition home or self-care (01) ==
LOC: ED 05:06
DX: J02.8 Acute pharyngitis due to other specified organisms (principal); B97.89 Other viral agents as the cause of diseases classified elsewhere; I10 Essential (primary) hypertension
CPT/HCPCS: 99283

== ENCOUNTER 2019-09-24 13:00 | Inpatient (IN) | payer MEDICARE ==
[~2019-09-24] VITALS: Ht 157.5 cm; Wt 79.3 kg
--- NOTE | 2019-09-24 13:03 | NUR ---
PATIENT BROUGHT IN BY BECKY FROM HOME WITH CHIEF COMPLAINT OF COUGH FOR ONE MONTH, NAUSEA WITH ONE EPISODE OF VOMITING THIS MORNING, LEFT SIDE CP. PATIENT WAS EVALUATED FOR SAME COMPLAINTS BEGINING OF THE WEEK. THE PATIENT IS ALERT, ORIENTED, WARM & DRY.
[2019-09-24] MEDS ORDERED: ONDANSETRON 2MG/ML, 2ML IVPush ONE (13:30)
[2019-09-24] MEDS ORDERED: HYDROcodone/APAP 5/325 TABLET PO ONE (13:30)
[2019-09-24] MEDS ORDERED: ONDANSETRON ODT 4 MG ONE (13:38)
[2019-09-24] MEDS ORDERED: HYDROcodone/APAP 5/325 TABLET ONE (13:38)
--- NOTE | 2019-09-24 13:43 | NUR ---
BREAK RN: PT MEDICATED ORDERED. PT [facility] RADIOLOGY [facility]
[2019-09-24] MEDS ORDERED: ONDANSETRON ODT 4 MG PO ONE (14:00)
--- NOTE | 2019-09-24 14:37 | NUR ---
PT STEADY AMBULATION TO BATHROOM,
[2019-09-24 15:02] LABS: BASOPHILS # (AUTO) 0.02 x10^3/uL (0-0.1); BASOPHILS % (AUTO) 1 % (0-1); EOSINOPHILS # (AUTO) 0.07 x10^3/uL (0-0.4); EOSINOPHILS % (AUTO) 2 % (1-7); LYMPHOCYTES # (AUTO) 1.25 x10^3/uL (1-3.4); LYMPHOCYTES % (AUTO) 39 % (22-44); MD NO; MEAN CORPUSCULAR HEMOGLOBIN 30.2 pg (27.0-34.8); MEAN CORPUSCULAR HGB CONC 31.7 g/dL (32.4-35.8); MEAN CORPUSCULAR VOLUME 95.5 fL (80-100); MEAN PLATELET VOLUME 8.4 fL (7.4-10.4); MONOCYTES # (AUTO) 0.28 x10^3/uL (0.2-0.8); MONOCYTES % (AUTO) 9 % (2-9); NEUTROPHILS # (AUTO) 1.59 x10^3/uL (1.8-6.8); NEUTROPHILS % (AUTO) 49 % (42-75); PLATELET COUNT 162 x10^3/uL (130-400); RED BLOOD COUNT 3.88 x10^6/uL (3.82-5.3); RED CELL DISTRIBUTION WIDTH 16.4 % (9.6-15.2)
[2019-09-24 15:04] LABS: ALANINE AMINOTRANSFERASE 15 U/L (12-78); ALBUMIN 3.3 g/dL (3.4-5.0); ANION GAP 4 mmol/L (5-15); CHLORIDE 114 mmol/L (98-107)
[2019-09-24 15:07] LABS: CULTURE INDICATED? YES; MICROSCOPIC INDICATED
[2019-09-24 15:09] LABS: ALKALINE PHOSPHATASE 38 U/L (45-117); BILIRUBIN,TOTAL 0.3 mg/dL (0.2-1.0); TOTAL PROTEIN 6.6 g/dL (6.4-8.2); TROPONIN I < 0.015 ng/mL (0.000-0.045)
--- NOTE | 2019-09-24 15:16 | NUR ---
NO NEURO DEFICITS NOTED
--- NOTE | 2019-09-24 15:55 | NUR ---
PT RESTING IN BED
--- NOTE | 2019-09-24 16:47 | NUR ---
DR PIERCE SPOKE WITH DR STAFFORD
--- NOTE | 2019-09-24 17:12 | NUR ---
PT RESTING IN BED
--- NOTE | 2019-09-24 18:05 | NUR ---
Patient is resting comfortably in bed. Vital Signs within normal limits.
--- NOTE | 2019-09-24 18:41 | NUR ---
[facility] AT BEDSIDE FOR EVALUATION
--- NOTE | 2019-09-24 18:48 | NUR ---
REPORT CALLED TO NEIL
[2019-09-24] MEDS ORDERED: BISACODYL 10 MG SUPP PR PRN (19:30)
[2019-09-24] MEDS ORDERED: ONDANSETRON 4 MG TABLET PO PRN (19:30)
[2019-09-24] MEDS ORDERED: ACETAMINOPHEN 650 MG/20.3 ML UDC PO PRN (19:30)
[2019-09-24] MEDS ORDERED: ASPIRIN 81 MG TABLET CHEW ONE (20:03)
[2019-09-24 20:27] LABS: ANION GAP 7 mmol/L (5-15); CALCIUM 8.7 mg/dL (8.5-10.1); CHLORIDE 116 mmol/L (98-107)
[2019-09-24] MEDS ORDERED: MORPHINE SULFATE 4 MG/ML, 1ML IVPush PRN (20:30)
[2019-09-24 20:31] LABS: TROPONIN I < 0.015 ng/mL (0.000-0.045)
[2019-09-24 20:50] VITALS: BP 195/95
[2019-09-24] MEDS ORDERED: ASPIRIN 81 MG TABLET CHEW PO ONE (21:00)
[2019-09-24] MEDS: ATORVASTATIN 80 MG TABLET PO SCH (21:44)
[2019-09-24] MEDS: TEMAZEPAM 15 MG CAPSULE PO PRN (21:45)
[2019-09-24 21:51] VITALS: BP 170/78
[2019-09-24] MEDS ORDERED: OMNIPAQUE 350 MG/ML, 100ML BOTTLE ONE (23:46)
[2019-09-24 23:51] VITALS: BP 168/86
[2019-09-25] VITALS (8 sets, daily range): BP systolic 151–205; BP diastolic 78–101
[2019-09-25 03:49] LABS: MEAN CORPUSCULAR HEMOGLOBIN 30.8 pg (27.0-34.8); MEAN CORPUSCULAR HGB CONC 32.4 g/dL (32.4-35.8); MEAN CORPUSCULAR VOLUME 95.1 fL (80-100); MEAN PLATELET VOLUME 8.3 fL (7.4-10.4); PLATELET COUNT 155 x10^3/uL (130-400); RED BLOOD COUNT 3.79 x10^6/uL (3.82-5.3); RED CELL DISTRIBUTION WIDTH 16.1 % (9.6-15.2)
[2019-09-25 04:01] LABS: ANION GAP 7 mmol/L (5-15); CALCIUM 8.1 mg/dL (8.5-10.1); CHLORIDE 116 mmol/L (98-107); CHOLESTEROL, TOTAL 210 mg/dL (140-239); CREATININE 0.75 mg/dL (0.55-1.02); TRIGLYCERIDES 113 mg/dL (50-200); VLDL CHOLESTEROL 23 mg/dL (0-25)
[2019-09-25 04:03] LABS: BASOPHILS # (AUTO) 0.02 x10^3/uL (0-0.1); BASOPHILS % (AUTO) 1 % (0-1); EOSINOPHILS % (AUTO) 4 % (1-7); LYMPHOCYTES # (AUTO) 1.29 x10^3/uL (1-3.4); LYMPHOCYTES % (AUTO) 50 % (22-44); MD SCAN; MONOCYTES # (AUTO) 0.25 x10^3/uL (0.2-0.8); MONOCYTES % (AUTO) 10 % (2-9); NEUTROPHILS # (AUTO) 0.95 x10^3/uL (1.8-6.8); NEUTROPHILS % (AUTO) 36 % (42-75)
[2019-09-25 04:04] LABS: CHOL/HDL RATIO 4.3; HDL CHOL % 23 % (28-40); HDL CHOLESTEROL (DIRECT) 49 mg/dL (40-60); LDL CHOLESTEROL,CALCULATED 138 mg/dL (54-169); LDL/HDL RATIO 2.8 (0.5-3.0); TROPONIN I < 0.015 ng/mL (0.000-0.045)
[2019-09-25] MEDS: ASPIRIN 81 MG TABLET CHEW PO/NG SCH (08:29)
[2019-09-25] MEDS ORDERED: SODIUM CHLORIDE 0.9% 1,000 ML IV SCH (09:00)
--- NOTE | 2019-09-25 09:21 | NUR ---
REC: chopped diet with ground meat and thin liquids; orange sheet hung in room Addendum: 09/25/19 at 0922 by Denisha TOLEDO Amended: Links added.
[2019-09-25] MEDS: ENOXAPARIN 40 MG/0.4 ML SQ SCH (10:20)
[2019-09-25] MEDS: IBUPROFEN 200 MG TABLET PO PRN (14:32)
[2019-09-25] MEDS ORDERED: hydrALAzine 20 MG/ML, 1ML IV ONE (20:30)
[2019-09-25] MEDS: ATORVASTATIN 80 MG TABLET PO SCH (21:08)
[2019-09-25] MEDS: TEMAZEPAM 15 MG CAPSULE PO PRN (21:08)
[2019-09-26 00:33] VITALS: BP 163/83
[2019-09-26 07:06] VITALS: BP 183/77
[2019-09-26] MEDS: ENOXAPARIN 40 MG/0.4 ML SQ SCH (08:53)
[2019-09-26] MEDS: ASPIRIN 81 MG TABLET CHEW PO/NG SCH (08:54)
[2019-09-26] MEDS: IBUPROFEN 200 MG TABLET PO PRN (08:54)
[2019-09-26] MEDS ORDERED: LISINOPRIL 10 MG TABLET PO SCH (09:00)
[2019-09-26] MEDS ORDERED: SODIUM CHLORIDE 0.9% 1,000 ML IV SCH (09:00)
[2019-09-26] MEDS ORDERED: AMLODIPINE 2.5 MG TABLET PO SCH (09:00)
[2019-09-26 13:35] VITALS: BP 172/81
[2019-09-26 15:31] VITALS: BP 181/98
== END 2019-09-26 16:26 | disposition left against medical advice (07) | DRG 65 ==
LOC: ED 13:28 → EDIP 17:16 → 4EST 19:07 → 4WST 09-25 07:52
PROVIDERS: ADMIT Family Medicine; ATTEND Internal Medicine
DX: I63.9 Cerebral infarction, unspecified (principal); I50.32 Chronic diastolic (congestive) heart failure; I13.0 Hypertensive heart and chronic kidney disease with heart failure and stage 1 through stage 4 chronic kidney disease, or unspecified chronic kidney disease; F33.9 Major depressive disorder, recurrent, unspecified; G81.94 Hemiplegia, unspecified affecting left nondominant side; D72.819 Decreased white blood cell count, unspecified; E03.9 Hypothyroidism, unspecified; Z68.32 Body mass index [BMI] 32.0-32.9, adult; E66.9 Obesity, unspecified; E78.5 Hyperlipidemia, unspecified; F41.1 Generalized anxiety disorder; G47.00 Insomnia, unspecified; G47.30 Sleep apnea, unspecified; G89.29 Other chronic pain; Z53.29 Procedure and treatment not carried out because of patient's decision for other reasons; I25.10 Atherosclerotic heart disease of native coronary artery without angina pectoris; I48.91 Unspecified atrial fibrillation; J44.9 Chronic obstructive pulmonary disease, unspecified; K22.70 Barrett's esophagus without dysplasia; N18.2 Chronic kidney disease, stage 2 (mild); Z82.49 Family history of ischemic heart disease and other diseases of the circulatory system; Z87.891 Personal history of nicotine dependence; Z90.710 Acquired absence of both cervix and uterus; Z90.49 Acquired absence of other specified parts of digestive tract; Z88.2 Allergy status to sulfonamides; Z91.018 Allergy to other foods
CPT/HCPCS: 36415; 70450; 70496; 70498; 71045; 80048; 80053; 80061; 81001; 82962; 83690; 83735; 84100; 84484; 85025; 87086; 93005; 93306; 93880; 93970; G0378; J1650; Q0162; Q9967; J0360; J2270; J7030

== ENCOUNTER 2019-09-28 09:46 | Emergency (ER) | payer MEDICARE ==
[~2019-09-28] VITALS: Ht 160 cm; Wt 90.9 kg
[2019-09-28] MEDS ORDERED: ASPIRIN 81 MG TABLET CHEW PO ONE (10:30)
--- NOTE | 2019-09-28 11:05 | NUR ---
Utility Supervisor [employer] at bedside collecting labwork at this time
[2019-09-28 11:22] LABS: BASOPHILS # (AUTO) 0.01 x10^3/uL (0-0.1); BASOPHILS % (AUTO) 1 % (0-1); EOSINOPHILS # (AUTO) 0.08 x10^3/uL (0-0.4); EOSINOPHILS % (AUTO) 3 % (1-7); LYMPHOCYTES # (AUTO) 0.76 x10^3/uL (1-3.4); LYMPHOCYTES % (AUTO) 33 % (22-44); MD NO; MEAN CORPUSCULAR HEMOGLOBIN 31.3 pg (27.0-34.8); MEAN CORPUSCULAR HGB CONC 32.9 g/dL (32.4-35.8); MEAN CORPUSCULAR VOLUME 95.3 fL (80-100); MEAN PLATELET VOLUME 8.4 fL (7.4-10.4); MONOCYTES # (AUTO) 0.25 x10^3/uL (0.2-0.8); MONOCYTES % (AUTO) 11 % (2-9); NEUTROPHILS # (AUTO) 1.21 x10^3/uL (1.8-6.8); NEUTROPHILS % (AUTO) 52 % (42-75); PLATELET COUNT 190 x10^3/uL (130-400); RED BLOOD COUNT 3.67 x10^6/uL (3.82-5.3); RED CELL DISTRIBUTION WIDTH 15.7 % (9.6-15.2)
[2019-09-28 11:33] LABS: ALANINE AMINOTRANSFERASE 55 U/L (12-78); ALBUMIN 2.9 g/dL (3.4-5.0); ANION GAP 10 mmol/L (5-15); CALCIUM 8.3 mg/dL (8.5-10.1); CHLORIDE 115 mmol/L (98-107)
[2019-09-28 11:38] LABS: ALKALINE PHOSPHATASE 49 U/L (45-117); BILIRUBIN,TOTAL 0.3 mg/dL (0.2-1.0); CREATININE 1.14 mg/dL (0.55-1.02); TOTAL PROTEIN 5.8 g/dL (6.4-8.2); TROPONIN I < 0.015 ng/mL (0.000-0.045)
--- NOTE | 2019-09-28 12:02 | NUR ---
RECEIVED REPORT FROM DELL. ASSUMING CARE AT THIS TIME.
--- NOTE | 2019-09-28 12:13 | NUR ---
ELECTION JUDGE AT BEDSIDE.
[2019-09-28] MEDS ORDERED: ASPIRIN 81 MG TABLET CHEW ONE (12:19)
[2019-09-28] MEDS ORDERED: SERTRALINE 50MG TABLET PO SCH (12:30)
[2019-09-28] MEDS ORDERED: HYDROXYZINE PAMOATE 50MG CAP PO ONE (12:30)
[2019-09-28] MEDS ORDERED: SERTRALINE 50MG TABLET ONE (12:37)
--- NOTE | 2019-09-28 12:45 | NUR ---
HYDROXYZINE ORDERED FROM PHARMACY.
[2019-09-28 12:50] VITALS: BP 162/71
--- NOTE | 2019-09-28 12:50 | NUR ---
MEDS ADMIN PER DEC. PENDING PHARM DELIVERY. PT RESTING ON [employer] WATCHING TV.
--- NOTE | 2019-09-28 12:58 | NUR ---
ALL MEDS ADMIN PER DEC.
[2019-09-28 13:52] LABS: TROPONIN I < 0.015 ng/mL (0.000-0.045)
== END 2019-09-28 14:38 | disposition home or self-care (01) ==
LOC: ED 14:32
DX: R07.89 Other chest pain (principal); E03.9 Hypothyroidism, unspecified; K21.9 Gastro-esophageal reflux disease without esophagitis; J44.9 Chronic obstructive pulmonary disease, unspecified; I12.9 Hypertensive chronic kidney disease with stage 1 through stage 4 chronic kidney disease, or unspecified chronic kidney disease; N18.2 Chronic kidney disease, stage 2 (mild); I25.10 Atherosclerotic heart disease of native coronary artery without angina pectoris; E78.5 Hyperlipidemia, unspecified; Z86.73 Personal history of transient ischemic attack (TIA), and cerebral infarction without residual deficits; I48.91 Unspecified atrial fibrillation
CPT/HCPCS: 36415; 80053; 84484; 85025; 93005; 99284; Q0177

== ENCOUNTER 2019-10-04 11:21 | Emergency (ER) | payer MEDICARE ==
[~2019-10-04] VITALS: Ht 157.5 cm; Wt 76.0 kg
--- NOTE | 2019-10-04 11:39 | NUR ---
PT STATES SHE IS HAVING A TERRIBLE MIDDLETON THAT BEGAN 3 DAYS AGO. PT ALSO C/O NECK AND SHOULDER PAIN. PT STATES SHE WILL STAND AT SOME TIMES AND SHE WILL BECOME DIZZY THEN SIT AND STOPS BEING DIZZY. PT DENIES CP, SOB AT THIS TIME. ERMD IN TO EVKENYATTA PT. PT TO BP, CARD MONITOR Addendum: 10/04/19 at 1205 by KERON CONT PULSE OX, BP MONITORS APPLIED
--- NOTE | 2019-10-04 11:58 | NUR ---
PT TO CT AT THIS TIME
[2019-10-04] MEDS ORDERED: MECLIZINE CHEWABLE 25 MG TAB PO ONE (12:00)
[2019-10-04 12:23] LABS: CULTURE INDICATED? YES; MICROSCOPIC INDICATED
[2019-10-04 12:27] LABS: BASOPHILS # (AUTO) 0.02 x10^3/uL (0-0.1); BASOPHILS % (AUTO) 1 % (0-1); EOSINOPHILS # (AUTO) 0.11 x10^3/uL (0-0.4); EOSINOPHILS % (AUTO) 4 % (1-7); LYMPHOCYTES # (AUTO) 1.11 x10^3/uL (1-3.4); LYMPHOCYTES % (AUTO) 36 % (22-44); MD NO; MEAN CORPUSCULAR HGB CONC 33.3 g/dL (32.4-35.8); MEAN CORPUSCULAR VOLUME 92.9 fL (80-100); MEAN PLATELET VOLUME 7.7 fL (7.4-10.4); MONOCYTES # (AUTO) 0.23 x10^3/uL (0.2-0.8); MONOCYTES % (AUTO) 8 % (2-9); NEUTROPHILS % (AUTO) 52 % (42-75); PLATELET COUNT 204 x10^3/uL (130-400); RED BLOOD COUNT 3.84 x10^6/uL (3.82-5.3); RED CELL DISTRIBUTION WIDTH 15.8 % (9.6-15.2)
[2019-10-04 12:37] LABS: ALBUMIN 3.3 g/dL (3.4-5.0); ANION GAP 9 mmol/L (5-15); CALCIUM 8.4 mg/dL (8.5-10.1); CHLORIDE 117 mmol/L (98-107); CREATININE 0.96 mg/dL (0.55-1.02)
[2019-10-04 12:42] VITALS: BP 180/79
[2019-10-04] MEDS ORDERED: MECLIZINE CHEWABLE 25 MG TAB ONE (12:43)
--- NOTE | 2019-10-04 12:45 | NUR ---
PT MEDICATED PER MAR, BP REMAINS ELEVATED WILL NOTIFY NAD NOTED AT THIS TIME
== END 2019-10-04 13:48 | disposition home or self-care (01) ==
LOC: ED 12:27
DX: R51 Headache (principal); R42 Dizziness and giddiness; I10 Essential (primary) hypertension; E78.5 Hyperlipidemia, unspecified; E03.9 Hypothyroidism, unspecified; Z86.73 Personal history of transient ischemic attack (TIA), and cerebral infarction without residual deficits; Z90.49 Acquired absence of other specified parts of digestive tract; Z90.710 Acquired absence of both cervix and uterus
CPT/HCPCS: 36415; 70450; 80048; 81001; 82040; 85025; 87086; 93005; 99284

== ENCOUNTER 2019-10-05 22:27 | Emergency (ER) | payer MEDICARE ==
[~2019-10-05] VITALS: Ht 157.5 cm; Wt 63.6 kg
[2019-10-05 23:29] LABS: BASOPHILS # (AUTO) 0.03 x10^3/uL (0-0.1); BASOPHILS % (AUTO) 1 % (0-1); EOSINOPHILS # (AUTO) 0.11 x10^3/uL (0-0.4); EOSINOPHILS % (AUTO) 3 % (1-7); LYMPHOCYTES % (AUTO) 41 % (22-44); MD NO; MEAN CORPUSCULAR HGB CONC 32.7 g/dL (32.4-35.8); MEAN CORPUSCULAR VOLUME 94.9 fL (80-100); MEAN PLATELET VOLUME 8.1 fL (7.4-10.4); MONOCYTES # (AUTO) 0.27 x10^3/uL (0.2-0.8); MONOCYTES % (AUTO) 7 % (2-9); NEUTROPHILS % (AUTO) 49 % (42-75); PLATELET COUNT 212 x10^3/uL (130-400); RED BLOOD COUNT 3.98 x10^6/uL (3.82-5.3); RED CELL DISTRIBUTION WIDTH 15.8 % (9.6-15.2)
[2019-10-05 23:37] LABS: ALANINE AMINOTRANSFERASE 25 U/L (12-78); ALBUMIN 3.6 g/dL (3.4-5.0); ANION GAP 6 mmol/L (5-15); CALCIUM 8.8 mg/dL (8.5-10.1); CHLORIDE 115 mmol/L (98-107); CREATININE 1.13 mg/dL (0.55-1.02)
--- NOTE | 2019-10-05 23:40 | NUR ---
PT SITTING UPRIGHT IN BED. NO NEEDS AT THIS TIME. MONITOR IN PLACE.
[2019-10-05 23:41] LABS: ALKALINE PHOSPHATASE 44 U/L (45-117); BILIRUBIN,TOTAL 0.3 mg/dL (0.2-1.0); TOTAL PROTEIN 6.6 g/dL (6.4-8.2); TROPONIN I < 0.015 ng/mL (0.000-0.045)
--- NOTE | 2019-10-06 00:40 | NUR ---
PT RESTING COMFORTABLY. NO NEEDS AT THIS TIME. MONITOR IN PLACE.
[2019-10-06 01:10] VITALS: BP 169/88
== END 2019-10-06 01:14 | disposition home or self-care (01) ==
LOC: ED 10-06 01:08
DX: I13.0 Hypertensive heart and chronic kidney disease with heart failure and stage 1 through stage 4 chronic kidney disease, or unspecified chronic kidney disease (principal); N18.2 Chronic kidney disease, stage 2 (mild); I50.9 Heart failure, unspecified; R53.1 Weakness; R20.2 Paresthesia of skin; E03.9 Hypothyroidism, unspecified; E78.5 Hyperlipidemia, unspecified; I25.10 Atherosclerotic heart disease of native coronary artery without angina pectoris; K21.9 Gastro-esophageal reflux disease without esophagitis; J44.9 Chronic obstructive pulmonary disease, unspecified; I48.91 Unspecified atrial fibrillation; Z87.891 Personal history of nicotine dependence
CPT/HCPCS: 36415; 80053; 84484; 85025; 93005; 99284

== ENCOUNTER 2019-10-20 18:37 | Emergency (ER) | payer MEDICARE ==
[~2019-10-20] VITALS: Ht 162.6 cm; Wt 69.0 kg
[~2019-10-20 18:37] MED LIST changes: +SUCR1TAB33 PO
[2019-10-20] MEDS ORDERED: FAMOTIDINE 20 MG/2 ML IVPush ONE (19:00)
[2019-10-20] MEDS ORDERED: PLEASE ENTER HEIGHT AND WEIGHT MC SCH (19:00)
[2019-10-20] MEDS ORDERED: SODIUM CHLORIDE FLUSH 10ML SYR IVF ONE (19:00)
[2019-10-20] MEDS ORDERED: FAMOTIDINE 20 MG/2 ML ONE (19:01)
[2019-10-20 19:10] LABS: BASOPHILS # (AUTO) 0.03 x10^3/uL (0-0.1); BASOPHILS % (AUTO) 1 % (0-1); EOSINOPHILS # (AUTO) 0.09 x10^3/uL (0-0.4); EOSINOPHILS % (AUTO) 3 % (1-7); LYMPHOCYTES # (AUTO) 1.26 x10^3/uL (1-3.4); LYMPHOCYTES % (AUTO) 44 % (22-44); MD NO; MEAN CORPUSCULAR HEMOGLOBIN 30.7 pg (27.0-34.8); MEAN CORPUSCULAR HGB CONC 33.1 g/dL (32.4-35.8); MEAN CORPUSCULAR VOLUME 92.9 fL (80-100); MEAN PLATELET VOLUME 9.1 fL (7.4-10.4); MONOCYTES # (AUTO) 0.31 x10^3/uL (0.2-0.8); MONOCYTES % (AUTO) 11 % (2-9); NEUTROPHILS # (AUTO) 1.18 x10^3/uL (1.8-6.8); NEUTROPHILS % (AUTO) 41 % (42-75); PLATELET COUNT 136 x10^3/uL (130-400); RED BLOOD COUNT 3.61 x10^6/uL (3.82-5.3)
[2019-10-20 19:16] LABS: ALANINE AMINOTRANSFERASE 18 U/L (12-78); ALBUMIN 3.4 g/dL (3.4-5.0); ANION GAP 6 mmol/L (5-15); CALCIUM 8.6 mg/dL (8.5-10.1); CHLORIDE 116 mmol/L (98-107); CREATININE 0.83 mg/dL (0.55-1.02)
[2019-10-20 19:18] LABS: ALKALINE PHOSPHATASE 40 U/L (45-117); BILIRUBIN,TOTAL 0.4 mg/dL (0.2-1.0); TOTAL PROTEIN 6.2 g/dL (6.4-8.2)
[2019-10-20 19:56] LABS: INTERNATIONAL NORMALIZED RATIO 1.05 (0.93-1.1)
[2019-10-20 20:50] VITALS: BP 112/71
== END 2019-10-20 20:52 | disposition home or self-care (01) ==
LOC: ED 20:45
DX: R11.2 Nausea with vomiting, unspecified (principal); I10 Essential (primary) hypertension
CPT/HCPCS: 36415; 80053; 83690; 85025; 85610; 85730; 96374; 99283; J3490

== ENCOUNTER 2019-10-24 14:53 | Outpatient (CLI) | payer MEDICARE ==
[~2019-10-24 14:53] MED LIST changes: +MECL-101 PO; -MECL12.52 PO; +MECL12.581 PO; -MECL25TA4 PO; -OMEP20CA14 PO; +OMEP20CA20 PO; +ONDA-89 PO; -ONDA4TAB12 PO; -OXYB10TA2 PO; +OXYB10TA26 PO; -TIZA2TAB2 PO; +TIZA2TAB4 PO
[2019-10-24] MEDS ORDERED: HYDR-826 PO (15:38)
== END 2019-10-24 23:59 | disposition home or self-care (01) ==
LOC: LAB 14:53
PROVIDERS: ATTEND Psychiatry & Neurology Neurology
DX: R51 Headache (principal)
CPT/HCPCS: 36415; 80048; 85025; 85651; 99283

== ENCOUNTER 2019-10-24 15:12 | Emergency (ER) | payer MEDICARE ==
[~2019-10-24] VITALS: Ht 157.5 cm; Wt 79.5 kg
[~2019-10-24 15:12] MED LIST changes: -MECL-101 PO; +MECL12.52 PO; -MECL12.581 PO; +MECL25TA4 PO; +OMEP20CA14 PO; -OMEP20CA20 PO; -ONDA-89 PO; +ONDA4TAB12 PO; +OXYB10TA2 PO; -OXYB10TA26 PO; +TIZA2TAB2 PO; -TIZA2TAB4 PO
[2019-10-24 15:35] VITALS: BP 188/76
[2019-10-24] MEDS ORDERED: HYDR-826 PO (15:38)
[2019-10-24 16:28] LABS: BASOPHILS # (AUTO) 0.01 x10^3/uL (0-0.1); BASOPHILS % (AUTO) 0 % (0-1); EOSINOPHILS # (AUTO) 0.06 x10^3/uL (0-0.4); EOSINOPHILS % (AUTO) 2 % (1-7); LYMPHOCYTES # (AUTO) 1.01 x10^3/uL (1-3.4); LYMPHOCYTES % (AUTO) 30 % (22-44); MD NO; MEAN CORPUSCULAR HEMOGLOBIN 30.9 pg (27.0-34.8); MEAN CORPUSCULAR HGB CONC 33.5 g/dL (32.4-35.8); MEAN CORPUSCULAR VOLUME 92.3 fL (80-100); MEAN PLATELET VOLUME 8.9 fL (7.4-10.4); MONOCYTES # (AUTO) 0.25 x10^3/uL (0.2-0.8); MONOCYTES % (AUTO) 8 % (2-9); NEUTROPHILS # (AUTO) 2.02 x10^3/uL (1.8-6.8); NEUTROPHILS % (AUTO) 60 % (42-75); PLATELET COUNT 154 x10^3/uL (130-400); RED BLOOD COUNT 3.81 x10^6/uL (3.82-5.3); RED CELL DISTRIBUTION WIDTH 15.6 % (9.6-15.2)
[2019-10-24 16:37] LABS: ANION GAP 7 mmol/L (5-15); CALCIUM 8.9 mg/dL (8.5-10.1); CHLORIDE 115 mmol/L (98-107)
[2019-10-24 16:38] LABS: CREATININE 0.77 mg/dL (0.55-1.02)
--- NOTE | 2019-10-24 17:14 | NUR ---
DISASTER RESPONSE DIRECTOR: Patient/Caregiver given discharge instructions and they have confirmed that they understand the instructions. Patient ambulatory with steady gait.
== END 2019-10-24 17:15 | disposition home or self-care (01) ==
LOC: ED 16:20
DX: E87.6 Hypokalemia (principal); E78.5 Hyperlipidemia, unspecified; I48.91 Unspecified atrial fibrillation; I11.0 Hypertensive heart disease with heart failure; I50.9 Heart failure, unspecified; K21.9 Gastro-esophageal reflux disease without esophagitis; J44.9 Chronic obstructive pulmonary disease, unspecified; G89.29 Other chronic pain; I25.10 Atherosclerotic heart disease of native coronary artery without angina pectoris; Z86.73 Personal history of transient ischemic attack (TIA), and cerebral infarction without residual deficits; Z90.89 Acquired absence of other organs; Z90.710 Acquired absence of both cervix and uterus; Z87.891 Personal history of nicotine dependence; Z00.00 Encounter for general adult medical examination without abnormal findings
CPT/HCPCS: 36415; 80048; 85025; 99283

== ENCOUNTER 2019-11-01 17:18 | Emergency (ER) | payer MEDICARE ==
[~2019-11-01] VITALS: Ht 157.5 cm; Wt 72.0 kg
--- NOTE | 2019-11-01 18:03 | NUR ---
tarun from home. c/o dizziness/chest pain/weakness x2 weeks. was seen at [facility] for this yesterday. no change in sx from yesterday to today. was given meclizine rx and dc, never got her script filled bc cannot pay til Nov. vss. hypertensive, has not taken night bp meds. ekg by tech. sr on monitor. has pacemaker. able to stand and pivot stably. a&ox4 gcs 15. also c/o nausea. awaiting md. call buckner in reach. as
--- NOTE | 2019-11-01 18:13 | NUR ---
continues to await md ronald cedeñonacriselda in condition NAD.
[2019-11-01] MEDS ORDERED: MECLIZINE CHEWABLE 25 MG TAB PO ONE (18:30)
[2019-11-01] MEDS ORDERED: SODIUM CHLORIDE FLUSH 10ML SYR IVF ONE (18:30)
[2019-11-01] MEDS ORDERED: MECLIZINE CHEWABLE 25 MG TAB ONE (19:14)
[2019-11-01 19:25] LABS: BASOPHILS # (AUTO) 0.02 x10^3/uL (0-0.1); BASOPHILS % (AUTO) 1 % (0-1); EOSINOPHILS # (AUTO) 0.06 x10^3/uL (0-0.4); EOSINOPHILS % (AUTO) 1 % (1-7); LYMPHOCYTES # (AUTO) 1.34 x10^3/uL (1-3.4); LYMPHOCYTES % (AUTO) 29 % (22-44); MD NO; MEAN CORPUSCULAR HEMOGLOBIN 30.2 pg (27.0-34.8); MEAN CORPUSCULAR HGB CONC 32.7 g/dL (32.4-35.8); MEAN CORPUSCULAR VOLUME 92.4 fL (80-100); MEAN PLATELET VOLUME 8.8 fL (7.4-10.4); MONOCYTES # (AUTO) 0.39 x10^3/uL (0.2-0.8); MONOCYTES % (AUTO) 8 % (2-9); NEUTROPHILS % (AUTO) 62 % (42-75); PLATELET COUNT 198 x10^3/uL (130-400); RED BLOOD COUNT 4.02 x10^6/uL (3.82-5.3); RED CELL DISTRIBUTION WIDTH 15.9 % (9.6-15.2)
[2019-11-01 19:35] LABS: ALANINE AMINOTRANSFERASE 12 U/L (12-78); ALBUMIN 3.3 g/dL (3.4-5.0); ANION GAP 8 mmol/L (5-15); CALCIUM 8.6 mg/dL (8.5-10.1); CHLORIDE 115 mmol/L (98-107); CREATININE 0.96 mg/dL (0.55-1.02)
[2019-11-01 19:39] LABS: ALKALINE PHOSPHATASE 40 U/L (45-117); BILIRUBIN,TOTAL 0.5 mg/dL (0.2-1.0); TOTAL PROTEIN 6.2 g/dL (6.4-8.2); TROPONIN I < 0.015 ng/mL (0.000-0.045)
[2019-11-01 19:42] VITALS: BP 168/78
--- NOTE | 2019-11-01 19:43 | NUR ---
meclizine per dec. pt c/o 07/27 cp. when asked if she wants tylenol or another med she declined "i don't think i want any". vss. ct pending. labs wnl. trop neg. as
--- NOTE | 2019-11-01 20:32 | NUR ---
TASK RN: THIS RN IN TO DC PT., PT. FULLY DRESSED WITH THICK ROBE ON, PT. REFUSED TO LET THIS RN REPEAT VS PRIOR TO DC. DC INSTRUCTIONS PROVIEDED TO PT. PT. RIPPED UP PAPERS AND SAID "IT'S ALL A BUNCH OF LIES! AGAIN!" PT. THEN PROCEDED TO AMBULATE OUT OF ED. PT. REFUSED TO STOP AT DC DESK STATING "I AM NOT SIGNING ANYTHING, I AM GOING OUT FRONT AND CALLING MY CAB." SKIN PWD. NO DISTRESS NOTED.
== END 2019-11-01 20:37 | disposition home or self-care (01) ==
LOC: ED 18:31
DX: R42 Dizziness and giddiness (principal); I13.0 Hypertensive heart and chronic kidney disease with heart failure and stage 1 through stage 4 chronic kidney disease, or unspecified chronic kidney disease; N18.2 Chronic kidney disease, stage 2 (mild); I50.9 Heart failure, unspecified; I48.91 Unspecified atrial fibrillation; E03.9 Hypothyroidism, unspecified; R51 Headache; R20.0 Anesthesia of skin; Z86.73 Personal history of transient ischemic attack (TIA), and cerebral infarction without residual deficits; Z72.9 Problem related to lifestyle, unspecified; Z90.49 Acquired absence of other specified parts of digestive tract; Z90.710 Acquired absence of both cervix and uterus; Z95.0 Presence of cardiac pacemaker
CPT/HCPCS: 36415; 70450; 80053; 84484; 85025; 93005; 99284

== ENCOUNTER 2019-11-05 10:33 | Emergency (ER) | payer MEDICARE ==
[~2019-11-05] VITALS: Ht 157.5 cm; Wt 75.0 kg
--- NOTE | 2019-11-05 10:50 | NUR ---
BIB [facility] FOR ABDOMINAL PAIN, EPIGASTRIC IN LOCATION. PT STATES SHE WAS SEEN HERE YESTERDAY FOR THE SAME THING AND DIAGNOSED WITH A HERNIA, STATES "IT'S TOO SMALL FOR THEM TO DO ANYTHING AND IT'S INFLAMMED AND KILLING ME AND I CAN'T FILL MY MEDS UNTIL PAYDAY ON THE ." PT AAO X 4, DRESSED IN GOWN AND ATTACHED TO MONITOR, CALL LIGHT WITHIN REACH AND SIDERAIL X [address]. PER EMS, PIV ATTEMPT X 2 UNSUCCESSFUL. PER EMS, PT RECEIVED PO ZOFRAN EN ROUTE, PT STATES NO RELIEF.
[2019-11-05] MEDS ORDERED: MAALOX/HYOSCYAMINE/LIDOCAINE 45 ML BTL PO ONE (11:30)
[2019-11-05] MEDS ORDERED: MAALOX/HYOSCYAMINE/LIDOCAINE 45 ML BTL ONE (11:56)
--- NOTE | 2019-11-05 12:02 | NUR ---
PT MEDICATED PER ORDERS.
--- NOTE | 2019-11-05 12:03 | NUR ---
Ny monzon in EDM - 11/05/19 at 1203 by PARKER Patient/Caregiver given discharge instructions and they have confirmed that they understand the instructions. Patient ambulatory with steady gait. PIV REMOVED WITH TIP INTACT.
[2019-11-05 12:09] LABS: BASOPHILS # (AUTO) 0.03 x10^3/uL (0-0.1); BASOPHILS % (AUTO) 1 % (0-1); EOSINOPHILS # (AUTO) 0.05 x10^3/uL (0-0.4); EOSINOPHILS % (AUTO) 1 % (1-7); LYMPHOCYTES # (AUTO) 1.04 x10^3/uL (1-3.4); LYMPHOCYTES % (AUTO) 28 % (22-44); MD NO; MEAN CORPUSCULAR HEMOGLOBIN 30.3 pg (27.0-34.8); MEAN CORPUSCULAR HGB CONC 32.5 g/dL (32.4-35.8); MEAN CORPUSCULAR VOLUME 93.3 fL (80-100); MEAN PLATELET VOLUME 8.4 fL (7.4-10.4); MONOCYTES # (AUTO) 0.27 x10^3/uL (0.2-0.8); MONOCYTES % (AUTO) 7 % (2-9); NEUTROPHILS # (AUTO) 2.27 x10^3/uL (1.8-6.8); NEUTROPHILS % (AUTO) 62 % (42-75); PLATELET COUNT 185 x10^3/uL (130-400); RED BLOOD COUNT 3.82 x10^6/uL (3.82-5.3); RED CELL DISTRIBUTION WIDTH 14.9 % (9.6-15.2)
[2019-11-05 12:14] LABS: ALBUMIN 2.9 g/dL (3.4-5.0); ANION GAP 6 mmol/L (5-15); CALCIUM 7.9 mg/dL (8.5-10.1); CHLORIDE 115 mmol/L (98-107); CREATININE 0.87 mg/dL (0.55-1.02)
[2019-11-05 12:18] LABS: ALANINE AMINOTRANSFERASE 8 U/L (12-78); ALKALINE PHOSPHATASE 35 U/L (45-117); BILIRUBIN,TOTAL 0.3 mg/dL (0.2-1.0); TOTAL PROTEIN 5.5 g/dL (6.4-8.2); TROPONIN I < 0.015 ng/mL (0.000-0.045)
--- NOTE | 2019-11-05 12:44 | NUR ---
PT AMBULATORY TO RESTROOM WITH STEADY GAIT.
[2019-11-05 12:49] VITALS: BP 167/71
--- NOTE | 2019-11-05 13:57 | NUR ---
DC ORDERS RECEIVED, THIS RN ENTERED ROOM WITH PAPERWORK AND IT WAS NOTED THAT PT HAD LEFT [facility] RECEIVING PAPERWORK.
[2019-11-05] MEDS ORDERED: CARVEDILOL 25 MG TABLET PO SCH (21:00)
== END 2019-11-05 13:59 | disposition home or self-care (01) ==
LOC: ED 12:05
DX: G89.29 Other chronic pain (principal); R10.33 Periumbilical pain; I12.9 Hypertensive chronic kidney disease with stage 1 through stage 4 chronic kidney disease, or unspecified chronic kidney disease; N18.2 Chronic kidney disease, stage 2 (mild); I25.10 Atherosclerotic heart disease of native coronary artery without angina pectoris; J44.9 Chronic obstructive pulmonary disease, unspecified; K21.9 Gastro-esophageal reflux disease without esophagitis; I48.91 Unspecified atrial fibrillation; G47.33 Obstructive sleep apnea (adult) (pediatric); E78.5 Hyperlipidemia, unspecified; Z90.49 Acquired absence of other specified parts of digestive tract; Z90.710 Acquired absence of both cervix and uterus
CPT/HCPCS: 36415; 71045; 80053; 83690; 84484; 85025; 93005; 99284

== ENCOUNTER 2019-11-12 11:04 | Emergency (ER) | payer MEDICARE ==
[~2019-11-12] VITALS: Ht 157.5 cm; Wt 75.0 kg
[2019-11-12] MEDS ORDERED: ACETAMINOPHEN 500 MG TABLET PO ONE (11:30)
[2019-11-12] MEDS ORDERED: hydrALAzine 20 MG/ML, 1ML IV ONE ×2 (11:30→13:00)
[2019-11-12 11:39] LABS: BASOPHILS # (AUTO) 0.03 x10^3/uL (0-0.1); BASOPHILS % (AUTO) 1 % (0-1); EOSINOPHILS # (AUTO) 0.05 x10^3/uL (0-0.4); EOSINOPHILS % (AUTO) 2 % (1-7); LYMPHOCYTES # (AUTO) 1.07 x10^3/uL (1-3.4); LYMPHOCYTES % (AUTO) 34 % (22-44); MD NO; MEAN CORPUSCULAR HEMOGLOBIN 30.5 pg (27.0-34.8); MEAN CORPUSCULAR VOLUME 92.6 fL (80-100); MEAN PLATELET VOLUME 8.8 fL (7.4-10.4); MONOCYTES # (AUTO) 0.27 x10^3/uL (0.2-0.8); MONOCYTES % (AUTO) 8 % (2-9); NEUTROPHILS # (AUTO) 1.77 x10^3/uL (1.8-6.8); NEUTROPHILS % (AUTO) 56 % (42-75); PLATELET COUNT 162 x10^3/uL (130-400); RED BLOOD COUNT 3.91 x10^6/uL (3.82-5.3); RED CELL DISTRIBUTION WIDTH 15.7 % (9.6-15.2)
[2019-11-12 11:47] LABS: ANION GAP 5 mmol/L (5-15); CALCIUM 8.2 mg/dL (8.5-10.1); CHLORIDE 114 mmol/L (98-107); CREATININE 0.94 mg/dL (0.55-1.02)
[2019-11-12 11:48] LABS: ALANINE AMINOTRANSFERASE 12 U/L (12-78); ALBUMIN 3.1 g/dL (3.4-5.0)
[2019-11-12 11:52] LABS: ALKALINE PHOSPHATASE 37 U/L (45-117); BILIRUBIN,TOTAL 0.3 mg/dL (0.2-1.0); TROPONIN I < 0.015 ng/mL (0.000-0.045)
[2019-11-12] MEDS ORDERED: ACETAMINOPHEN 500 MG TABLET ONE (12:05)
[2019-11-12] MEDS ORDERED: hydrALAzine 20 MG/ML, 1ML ONE ×2 (12:05→12:50)
--- NOTE | 2019-11-12 12:15 | NUR ---
SLIGHT DECREASE IN BP ERP AWARE TO GIVE MOR MEDS
--- NOTE | 2019-11-12 12:48 | NUR ---
PT CO CP 12 ORDERED ERP AWARE
[2019-11-12 13:14] VITALS: BP 165/64
[2019-11-12] MEDS ORDERED: LORazepam 0.5MG TABLET PO ONE (13:30)
[2019-11-12] MEDS ORDERED: LORazepam 0.5MG TABLET ONE (13:44)
--- NOTE | 2019-11-12 13:52 | NUR ---
TASK RN: PT MEDICATED PER EMAR.
--- NOTE | 2019-11-12 14:14 | NUR ---
TASK RN: PT REQUESTING TO GO HOME. ASSISTED TO DRESS. PT STANDING AND TRANSFERING INDEPENDENTLY. BP 160/80 UPON DC. DC EDUCATION PROVIDED, PT DEMONSTRATES UNDERSTANDING. PT WHEELED TO DC WITH RN. TAXI VOUCHER PROVIDED FOR SAFE TRANSPORT HOME.
== END 2019-11-12 16:17 | disposition home or self-care (01) ==
LOC: ED 11:13
DX: I13.0 Hypertensive heart and chronic kidney disease with heart failure and stage 1 through stage 4 chronic kidney disease, or unspecified chronic kidney disease (principal); N18.2 Chronic kidney disease, stage 2 (mild); I50.9 Heart failure, unspecified; I25.10 Atherosclerotic heart disease of native coronary artery without angina pectoris; K21.9 Gastro-esophageal reflux disease without esophagitis; E03.9 Hypothyroidism, unspecified; E78.5 Hyperlipidemia, unspecified; G47.33 Obstructive sleep apnea (adult) (pediatric); I48.91 Unspecified atrial fibrillation; Z86.73 Personal history of transient ischemic attack (TIA), and cerebral infarction without residual deficits
CPT/HCPCS: 36415; 71045; 80053; 84484; 85025; 93005; 96374; 96376; 99284; J0360

== ENCOUNTER 2019-11-12 16:06 | Emergency (ER) | payer MEDICARE ==
[~2019-11-12] VITALS: Ht 157.5 cm; Wt 73.0 kg
--- NOTE | 2019-11-12 16:21 | NUR ---
BIB [facility] FROM HOME FOR REPORTED SYNCOPE AND CP, BOTH STARTING AFTER PT REPORTS LIFTING HEAVY BOXES X4 DAYS AGO. LT SHOULDER, NECK AND LOW BACK PAIN WHICH IS ACUTE ON CHRONIC. PT EVALUATED IN ED FOR SYNCOPE AND CP TODAY, DC'ED WITH HTN INFORMATION AND RX FOR HTN. RESPIRATIONS EVEN AND UNLABORED ON RA.
--- NOTE | 2019-11-12 16:53 | NUR ---
PT LAYING BACK IN BED, SLUMPED OVER TO SIDE WITH C COLLAR IN PLACE. RN ASKED IF PT WOULD LIKE TO BE RE-POSITIONED, PT DECLINED, REMAINS LAYING TO LEFT SIDE CHANGING TELEVISION CHANNELS. NAD NOTED AT THIS TIME. SIDE RAILS UP, CALL LIGHT IN REACH.
--- NOTE | 2019-11-12 17:48 | NUR ---
CALL TO CT FOR UPDATE ON PT'S TIMEFRAME. CT HELD UP TO DUE TO UNFORESEEN INCREASE IN PT CARE. CT AWARE OF PT.
--- NOTE | 2019-11-12 18:42 | NUR ---
ERMD IN TO DISCUSS DC WITH PT.
--- NOTE | 2019-11-12 18:59 | NUR ---
PT AMBULATES TO BATHROOM UPON RN ENTRY TO ROOM FOR DC. AWAITING PT RETURN FOR DC.
== END 2019-11-12 19:09 | disposition home or self-care (01) ==
LOC: ED 16:32
DX: S16.1XXA Strain of muscle, fascia and tendon at neck level, initial encounter (principal); S09.90XA Unspecified injury of head, initial encounter; I25.10 Atherosclerotic heart disease of native coronary artery without angina pectoris; J44.9 Chronic obstructive pulmonary disease, unspecified; I13.0 Hypertensive heart and chronic kidney disease with heart failure and stage 1 through stage 4 chronic kidney disease, or unspecified chronic kidney disease; N18.2 Chronic kidney disease, stage 2 (mild); I50.9 Heart failure, unspecified; I48.91 Unspecified atrial fibrillation; G47.33 Obstructive sleep apnea (adult) (pediatric); Z86.73 Personal history of transient ischemic attack (TIA), and cerebral infarction without residual deficits; Z90.49 Acquired absence of other specified parts of digestive tract; Z90.710 Acquired absence of both cervix and uterus; W18.39XA Other fall on same level, initial encounter; Y93.89 Activity, other specified; Y92.098 Other place in other non-institutional residence as the place of occurrence of the external cause; Y99.8 Other external cause status
CPT/HCPCS: 70450; 72125; 99284

== ENCOUNTER 2019-11-20 13:08 | Emergency (ER) | payer MEDICARE ==
[~2019-11-20] VITALS: Ht 157.5 cm; Wt 78.4 kg
[2019-11-20 13:58] VITALS: BP 222/90
--- NOTE | 2019-11-20 14:47 | NUR ---
COUNTY HOME DEMONSTRATION AGENT: PT CALLED FROM LOBBY, NO ANSWER
--- NOTE | 2019-11-20 14:52 | NUR ---
PT LEFT AMA
== END 2019-11-20 14:54 | disposition left against medical advice (07) ==
LOC: ED 14:35
DX: R10.9 Unspecified abdominal pain (principal); Z53.21 Procedure and treatment not carried out due to patient leaving prior to being seen by health care provider

== ENCOUNTER 2019-11-23 12:52 | Emergency (ER) | payer MEDICARE ==
[~2019-11-23] VITALS: Ht 162.6 cm; Wt 97.7 kg
[~2019-11-23 12:52] MED LIST changes: +MECL-101 PO; -MECL12.52 PO; +MECL12.581 PO; -MECL25TA4 PO; -OMEP20CA14 PO; +OMEP20CA20 PO; +ONDA-89 PO; -ONDA4TAB12 PO; -OXYB10TA2 PO; +OXYB10TA26 PO
[2019-11-23 12:54] VITALS: BP 180/74
--- NOTE | 2019-11-23 13:00 | NUR ---
HAS ESOPHAGEAL HERNIA. WAS SUPPOSED TO HAVE IT REPAIRED HAD TO CANCEL IT. HAS HAD C/O CP, DIZZINESS, HEMATEMESIS, "EVERYTIME I STRAING I HAVE BLOOD IN THE TOILET" HX HERNIA. STATES NO BM X 11 DAYS. SEEN HERE YESTERDAY FOR SAME AND EARLIER THIS WEEK. ERP DR. RAZO AT BEDSIDE.
[2019-11-23] MEDS ORDERED: MAALOX/HYOSCYAMINE/LIDOCAINE 45 ML BTL ONE (13:29)
[2019-11-23] MEDS ORDERED: ONDANSETRON ODT 4 MG ONE (13:29)
[2019-11-23] MEDS ORDERED: MAALOX/HYOSCYAMINE/LIDOCAINE 45 ML BTL PO ONE (13:30)
[2019-11-23] MEDS ORDERED: ONDANSETRON ODT 4 MG PO ONE (13:30)
--- NOTE | 2019-11-23 13:47 | NUR ---
YELLOW SLIP SENT TO PHARMACY.
[2019-11-23 13:50] LABS: BASOPHILS # (AUTO) 0.02 x10^3/uL (0-0.1); BASOPHILS % (AUTO) 1 % (0-1); EOSINOPHILS # (AUTO) 0.03 x10^3/uL (0-0.4); EOSINOPHILS % (AUTO) 1 % (1-7); LYMPHOCYTES # (AUTO) 1.14 x10^3/uL (1-3.4); LYMPHOCYTES % (AUTO) 29 % (22-44); MD NO; MEAN CORPUSCULAR HEMOGLOBIN 30.1 pg (27.0-34.8); MEAN CORPUSCULAR HGB CONC 32.7 g/dL (32.4-35.8); MEAN PLATELET VOLUME 7.9 fL (7.4-10.4); MONOCYTES # (AUTO) 0.22 x10^3/uL (0.2-0.8); MONOCYTES % (AUTO) 6 % (2-9); NEUTROPHILS # (AUTO) 2.54 x10^3/uL (1.8-6.8); NEUTROPHILS % (AUTO) 64 % (42-75); PLATELET COUNT 261 x10^3/uL (130-400); RED BLOOD COUNT 3.69 x10^6/uL (3.82-5.3); RED CELL DISTRIBUTION WIDTH 15.9 % (9.6-15.2)
[2019-11-23] MEDS ORDERED: PINK LADY ENEMA 490 ML BOTTLE PR ONE (14:00)
[2019-11-23 14:02] LABS: ALBUMIN 2.9 g/dL (3.4-5.0); ANION GAP 9 mmol/L (5-15); CALCIUM 8.5 mg/dL (8.5-10.1); CHLORIDE 115 mmol/L (98-107)
--- NOTE | 2019-11-23 14:07 | NUR ---
PT REFUSED [facility] DESPITE EDUCATION. ERP DR. RAZO NOTIFIED.
[2019-11-23 14:09] LABS: ALANINE AMINOTRANSFERASE 9 U/L (12-78); ALKALINE PHOSPHATASE 46 U/L (45-117); BILIRUBIN,TOTAL 0.4 mg/dL (0.2-1.0); TOTAL PROTEIN 6.1 g/dL (6.4-8.2)
== END 2019-11-23 14:16 | disposition home or self-care (01) ==
LOC: ED 14:13
DX: R10.84 Generalized abdominal pain (principal); K59.00 Constipation, unspecified; R11.2 Nausea with vomiting, unspecified; R63.0 Anorexia; I10 Essential (primary) hypertension; E03.9 Hypothyroidism, unspecified; G89.29 Other chronic pain
CPT/HCPCS: 36415; 74021; 80053; 83690; 85025; 93005; 99284; Q0162

== ENCOUNTER 2019-12-01 10:29 | Emergency (ER) | payer MEDICARE ==
[~2019-12-01] VITALS: Ht 157.5 cm; Wt 73.5 kg
--- NOTE | 2019-12-01 10:59 | NUR ---
BIB [facility]-pt c/o pain in back starting at neck and radiating down spine and bilat legs x3 days. Pt denies any known injury, states she has had this pain in the past and takes hydrocodone for this but states it's not helping. CMS intact, pt states she is able to get around but is having pain when doing so. Pt able to change self into hospital gown and position self for comfort in bed. Pt provided with warm blanket. Continuous oxygen and BP Monitors applied, all safety measures observed.
--- NOTE | 2019-12-01 11:05 | NUR ---
Report from Ynes JACKSON With assessment patient reports chronic neck pain increased from a normal 03/27 to 07/27, also with polyria with burning sensation
--- NOTE | 2019-12-01 11:06 | NUR ---
Report to Humberto JACKSON.
--- NOTE | 2019-12-01 11:27 | NUR ---
lab at bedside
[2019-12-01 11:57] LABS: MEAN CORPUSCULAR HEMOGLOBIN 30.1 pg (27.0-34.8); MEAN CORPUSCULAR HGB CONC 32.9 g/dL (32.4-35.8); MEAN CORPUSCULAR VOLUME 91.5 fL (80-100); MEAN PLATELET VOLUME 7.6 fL (7.4-10.4); PLATELET COUNT 268 x10^3/uL (130-400); RED BLOOD COUNT 3.75 x10^6/uL (3.82-5.3); RED CELL DISTRIBUTION WIDTH 16.3 % (9.6-15.2)
[2019-12-01 11:58] LABS: ALBUMIN 2.8 g/dL (3.4-5.0); ANION GAP 5 mmol/L (5-15); CALCIUM 8.1 mg/dL (8.5-10.1); CHLORIDE 115 mmol/L (98-107); CREATININE 0.85 mg/dL (0.55-1.02)
--- NOTE | 2019-12-01 12:03 | NUR ---
ambulated with steady cane gait to restroom-provided clean catch ua-sent to lab
[2019-12-01 12:35] VITALS: BP 187/88
[2019-12-01 13:15] LABS: CULTURE INDICATED? YES; MICROSCOPIC INDICATED
[2019-12-01 13:22] LABS: MD YES
[2019-12-01 13:29] LABS: BAND#(MANUAL) 0.03 x10^3/uL; BANDS%(MANUAL) 1 % (0-7); BASOS% (MANUAL) 4 % (0-1); LYMPH#(MANUAL) 0.93 x10^3/uL (1-3.4); LYMPHS% (MANUAL) 37 % (22-44); MONOS#(MANUAL) 0.18 x10^3/uL (0.3-2.7); MONOS% (MANUAL) 7 % (2-9); REACTIVE LYMPHS # (MANUAL) 0.08 x10^3/uL (0-0); REACTIVE LYMPHS % (MANUAL) 3 % (0-0); SEGS% (MANUAL) 48 % (42-75)
[2019-12-01 13:30] LABS: <PLATELET ESTIMATE> ADEQUATE; <PLT MORPHOLOGY> NORMAL PLT MORPH; ANISOCYTOSIS 1+; OVALOCYTES 1+
--- NOTE | 2019-12-01 13:57 | NUR ---
WITH REASSESSMENT PATIENT REMAINS WITH 05/27 NECK AND BACK PAIN-ASKING FOR PAIN MEDICATION REMAINS HYPERTENSIVE PROVIDER MADE AWARE ALL TESTING RESULTED AND REVIEWED
== END 2019-12-01 14:31 | disposition home or self-care (01) ==
LOC: ED 10:33
DX: M54.5 Low back pain (principal); R30.0 Dysuria; I13.0 Hypertensive heart and chronic kidney disease with heart failure and stage 1 through stage 4 chronic kidney disease, or unspecified chronic kidney disease; I50.9 Heart failure, unspecified; N18.2 Chronic kidney disease, stage 2 (mild); I25.10 Atherosclerotic heart disease of native coronary artery without angina pectoris; J44.9 Chronic obstructive pulmonary disease, unspecified; K21.9 Gastro-esophageal reflux disease without esophagitis; I48.91 Unspecified atrial fibrillation; Z86.73 Personal history of transient ischemic attack (TIA), and cerebral infarction without residual deficits
CPT/HCPCS: 36415; 72110; 72190; 80048; 81001; 82040; 85025; 87077; 87086; 87186; 99284

== ENCOUNTER 2019-12-02 15:20 | Emergency (ER) | payer MEDICARE ==
[~2019-12-02] VITALS: Ht 157.5 cm; Wt 73.0 kg
[2019-12-02 15:26] VITALS: BP 155/73
--- NOTE | 2019-12-02 15:31 | NUR ---
BIB [facility] FROM HOME. PT C/O NOT FEELING RIGHT AFTER HAVING 6 STEROID SHOTS YESTERDAY FOR CHRONIC BACK PAIN. PAIN ISN'T SUBSIDING USUAL. PT C/O LOCALIZED ITCHING AT INJECTION SITES. PT CONNECTED TO MONITORING. CALL LIGHT IN REACH. MD AT BEDSIDE FOR ASSESSMENT.
== END 2019-12-02 19:07 | disposition home or self-care (01) ==
LOC: ED 16:05
DX: R52 Pain, unspecified (principal); I45.10 Unspecified right bundle-branch block; I48.91 Unspecified atrial fibrillation; Z72.9 Problem related to lifestyle, unspecified; J44.9 Chronic obstructive pulmonary disease, unspecified; I12.9 Hypertensive chronic kidney disease with stage 1 through stage 4 chronic kidney disease, or unspecified chronic kidney disease; N18.2 Chronic kidney disease, stage 2 (mild); E78.5 Hyperlipidemia, unspecified; Z90.49 Acquired absence of other specified parts of digestive tract; Z90.710 Acquired absence of both cervix and uterus
CPT/HCPCS: 93005; 99283

== ENCOUNTER 2019-12-31 10:27 | Emergency (ER) | payer MEDICARE ==
[~2019-12-31] VITALS: Ht 157.5 cm; Wt 73.0 kg
--- NOTE | 2019-12-31 10:52 | NUR ---
THIS IS A 74 YO FEMALE BIB [facility] C/O COUGH X 3 MONTHS AND CP X 4 DAYS. PT SEEN AT [facility] FOR SAME ON 12/26. PT DENIES ANY RECENT TRAVEL OUTSIDE OF COUNTRY OR CONTACT WITH ANYONE WHO HAS. PT AO X 4. SKIN PWD. RESP EVEN AND UNLABORED. NSR 60'S NOTED TO CAR REPAIRER PULLMAN. PT REPORTS PAIN IS 10/10 BUT REFUSED ASA, NITRO OR IV BY EMS EN ROUTE. PT ON CONT BP, CARDIAC AND O2 MONITORS. CALL LIGHT WITHIN REACH. WILL CONT TO MONITOR PT.
[2019-12-31] MEDS ORDERED: ASPIRIN 81 MG TABLET CHEW PO ONE (11:30)
[2019-12-31 11:38] LABS: MEAN CORPUSCULAR HEMOGLOBIN 29.8 pg (27.0-34.8); MEAN CORPUSCULAR HGB CONC 33.1 g/dL (32.4-35.8); MEAN PLATELET VOLUME 7.7 fL (7.4-10.4); PLATELET COUNT 193 x10^3/uL (130-400); RED BLOOD COUNT 3.63 x10^6/uL (3.82-5.3); RED CELL DISTRIBUTION WIDTH 16.3 % (9.6-15.2)
[2019-12-31 11:52] LABS: ALBUMIN 2.8 g/dL (3.4-5.0); ANION GAP 6 mmol/L (5-15); BASOPHILS # (AUTO) 0.02 x10^3/uL (0-0.1); BASOPHILS % (AUTO) 1 % (0-1); CHLORIDE 120 mmol/L (98-107); CREATININE 0.85 mg/dL (0.55-1.02); EOSINOPHILS # (AUTO) 0.08 x10^3/uL (0-0.4); EOSINOPHILS % (AUTO) 3 % (1-7); LYMPHOCYTES # (AUTO) 1.15 x10^3/uL (1-3.4); LYMPHOCYTES % (AUTO) 42 % (22-44); MD SCAN; MONOCYTES # (AUTO) 0.29 x10^3/uL (0.2-0.8); MONOCYTES % (AUTO) 11 % (2-9); NEUTROPHILS % (AUTO) 44 % (42-75)
[2019-12-31 11:55] LABS: TROPONIN I < 0.015 ng/mL (0.000-0.045)
[2019-12-31] MEDS ORDERED: CARVEDILOL 25 MG TABLET PO STA (11:58)
[2019-12-31] MEDS ORDERED: CARVEDILOL 3.125 MG TABLET ONE (12:04)
--- NOTE | 2019-12-31 12:05 | NUR ---
DISCUSSED COREG ORDER WITH OSKAR LAYTON. PT'S BP 170/98 AND PER PATIENT "THAT'S GOOD FOR ME". PT MEDICATED WITH ONE TAB 3.125 MG PER VERBAL ORDER BY OSKAR LAYTON. PT WALKING AROUND ROOM. NAD NOTED. SKIN PWD. RESP EVEN AND UNLABORED.
[2019-12-31] MEDS ORDERED: ASPIRIN 81 MG TABLET EC ONE (12:06)
[2019-12-31] MEDS ORDERED: CARVEDILOL 12.5 MG TABLET PO ONE (12:30)
[2019-12-31 12:56] VITALS: BP 189/94
[2019-12-31] MEDS ORDERED: CARVEDILOL 3.125 MG TABLET PO ONE (13:00)
== END 2019-12-31 12:59 | disposition home or self-care (01) ==
LOC: ED 12:50
DX: R07.89 Other chest pain (principal); I45.10 Unspecified right bundle-branch block; R94.31 Abnormal electrocardiogram [ECG] [EKG]
CPT/HCPCS: 36415; 71045; 80048; 82040; 84484; 85025; 93005; 99285

== ENCOUNTER 2020-01-06 12:38 | Inpatient (IN) | payer MEDICARE ==
[~2020-01-06] VITALS: Ht 157.5 cm; Wt 76.2 kg
--- NOTE | 2020-01-06 12:47 | NUR ---
ASA AND NTG EN ROUTE FROM EMS. VERBAL SBAR EXCHANGED IN TRIAGE TENT.
--- NOTE | 2020-01-06 13:01 | NUR ---
PT CAME IN CO OF ANKLE PAIN, COUGH, AND HIGH BP. BP 217/102. PT STATES SHE TALES CARVEDILOL EVERYDAY FOR BP AND IS COMPLIANT. PT HOOKED UP TO RN CHEMICAL DEPENDENCY. BLANKET PROVIDED. CALL LIGHT WITHIN REACH
[2020-01-06] MEDS ORDERED: SODIUM CHLORIDE FLUSH 10ML SYR IVF ONE (13:30)
--- NOTE | 2020-01-06 13:40 | NUR ---
PT RESTING IN [facility]. NAD. MEDICATED PER DEC. BP IS IMPROVING. WILL CONTINUE TO MONITOR.
[2020-01-06 13:54] LABS: ALANINE AMINOTRANSFERASE 12 U/L (12-78); ALBUMIN 3.3 g/dL (3.4-5.0); ANION GAP 9 mmol/L (5-15); CALCIUM 8.4 mg/dL (8.5-10.1); CHLORIDE 116 mmol/L (98-107); CREATININE 1.13 mg/dL (0.55-1.02)
[2020-01-06 13:57] LABS: BASOPHILS # (AUTO) 0.03 x10^3/uL (0-0.1); BASOPHILS % (AUTO) 1 % (0-1); EOSINOPHILS # (AUTO) 0.07 x10^3/uL (0-0.4); EOSINOPHILS % (AUTO) 2 % (1-7); LYMPHOCYTES # (AUTO) 1.36 x10^3/uL (1-3.4); LYMPHOCYTES % (AUTO) 39 % (22-44); MD NO; MEAN CORPUSCULAR HEMOGLOBIN 29.1 pg (27.0-34.8); MEAN CORPUSCULAR HGB CONC 32.6 g/dL (32.4-35.8); MEAN CORPUSCULAR VOLUME 89.1 fL (80-100); MEAN PLATELET VOLUME 7.8 fL (7.4-10.4); MONOCYTES # (AUTO) 0.32 x10^3/uL (0.2-0.8); MONOCYTES % (AUTO) 9 % (2-9); NEUTROPHILS % (AUTO) 49 % (42-75); PLATELET COUNT 212 x10^3/uL (130-400); RED BLOOD COUNT 3.92 x10^6/uL (3.82-5.3); RED CELL DISTRIBUTION WIDTH 16.4 % (9.6-15.2)
[2020-01-06 13:59] LABS: ALKALINE PHOSPHATASE 43 U/L (45-117); BILIRUBIN,TOTAL 0.5 mg/dL (0.2-1.0); TOTAL PROTEIN 6.2 g/dL (6.4-8.2); TROPONIN I < 0.015 ng/mL (0.000-0.045)
[2020-01-06] MEDS ORDERED: POTASSIUM CHLORIDE 40 MEQ in SODIUM CHLORIDE 0.9% 1,000 ML IV ONE (14:13)
[2020-01-06] MEDS ORDERED: POTASSIUM CHLORIDE 20 MEQ TAB.ER.PRT ONE (14:19)
[2020-01-06] MEDS ORDERED: POTASSIUM CHLORIDE 20 MEQ TAB.ER.PRT PO ONE (14:30)
[2020-01-06] MEDS ORDERED: SODIUM CHLORIDE FLUSH 10ML SYR IVF PRN (15:30)
[2020-01-06 15:57] VITALS: BP 165/91
[2020-01-06] MEDS ORDERED: hydrALAzine 20 MG/ML, 1ML IV PRN (17:30)
[2020-01-06] MEDS ORDERED: POTASSIUM CHLORIDE 20 MEQ TAB.ER.PRT PO SCH (17:30)
[2020-01-06] MEDS ORDERED: ONDANSETRON ODT 4 MG PO PRN (17:30)
[2020-01-06] MEDS ORDERED: ACETAMINOPHEN 325 MG TABLET PO PRN (17:30)
[2020-01-06] MEDS ORDERED: DOCUSATE 100 MG CAPSULE PO PRN (17:30)
[2020-01-06] MEDS ORDERED: POLYETHYLENE GLYCOL 17 GM PACKET PO PRN (17:30)
[2020-01-06] MEDS: morphine SULFATE 10 MG/ML, 1ML IVPush PRN ×2 (17:59→21:02)
[2020-01-06] MEDS: HEPARIN 5,000 UNITS/ML, 1ML SQ SCH (17:59)
[2020-01-06] MEDS: CARVEDILOL 25 MG TABLET PO SCH (18:00)
[2020-01-06] MEDS: AMLODIPINE 10 MG TAB PO SCH (18:05)
[2020-01-06 18:10] LABS: MICROSCOPIC NOT IND
[2020-01-06 18:14] LABS: CULTURE INDICATED? NO
[2020-01-06 19:27] LABS: TROPONIN I < 0.015 ng/mL (0.000-0.045)
[2020-01-06 19:45] VITALS: BP 149/83
[2020-01-06] MEDS: ATORVASTATIN 40 MG TABLET PO SCH (21:01)
[2020-01-06] MEDS: NS + 20MEQ KCL 1,000 ML IV SCH (21:01)
[2020-01-07] VITALS (12 sets, daily range): BP systolic 129–199; BP diastolic 75–94
[2020-01-07] MEDS: morphine SULFATE 10 MG/ML, 1ML IVPush PRN ×5 (00:18→21:20)
[2020-01-07 01:20] LABS: BASOPHILS # (AUTO) 0.02 x10^3/uL (0-0.1); BASOPHILS % (AUTO) 1 % (0-1); EOSINOPHILS # (AUTO) 0.08 x10^3/uL (0-0.4); EOSINOPHILS % (AUTO) 2 % (1-7); LYMPHOCYTES % (AUTO) 39 % (22-44); MD NO; MEAN CORPUSCULAR HEMOGLOBIN 29.2 pg (27.0-34.8); MEAN CORPUSCULAR HGB CONC 32.3 g/dL (32.4-35.8); MEAN CORPUSCULAR VOLUME 90.5 fL (80-100); MEAN PLATELET VOLUME 7.7 fL (7.4-10.4); MONOCYTES # (AUTO) 0.32 x10^3/uL (0.2-0.8); MONOCYTES % (AUTO) 10 % (2-9); NEUTROPHILS # (AUTO) 1.65 x10^3/uL (1.8-6.8); NEUTROPHILS % (AUTO) 49 % (42-75); PLATELET COUNT 186 x10^3/uL (130-400); RED BLOOD COUNT 3.63 x10^6/uL (3.82-5.3); RED CELL DISTRIBUTION WIDTH 16.7 % (9.6-15.2)
[2020-01-07 01:29] LABS: ANION GAP 6 mmol/L (5-15); CALCIUM 8.1 mg/dL (8.5-10.1); CHLORIDE 121 mmol/L (98-107); CHOLESTEROL, TOTAL 240 mg/dL (140-239); CREATININE 0.69 mg/dL (0.55-1.02); TRIGLYCERIDES 74 mg/dL (50-200); VLDL CHOLESTEROL 15 mg/dL (0-25)
[2020-01-07 01:31] LABS: CHOL/HDL RATIO 4.5; HDL CHOL % 22 % (28-40); HDL CHOLESTEROL (DIRECT) 53 mg/dL (40-60); LDL CHOLESTEROL,CALCULATED 172 mg/dL (54-169); LDL/HDL RATIO 3.2 (0.5-3.0)
[2020-01-07] MEDS: HEPARIN 5,000 UNITS/ML, 1ML SQ SCH ×3 (01:45→16:58)
[2020-01-07 02:24] LABS: TROPONIN I < 0.015 ng/mL (0.000-0.045)
[2020-01-07] MEDS ORDERED: NITROGLYCERIN 0.4 MG/SPRAY SL PRN (04:00)
[2020-01-07] MEDS: NITROGLYCERIN 0.4 MG BOTTLE (25 TABS) SL PRN ×3 (04:38→04:55)
[2020-01-07] MEDS: CARVEDILOL 25 MG TABLET PO SCH ×2 (06:15→18:13)
[2020-01-07] MEDS: LEVOTHYROXINE 100 MCG TABLET PO SCH (06:15)
[2020-01-07] MEDS: ASPIRIN 325 MG TABLET EC PO SCH (06:15)
[2020-01-07] MEDS: NS + 20MEQ KCL 1,000 ML IV SCH ×2 (09:20→20:00)
[2020-01-07] MEDS: AMLODIPINE 10 MG TAB PO SCH (09:21)
[2020-01-07] MEDS: LISINOPRIL 20 MG TABLET PO SCH (09:21)
[2020-01-07] MEDS: ONDANSETRON 2MG/ML, 2ML IVPush PRN (14:48)
[2020-01-07] MEDS: KETOROLAC 30 MG/1 ML IVPush PRN (17:07)
[2020-01-07] MEDS: ATORVASTATIN 40 MG TABLET PO SCH (21:19)
[2020-01-08] VITALS (14 sets, daily range): BP systolic 130–185; BP diastolic 65–99
[2020-01-08] MEDS: ONDANSETRON 2MG/ML, 2ML IVPush PRN (01:15)
[2020-01-08] MEDS: HEPARIN 5,000 UNITS/ML, 1ML SQ SCH ×3 (01:16→16:25)
[2020-01-08] MEDS: NS + 20MEQ KCL 1,000 ML IV SCH (04:34)
[2020-01-08 05:42] LABS: MEAN CORPUSCULAR HEMOGLOBIN 29.6 pg (27.0-34.8); MEAN CORPUSCULAR HGB CONC 32.6 g/dL (32.4-35.8); MEAN CORPUSCULAR VOLUME 90.8 fL (80-100); MEAN PLATELET VOLUME 7.6 fL (7.4-10.4); PLATELET COUNT 165 x10^3/uL (130-400); RED BLOOD COUNT 3.41 x10^6/uL (3.82-5.3); RED CELL DISTRIBUTION WIDTH 16.4 % (9.6-15.2)
[2020-01-08 05:53] LABS: ANION GAP 4 mmol/L (5-15); CALCIUM 8.2 mg/dL (8.5-10.1); CHLORIDE 118 mmol/L (98-107)
[2020-01-08] MEDS: NITROGLYCERIN 0.4 MG BOTTLE (25 TABS) SL PRN (05:57)
[2020-01-08] MEDS: CARVEDILOL 25 MG TABLET PO SCH ×2 (06:09→18:19)
[2020-01-08] MEDS: LEVOTHYROXINE 100 MCG TABLET PO SCH (06:09)
[2020-01-08] MEDS: ASPIRIN 325 MG TABLET EC PO SCH (06:09)
[2020-01-08] MEDS: morphine SULFATE 10 MG/ML, 1ML IVPush PRN (06:09)
[2020-01-08 06:14] LABS: BASOPHILS # (AUTO) 0.02 x10^3/uL (0-0.1); BASOPHILS % (AUTO) 1 % (0-1); EOSINOPHILS # (AUTO) 0.04 x10^3/uL (0-0.4); EOSINOPHILS % (AUTO) 2 % (1-7); LYMPHOCYTES # (AUTO) 1.03 x10^3/uL (1-3.4); LYMPHOCYTES % (AUTO) 35 % (22-44); MD SCAN; MONOCYTES # (AUTO) 0.29 x10^3/uL (0.2-0.8); MONOCYTES % (AUTO) 10 % (2-9); NEUTROPHILS # (AUTO) 1.54 x10^3/uL (1.8-6.8); NEUTROPHILS % (AUTO) 53 % (42-75)
[2020-01-08] MEDS ORDERED: REGADENOSON 0.4 MG/5 ML SYRINGE ONE (07:53)
[2020-01-08] MEDS: AMLODIPINE 10 MG TAB PO SCH (08:08)
[2020-01-08] MEDS: LISINOPRIL 20 MG TABLET PO SCH (08:09)
[2020-01-08] MEDS: KETOROLAC 30 MG/1 ML IVPush PRN ×2 (10:41→16:55)
--- NOTE | 2020-01-08 13:16 | NUR ---
Pt will need SNF rehab at 5x/week. Addendum: 01/08/20 at 1317 by Dionte Thurston PT Amended: Links added.
[2020-01-08] MEDS: ATORVASTATIN 40 MG TABLET PO SCH ×2 (19:43→20:35)
[2020-01-09] MEDS: HEPARIN 5,000 UNITS/ML, 1ML SQ SCH ×5 (01:30→20:07)
[2020-01-09 04:09] VITALS: BP 157/71
[2020-01-09] MEDS: LEVOTHYROXINE 100 MCG TABLET PO SCH (05:13)
[2020-01-09] MEDS: ASPIRIN 325 MG TABLET EC PO SCH (05:13)
[2020-01-09] MEDS: CARVEDILOL 25 MG TABLET PO SCH ×2 (05:14→17:44)
[2020-01-09 08:16] VITALS: BP 128/74
[2020-01-09] MEDS: AMLODIPINE 10 MG TAB PO SCH (08:50)
[2020-01-09] MEDS: LISINOPRIL 20 MG TABLET PO SCH (08:50)
[2020-01-09 08:59] LABS: MEAN CORPUSCULAR HEMOGLOBIN 29.2 pg (27.0-34.8); MEAN CORPUSCULAR HGB CONC 32.4 g/dL (32.4-35.8); MEAN CORPUSCULAR VOLUME 90.2 fL (80-100); MEAN PLATELET VOLUME 7.6 fL (7.4-10.4); PLATELET COUNT 157 x10^3/uL (130-400); RED BLOOD COUNT 3.68 x10^6/uL (3.82-5.3); RED CELL DISTRIBUTION WIDTH 16.1 % (9.6-15.2)
[2020-01-09 09:11] LABS: ALBUMIN 2.7 g/dL (3.4-5.0); ANION GAP 8 mmol/L (5-15); CALCIUM 8.4 mg/dL (8.5-10.1); CHLORIDE 116 mmol/L (98-107)
[2020-01-09 09:15] LABS: ALANINE AMINOTRANSFERASE 10 U/L (12-78); ALKALINE PHOSPHATASE 35 U/L (45-117); BILIRUBIN,TOTAL 0.3 mg/dL (0.2-1.0); CREATININE 0.75 mg/dL (0.55-1.02); TOTAL PROTEIN 5.3 g/dL (6.4-8.2)
[2020-01-09 10:08] LABS: BASOPHILS # (AUTO) 0.02 x10^3/uL (0-0.1); BASOPHILS % (AUTO) 1 % (0-1); EOSINOPHILS # (AUTO) 0.04 x10^3/uL (0-0.4); EOSINOPHILS % (AUTO) 2 % (1-7); LYMPHOCYTES # (AUTO) 0.91 x10^3/uL (1-3.4); LYMPHOCYTES % (AUTO) 33 % (22-44); MD SCAN; MONOCYTES # (AUTO) 0.27 x10^3/uL (0.2-0.8); MONOCYTES % (AUTO) 10 % (2-9); NEUTROPHILS % (AUTO) 55 % (42-75)
[2020-01-09] MEDS: SODIUM CHLORIDE 0.9% 1,000 ML IV SCH ×2 (11:00→20:06)
[2020-01-09] MEDS ORDERED: MIDAZOLAM 1 MG/ML, 2ML ONE (11:13)
[2020-01-09] MEDS ORDERED: LIDOCAINE-MPF 1%, 5ML ONE (11:14)
[2020-01-09] MEDS ORDERED: HEPARIN 1,000 UNITS/ML, 10ML ONE (11:14)
[2020-01-09] MEDS ORDERED: VERAPAMIL 2.5 MG/ML, 2ML ONE (11:14)
[2020-01-09] MEDS ORDERED: FENTANYL PF 100 MCG/2ML ONE (11:14)
[2020-01-09 13:15] VITALS: BP 150/81
[2020-01-09 17:40] VITALS: BP 153/81
[2020-01-09 20:03] VITALS: BP 123/74
[2020-01-09] MEDS: ATORVASTATIN 40 MG TABLET PO SCH (20:07)
== END 2020-01-09 21:29 | disposition left against medical advice (07) | DRG 286 ==
LOC: ED 13:13 → EDIP 15:07 → 5SO 15:47
PROVIDERS: ADMIT Hospitalist; ATTEND Internal Medicine
PROC: 4A023N7 Measurement of Cardiac Sampling and Pressure, Left Heart, Percutaneous Approach (ICD-10-PCS; principal; 2020-01-09)
PROC: B2111ZZ Fluoroscopy of Multiple Coronary Arteries using Low Osmolar Contrast (ICD-10-PCS; 2020-01-09)
PROC: B2151ZZ Fluoroscopy of Left Heart using Low Osmolar Contrast (ICD-10-PCS; 2020-01-09)
DX: I16.1 Hypertensive emergency (principal); N17.0 Acute kidney failure with tubular necrosis; I13.0 Hypertensive heart and chronic kidney disease with heart failure and stage 1 through stage 4 chronic kidney disease, or unspecified chronic kidney disease; Z86.73 Personal history of transient ischemic attack (TIA), and cerebral infarction without residual deficits; E03.9 Hypothyroidism, unspecified; E11.22 Type 2 diabetes mellitus with diabetic chronic kidney disease; E78.5 Hyperlipidemia, unspecified; E86.0 Dehydration; E87.6 Hypokalemia; F32.9 Major depressive disorder, single episode, unspecified; F41.9 Anxiety disorder, unspecified; G89.29 Other chronic pain; I25.10 Atherosclerotic heart disease of native coronary artery without angina pectoris; I48.91 Unspecified atrial fibrillation; I95.1 Orthostatic hypotension; J44.9 Chronic obstructive pulmonary disease, unspecified; K21.9 Gastro-esophageal reflux disease without esophagitis; K22.70 Barrett's esophagus without dysplasia; I50.9 Heart failure, unspecified; N18.2 Chronic kidney disease, stage 2 (mild); M54.9 Dorsalgia, unspecified; F41.1 Generalized anxiety disorder; M19.90 Unspecified osteoarthritis, unspecified site; Z91.14 Patient's other noncompliance with medication regimen; Z95.0 Presence of cardiac pacemaker
CPT/HCPCS: 36415; 71045; 74177; 78452; 80048; 80053; 80061; 81003; 83036; 83735; 83880; 84439; 84443; 84484; 85025; 93005; 93017; 93306; 93458; 96374; 99156; C1769; C1894; G0378; J1644; J1885; J2250; J2405; J2785; J3010; J3480; A9502; J0360; J2270; J7030; Q0177; Q9967

== ENCOUNTER 2020-01-19 03:01 | Emergency (ER) | payer MEDICARE ==
[~2020-01-19] VITALS: Ht 157.5 cm; Wt 85.0 kg
[2020-01-19 03:07] VITALS: BP 186/83
--- NOTE | 2020-01-19 03:27 | NUR ---
THIS IS A 74Y F THAT ARRIVED HERE BY ISABEL MOSCOSO. PT STS SHE IS VOIMTING BLOOD, FEELING SOB, CP AND HER HAND LIGAMENTS ARE TIGHT. PT CONNECTED TO MONITORING. VSS, DERRICKN. PT NOW REQ SNACKS FROM [facility]. PT INFORMED THAT TESTING NEEDS TO BE COMPLETE AND RESULTED PRIOR TO PRODIVING PO INTAKE. PT NOW WONDERING HOW LONG THIS WHOLE VIRUS THING IS GOING TO LAST AND STS I GOT ALL MY BOOSTER SHOTS IN [place] IN 1950 SO I DONT HAVE TO WORRY ABOUT ALL THAT. PT RESTING ON SURY AWAITING ORDERS AT THIS TIME
[2020-01-19 03:47] LABS: BASOPHILS # (AUTO) 0.03 x10^3/uL (0-0.1); BASOPHILS % (AUTO) 1 % (0-1); EOSINOPHILS % (AUTO) 0 % (1-7); LYMPHOCYTES # (AUTO) 0.91 x10^3/uL (1-3.4); LYMPHOCYTES % (AUTO) 14 % (22-44); MD NO; MEAN CORPUSCULAR HEMOGLOBIN 29.3 pg (27.0-34.8); MEAN CORPUSCULAR VOLUME 88.7 fL (80-100); MEAN PLATELET VOLUME 8.3 fL (7.4-10.4); MONOCYTES # (AUTO) 0.47 x10^3/uL (0.2-0.8); MONOCYTES % (AUTO) 7 % (2-9); NEUTROPHILS # (AUTO) 5.24 x10^3/uL (1.8-6.8); NEUTROPHILS % (AUTO) 79 % (42-75); PLATELET COUNT 210 x10^3/uL (130-400); RED BLOOD COUNT 3.52 x10^6/uL (3.82-5.3); RED CELL DISTRIBUTION WIDTH 16.7 % (9.6-15.2)
[2020-01-19 03:57] LABS: ALBUMIN 3.2 g/dL (3.4-5.0); ANION GAP 7 mmol/L (5-15); CALCIUM 8.9 mg/dL (8.5-10.1); CHLORIDE 113 mmol/L (98-107)
[2020-01-19 04:00] LABS: TROPONIN I < 0.015 ng/mL (0.000-0.045)
--- NOTE | 2020-01-19 05:21 | NUR ---
Patient/Caregiver given discharge instructions and they have confirmed that they understand the instructions. Patient ambulatory with steady gait.
== END 2020-01-19 05:22 | disposition home or self-care (01) ==
LOC: ED 03:43
DX: R05 Cough (principal); J00 Acute nasopharyngitis [common cold]; I12.9 Hypertensive chronic kidney disease with stage 1 through stage 4 chronic kidney disease, or unspecified chronic kidney disease; N18.2 Chronic kidney disease, stage 2 (mild); E11.22 Type 2 diabetes mellitus with diabetic chronic kidney disease; K21.9 Gastro-esophageal reflux disease without esophagitis; Z86.73 Personal history of transient ischemic attack (TIA), and cerebral infarction without residual deficits; E03.9 Hypothyroidism, unspecified; Z90.89 Acquired absence of other organs; Z90.49 Acquired absence of other specified parts of digestive tract; Z95.0 Presence of cardiac pacemaker; Z90.710 Acquired absence of both cervix and uterus
CPT/HCPCS: 36415; 71045; 80048; 82040; 84484; 85025; 93005; 99285

== ENCOUNTER 2020-01-29 14:27 | Emergency (ER) | payer MEDICARE ==
[~2020-01-29] VITALS: Ht 157.5 cm; Wt 76.5 kg
[2020-01-29 14:39] VITALS: BP 167/82
--- NOTE | 2020-01-29 14:44 | NUR ---
PT STATES TO THIS RN, I DON'T WANT TO SEE NO DOCTOR. MY BP IS FINE, I JUST WANTED TO KNOW. I'M GOING BACK TO [place]
--- NOTE | 2020-01-29 14:45 | NUR ---
PT LEFT AMBULATORY WITH UPRIGHT STEADY GAIT. NO ACUTE DISTRESS NOTED.
== END 2020-01-29 14:47 | disposition left against medical advice (07) ==
LOC: ED 14:35
DX: R07.9 Chest pain, unspecified (principal); R06.02 Shortness of breath; Z53.21 Procedure and treatment not carried out due to patient leaving prior to being seen by health care provider

== ENCOUNTER 2020-02-18 13:30 | Emergency (ER) | payer MEDICARE ==
[~2020-02-18] VITALS: Ht 162.6 cm; Wt 74.2 kg
--- NOTE | 2020-02-18 14:43 | NUR ---
"SOB GOT FLUID AROUND MY LUNGS. THAT PAPER TELLS IT ALL" REFIERING TO PACKET BROUGHT BY PT. RECENT EKG, CHEST X RAY. PATIENT WAS TOLD TO COME IN BY URGENT CARE FOR FLUID ON HER LUNGS.
[2020-02-18 14:44] VITALS: BP 195/96
--- NOTE | 2020-02-18 15:11 | NUR ---
Pt flori could not get DC vitals and did not give dc papers
== END 2020-02-18 15:17 | disposition left against medical advice (07) ==
LOC: ED 14:25
DX: R06.00 Dyspnea, unspecified (principal); J44.9 Chronic obstructive pulmonary disease, unspecified; I13.0 Hypertensive heart and chronic kidney disease with heart failure and stage 1 through stage 4 chronic kidney disease, or unspecified chronic kidney disease; I50.9 Heart failure, unspecified; I25.10 Atherosclerotic heart disease of native coronary artery without angina pectoris; N18.2 Chronic kidney disease, stage 2 (mild); I48.91 Unspecified atrial fibrillation; G89.29 Other chronic pain; E03.9 Hypothyroidism, unspecified; E78.5 Hyperlipidemia, unspecified; Z86.73 Personal history of transient ischemic attack (TIA), and cerebral infarction without residual deficits
CPT/HCPCS: 99281

== ENCOUNTER 2020-03-03 11:54 | Emergency (ER) | payer MEDICARE ==
[~2020-03-03] VITALS: Ht 157.5 cm; Wt 72.0 kg
[2020-03-03] MEDS ORDERED: KETOROLAC 30 MG/1 ML IM ONE (12:30)
--- NOTE | 2020-03-03 12:30 | NUR ---
PT ABLE TO GET SELF IN GOWN, SITTING IN BED, VSS. WORK OF BREATHING NOTED. WILL CONTINUE TO MONITOR AND WATCH FOR ORDERS.
[2020-03-03] MEDS ORDERED: KETOROLAC 30 MG/1 ML ONE (12:34)
[2020-03-03 12:41] LABS: BASOPHILS # (AUTO) 0.02 x10^3/uL (0-0.1); BASOPHILS % (AUTO) 1 % (0-1); EOSINOPHILS # (AUTO) 0.07 x10^3/uL (0-0.4); EOSINOPHILS % (AUTO) 2 % (1-7); LYMPHOCYTES # (AUTO) 1.13 x10^3/uL (1-3.4); LYMPHOCYTES % (AUTO) 36 % (22-44); MD NO; MEAN CORPUSCULAR HEMOGLOBIN 27.9 pg (27.0-34.8); MEAN CORPUSCULAR HGB CONC 31.9 g/dL (32.4-35.8); MEAN CORPUSCULAR VOLUME 87.5 fL (80-100); MEAN PLATELET VOLUME 7.6 fL (7.4-10.4); MONOCYTES # (AUTO) 0.27 x10^3/uL (0.2-0.8); MONOCYTES % (AUTO) 9 % (2-9); NEUTROPHILS # (AUTO) 1.64 x10^3/uL (1.8-6.8); NEUTROPHILS % (AUTO) 52 % (42-75); PLATELET COUNT 208 x10^3/uL (130-400); RED BLOOD COUNT 3.93 x10^6/uL (3.82-5.3); RED CELL DISTRIBUTION WIDTH 16.8 % (9.6-15.2)
--- NOTE | 2020-03-03 12:51 | NUR ---
PT TO IMAGING.
[2020-03-03 12:55] LABS: ALBUMIN 3.2 g/dL (3.4-5.0); ANION GAP 9 mmol/L (5-15); CALCIUM 8.5 mg/dL (8.5-10.1); CHLORIDE 115 mmol/L (98-107); CREATININE 1.11 mg/dL (0.55-1.02)
--- NOTE | 2020-03-03 13:16 | NUR ---
PT SITTING IN BED, VSS, WILL CONTINUE TO MONITOR.
[2020-03-03 13:21] VITALS: BP 112/83
--- NOTE | 2020-03-03 14:02 | NUR ---
PT SITTING IN BED, ALL MONITORS PULLED OFF BY PT AND PT DRESSED SELF. LIGHTS OFF PER PT WISHES. NO SIGNS OF DISTRESS. EYES CLOSED, RESPIRATIONS EVEN AND UNLABORED.
== END 2020-03-03 14:47 | disposition home or self-care (01) ==
LOC: ED 13:46
DX: M54.5 Low back pain (principal); R20.2 Paresthesia of skin; R11.2 Nausea with vomiting, unspecified; R06.02 Shortness of breath; R94.31 Abnormal electrocardiogram [ECG] [EKG]; I13.0 Hypertensive heart and chronic kidney disease with heart failure and stage 1 through stage 4 chronic kidney disease, or unspecified chronic kidney disease; I50.9 Heart failure, unspecified; N18.2 Chronic kidney disease, stage 2 (mild); E11.22 Type 2 diabetes mellitus with diabetic chronic kidney disease; J44.9 Chronic obstructive pulmonary disease, unspecified; I25.10 Atherosclerotic heart disease of native coronary artery without angina pectoris; I48.91 Unspecified atrial fibrillation; Z86.73 Personal history of transient ischemic attack (TIA), and cerebral infarction without residual deficits
CPT/HCPCS: 36415; 71045; 72110; 80048; 82040; 83880; 85025; 93005; 96372; 99285; J1885

== ENCOUNTER 2020-10-14 08:01 | Emergency (ER) | payer MEDICARE ==
[~2020-10-14] VITALS: Ht 157.5 cm; Wt 84.4 kg
[~2020-10-14 08:01] MED LIST changes: +AMLO-211 PO; -AMLO10TA8 PO; +LORA-59 PO; -LORA10TA62 PO; -MECL12.581 PO; +MECL12.582 PO; -PANT40TA5 PO; +PANT40TA6 PO; -TIZA2TAB2 PO; +TIZA2TAB4 PO
[2020-10-14] MEDS ORDERED: HYDROcodone/APAP 5/325 TABLET ONE (08:09)
[2020-10-14] MEDS ORDERED: METHOCARBAMOL 750 MG TABLET ONE (08:09)
--- NOTE | 2020-10-14 08:20 | NUR ---
"The floor upstairs flooded, so I was moving boxes 12 days ago and I hurt my back." Pt states hx of polio. Pt able to ambulate with cane and grabbing wall. This RN educated and encouraged use of walker. Pt denied. "This is how I get around my house, I trip with a walker. I'm fine." Pt educated about clean floors to reduce fall risk. Communicated understanding.
[2020-10-14] MEDS ORDERED: METHOCARBAMOL 750 MG TABLET PO ONE (08:30)
[2020-10-14] MEDS ORDERED: HYDROcodone/APAP 5/325 TABLET PO ONE (08:30)
--- NOTE | 2020-10-14 08:39 | NUR ---
Pt ambulatory to bathroom, steady gait with cane.
--- NOTE | 2020-10-14 08:47 | NUR ---
Pt to imaging.
[2020-10-14 09:33] LABS: MICROSCOPIC INDICATED
--- NOTE | 2020-10-14 09:51 | NUR ---
Pt put her own bedrail down and disconnected self from monitors. "How long have I been here? Where are my results? I want to go home." ERP updated.
[2020-10-14 10:09] VITALS: BP 176/86
== END 2020-10-14 10:21 | disposition home or self-care (01) ==
LOC: ED 10:10
DX: S39.012A Strain of muscle, fascia and tendon of lower back, initial encounter (principal); I13.0 Hypertensive heart and chronic kidney disease with heart failure and stage 1 through stage 4 chronic kidney disease, or unspecified chronic kidney disease; N18.2 Chronic kidney disease, stage 2 (mild); I50.9 Heart failure, unspecified; I25.10 Atherosclerotic heart disease of native coronary artery without angina pectoris; E11.22 Type 2 diabetes mellitus with diabetic chronic kidney disease; E03.9 Hypothyroidism, unspecified; E78.5 Hyperlipidemia, unspecified; J44.9 Chronic obstructive pulmonary disease, unspecified; Z90.89 Acquired absence of other organs; Z90.49 Acquired absence of other specified parts of digestive tract; Z90.710 Acquired absence of both cervix and uterus; X58.XXXA Exposure to other specified factors, initial encounter; Y93.89 Activity, other specified; Y92.89 Other specified places as the place of occurrence of the external cause; Y99.8 Other external cause status
CPT/HCPCS: 72110; 81001; 87086; 99284

== ENCOUNTER 2020-10-19 00:46 | Emergency (ER) | payer MEDICARE ==
[~2020-10-19] VITALS: Ht 157.5 cm; Wt 86.7 kg
--- NOTE | 2020-10-19 01:05 | NUR ---
INITIAL PT CONTACT. PT PRESENTS TO ED C/O PAIN TO RIGHT HIP AND RIGHT LOWER BACK X 22 DAYS. PT WAS LIFTING BOXES DUE TO FLOODING IN APT WHEN PAIN ORIGINALLY BEGAN. PT DENIES ANY BOWEL OR BLADDER INCONTINENCE. PT SITTING UPRIGHT ON GURNEY, NAD, VSS. PT DENIES ANY NEEDS AT THIS TIME. CALL LIGHT AND PERSONAL BELONGINGS WITHIN REACH.
--- NOTE | 2020-10-19 01:19 | NUR ---
ERP AT BEDSIDE
[2020-10-19] MEDS ORDERED: OXYcodone/APAP 5/325MG TABLET ONE (01:28)
[2020-10-19] MEDS ORDERED: HYDROcodone/APAP 5/325 TABLET PO ONE (01:30)
--- NOTE | 2020-10-19 01:39 | NUR ---
pt awake and alert, and c/o pain. meds given per EMAR, and pt tolerated well. farm equipment service technician to bedside to take pt for xrays.
--- NOTE | 2020-10-19 01:58 | NUR ---
PT RETURNED FROM IMAGING
--- NOTE | 2020-10-19 02:07 | NUR ---
PT UP TO BATHROOM WITH THIS RN, TOLERATED WELL. PT REPORTS MILD RELIEF IN PAIN FOLLOWING KICK PRESS OPERATOR. NO ADDITIONAL NEEDS AT THIS TIME. CALL LIGHT AND PERSONAL BELONGINGS WITHIN REACH.
[2020-10-19 02:08] VITALS: BP 128/83
--- NOTE | 2020-10-19 03:03 | NUR ---
PT UP TO BATHROOM BY SELF WITH USE OF PERSONAL CANE. STEADY GAIT. PT DENIES ANY ADDITIONAL NEEDS AT THIS TIME. CALL LIGHT AND PERSONAL BELONGINGS WITHIN REACH.
--- NOTE | 2020-10-19 03:35 | NUR ---
PT REFUSED REPEAT VITALS UPON D/C FROM ED.
--- NOTE | 2020-10-19 03:42 | NUR ---
Patient/Caregiver given discharge instructions and they have confirmed that they understand the instructions. Patient to d/c desk via wheelchair.
== END 2020-10-19 03:45 | disposition home or self-care (01) ==
LOC: ED 01:16
DX: S76.011A Strain of muscle, fascia and tendon of right hip, initial encounter (principal); L03.116 Cellulitis of left lower limb; R60.0 Localized edema; I10 Essential (primary) hypertension; X58.XXXA Exposure to other specified factors, initial encounter; Y93.89 Activity, other specified; Y92.89 Other specified places as the place of occurrence of the external cause; Y99.8 Other external cause status
CPT/HCPCS: 99284

== ENCOUNTER 2020-10-22 13:09 | Emergency (ER) | payer MEDICARE ==
[~2020-10-22] VITALS: Ht 157.5 cm; Wt 80.0 kg
[~2020-10-22 13:09] MED LIST changes: +TIZA-106 PO; -TIZA2TAB4 PO
[2020-10-22 13:18] VITALS: BP 152/89
--- NOTE | 2020-10-22 13:24 | NUR ---
RIGHT HIP AND LOW BACK PAIN AFTER MOVING BOXES
[2020-10-22] MEDS ORDERED: OXYcodone/APAP 5/325MG TABLET ONE (13:42)
--- NOTE | 2020-10-22 13:51 | NUR ---
PT SITTING UP IN CHAIR. MEDICATED NOTED ON MAR FOR PAIN
[2020-10-22] MEDS ORDERED: OXYcodone/APAP 5/325MG TABLET PO ONE (14:00)
== END 2020-10-22 15:12 | disposition home or self-care (01) ==
LOC: ED 14:30
DX: G89.29 Other chronic pain (principal); M54.5 Low back pain; M54.16 Radiculopathy, lumbar region; I10 Essential (primary) hypertension; M25.551 Pain in right hip
CPT/HCPCS: 99283

== ENCOUNTER 2020-10-24 18:39 | Emergency (ER) | payer MEDICARE ==
[~2020-10-24] VITALS: Ht 157.5 cm; Wt 84.6 kg
--- NOTE | 2020-10-24 18:47 | NUR ---
THIS IS A 75 YOF BIB EMS W/ C/O RT SHOULDER X3 DAYS S/P INJURY WHILE LIFTING BOXES X28 DAYS AGO. SEEN 3 TIMES FOR BACK PAIN R/T SAME INCIDENT. PT REPORTS INJURY WAS 09/28/20. PT STATES THAT SHE WAS UNABLE TO F/U W/ ORTHO BECAUSE THEY ARE BOOKED OUT X3 MONTHS. PT RESTING ON [employer] W/ CALL LIGHT IN REACH AND SIDE RAILS UPX2. HYPERTENSIVE, OTHER VS WDL. AT BEDSIDE.
--- NOTE | 2020-10-24 18:58 | NUR ---
RAD IN ROOM.
[2020-10-24] MEDS ORDERED: KETOROLAC 30 MG/1 ML IM ONE (19:00)
--- NOTE | 2020-10-24 19:01 | NUR ---
REPORT FROM KELLY JACKSON.
[2020-10-24] MEDS ORDERED: KETOROLAC 30 MG/1 ML ONE (19:03)
[2020-10-24 19:51] VITALS: BP 154/82
== END 2020-10-24 19:54 | disposition home or self-care (01) ==
LOC: ED 19:47
DX: G89.29 Other chronic pain (principal); M25.511 Pain in right shoulder; I48.91 Unspecified atrial fibrillation; E78.5 Hyperlipidemia, unspecified; I13.0 Hypertensive heart and chronic kidney disease with heart failure and stage 1 through stage 4 chronic kidney disease, or unspecified chronic kidney disease; N18.2 Chronic kidney disease, stage 2 (mild); E11.22 Type 2 diabetes mellitus with diabetic chronic kidney disease; J44.9 Chronic obstructive pulmonary disease, unspecified; I25.10 Atherosclerotic heart disease of native coronary artery without angina pectoris; Z95.0 Presence of cardiac pacemaker; Z90.89 Acquired absence of other organs; Z90.49 Acquired absence of other specified parts of digestive tract; Z86.73 Personal history of transient ischemic attack (TIA), and cerebral infarction without residual deficits
CPT/HCPCS: 73030; 96372; 99283; J1885

== ENCOUNTER 2020-10-28 10:38 | Emergency (ER) | payer MEDICARE ==
[~2020-10-28] VITALS: Ht 157.5 cm; Wt 76.0 kg
[2020-10-28 10:46] VITALS: BP 172/61
--- NOTE | 2020-10-28 10:52 | NUR ---
PT BIB [facility] FROM HOME AFTER [facility] LAST NIGHT INCREASING PT'S EXISTING (X1 MONTH) HIP PAIN. PT REPORTS NO LOC. ABLE TO GET UP OFF FLOOR. SHE REPORTS TRIPPING ON A CORD SHE KEEPS ACROSS HER HALLWAY, AND DENIES ANY SYMPTOMS OF DIZZINESS PRECIPITATING FALL. PT SHOW NAD AT THIS TIME. RT HIP SHOWS NO EVIDENCE OF TRAUMA. PT SITTING RECLINED IN BED WITH LEGS CROSSED, APPEARS COMFORTABLE. CURRENTLY AWAITING ERMD EVALUATION.
[2020-10-28] MEDS ORDERED: ACETAMINOPHEN 500 MG TABLET ONE (11:11)
[2020-10-28] MEDS ORDERED: ACETAMINOPHEN 500 MG TABLET PO ONE (11:30)
--- NOTE | 2020-10-28 11:32 | NUR ---
PT REQUESTS BATHROOM, REFUSES BEDPAN DESPITE POSSIBILITY OF HIP FX. RN EDUCATED PT ON RISKS OF GETTING UP TO BATHROOM. PT REFUSES TO USE BEDPAN AND INSISTS ON BEING TAKEN IN WHEELCHAIR TO BATHROOM. PT ASKS RN TO LEAVE BATHROOM DURING USE.
--- NOTE | 2020-10-28 11:37 | NUR ---
PT BROUGHT BACK TO ED ROOM VIA WHEELCHAIR. BACK TO [facility] AND PRESENTLY TAKEN TO XRAY. NAD NOTED.
--- NOTE | 2020-10-28 12:20 | NUR ---
PT UP TO BEDSIDE COMMODE BY SECONDARY RN. PT AWARE OF IMPENDING DC.
== END 2020-10-28 12:43 | disposition home or self-care (01) ==
LOC: ED 11:11
DX: S70.01XA Contusion of right hip, initial encounter (principal); S80.01XA Contusion of right knee, initial encounter; I11.0 Hypertensive heart disease with heart failure; I50.9 Heart failure, unspecified; I25.2 Old myocardial infarction; J44.9 Chronic obstructive pulmonary disease, unspecified; K21.9 Gastro-esophageal reflux disease without esophagitis; I48.91 Unspecified atrial fibrillation; E03.9 Hypothyroidism, unspecified; E78.5 Hyperlipidemia, unspecified; Z86.73 Personal history of transient ischemic attack (TIA), and cerebral infarction without residual deficits; Z90.89 Acquired absence of other organs; Z90.49 Acquired absence of other specified parts of digestive tract; Z90.710 Acquired absence of both cervix and uterus; Z95.0 Presence of cardiac pacemaker; W18.30XA Fall on same level, unspecified, initial encounter; Y93.89 Activity, other specified; Y92.009 Unspecified place in unspecified non-institutional (private) residence as the place of occurrence of the external cause; Y99.8 Other external cause status
CPT/HCPCS: 99283

== ENCOUNTER 2020-11-11 20:19 | Emergency (ER) | payer MEDICARE ==
[~2020-11-11] VITALS: Ht 157.5 cm; Wt 73.0 kg
--- NOTE | 2020-11-11 20:25 | NUR ---
BIB AMBULANCE FROM HOME, PRIMARY CALL FOR DOUBLE VISION PER EMS. PT REPORTS "TAKING OUT TRASH LAST NIGHT, SLIPPED AND CAUGHT MYSELF ON RAILING,HIT MY HEAD ON THE DOOR, DIDN'T PASS OUT OR ANYHING,I HAVE DOUBLE VISION BUT SINCE LAST NIGHT HAS BEEN WORSE, LIKE WAVES AND LINES AND BLURRED, MIDDLETON TOO. THEN THE LAST 2 DAYS HAVE BEEN THROWING UP, CAN ONLY DRINK SODA AND KEEP THAT DOWN, NAUSEATED, CP ON AND OFF, DIZZY ON AND OFF TOO." CONT PULSE OX, BP, CARDIAC MONITORS APPLIED. PACED, SR ON MONITOR. BP ELEVATED, REPORTS HX HTN. CALL LIGHT IN REACH. FALL PRECUATIONS IN PLACE. SIDE RAILS UPX2. ASSESSMENT COMPLETED. NEURO AND CMS INTACT. SPEECH CLEAR. REPORTS 8/10 MIDDLETON PAIN AT THIS TIME, DIZZINESS AND BLURRED VISION. DENIES LOC WITH FALL HS, AND ANY CP, SOB, FEVER, CHILLS, NAUSEA, DIARRHEA AT THIS TIME. "JUST THREW UP TWICE THIS MORNING." AWAITING EVAL BY ERP. A&OX4.
--- NOTE | 2020-11-11 20:40 | NUR ---
PT AMBULATORY TO RESTROOM WITH STEADY GAIT WITH OWN CANE, STANDBY ASSIST. CLEAN CATCH UA COLLECTED IF NEEDED ONCE ERP ABRAHAM PT.
--- NOTE | 2020-11-11 20:48 | NUR ---
MASTIC SPRAYER AT BEDSIDE FOR EKG, AWAITING EVAL BY ERP. PT PACED ON MONITOR, RATE 60, SR. BP SLIGHTLY IMPROVED FROM ARRIVAL. PT REPORTS TAKING BP MEDICATIONS TODAY. DENIES CP AT THIS TIME.
--- NOTE | 2020-11-11 20:55 | NUR ---
PT PROVIDED ADDITIONAL WARM BLANKETS AND BEAR PAW WARMER PER PT REQUEST.
--- NOTE | 2020-11-11 21:15 | NUR ---
PT CONTINUES AWAITING EVAL BY ERP. NO CHANGES TO VISION OR MIDDLETON. RATES PAIN 05/27. DENIES CP, SOB, N/V/D, DIZZINESS AT THIS TIME.
--- NOTE | 2020-11-11 21:52 | NUR ---
PT STANDING AT DOORWAY OF ROOM, YELLING AND DEMANDING TO SEE DOCTOR, AMBULATING WITHOUT HER CANE WITH STEADY GAIT. STATES "I WILL NOT GET IN BED OR SIT, I'M GOING TO STAND RIGHT HERE AND STARE AT YOU UNTIL THAT DOCTOR COMES TO SEE ME, I'VE BEEN HERE 2 HOURS AND NO DOCTOR HAS COME IN, THAT BED IS HURTING MY CHRONIC BACK PAIN." OFFERED PT ASSISTANCE FOR REPOSITIONING, EXTRA PILLOWS/BLANKETS, PT REFUSED ALL OFFERS. RN OBSERVING PT FOR SAFETY, PT NOW SITTING IN CHAIR AT BEDSIDE. DISCUSSED WITH DR. LAYTON, AWARE OF PT DEMAND/CONCERNS AND REFUSAL TO STAY IN BED/ROOM. HOSPITAL WELLNESS COORDINATOR NOTIFIED. AWAITING DR. LAYTON FOR PT EVALUATION.
--- NOTE | 2020-11-11 22:00 | NUR ---
DR. LAYTON AT BEDSIDE FOR EVALUATION.
--- NOTE | 2020-11-11 22:02 | NUR ---
PT GOT BACK INTO BED WITH DR. LAYTON. PT REQUESTING WARM BLANKETS AND BEAR PAW WARMER, PLACED BACK ON.
--- NOTE | 2020-11-11 22:15 | NUR ---
REPORT AND TRANSFER OF CARE TO ARABELLA JACKSON AT THIS TIME. DISCUSSED POC AND NEED FOR PAIN DIRECTOR OF OPERATIONS SUPPORT ORDERED BY REBECCA, DINORAH.
[2020-11-11] MEDS ORDERED: NAPROXEN 500 MG TABLET PO ONE (22:30)
[2020-11-11] MEDS ORDERED: NAPROXEN 250 MG TABLET ONE (22:56)
[2020-11-11 23:01] VITALS: BP 169/60
== END 2020-11-11 23:33 | disposition home or self-care (01) ==
LOC: ED 21:27
DX: R51.9 Headache, unspecified (principal); I48.91 Unspecified atrial fibrillation; K21.9 Gastro-esophageal reflux disease without esophagitis; J44.9 Chronic obstructive pulmonary disease, unspecified; I13.0 Hypertensive heart and chronic kidney disease with heart failure and stage 1 through stage 4 chronic kidney disease, or unspecified chronic kidney disease; E11.22 Type 2 diabetes mellitus with diabetic chronic kidney disease; N18.2 Chronic kidney disease, stage 2 (mild); I50.9 Heart failure, unspecified
CPT/HCPCS: 70450; 93005; 99284

== ENCOUNTER 2020-11-16 11:35 | Observation (INO) | payer MEDICARE ==
[~2020-11-16] VITALS: Ht 157.5 cm; Wt 77.5 kg
[~2020-11-16 11:35] MED LIST changes: +ASPI-1024 PO; +ASPI-1026 PO; -ASPI-515 PO; -ASPI-650 PO; +ISOS20TA10 PO; -ISOS20TA3 PO; +METH-639 PO; -METH500T7 PO
--- NOTE | 2020-11-16 12:00 | NUR ---
UP TO BS COMMODE W/OUT ASSIST. RETURNED TO BED W/OUT ASSIST. VOIDED SPECIMEN COLLECTED. EKG NOW AT BS
[2020-11-16 12:59] LABS: ALBUMIN 3.5 g/dL (3.4-5.0); ANION GAP 8 mmol/L (5-15); BASOPHILS % (AUTO) 1 % (0-1); CALCIUM 8.5 mg/dL (8.5-10.1); CHLORIDE 116 mmol/L (98-107); CREATININE 1.05 mg/dL (0.55-1.02); EOSINOPHILS % (AUTO) 3 % (1-7); LYMPHOCYTES % (AUTO) 23 % (22-44); MEAN CORPUSCULAR HEMOGLOBIN 23.7 pg (27.0-34.8); MEAN PLATELET VOLUME 8.2 fL (7.4-10.4); MONOCYTES % (AUTO) 10 % (2-9); NEUTROPHILS % (AUTO) 63 % (42-75); PLATELET COUNT 192 x10^3/uL (130-400); RED BLOOD COUNT 4.53 x10^6/uL (3.82-5.3); RED CELL DISTRIBUTION WIDTH 19.6 % (9.6-15.2)
[2020-11-16] MEDS ORDERED: CARVEDILOL 6.25 MG TABLET PO ONE (13:00)
[2020-11-16 13:03] LABS: TROPONIN I 0.058 ng/mL (0.000-0.045)
[2020-11-16 13:03] LABS: MICROSCOPIC AUTO
[2020-11-16] MEDS ORDERED: CARVEDILOL 6.25 MG TABLET ONE (13:19)
[2020-11-16 13:20] LABS: <PLATELET ESTIMATE> ADEQUATE; <PLT MORPHOLOGY> NORMAL PLT MORPH; ANISOCYTOSIS 1+; HYPOCHROMIA 1+; MD MORPH REVIEW ONLY; MICROCYTOSIS 1+; OVALOCYTES 1+; POLYCHROMASIA 1+
--- NOTE | 2020-11-16 13:22 | NUR ---
PT REQUESTING PAIN MED; ERP WILL BE NOTIFIED
--- NOTE | 2020-11-16 13:25 | NUR ---
VO DR DONIS: HOLD APRESOLINE, FOR NOW.
[2020-11-16] MEDS ORDERED: OXYC1TAB14 PO (13:45)
[2020-11-16] MEDS ORDERED: hydrALAzine 20 MG/ML, 1ML ONE (13:54)
[2020-11-16] MEDS ORDERED: MORPHINE SULFATE 4 MG/ML, 1ML ONE ×2 (13:54→19:05)
[2020-11-16] MEDS ORDERED: MORPHINE SULFATE 4 MG/ML, 1ML IVPush ONE (14:00)
[2020-11-16] MEDS ORDERED: hydrALAzine 20 MG/ML, 1ML IV ONE (14:00)
--- NOTE | 2020-11-16 14:05 | NUR ---
MORPHINE AND APRESOLINE GIVEN PER EMAR. IV SITE PATENT. MONITORING CONTINUING. SIDE RAIL UP X1, CALL LIGHT W/IN REACH, COMMODE CHAIR AT BS.
[2020-11-16] MEDS ORDERED: ASPIRIN 81 MG TABLET CHEW PO ONE (15:00)
[2020-11-16] MEDS ORDERED: ASPIRIN 81 MG TABLET CHEW ONE (15:36)
--- NOTE | 2020-11-16 15:42 | NUR ---
ASA GIVEN PER EMAR. STATES MORPHINE HELPED W/ THE RT HIP PAIN & CP. RATES GENERAL PAIN AT 06/27. PT NOW C/O LLQ PAIN, STATES "I have a bladder infection"
--- NOTE | 2020-11-16 15:50 | NUR ---
CALLED RECEIVING UNIT; RN NOT CURRENTLY AVAILABLE, BUT WILL CALL BACK.
[2020-11-16] MEDS ORDERED: TRAZODONE 50MG TABLET PO PRN (16:00)
[2020-11-16] MEDS ORDERED: ENALAPRILAT 1.25 MG/ML, 2ML IVPush PRN (16:00)
[2020-11-16] MEDS ORDERED: ONDANSETRON ODT 4 MG PO PRN (16:00)
[2020-11-16] MEDS ORDERED: ONDANSETRON 2MG/ML, 2ML IVPush PRN (16:00)
[2020-11-16] MEDS ORDERED: ACETAMINOPHEN 325 MG TABLET PO PRN (16:00)
--- NOTE | 2020-11-16 16:12 | NUR ---
PT REPORT TO MANUEL MALONE FOR ROOM 493
[2020-11-16] MEDS ORDERED: POTASSIUM CHLORIDE 20 MEQ TAB.ER.PRT PO ONE (16:30)
[2020-11-16 16:49] VITALS: BP 180/91
[2020-11-16 16:51] VITALS: BP 176/83
[2020-11-16] MEDS: OXYcodone/APAP 5/325MG TABLET PO PRN ×2 (17:48→23:47)
[2020-11-16] MEDS: hydrALAzine 20 MG/ML, 1ML IVPush PRN (17:49)
[2020-11-16] MEDS ORDERED: NITROGLYCERIN 0.4 MG/SPRAY SL PRN (18:30)
[2020-11-16] MEDS ORDERED: NITROGLYCERIN 0.4 MG BOTTLE (25 TABS) SL ONE (18:31)
[2020-11-16] MEDS: NITROGLYCERIN 0.4 MG BOTTLE (25 TABS) SL PRN ×3 (18:36→18:52)
[2020-11-16 19:16] VITALS: BP 138/67
[2020-11-16] MEDS: OMEPRAZOLE 20 MG CAPSULE.DR PO SCH (19:22)
[2020-11-16] MEDS: METHOCARBAMOL 500 MG TABLET PO SCH (19:22)
[2020-11-16] MEDS ORDERED: MORPHINE SULFATE 4 MG/ML, 1ML IVPush PRN ×2 (19:30→21:10)
[2020-11-16 19:42] VITALS: BP 149/73
[2020-11-16 19:53] LABS: TROPONIN I 0.055 ng/mL (0.000-0.045)
[2020-11-16] MEDS ORDERED: CARVEDILOL 25 MG TABLET PO SCH (21:00)
[2020-11-17 01:20] LABS: TROPONIN I 0.037 ng/mL (0.000-0.045)
[2020-11-17 01:43] VITALS: BP 152/70
[2020-11-17] MEDS ORDERED: IBUPROFEN 800 MG TABLET PO PRN (02:00)
[2020-11-17] MEDS ORDERED: LEVOTHYROXINE 100 MCG TABLET PO SCH (06:00)
[2020-11-17 06:13] LABS: BASOPHILS % (AUTO) 2 % (0-1); EOSINOPHILS % (AUTO) 5 % (1-7); LYMPHOCYTES % (AUTO) 45 % (22-44); MEAN CORPUSCULAR HEMOGLOBIN 23.6 pg (27.0-34.8); MEAN CORPUSCULAR HGB CONC 31.4 g/dL (32.4-35.8); MEAN PLATELET VOLUME 8.5 fL (7.4-10.4); MONOCYTES % (AUTO) 12 % (2-9); NEUTROPHILS % (AUTO) 37 % (42-75); PLATELET COUNT 140 x10^3/uL (130-400); RED BLOOD COUNT 4.31 x10^6/uL (3.82-5.3); RED CELL DISTRIBUTION WIDTH 19.8 % (9.6-15.2)
[2020-11-17 06:20] LABS: TROPONIN I 0.028 ng/mL (0.000-0.045)
[2020-11-17 07:18] VITALS: BP 180/74
[2020-11-17 07:26] LABS: MD SCAN
[2020-11-17 09:00] LABS: ANION GAP 5 mmol/L (5-15); CALCIUM 8.4 mg/dL (8.5-10.1); CHLORIDE 115 mmol/L (98-107); CREATININE 1.02 mg/dL (0.55-1.02)
[2020-11-17 09:04] LABS: TROPONIN I 0.026 ng/mL (0.000-0.045)
[2020-11-17] MEDS: hydrALAzine 20 MG/ML, 1ML IVPush PRN (09:08)
[2020-11-17] MEDS: METHOCARBAMOL 500 MG TABLET PO SCH (09:08)
[2020-11-17] MEDS: OMEPRAZOLE 20 MG CAPSULE.DR PO SCH (09:08)
[2020-11-17] MEDS: OXYcodone/APAP 5/325MG TABLET PO PRN (09:29)
[2020-11-17] MEDS ORDERED: LISI-167 PO (09:36)
[2020-11-17] MEDS ORDERED: LISINOPRIL 10 MG TABLET PO SCH (10:00)
[2020-11-17 12:20] VITALS: BP 157/72
== END 2020-11-17 15:18 | disposition home or self-care (01) ==
LOC: ED 13:22 → EDIP 14:38 → INTOOBSV 14:38 → 4EST 16:36
PROVIDERS: ADMIT Hospitalist; ATTEND Hospitalist
DX: I16.0 Hypertensive urgency (principal); Z20.822 Contact with and (suspected) exposure to COVID-19; E66.9 Obesity, unspecified; M79.10 Myalgia, unspecified site; R60.0 Localized edema; J44.9 Chronic obstructive pulmonary disease, unspecified; G25.0 Essential tremor; I10 Essential (primary) hypertension; B34.9 Viral infection, unspecified; G89.29 Other chronic pain; M25.551 Pain in right hip; Z95.0 Presence of cardiac pacemaker; Z79.899 Other long term (current) drug therapy; Z90.710 Acquired absence of both cervix and uterus
CPT/HCPCS: 36415; 71045; 80048; 81001; 82040; 83735; 84484; 85025; 87086; 87635; 93005; 96374; 96375; 96376; 99285; G0378; J0360; J2270; J2405

== ENCOUNTER 2020-11-22 16:22 | Emergency (ER) | payer MEDICARE ==
[~2020-11-22 16:22] MED LIST changes: -ASPI-1024 PO; +ASPI-963 PO; +OXYC1TAB14 PO
[2020-11-22 16:28] VITALS: BP 146/84
--- NOTE | 2020-11-22 16:35 | NUR ---
BIB [facility] FROM HOME. PT C/O CP AT 1000 THIS AM WHILE AT STORE. REFURBISH TECHNICIAN [facility]: ASPIRIN 324 PT CONNECTED TO MONITORING. CALL LIGHT IN REACH.
[2020-11-22 16:57] LABS: BASOPHILS % (AUTO) 0 % (0-1); EOSINOPHILS % (AUTO) 4 % (1-7); LYMPHOCYTES % (AUTO) 38 % (22-44); MEAN CORPUSCULAR HEMOGLOBIN 23.8 pg (27.0-34.8); MEAN CORPUSCULAR HGB CONC 31.6 g/dL (32.4-35.8); MONOCYTES % (AUTO) 9 % (2-9); NEUTROPHILS % (AUTO) 49 % (42-75); PLATELET COUNT 229 x10^3/uL (130-400); RED CELL DISTRIBUTION WIDTH 20.2 % (9.6-15.2)
[2020-11-22 17:01] LABS: MD NO
[2020-11-22 17:07] LABS: ALBUMIN 3.3 g/dL (3.4-5.0); ANION GAP 6 mmol/L (5-15); CALCIUM 8.6 mg/dL (8.5-10.1); CHLORIDE 116 mmol/L (98-107); CREATININE 1.17 mg/dL (0.55-1.02)
[2020-11-22 17:11] LABS: TROPONIN I < 0.015 ng/mL (0.000-0.045)
== END 2020-11-22 17:48 | disposition home or self-care (01) ==
LOC: ED 17:00
DX: R07.89 Other chest pain (principal); R42 Dizziness and giddiness; E11.9 Type 2 diabetes mellitus without complications; I11.0 Hypertensive heart disease with heart failure; I50.9 Heart failure, unspecified; I48.91 Unspecified atrial fibrillation; K21.9 Gastro-esophageal reflux disease without esophagitis; J44.9 Chronic obstructive pulmonary disease, unspecified; E78.5 Hyperlipidemia, unspecified; E03.9 Hypothyroidism, unspecified; I45.10 Unspecified right bundle-branch block; Z95.0 Presence of cardiac pacemaker; Z90.49 Acquired absence of other specified parts of digestive tract; Z86.73 Personal history of transient ischemic attack (TIA), and cerebral infarction without residual deficits; Z90.89 Acquired absence of other organs; Z90.710 Acquired absence of both cervix and uterus
CPT/HCPCS: 36415; 71045; 80048; 82040; 84484; 85025; 93005; 99285

== ENCOUNTER 2020-11-24 13:34 | Emergency (ER) | payer MEDICARE ==
[~2020-11-24] VITALS: Ht 157.5 cm; Wt 68.0 kg
[2020-11-24 13:52] VITALS: BP 106/68
--- NOTE | 2020-11-24 13:52 | NUR ---
PT BIB [facility] FROM HOME W CO INCREASED WEAKNESS, CHEST PAIN, SOB, AND NEAR SYNCOPAL X SEVERAL DAYS. +PRODUCTIVE COUGH W YELLOW SPUTUM. CHEST PAIN IS EXERTIONAL "SHAP" PAIN BILAT CHEST, RADIATING TO BILAT ARMS. PT ALSO CO OF NAUSEA/VOMITING WITH THREE EPISODES OF EMESIS YESTERDAY. ABD SOFT & NON-TENDER AT THIS TIME. RESPIRATIONS EVEN/UNLABORED, RAPID. SPO2 >90% ON RA. BP/SPO2/ECG MONITORING IN PLACE. NSR ON MONITOR. EKG COMPLETED UPON ARRIVAL. PER ERP, NO IV AT THIS TIME. REPORT TO MANUEL ECHEVARRIA
[2020-11-24] MEDS ORDERED: MAALOX/HYOSCYAMINE/LIDOCAINE 45 ML BTL PO ONE (14:00)
[2020-11-24] MEDS ORDERED: CYCL10TA2 PO (14:01)
--- NOTE | 2020-11-24 14:05 | NUR ---
REPORT FROM MANUEL MATHUR.
[2020-11-24] MEDS ORDERED: MAALOX/HYOSCYAMINE/LIDOCAINE 45 ML BTL ONE (14:06)
--- NOTE | 2020-11-24 14:46 | NUR ---
PT GETTING OUT OF BED, PT EDUCATED ON RISK OF FALLING WITHOUT FIRST GETTING ASSISTANCE, PT STATES "I DON'T CARE IF I COLLAPSE OR FALL I AM NOT GETTING BACK IN BED".
--- NOTE | 2020-11-24 14:50 | NUR ---
this tech. went into the room to do EKG and noticed the pt. was removing bp cuff and pulse ox. Pt instructed to not remove vitals so we can monitor them. pt. stated "I dont care." and continued to remove vitals.
--- NOTE | 2020-11-24 16:05 | NUR ---
TP RN: PT REFUSING LABS, UPDATED AND AT BEDSIDE FOR RECHECK.
--- NOTE | 2020-11-24 16:25 | NUR ---
TASK RN: PT FOUND WONDERING IN HALLWAY, THIS RN BROUGHT HER A WC, PRIMARY RN TO DISCHARGE.
--- NOTE | 2020-11-24 16:27 | NUR ---
DISCHARGE INSTRUCTIONS REVIEWED WITH PT. PT DECLINED TAXI VOUCHER. PT STATED THAT SHE WILL CALL HER OWN CAB SINCE SHE HAS ERRANDS TO RUN.
== END 2020-11-24 16:30 | disposition home or self-care (01) ==
LOC: ED 14:03
DX: R07.2 Precordial pain (principal); R55 Syncope and collapse; R42 Dizziness and giddiness; R53.1 Weakness; E11.22 Type 2 diabetes mellitus with diabetic chronic kidney disease; I13.0 Hypertensive heart and chronic kidney disease with heart failure and stage 1 through stage 4 chronic kidney disease, or unspecified chronic kidney disease; N18.2 Chronic kidney disease, stage 2 (mild); I50.9 Heart failure, unspecified; I25.10 Atherosclerotic heart disease of native coronary artery without angina pectoris; J44.9 Chronic obstructive pulmonary disease, unspecified; K21.9 Gastro-esophageal reflux disease without esophagitis; I48.91 Unspecified atrial fibrillation; I45.10 Unspecified right bundle-branch block; E03.9 Hypothyroidism, unspecified; E78.5 Hyperlipidemia, unspecified; E11.21 Type 2 diabetes mellitus with diabetic nephropathy; Z86.73 Personal history of transient ischemic attack (TIA), and cerebral infarction without residual deficits; Z88.2 Allergy status to sulfonamides
CPT/HCPCS: 71045; 93005; 99283

== ENCOUNTER 2020-12-09 11:08 | Emergency (ER) | payer MEDICARE ==
[~2020-12-09] VITALS: Ht 157.5 cm; Wt 75.0 kg
[~2020-12-09 11:08] MED LIST changes: +CARV25TA12 PO; +CYCL10TA2 PO; +LEVO112T2 PO; +PRAV20TA2 PO
[2020-12-09] MEDS ORDERED: DICYCLOMINE 10 MG/ML, 2ML IM ONE (11:30)
--- NOTE | 2020-12-09 11:45 | NUR ---
pt to xray
[2020-12-09] MEDS ORDERED: DICYCLOMINE 10 MG/ML, 2ML ONE (11:46)
[2020-12-09 11:53] LABS: MEAN CORPUSCULAR HEMOGLOBIN 23.9 pg (27.0-34.8); MEAN PLATELET VOLUME 7.4 fL (7.4-10.4); PLATELET COUNT 165 x10^3/uL (130-400); RED BLOOD COUNT 4.37 x10^6/uL (3.82-5.3); RED CELL DISTRIBUTION WIDTH 21.8 % (9.6-15.2)
[2020-12-09 11:55] LABS: MICROSCOPIC INDICATED
--- NOTE | 2020-12-09 12:14 | NUR ---
returned from xray
[2020-12-09 12:18] LABS: MD YES
[2020-12-09 12:23] LABS: SEG#(MANUAL) 0.81 x10^3/uL (1.8-6.8); SEGS% (MANUAL) 37 % (42-75)
[2020-12-09 12:24] LABS: EOS#(MANUAL) 0.04 x10^3/uL (0.0-0.4); EOS% (MANUAL) 2 % (1-7); LYMPH#(MANUAL) 1.23 x10^3/uL (1-3.4); LYMPHS% (MANUAL) 56 % (22-44); MONOS#(MANUAL) 0.11 x10^3/uL (0.3-2.7); MONOS% (MANUAL) 5 % (2-9)
[2020-12-09 12:26] LABS: ANISOCYTOSIS 1+; OVALOCYTES 1+
[2020-12-09 12:27] LABS: MICROCYTOSIS 1+
[2020-12-09 12:28] LABS: <PLATELET ESTIMATE> ADEQUATE; <PLT MORPHOLOGY> NORMAL PLT MORPH
[2020-12-09 13:08] LABS: ALANINE AMINOTRANSFERASE 14 U/L (12-78); ALBUMIN 3.1 g/dL (3.4-5.0); ANION GAP 7 mmol/L (5-15); CALCIUM 8.3 mg/dL (8.5-10.1); CHLORIDE 116 mmol/L (98-107); CREATININE 1.17 mg/dL (0.55-1.02)
[2020-12-09 13:10] LABS: ALKALINE PHOSPHATASE 42 U/L (45-117); BILIRUBIN,TOTAL 0.4 mg/dL (0.2-1.0); TOTAL PROTEIN 5.8 g/dL (6.4-8.2)
[2020-12-09 13:29] LABS: BASOPHILS % (AUTO) 2 % (0-1); EOSINOPHILS % (AUTO) 4 % (1-7); LYMPHOCYTES % (AUTO) 43 % (22-44); MEAN CORPUSCULAR HGB CONC 31.9 g/dL (32.4-35.8); MEAN PLATELET VOLUME 7.5 fL (7.4-10.4); MONOCYTES % (AUTO) 13 % (2-9); NEUTROPHILS % (AUTO) 38 % (42-75); PLATELET COUNT 183 x10^3/uL (130-400); RED BLOOD COUNT 4.01 x10^6/uL (3.82-5.3); RED CELL DISTRIBUTION WIDTH 21.5 % (9.6-15.2)
[2020-12-09 13:32] LABS: MD NO
--- NOTE | 2020-12-09 14:56 | NUR ---
Report from MANUEL Ramirez. Assumed care.
[2020-12-09 15:05] VITALS: BP 152/85
--- NOTE | 2020-12-09 15:51 | NUR ---
Pt walking up to nurses station, dressed, reporting she wants to go home. This RN walking pt back to room explaining leaving AMA would be a risk. Explaining to pt that tylenol has been ordered for pain- pt refused explaining tylenol makes her sick. Pt reports "I know the risks but I just want to go home and if I with it so be it". Pt agrees to wait in room while this RN consults providers.
[2020-12-09] MEDS ORDERED: ACETAMINOPHEN 500 MG TABLET PO ONE (16:00)
--- NOTE | 2020-12-09 16:00 | NUR ---
Dr. Harvey to bedside. Pt originally was going to be admitted and then have surgery done, but after consulting with Dr. Coreas it was decided that procedure will be done outpatient. Dr. Harvey at bedside updating pt on plan. Pt refusing discharge vitals. Pt provided paperwork and educated on phone numbers to call for follow-up. Pt reporting "I ain't gonna on no table I'm going home".
== END 2020-12-09 16:09 | disposition home or self-care (01) ==
LOC: ED 15:09
DX: K42.9 Umbilical hernia without obstruction or gangrene (principal); Z20.822 Contact with and (suspected) exposure to COVID-19; D70.9 Neutropenia, unspecified; R10.33 Periumbilical pain; I10 Essential (primary) hypertension; E11.9 Type 2 diabetes mellitus without complications
CPT/HCPCS: 36415; 74022; 76705; 80053; 81001; 83690; 85025; 87077; 87086; 87186; 87635; 96372; 99285; J0500

== ENCOUNTER 2020-12-15 12:03 | Emergency (ER) | payer MEDICARE ==
[~2020-12-15] VITALS: Ht 157.5 cm; Wt 50.0 kg
[2020-12-15 12:07] VITALS: BP 183/90
--- NOTE | 2020-12-15 12:13 | NUR ---
BIB [facility] FROM HOME. PT C/O GENERALIZED WEAKNESS X1 WEEK. RIGHT HIP PAIN [id number], HX SCIATICA. PT C/O NOT SLEEPING WELL LAST FEW NIGHTS. DENIES N/V/D, FEVERS, CHILLS, CP. PT CONNECTED TO MONITORING. CALL LIGHT IN REACH.
--- NOTE | 2020-12-15 13:02 | NUR ---
PT AMBULATED TO RESTROOM WITH CANE AND STEADY GAIT TO PROVIDE URINE SAMPLE. UA COLLECTED AND SENT TO LAB. PT REFUSING BLOOD WORK, NOTIFIED.
[2020-12-15 13:20] LABS: MICROSCOPIC INDICATED
--- NOTE | 2020-12-15 13:33 | NUR ---
ALL RESULTS ARE BACK AT THIS TIME. CHART UP FOR RECHECK.
== END 2020-12-15 14:00 | disposition home or self-care (01) ==
LOC: ED 12:06
DX: K59.00 Constipation, unspecified (principal); R51.9 Headache, unspecified; J02.9 Acute pharyngitis, unspecified; R10.30 Lower abdominal pain, unspecified; E03.9 Hypothyroidism, unspecified; E78.5 Hyperlipidemia, unspecified; K21.9 Gastro-esophageal reflux disease without esophagitis; I13.0 Hypertensive heart and chronic kidney disease with heart failure and stage 1 through stage 4 chronic kidney disease, or unspecified chronic kidney disease; I50.9 Heart failure, unspecified; N18.2 Chronic kidney disease, stage 2 (mild); G89.29 Other chronic pain; I48.91 Unspecified atrial fibrillation; I25.10 Atherosclerotic heart disease of native coronary artery without angina pectoris; E11.22 Type 2 diabetes mellitus with diabetic chronic kidney disease; Z90.89 Acquired absence of other organs; Z90.49 Acquired absence of other specified parts of digestive tract; Z90.710 Acquired absence of both cervix and uterus; Z86.73 Personal history of transient ischemic attack (TIA), and cerebral infarction without residual deficits; Z95.0 Presence of cardiac pacemaker
CPT/HCPCS: 74021; 81001; 87077; 87086; 87186; 99284

== ENCOUNTER 2020-12-17 14:12 | Emergency (ER) | payer MEDICARE ==
[~2020-12-17] VITALS: Ht 157.5 cm; Wt 75.0 kg
[~2020-12-17 14:12] MED LIST changes: -MECL12.582 PO; +MECL12.590 PO
--- NOTE | 2020-12-17 14:57 | NUR ---
PT BIB EMS FOR CHEST PAIN RADIATING TO LEFT ARM, GIVEN ASPIRIN 324 AT CLINIC. PT HAS CO COUGH, FATIGUE, WEAKENSS FOR PAST WEEK. WAS SEEN IN ER FOR ADOMINAL PAIN YESTERDAY. PT NOT IN DISTRESS, MERCANTILE AGENT APPLIED.
[2020-12-17] MEDS ORDERED: ACETAMINOPHEN 500 MG TABLET PO ONE (16:00)
[2020-12-17 16:01] VITALS: BP 222/98
[2020-12-17] MEDS ORDERED: ACETAMINOPHEN 500 MG TABLET ONE (16:09)
--- NOTE | 2020-12-17 16:10 | NUR ---
PT REFUSING TYLENOL. STATES IT MAKES HER SICK AND SHE IS ALLERGIC
[2020-12-17 16:32] LABS: BASOPHILS % (AUTO) 1 % (0-1); EOSINOPHILS % (AUTO) 3 % (1-7); LYMPHOCYTES % (AUTO) 37 % (22-44); MEAN CORPUSCULAR HEMOGLOBIN 23.8 pg (27.0-34.8); MEAN CORPUSCULAR HGB CONC 31.6 g/dL (32.4-35.8); MEAN PLATELET VOLUME 7.6 fL (7.4-10.4); MONOCYTES % (AUTO) 9 % (2-9); NEUTROPHILS % (AUTO) 51 % (42-75); PLATELET COUNT 229 x10^3/uL (130-400); RED BLOOD COUNT 4.38 x10^6/uL (3.82-5.3); RED CELL DISTRIBUTION WIDTH 21.8 % (9.6-15.2)
[2020-12-17 16:34] LABS: MD NO
--- NOTE | 2020-12-17 16:40 | NUR ---
PER PHARMACY, MACROBID IS CONTRAINDICATED
[2020-12-17 16:43] LABS: ALBUMIN 3.3 g/dL (3.4-5.0); ANION GAP 7 mmol/L (5-15); CALCIUM 8.3 mg/dL (8.5-10.1); CHLORIDE 116 mmol/L (98-107); CREATININE 1.11 mg/dL (0.55-1.02)
[2020-12-17 16:47] LABS: TROPONIN I < 0.015 ng/mL (0.000-0.045)
[2020-12-17] MEDS ORDERED: KETOROLAC 30 MG/1 ML ONE (16:57)
[2020-12-17] MEDS ORDERED: NITROFURANTOIN (MACROBID) 100 MG CAPSULE PO ONE (17:00)
[2020-12-17] MEDS ORDERED: KETOROLAC 30 MG/1 ML IM ONE (17:00)
--- NOTE | 2020-12-17 17:32 | NUR ---
OK TO GIVE MACROBID. MEDICATED FOR PAIN W TORADOL.
--- NOTE | 2020-12-17 17:32 | NUR ---
Patient given discharge instructions and they have confirmed that they understand the instructions. Patient ambulatory with steady gait.
== END 2020-12-17 17:39 | disposition home or self-care (01) ==
LOC: ED 17:20
DX: N30.00 Acute cystitis without hematuria (principal); Z20.822 Contact with and (suspected) exposure to COVID-19; B34.9 Viral infection, unspecified; H92.01 Otalgia, right ear; R07.89 Other chest pain; J44.9 Chronic obstructive pulmonary disease, unspecified; R07.9 Chest pain, unspecified
CPT/HCPCS: 36415; 71045; 80048; 82040; 84484; 85025; 93005; 96372; 99285; J1885; U0003

== ENCOUNTER 2020-12-27 15:18 | Emergency (ER) | payer MEDICARE ==
[~2020-12-27] VITALS: Ht 157.5 cm; Wt 79.0 kg
[~2020-12-27 15:18] MED LIST changes: +FERR325T23 PO
[2020-12-27 15:19] VITALS: BP 148/60
--- NOTE | 2020-12-27 15:55 | NUR ---
PT BIB EMS FOR LOWER BACK PAIN. PT WAS RECENTLY SEEN FOR SAME COMPLAINT. DENIES CP, ABLE TO AMBULATE. NO TRAUMA OR INJURIES. HX OF CHRONIC PAIN. PT STATES "ITS BEEN MORE NAGGING, WAS DISCHARGED FROM HOSPITAL 2 DAYS AGO"
--- NOTE | 2020-12-27 17:17 | NUR ---
PT REFUSING FURTHER CARE. TO BE DC
== END 2020-12-27 17:18 | disposition home or self-care (01) ==
LOC: ED 15:37
DX: I13.0 Hypertensive heart and chronic kidney disease with heart failure and stage 1 through stage 4 chronic kidney disease, or unspecified chronic kidney disease (principal); I50.9 Heart failure, unspecified; N18.2 Chronic kidney disease, stage 2 (mild); E11.22 Type 2 diabetes mellitus with diabetic chronic kidney disease; R53.1 Weakness; I25.10 Atherosclerotic heart disease of native coronary artery without angina pectoris; I48.91 Unspecified atrial fibrillation; E87.0 Hyperosmolality and hypernatremia; E87.6 Hypokalemia; E78.5 Hyperlipidemia, unspecified; J44.9 Chronic obstructive pulmonary disease, unspecified; K21.9 Gastro-esophageal reflux disease without esophagitis; Z95.0 Presence of cardiac pacemaker; Z90.89 Acquired absence of other organs; Z90.49 Acquired absence of other specified parts of digestive tract; Z86.73 Personal history of transient ischemic attack (TIA), and cerebral infarction without residual deficits; Z90.710 Acquired absence of both cervix and uterus
CPT/HCPCS: 99283

== ENCOUNTER 2020-12-31 15:48 | Emergency (ER) | payer MEDICARE ==
[~2020-12-31] VITALS: Ht 167.6 cm; Wt 100.0 kg
[2020-12-31 15:56] VITALS: BP 227/86
--- NOTE | 2020-12-31 15:58 | NUR ---
PT BIB EMS FOR CO WEAKNESS. PT STATES SHE HAS BEEN WEAK FOR MONTHS, HAS BACK, HIP PAIN, CONSTANT DIZZINESS. STATES SHE DID NOT TAKE HER BP MEDS BECAUSE SHE WAS TOLD NOT TO UNTIL SHE GOT TO THE HOSPITAL. WAS AT [facility]. PT RECENTLY SEEN HERE IN ER FOR SAME COMPLAINTS.
--- NOTE | 2020-12-31 16:53 | NUR ---
PT ELOPED. NOT IN ROOM
== END 2020-12-31 16:55 | disposition left against medical advice (07) ==
LOC: ED 16:39
DX: R53.1 Weakness (principal); R42 Dizziness and giddiness; G89.29 Other chronic pain; M54.5 Low back pain; M25.551 Pain in right hip; I10 Essential (primary) hypertension; Z76.5 Malingerer [conscious simulation]
CPT/HCPCS: 93005; 99283

== ENCOUNTER 2021-01-01 16:40 | Emergency (ER) | payer MEDICARE ==
[~2021-01-01] VITALS: Ht 157.5 cm; Wt 87.2 kg
[2021-01-01 16:41] VITALS: BP 133/43
--- NOTE | 2021-01-01 17:01 | NUR ---
biba for cc of cp since last night 05/27, Riley x 1 week, and chills and weakness. pt able to walk from [facility] with cane.
[2021-01-01 17:52] LABS: ALANINE AMINOTRANSFERASE 13 U/L (12-78); ALBUMIN 3.1 g/dL (3.4-5.0); ANION GAP 5 mmol/L (5-15); BASOPHILS % (AUTO) 1 % (0-1); CALCIUM 8.2 mg/dL (8.5-10.1); CHLORIDE 116 mmol/L (98-107); CREATININE 1.32 mg/dL (0.55-1.02); EOSINOPHILS % (AUTO) 3 % (1-7); LYMPHOCYTES % (AUTO) 34 % (22-44); MEAN CORPUSCULAR HEMOGLOBIN 24.6 pg (27.0-34.8); MEAN CORPUSCULAR HGB CONC 32.1 g/dL (32.4-35.8); MEAN PLATELET VOLUME 7.7 fL (7.4-10.4); MONOCYTES % (AUTO) 11 % (2-9); NEUTROPHILS % (AUTO) 50 % (42-75); PLATELET COUNT 170 x10^3/uL (130-400); RED BLOOD COUNT 4.23 x10^6/uL (3.82-5.3); RED CELL DISTRIBUTION WIDTH 23.6 % (9.6-15.2)
[2021-01-01 17:54] LABS: ALKALINE PHOSPHATASE 46 U/L (45-117); BILIRUBIN,TOTAL 0.2 mg/dL (0.2-1.0); TOTAL PROTEIN 5.8 g/dL (6.4-8.2)
[2021-01-01 18:00] LABS: MICROSCOPIC AUTO
[2021-01-01 18:45] LABS: MD SCAN
== END 2021-01-01 18:55 | disposition home or self-care (01) ==
LOC: ED 18:17
DX: N30.00 Acute cystitis without hematuria (principal); B34.9 Viral infection, unspecified; M79.10 Myalgia, unspecified site; R06.02 Shortness of breath; R07.89 Other chest pain; R05 Cough; I10 Essential (primary) hypertension; E11.9 Type 2 diabetes mellitus without complications; I25.10 Atherosclerotic heart disease of native coronary artery without angina pectoris; I48.91 Unspecified atrial fibrillation; J44.9 Chronic obstructive pulmonary disease, unspecified; E03.9 Hypothyroidism, unspecified; I45.10 Unspecified right bundle-branch block; Z86.73 Personal history of transient ischemic attack (TIA), and cerebral infarction without residual deficits; Z86.39 Personal history of other endocrine, nutritional and metabolic disease
CPT/HCPCS: 36415; 71045; 80053; 81001; 85025; 87086; 93005; 99285

== ENCOUNTER 2021-01-05 19:06 | Emergency (ER) | payer MEDICARE ==
[~2021-01-05] VITALS: Ht 157.5 cm; Wt 86.9 kg
[2021-01-05 19:11] VITALS: BP 148/68
[2021-01-05] MEDS ORDERED: ACETAMINOPHEN 500 MG TABLET ONE (19:43)
[2021-01-05] MEDS ORDERED: ACETAMINOPHEN 500 MG TABLET PO ONE (20:00)
--- NOTE | 2021-01-05 20:46 | NUR ---
pt ready for dc, begins to complain of dizziness. pt states she didnt mention it to ed physician,. this rn spoke with md who states that dizziness in this pt is a chronic ongoing issue that shes been worked up for extensively, and that she needs to pursue primary care for further management of dizziness. pt states that she has an appointment on , this rn encouraged her to keep that appointment and pt states "i may and i may not" when asked why pt states "they cant do anything for me there" this rn encouraged pt to pursue primary care because they can help her with chronic ongoing issues and pt disagrees. pt ready for dc, all instructions and belongings in hand, out via wheelchair by this rn to lobby, no signs or symptoms of acute distress noted respiraitons even and unlabored
== END 2021-01-05 20:51 | disposition home or self-care (01) ==
LOC: ED 20:43
DX: R07.89 Other chest pain (principal); I13.0 Hypertensive heart and chronic kidney disease with heart failure and stage 1 through stage 4 chronic kidney disease, or unspecified chronic kidney disease; N18.2 Chronic kidney disease, stage 2 (mild); I50.9 Heart failure, unspecified; E11.22 Type 2 diabetes mellitus with diabetic chronic kidney disease; I25.10 Atherosclerotic heart disease of native coronary artery without angina pectoris; J44.9 Chronic obstructive pulmonary disease, unspecified; E03.9 Hypothyroidism, unspecified; E78.5 Hyperlipidemia, unspecified; K21.9 Gastro-esophageal reflux disease without esophagitis; Z86.73 Personal history of transient ischemic attack (TIA), and cerebral infarction without residual deficits; Z90.89 Acquired absence of other organs; Z90.49 Acquired absence of other specified parts of digestive tract; Z90.710 Acquired absence of both cervix and uterus; Z95.0 Presence of cardiac pacemaker
CPT/HCPCS: 71045; 93005; 99283

== ENCOUNTER 2021-01-13 11:04 | Emergency (ER) | payer MEDICARE ==
[~2021-01-13] VITALS: Ht 157.5 cm; Wt 84.7 kg
--- NOTE | 2021-01-13 12:13 | NUR ---
at bedside for exam. Pt was finishing brief concrete batcher with request for UA sample. wellness nurse provided supplies and pt instructions given for clean catch UA.
--- NOTE | 2021-01-13 12:23 | NUR ---
UA sample sent to lab. Awaiting order placement from
[2021-01-13] MEDS ORDERED: SODIUM CHLORIDE 0.9% 1,000ML IVBOLUS ONE (12:30)
[2021-01-13] MEDS ORDERED: SODIUM CHLORIDE FLUSH 10ML SYR IVF ONE (12:30)
[2021-01-13] MEDS ORDERED: ONDANSETRON 2MG/ML, 2ML IVPush ONE (12:30)
[2021-01-13 12:45] LABS: MICROSCOPIC INDICATED
[2021-01-13 13:03] LABS: BASOPHILS % (AUTO) 1 % (0-1); EOSINOPHILS % (AUTO) 3 % (1-7); LYMPHOCYTES % (AUTO) 34 % (22-44); MEAN CORPUSCULAR HEMOGLOBIN 25.1 pg (27.0-34.8); MEAN PLATELET VOLUME 7.4 fL (7.4-10.4); MONOCYTES % (AUTO) 10 % (2-9); NEUTROPHILS % (AUTO) 52 % (42-75); PLATELET COUNT 191 x10^3/uL (130-400); RED BLOOD COUNT 4.52 x10^6/uL (3.82-5.3); RED CELL DISTRIBUTION WIDTH 24.5 % (9.6-15.2)
[2021-01-13 13:15] LABS: ALANINE AMINOTRANSFERASE 11 U/L (12-78); ALBUMIN 3.3 g/dL (3.4-5.0); ANION GAP 6 mmol/L (5-15); CALCIUM 8.6 mg/dL (8.5-10.1); CHLORIDE 113 mmol/L (98-107); CREATININE 1.25 mg/dL (0.55-1.02)
--- NOTE | 2021-01-13 13:15 | NUR ---
IV attempt x2 unsuccessful. USGPIV needed. Looking for RN qualified to do this procedure now.
[2021-01-13 13:17] LABS: ALKALINE PHOSPHATASE 48 U/L (45-117); BILIRUBIN,TOTAL 0.3 mg/dL (0.2-1.0); TOTAL PROTEIN 6.1 g/dL (6.4-8.2)
[2021-01-13 13:20] LABS: ANISOCYTOSIS 1+; MD MORPH REVIEW ONLY; MICROCYTOSIS 1+; OVALOCYTES 1+
[2021-01-13 13:22] LABS: <PLATELET ESTIMATE> DECREASED; <PLT MORPHOLOGY> NORMAL PLT MORPH
[2021-01-13] MEDS ORDERED: ONDANSETRON 2MG/ML, 2ML ONE (13:58)
[2021-01-13] MEDS ORDERED: MORPHINE SULFATE 4 MG/ML, 1ML ONE (14:54)
[2021-01-13] MEDS: MORPHINE SULFATE 4 MG/ML, 1ML IVPush PRN ×2 (14:57→15:14)
--- NOTE | 2021-01-13 15:00 | NUR ---
Pt medicated for pain at this time. Will wait 10 minutes for reassessment and possible repeat dose available if needed. Pain is currently 9/10.
--- NOTE | 2021-01-13 15:14 | NUR ---
Pt state severe pain still present and repeat dose of Morphine given as ordered.
[2021-01-13 15:41] VITALS: BP 188/97
== END 2021-01-13 15:44 | disposition home or self-care (01) ==
LOC: ED 13:54
DX: R11.2 Nausea with vomiting, unspecified (principal); R42 Dizziness and giddiness; R06.02 Shortness of breath; J44.9 Chronic obstructive pulmonary disease, unspecified; K21.9 Gastro-esophageal reflux disease without esophagitis; I12.9 Hypertensive chronic kidney disease with stage 1 through stage 4 chronic kidney disease, or unspecified chronic kidney disease; N18.2 Chronic kidney disease, stage 2 (mild); I48.91 Unspecified atrial fibrillation; E78.5 Hyperlipidemia, unspecified; Z86.73 Personal history of transient ischemic attack (TIA), and cerebral infarction without residual deficits; Z90.89 Acquired absence of other organs; Z86.39 Personal history of other endocrine, nutritional and metabolic disease; Z90.49 Acquired absence of other specified parts of digestive tract; Z90.710 Acquired absence of both cervix and uterus
CPT/HCPCS: 36415; 71045; 80053; 81001; 83605; 83690; 85025; 87077; 87086; 87186; 93005; 96361; 96374; 96375; 99285; J2270; J2405; J7030

== ENCOUNTER 2021-01-13 15:49 | Observation (INO) | payer MEDICARE ==
[~2021-01-13] VITALS: Ht 157.5 cm; Wt 85.9 kg
[2021-01-13] MEDS ORDERED: ASPIRIN 81 MG TABLET CHEW ONE (16:54)
[2021-01-13] MEDS ORDERED: ASPIRIN 81 MG TABLET CHEW PO ONE (17:00)
--- NOTE | 2021-01-13 17:34 | NUR ---
pt in bed with alarm security or surveillance monitor in place, satting well on room air, md and rn at bedside to assess. bed rails up bilaterally call light within reach. pt encouraged to purse lip breathe. no signs or symptoms of acute dsitress noted respirations even and unlabored
[2021-01-13 17:59] LABS: TROPONIN I < 0.015 ng/mL (0.000-0.045)
[2021-01-13] MEDS ORDERED: ENALAPRILAT 1.25 MG/ML, 2ML IVPush PRN (18:00)
[2021-01-13] MEDS ORDERED: MELATONIN 5 MG TABLET PO PRN (18:00)
[2021-01-13] MEDS ORDERED: ONDANSETRON ODT 4 MG PO PRN (18:00)
[2021-01-13] MEDS ORDERED: ONDANSETRON 2MG/ML, 2ML IVPush PRN (18:00)
[2021-01-13] MEDS ORDERED: hydrALAzine 20 MG/ML, 1ML IV PRN ×2 (18:00→22:00)
[2021-01-13] MEDS ORDERED: morphine SULFATE 10 MG/ML, 1ML IVPush PRN (18:00)
[2021-01-13] MEDS ORDERED: ACETAMINOPHEN 325 MG TABLET PO PRN (18:00)
[2021-01-13 19:56] VITALS: BP 185/85
[2021-01-13] MEDS: METHOCARBAMOL 500 MG TABLET PO SCH (20:44)
[2021-01-13] MEDS: FERROUS SULFATE 325 MG TABLET PO SCH (20:44)
[2021-01-13] MEDS: SUCRALFATE 1 GM/10 ML UDC PO SCH (20:44)
[2021-01-13] MEDS ORDERED: PRAVASTATIN 20 MG TABLET PO SCH (21:00)
[2021-01-13] MEDS ORDERED: CARVEDILOL 25 MG TABLET PO ONE (21:30)
[2021-01-13 22:15] VITALS: BP 147/76
[2021-01-13 23:17] VITALS: BP 157/73
[2021-01-14 00:19] LABS: TROPONIN I < 0.015 ng/mL (0.000-0.045)
[2021-01-14 01:07] VITALS: BP 148/82
[2021-01-14 05:33] LABS: BASOPHILS % (AUTO) 1 % (0-1); EOSINOPHILS % (AUTO) 3 % (1-7); LYMPHOCYTES % (AUTO) 38 % (22-44); MEAN CORPUSCULAR HEMOGLOBIN 25.3 pg (27.0-34.8); MEAN CORPUSCULAR HGB CONC 32.5 g/dL (32.4-35.8); MEAN PLATELET VOLUME 8.1 fL (7.4-10.4); MONOCYTES % (AUTO) 7 % (2-9); NEUTROPHILS % (AUTO) 51 % (42-75); PLATELET COUNT 157 x10^3/uL (130-400); RED BLOOD COUNT 4.19 x10^6/uL (3.82-5.3); RED CELL DISTRIBUTION WIDTH 24.7 % (9.6-15.2)
[2021-01-14 05:43] LABS: ANION GAP 5 mmol/L (5-15); CALCIUM 7.9 mg/dL (8.5-10.1); CHLORIDE 116 mmol/L (98-107); CREATININE 0.98 mg/dL (0.55-1.02)
[2021-01-14 05:45] VITALS: BP 112/71
[2021-01-14] MEDS: IBUPROFEN 200 MG TABLET PO PRN ×2 (05:45→09:24)
[2021-01-14] MEDS ORDERED: CARVEDILOL 25 MG TABLET PO SCH (06:00)
[2021-01-14] MEDS ORDERED: OMEPRAZOLE 20 MG CAPSULE.DR PO SCH (06:00)
[2021-01-14] MEDS ORDERED: LEVOTHYROXINE 112 MCG TABLET PO SCH (06:00)
[2021-01-14 06:11] LABS: MD SCAN
[2021-01-14 07:01] VITALS: BP 126/74
[2021-01-14] MEDS ORDERED: FLU VACC QS2020-21(6MOS UP)/PF 60MCG/0.5 ML SYR IM ONE (09:00)
[2021-01-14] MEDS ORDERED: ASPIRIN 81 MG TABLET EC PO SCH (09:00)
[2021-01-14] MEDS ORDERED: AMLODIPINE 10 MG TAB PO SCH (09:00)
[2021-01-14] MEDS: SUCRALFATE 1 GM/10 ML UDC PO SCH (09:19)
[2021-01-14] MEDS: METHOCARBAMOL 500 MG TABLET PO SCH (09:19)
[2021-01-14] MEDS: FERROUS SULFATE 325 MG TABLET PO SCH (09:19)
== END 2021-01-14 11:27 | disposition home or self-care (01) ==
LOC: ED 17:30 → SUATTDRO 17:45 → INTOOBSV 17:49 → EDIP 17:49 → 5SO 19:24 → DCLOUNGE 01-14 11:18
PROVIDERS: ADMIT Hospitalist; ATTEND Hospitalist
DX: G25.0 Essential tremor (principal); I16.0 Hypertensive urgency; E03.9 Hypothyroidism, unspecified; E11.22 Type 2 diabetes mellitus with diabetic chronic kidney disease; E78.5 Hyperlipidemia, unspecified; F32.9 Major depressive disorder, single episode, unspecified; B19.10 Unspecified viral hepatitis B without hepatic coma; F41.1 Generalized anxiety disorder; G14 Postpolio syndrome; G89.29 Other chronic pain; I13.0 Hypertensive heart and chronic kidney disease with heart failure and stage 1 through stage 4 chronic kidney disease, or unspecified chronic kidney disease; I25.10 Atherosclerotic heart disease of native coronary artery without angina pectoris; N18.2 Chronic kidney disease, stage 2 (mild); I50.9 Heart failure, unspecified; I48.91 Unspecified atrial fibrillation; K21.9 Gastro-esophageal reflux disease without esophagitis; K22.70 Barrett's esophagus without dysplasia; J44.9 Chronic obstructive pulmonary disease, unspecified; I63.9 Cerebral infarction, unspecified; K85.90 Acute pancreatitis without necrosis or infection, unspecified; Z86.73 Personal history of transient ischemic attack (TIA), and cerebral infarction without residual deficits; Z23 Encounter for immunization; Z79.82 Long term (current) use of aspirin
CPT/HCPCS: 36415; 71045; 80048; 80053; 81001; 83605; 83690; 84484; 85025; 87077; 87086; 87186; 90686; 93005; 93306; 93356; 96374; 99285; G0008; G0378; J0360; J2270; J2405; J7030; Q0177; 96361; 96375

== ENCOUNTER 2021-01-22 16:40 | Outpatient (CLI) | payer MEDICARE | END 2021-01-22 23:59 | disposition home or self-care (01) | LOC: RAD 16:40 | PROVIDERS: ATTEND Nurse Practitioner Family | DX: M71.22 Synovial cyst of popliteal space [Baker], left knee (principal); M79.89 Other specified soft tissue disorders ==

== ENCOUNTER 2021-01-22 18:01 | Emergency (ER) | payer MEDICARE ==
[~2021-01-22] VITALS: Ht 157.5 cm; Wt 86.0 kg
--- NOTE | 2021-01-22 18:20 | NUR ---
assumed care of pt. pt here for evaluation of LLE pain that she has been expierincing for "weeks" pt deneis specific injury. pt was initially seen at and was sent here for US evaluation. no other c/o at this time. no family at bedside
[2021-01-22] MEDS ORDERED: KETOROLAC 30 MG/1 ML IM ONE (18:30)
[2021-01-22] MEDS ORDERED: HYDROcodone/APAP 5/325 TABLET PO ONE (18:30)
--- NOTE | 2021-01-22 18:35 | NUR ---
pt to RAD
--- NOTE | 2021-01-22 18:55 | NUR ---
pt declines warm blankets at this time. awaiting test results. report to Mary JACKSON
[2021-01-22] MEDS ORDERED: HYDROcodone/APAP 5/325 TABLET ONE (18:59)
[2021-01-22] MEDS ORDERED: KETOROLAC 30 MG/1 ML ONE (18:59)
--- NOTE | 2021-01-22 19:16 | NUR ---
PT MEDICATED FOR 10/10 L KNEE PAIN, STATES STARTED WHEN SHE WAS 7, AND JUMPED OFF A BED, LANDING ON HARDWOOD FLOOR. IN NAD. DENIES ANY NEEDS. AWARE PENDING XRAYS.
[2021-01-22 19:37] VITALS: BP 163/98
== END 2021-01-22 19:46 | disposition home or self-care (01) ==
LOC: ED 19:13
DX: M25.562 Pain in left knee (principal); M79.652 Pain in left thigh; I13.0 Hypertensive heart and chronic kidney disease with heart failure and stage 1 through stage 4 chronic kidney disease, or unspecified chronic kidney disease; N18.2 Chronic kidney disease, stage 2 (mild); I50.9 Heart failure, unspecified; J44.9 Chronic obstructive pulmonary disease, unspecified; E03.9 Hypothyroidism, unspecified; E78.5 Hyperlipidemia, unspecified; Z90.89 Acquired absence of other organs; Z90.49 Acquired absence of other specified parts of digestive tract; Z90.710 Acquired absence of both cervix and uterus
CPT/HCPCS: 73552; 73590; 96372; 99284; J1885

== ENCOUNTER 2021-02-07 17:38 | Emergency (ER) | payer MEDICARE ==
[~2021-02-07] VITALS: Ht 157.5 cm; Wt 76.3 kg
[2021-02-07 17:58] VITALS: BP 136/76
--- NOTE | 2021-02-07 19:49 | NUR ---
PT TO IMAGING
[2021-02-07 20:00] LABS: BASOPHILS % (AUTO) 0 % (0-1); EOSINOPHILS % (AUTO) 3 % (1-7); LYMPHOCYTES % (AUTO) 29 % (22-44); MEAN CORPUSCULAR HGB CONC 32.6 g/dL (32.4-35.8); MONOCYTES % (AUTO) 12 % (2-9); NEUTROPHILS % (AUTO) 55 % (42-75); PLATELET COUNT 219 x10^3/uL (130-400); RED BLOOD COUNT 4.29 x10^6/uL (3.82-5.3); RED CELL DISTRIBUTION WIDTH 23.6 % (9.6-15.2)
[2021-02-07 20:07] LABS: ALBUMIN 3.1 g/dL (3.4-5.0); ANION GAP 8 mmol/L (5-15); CALCIUM 8.5 mg/dL (8.5-10.1); CHLORIDE 114 mmol/L (98-107); CREATININE 1.09 mg/dL (0.55-1.02)
--- NOTE | 2021-02-07 20:26 | NUR ---
ALL RESULTS BACK CHART UP FOR RCK
[2021-02-07 21:29] LABS: MD MORPH REVIEW ONLY
[2021-02-07 21:39] LABS: HYPOCHROMIA 1+; MICROCYTOSIS 1+; OVALOCYTES 1+
[2021-02-07 21:42] LABS: <PLATELET ESTIMATE> ADEQUATE; <PLT MORPHOLOGY> NORMAL PLT MORPH; TEAR DROPS 1+
== END 2021-02-07 21:00 | disposition home or self-care (01) ==
LOC: ED 20:54
DX: M17.12 Unilateral primary osteoarthritis, left knee (principal)
CPT/HCPCS: 36415; 80048; 82040; 85025; 99284

== ENCOUNTER 2021-02-13 19:14 | Observation (INO) | payer MEDICARE ==
[~2021-02-13] VITALS: Ht 157.5 cm; Wt 85.8 kg
--- NOTE | 2021-02-13 19:17 | NUR ---
INITIAL PT CONTACT. PT BIBA C/O DIZZINESS, NEAR SYNCOPE, N/V. PT HAS RECURRENT HX OF SAME. PT STATES "I DONT KNOW, THIS KEEPS HAPPENING, I WAS WALKING TO THE BATHROOM AND I JUST GOT DIZZINESS ALL OF A SUDDEN AND PASSED OUT, AT LEAST I THINK I PASSED OUT. I DIDNT HIT MY HEAD AND NOTHING ELSE ON MY BODY HURTS. I AM HAVING NAUSEA AND I'VE VOMITED LIKE 10 TIMES BUT THAT STARTED BEFORE". PT TRANSFERED TO ED [facility] WITH USE OF PERSONAL CANE, STEADY ON FEET. PT PLACED ON CONTINUOUS PULSE OX AND CARDIAC MONITORING. EKG COMPLETED ON ARRIVAL TO ED. CALL LIGHT AND BELONGINGS WITHIN REACH. AWAITING ERP.
--- NOTE | 2021-02-13 19:58 | NUR ---
ERP AT BEDSIDE
[2021-02-13] MEDS ORDERED: ASPIRIN 81 MG TABLET CHEW ONE (20:07)
[2021-02-13] MEDS ORDERED: SODIUM CHLORIDE FLUSH 10ML SYR IVF ONE (20:30)
[2021-02-13] MEDS ORDERED: ASPIRIN 81 MG TABLET CHEW PO ONE (20:30)
[2021-02-13] MEDS ORDERED: ACETAMINOPHEN 500 MG TABLET ONE (21:09)
[2021-02-13 21:20] LABS: MEAN CORPUSCULAR HEMOGLOBIN 26.6 pg (27.0-34.8); MEAN CORPUSCULAR HGB CONC 32.7 g/dL (32.4-35.8); MEAN PLATELET VOLUME 7.6 fL (7.4-10.4); PLATELET COUNT 198 x10^3/uL (130-400); RED CELL DISTRIBUTION WIDTH 22.8 % (9.6-15.2)
[2021-02-13 21:27] LABS: ALANINE AMINOTRANSFERASE 12 U/L (12-78); ALBUMIN 2.8 g/dL (3.4-5.0); ANION GAP 8 mmol/L (5-15); CALCIUM 8.2 mg/dL (8.5-10.1); CHLORIDE 115 mmol/L (98-107); CREATININE 1.32 mg/dL (0.55-1.02)
[2021-02-13] MEDS ORDERED: ACETAMINOPHEN 500 MG TABLET PO ONE (21:30)
[2021-02-13 21:31] LABS: ALKALINE PHOSPHATASE 52 U/L (45-117); BILIRUBIN,TOTAL 0.3 mg/dL (0.2-1.0); TOTAL PROTEIN 5.6 g/dL (6.4-8.2); TROPONIN I < 0.015 ng/mL (0.000-0.045)
[2021-02-13 21:44] LABS: ANISOCYTOSIS 1+; HYPOCHROMIA 1+; MD MORPH REVIEW ONLY; MICROCYTOSIS 1+
[2021-02-13 21:45] LABS: <PLATELET ESTIMATE> ADEQUATE; <PLT MORPHOLOGY> NORMAL PLT MORPH; OVALOCYTES 1+; TEAR DROPS 1+
--- NOTE | 2021-02-13 22:56 | NUR ---
Pt to be admitted to TELE 2, room 492-2. Report called to NEIL.
[2021-02-13 23:27] VITALS: BP 111/66
[2021-02-13 23:35] VITALS: BP 111/66
[2021-02-14] VITALS (10 sets, daily range): BP systolic 92–207; BP diastolic 58–112
[2021-02-14] MEDS ORDERED: IBUPROFEN 600 MG TABLET PO PRN
[2021-02-14] MEDS ORDERED: MELATONIN 5 MG TABLET PO PRN
[2021-02-14] MEDS ORDERED: ONDANSETRON 2MG/ML, 2ML IVPush PRN
[2021-02-14] MEDS ORDERED: LIDODERM 5% PATCH TD PRN
[2021-02-14] MEDS ORDERED: DOCUSATE 100 MG CAPSULE PO PRN
[2021-02-14 03:38] LABS: BASOPHILS % (AUTO) 1 % (0-1); EOSINOPHILS % (AUTO) 3 % (1-7); LYMPHOCYTES % (AUTO) 28 % (22-44); MEAN CORPUSCULAR HEMOGLOBIN 26.2 pg (27.0-34.8); MEAN CORPUSCULAR HGB CONC 32.1 g/dL (32.4-35.8); MEAN PLATELET VOLUME 7.6 fL (7.4-10.4); MONOCYTES % (AUTO) 8 % (2-9); NEUTROPHILS % (AUTO) 60 % (42-75); PLATELET COUNT 179 x10^3/uL (130-400); RED BLOOD COUNT 4.43 x10^6/uL (3.82-5.3); RED CELL DISTRIBUTION WIDTH 22.6 % (9.6-15.2)
[2021-02-14 03:49] LABS: ANION GAP 6 mmol/L (5-15); CALCIUM 8.1 mg/dL (8.5-10.1); CHLORIDE 114 mmol/L (98-107); CREATININE 1.33 mg/dL (0.55-1.02)
[2021-02-14 03:58] LABS: TROPONIN I < 0.015 ng/mL (0.000-0.045)
[2021-02-14 04:06] LABS: MD MORPH REVIEW ONLY
[2021-02-14 04:07] LABS: ANISOCYTOSIS 1+; MICROCYTOSIS 1+
[2021-02-14 04:08] LABS: <PLATELET ESTIMATE> ADEQUATE; <PLT MORPHOLOGY> NORMAL PLT MORPH; HYPOCHROMIA 1+; OVALOCYTES 1+; TEAR DROPS 1+
[2021-02-14] MEDS ORDERED: HYDROcodone/APAP 5/325 TABLET ONE (04:50)
[2021-02-14] MEDS ORDERED: HYDROcodone/APAP 5/325 TABLET PO ONE (05:00)
[2021-02-14 05:02] LABS: MICROSCOPIC INDICATED
[2021-02-14] MEDS ORDERED: hydrALAzine 20 MG/ML, 1ML ONE (05:56)
[2021-02-14] MEDS ORDERED: hydrALAzine 20 MG/ML, 1ML IV ONE (06:00)
[2021-02-14] MEDS ORDERED: ENALAPRILAT 1.25 MG/ML, 2ML IV PRN ×2 (06:30→10:30)
[2021-02-14] MEDS ORDERED: LEVOTHYROXINE 112 MCG TABLET PO SCH (06:30)
[2021-02-14] MEDS: HYDROcodone/APAP 5/325 TABLET PO PRN ×2 (08:15→12:13)
[2021-02-14] MEDS ORDERED: CEFTRIAXONE 2 GM in DEXTROSE 5% 50 ML IVPB ONE (08:30)
[2021-02-14] MEDS ORDERED: MAALOX/HYOSCYAMINE/LIDOCAINE 45 ML BTL PO ONE (08:30)
[2021-02-14] MEDS ORDERED: OMEPRAZOLE 20 MG CAPSULE.DR PO SCH (09:00)
[2021-02-14] MEDS ORDERED: CARVEDILOL 25 MG TABLET PO SCH (09:00)
[2021-02-14 10:13] LABS: TROPONIN I < 0.015 ng/mL (0.000-0.045)
[2021-02-14] MEDS ORDERED: SODIUM CHLORIDE 0.9% 1,000ML IVBOLUS ONE (12:30)
[2021-02-14] MEDS ORDERED: PANT40TA3 PO (13:57)
[2021-02-14] MEDS ORDERED: FERR325T18 PO (14:01)
== END 2021-02-14 17:10 | disposition home or self-care (01) ==
LOC: ED 20:24 → INTOOBSV 22:30 → EDIP 22:30 → 4EST 23:20
PROVIDERS: ADMIT Family Medicine; ATTEND Internal Medicine
DX: R07.89 Other chest pain (principal); I95.1 Orthostatic hypotension; J44.9 Chronic obstructive pulmonary disease, unspecified; G14 Postpolio syndrome; I25.10 Atherosclerotic heart disease of native coronary artery without angina pectoris; I13.0 Hypertensive heart and chronic kidney disease with heart failure and stage 1 through stage 4 chronic kidney disease, or unspecified chronic kidney disease; I50.32 Chronic diastolic (congestive) heart failure; N18.2 Chronic kidney disease, stage 2 (mild); K21.9 Gastro-esophageal reflux disease without esophagitis; K22.70 Barrett's esophagus without dysplasia; E03.9 Hypothyroidism, unspecified; M19.90 Unspecified osteoarthritis, unspecified site; E78.5 Hyperlipidemia, unspecified; G25.0 Essential tremor; N39.0 Urinary tract infection, site not specified; F22 Delusional disorders; F41.8 Other specified anxiety disorders; G89.29 Other chronic pain; W19.XXXA Unspecified fall, initial encounter; Y93.01 Activity, walking, marching and hiking; Y92.89 Other specified places as the place of occurrence of the external cause; Z79.82 Long term (current) use of aspirin; Z87.440 Personal history of urinary (tract) infections; Z79.899 Other long term (current) drug therapy; Z90.710 Acquired absence of both cervix and uterus; Z95.0 Presence of cardiac pacemaker
CPT/HCPCS: 36415; 71045; 80048; 80053; 81001; 84439; 84443; 84484; 85025; 87086; 93005; 96365; 96375; 97162; 97166; 97530; 99285; G0378; J0360; J0696; J7030

== ENCOUNTER 2021-02-20 22:59 | Emergency (ER) | payer MEDICARE ==
[~2021-02-20] VITALS: Ht 157.5 cm; Wt 84.6 kg
[~2021-02-20 22:59] MED LIST changes: +FERR325T18 PO; +PANT40TA3 PO
[2021-02-20 23:58] VITALS: BP 202/87
[2021-02-21] MEDS ORDERED: ACETAMINOPHEN 325 MG TABLET ONE (00:59)
[2021-02-21] MEDS ORDERED: ACETAMINOPHEN 325 MG TABLET PO ONE (01:00)
== END 2021-02-21 02:02 | disposition home or self-care (01) ==
LOC: ED 23:29
DX: M79.652 Pain in left thigh (principal); M79.662 Pain in left lower leg; E11.9 Type 2 diabetes mellitus without complications; I11.0 Hypertensive heart disease with heart failure; I50.9 Heart failure, unspecified; J44.9 Chronic obstructive pulmonary disease, unspecified; E78.5 Hyperlipidemia, unspecified; Z88.2 Allergy status to sulfonamides; Z88.8 Allergy status to other drugs, medicaments and biological substances; Z95.0 Presence of cardiac pacemaker; Z90.89 Acquired absence of other organs; Z86.39 Personal history of other endocrine, nutritional and metabolic disease; Z90.49 Acquired absence of other specified parts of digestive tract; Z90.710 Acquired absence of both cervix and uterus
CPT/HCPCS: 99284

== ENCOUNTER 2021-02-25 23:08 | Emergency (ER) | payer MEDICARE ==
[~2021-02-25] VITALS: Ht 157.5 cm; Wt 100.0 kg
[2021-02-25 23:12] VITALS: BP 140/86
[2021-02-26] MEDS ORDERED: LIDOCAINE 1%, 10ML INFIL ONE
[2021-02-26] MEDS ORDERED: DIPH,PERTUSS(ACELL),TET VAC/PF 0.5 ML IM-VACC ONE ×2 (01:00→01:11)
== END 2021-02-26 01:56 | disposition home or self-care (01) ==
LOC: ED 02-26 00:52
DX: S61.412A Laceration without foreign body of left hand, initial encounter (principal); S60.222A Contusion of left hand, initial encounter; K21.9 Gastro-esophageal reflux disease without esophagitis; I13.0 Hypertensive heart and chronic kidney disease with heart failure and stage 1 through stage 4 chronic kidney disease, or unspecified chronic kidney disease; N18.2 Chronic kidney disease, stage 2 (mild); I50.9 Heart failure, unspecified; J44.9 Chronic obstructive pulmonary disease, unspecified; I48.91 Unspecified atrial fibrillation; Z86.73 Personal history of transient ischemic attack (TIA), and cerebral infarction without residual deficits; Z90.89 Acquired absence of other organs; Z90.49 Acquired absence of other specified parts of digestive tract; Z90.710 Acquired absence of both cervix and uterus; X58.XXXA Exposure to other specified factors, initial encounter; Y93.89 Activity, other specified; Y92.89 Other specified places as the place of occurrence of the external cause; Y99.8 Other external cause status
CPT/HCPCS: 12041; 90471; 90715; 99284

== ENCOUNTER 2021-03-02 17:58 | Emergency (ER) | payer MEDICARE ==
[~2021-03-02] VITALS: Ht 157.5 cm; Wt 87.0 kg
[2021-03-02 18:00] VITALS: BP 146/71
--- NOTE | 2021-03-02 19:57 | NUR ---
BREAK SUPERVISOR DYER: PT TO ROOM FROM LOBBY.
== END 2021-03-02 20:30 | disposition home or self-care (01) ==
LOC: ED 18:43
DX: T88.1XXA Other complications following immunization, not elsewhere classified, initial encounter (principal); R05 Cough; M79.10 Myalgia, unspecified site; E78.5 Hyperlipidemia, unspecified; E03.9 Hypothyroidism, unspecified; Z86.73 Personal history of transient ischemic attack (TIA), and cerebral infarction without residual deficits; Z90.89 Acquired absence of other organs; Z90.49 Acquired absence of other specified parts of digestive tract; Z90.710 Acquired absence of both cervix and uterus; Z95.0 Presence of cardiac pacemaker
CPT/HCPCS: 71045; 99283

== ENCOUNTER 2021-03-08 14:47 | Emergency (ER) | payer MEDICARE ==
[~2021-03-08] VITALS: Ht 162.6 cm; Wt 78.0 kg
--- NOTE | 2021-03-08 15:05 | NUR ---
THIS IS A 75 YO F BIB EMS FROM [facility] W/ C/O SUDDEN ON SET CP 30 MINUTES PRIOR TO EMS ARRIVAL. PAIN REPRODUCABLE, WORSE W/ INSPIRATION. PT REPORTS PAIN INTERMITTENT IN NATURE. PT HYPERTENSIVE, OTHER VS WDL. PT REPORTS DID NOT TAKE DAILY HTN MED TODAY. AT BEDSIDE. CONNECTED TO ALL MONITORING.
--- NOTE | 2021-03-08 15:06 | NUR ---
PER EMS, PT HAD NO FALL, NO LOC.
[2021-03-08] MEDS ORDERED: ASPIRIN 81 MG TABLET CHEW ONE (15:14)
[2021-03-08] MEDS ORDERED: ASPIRIN 81 MG TABLET CHEW PO ONE (15:30)
[2021-03-08 15:52] LABS: BASOPHILS % (AUTO) 0 % (0-1); EOSINOPHILS % (AUTO) 4 % (1-7); LYMPHOCYTES % (AUTO) 39 % (22-44); MEAN CORPUSCULAR HEMOGLOBIN 26.9 pg (27.0-34.8); MEAN CORPUSCULAR HGB CONC 32.8 g/dL (32.4-35.8); MEAN PLATELET VOLUME 7.5 fL (7.4-10.4); MONOCYTES % (AUTO) 12 % (2-9); NEUTROPHILS % (AUTO) 46 % (42-75); PLATELET COUNT 222 x10^3/uL (130-400); RED BLOOD COUNT 4.35 x10^6/uL (3.82-5.3); RED CELL DISTRIBUTION WIDTH 19.9 % (9.6-15.2)
[2021-03-08] MEDS ORDERED: LIDODERM 5% PATCH TD ONE ×2 (15:59→16:00)
--- NOTE | 2021-03-08 16:02 | NUR ---
PT HAS C/O CP, ERP UPDATED, ORDERED LIDO PATCH. PT REFUSING PATCH STATING "THEY DON'T WORK FOR ME". DOES NOT WANT TO TRY PATCH.
[2021-03-08 16:03] LABS: ALBUMIN 3.1 g/dL (3.4-5.0); ANION GAP 6 mmol/L (5-15); CALCIUM 8.5 mg/dL (8.5-10.1); CHLORIDE 112 mmol/L (98-107)
[2021-03-08 16:08] LABS: CREATININE 0.89 mg/dL (0.55-1.02); TROPONIN I < 0.015 ng/mL (0.000-0.045)
[2021-03-08 16:16] LABS: MD SCAN
--- NOTE | 2021-03-08 16:18 | NUR ---
PT DISCONNECTED SELF FROM MONITORING AND AMBULATED TO BR INDEPENDENTLY. RETURNED TO ROOM W/O INCIDENT. CONNECTED TO MONITORING. AWAITING LABS.
--- NOTE | 2021-03-08 16:24 | NUR ---
PT UP IN ROOM, DISCONNECTED SELF FROM MONITORING AGAIN. PUTTING ON JACKET. PT EDUCATED THAT SHE NEEDS TO REMAIN ON GURNEY W/ VS MONITORING ON D/T NATURE OF COMPLAINT. PT REFUSING TO KEEP BP CUFF ON. PT STATES "I DONT CARE THAT I HAVE HIGH BLOOD PRESSURE, I ALWAYS HAVE HIGHBLOOD PRESSURE". ALL TESTS RESULTED. PT IS UP FOR RECHECK AT THIS TIME.
[2021-03-08 16:27] VITALS: BP 207/102
--- NOTE | 2021-03-08 17:46 | NUR ---
PT DISCONNECTED SELF FROM MONITORING AND LEFT ED PRIOR TO RECEIVING DC PPWK.
== END 2021-03-08 17:48 | disposition home or self-care (01) ==
LOC: ED 15:02
DX: R55 Syncope and collapse (principal); R07.89 Other chest pain; J44.9 Chronic obstructive pulmonary disease, unspecified; I13.0 Hypertensive heart and chronic kidney disease with heart failure and stage 1 through stage 4 chronic kidney disease, or unspecified chronic kidney disease; N18.2 Chronic kidney disease, stage 2 (mild); I50.9 Heart failure, unspecified; I48.91 Unspecified atrial fibrillation; E11.22 Type 2 diabetes mellitus with diabetic chronic kidney disease; I45.10 Unspecified right bundle-branch block; Z86.73 Personal history of transient ischemic attack (TIA), and cerebral infarction without residual deficits; Z86.39 Personal history of other endocrine, nutritional and metabolic disease
CPT/HCPCS: 36415; 71045; 80048; 82040; 84484; 85025; 93005; 99285

== ENCOUNTER 2021-03-10 04:01 | Emergency (ER) | payer MEDICARE ==
[~2021-03-10] VITALS: Ht 157.5 cm; Wt 77.3 kg
--- NOTE | 2021-03-10 04:27 | NUR ---
PT PRESENTS TO ER WITH MIDDLETON AND NECK PAIN FOR 3 DAYS, PT STATES SHE HASN'T BEEN ABLE TO SLEEP IN 3 DAYS DUE TO PAIN. PT IN GOWN AND HOOKED TO MONITORS. RESTING ON GURNEY.
--- NOTE | 2021-03-10 05:11 | NUR ---
PT ASSISTED TO BATHROOM, STILL COMPLAINING OF MIDDLETON AND NECK PAIN
[2021-03-10] MEDS ORDERED: ENALAPRILAT 1.25 MG/ML, 2ML IV ONE (05:30)
[2021-03-10 06:07] LABS: BASOPHILS % (AUTO) 1 % (0-1); EOSINOPHILS % (AUTO) 3 % (1-7); LYMPHOCYTES % (AUTO) 32 % (22-44); MEAN CORPUSCULAR HGB CONC 33.1 g/dL (32.4-35.8); MEAN PLATELET VOLUME 7.8 fL (7.4-10.4); MONOCYTES % (AUTO) 13 % (2-9); NEUTROPHILS % (AUTO) 51 % (42-75); PLATELET COUNT 204 x10^3/uL (130-400); RED BLOOD COUNT 4.24 x10^6/uL (3.82-5.3); RED CELL DISTRIBUTION WIDTH 20.4 % (9.6-15.2)
[2021-03-10] MEDS ORDERED: ENALAPRILAT 1.25 MG/ML, 1ML ONE (06:07)
[2021-03-10 06:09] LABS: MD NO
--- NOTE | 2021-03-10 06:09 | NUR ---
TASK RN: IV PLACED VIA US. PT. TOLERATED WELL.
[2021-03-10 06:12] LABS: ALANINE AMINOTRANSFERASE 12 U/L (12-78); ALBUMIN 3.1 g/dL (3.4-5.0); ANION GAP 8 mmol/L (5-15); CALCIUM 8.3 mg/dL (8.5-10.1); CHLORIDE 115 mmol/L (98-107); CREATININE 1.02 mg/dL (0.55-1.02)
[2021-03-10 06:22] LABS: ALKALINE PHOSPHATASE 62 U/L (45-117); BILIRUBIN,TOTAL 0.2 mg/dL (0.2-1.0); TOTAL PROTEIN 6.2 g/dL (6.4-8.2); TROPONIN I < 0.015 ng/mL (0.000-0.045)
--- NOTE | 2021-03-10 06:48 | NUR ---
GAVE REPORT TO MANUEL MITCHELL
--- NOTE | 2021-03-10 07:00 | NUR ---
REPORT FROM MANUEL SCHULTZ. PT LAYING BACK IN BED, REPORTS PERSISTING PAIN. PT REMAINS HYPERTENSIVE.
[2021-03-10] MEDS ORDERED: MORPHINE SULFATE 4 MG/ML, 1ML ONE (07:09)
[2021-03-10] MEDS ORDERED: ONDANSETRON 2MG/ML, 2ML ONE (07:09)
[2021-03-10] MEDS ORDERED: morphine SULFATE 10 MG/ML, 1ML IV ONE (07:30)
[2021-03-10] MEDS ORDERED: ONDANSETRON 2MG/ML, 2ML IVPush ONE (07:30)
--- NOTE | 2021-03-10 07:39 | NUR ---
PT REMAINS IN CT SCAN. MEDICATIONS PREPARED FOR PT.
[2021-03-10] MEDS ORDERED: OMNIPAQUE 350 MG/ML, 75ML BOTTLE ONE (07:50)
[2021-03-10] MEDS ORDERED: hydrALAzine 20 MG/ML, 1ML ONE (07:53)
[2021-03-10] MEDS ORDERED: hydrALAzine 20 MG/ML, 1ML IV ONE (08:00)
--- NOTE | 2021-03-10 08:06 | NUR ---
PT MEDICATED PER EMAR. UP TO BEDSIDE COMMODE WITH MINIMAL ASSIST AND BACK IN BED. SIDE RAILS UP, CALL LIGHT IN REACH. PT VERBALIZES RELIEF BY IV MED.
--- NOTE | 2021-03-10 08:55 | NUR ---
PT UP TO BEDSIDE COMMODE WITH MINIMAL ASSISTANCE. NAD NOTED AT THIS TIME. PLAN FOR HTN MED ADMINISTRATION. SIDE RAILS UP, CALL LIGHT IN REACH.
[2021-03-10] MEDS ORDERED: MELA3TAB62 PO (08:58)
--- NOTE | 2021-03-10 09:30 | NUR ---
PT UP TO BEDSIDE COMMODE WITH MINIMAL ASSISTANCE. PT BACK IN BED. HOB TO LEVEL OF COMFORT. BEAR WARMER APPLIED. PT GIVEN CELL PHONE FOR USE. SIDE RAILS UP, CALL LIGHT IN REACH. BP LOWERING WITH MEDS ADMINISTERED.
--- NOTE | 2021-03-10 10:04 | NUR ---
REPORT TO MANUEL TERRAZAS.
[2021-03-10 10:19] VITALS: BP 177/84
--- NOTE | 2021-03-10 10:19 | NUR ---
PT RESTING IN [facility]. VSS
[2021-03-10] MEDS ORDERED: KETOROLAC 30 MG/1 ML ONE (11:14)
[2021-03-10] MEDS ORDERED: KETOROLAC 30 MG/1 ML IM ONE (11:30)
== END 2021-03-10 11:40 | disposition home or self-care (01) ==
LOC: ED 05:11
DX: I10 Essential (primary) hypertension (principal); R51.9 Headache, unspecified; M54.2 Cervicalgia; R07.89 Other chest pain; E03.9 Hypothyroidism, unspecified; I25.10 Atherosclerotic heart disease of native coronary artery without angina pectoris; E11.9 Type 2 diabetes mellitus without complications; K21.9 Gastro-esophageal reflux disease without esophagitis; J44.9 Chronic obstructive pulmonary disease, unspecified; Z90.49 Acquired absence of other specified parts of digestive tract; Z86.73 Personal history of transient ischemic attack (TIA), and cerebral infarction without residual deficits
CPT/HCPCS: 36415; 70450; 70496; 71045; 80053; 83880; 84439; 84443; 84484; 85025; 93005; 93971; 96372; 96374; 96375; 99285; J0360; J1885; J2270; J2405; Q9967

== ENCOUNTER 2021-03-14 15:39 | Emergency (ER) | payer MEDICARE ==
[~2021-03-14] VITALS: Ht 157.5 cm; Wt 77.2 kg
[~2021-03-14 15:39] MED LIST changes: +MELA3TAB62 PO
--- NOTE | 2021-03-14 15:59 | NUR ---
PT BIN EMS FOR CP AND COUGH. CP 9/10. LEFT CHEST TO LEFT ARM. PT STATES PAIN STARTED LAST NIGHT AND HER "PACER FIRED 2 TIMES". PT ALSO STATES SHE WAS RECENTLY IN THE HOSPITAL FOR "STOMACH ISSUES". PT PLACED ON MONITORS AND EKG COMPLETED.
[2021-03-14 17:00] VITALS: BP 134/71
[2021-03-14 17:15] LABS: ANION GAP 8 mmol/L (5-15); CALCIUM 8.5 mg/dL (8.5-10.1); CHLORIDE 113 mmol/L (98-107)
[2021-03-14 17:20] LABS: CREATININE 1.01 mg/dL (0.55-1.02); TROPONIN I < 0.015 ng/mL (0.000-0.045)
--- NOTE | 2021-03-14 17:28 | NUR ---
PT LEFT WITHOUT RECEIVING DISCHARGE INSTRUCTIONS. PT TALKED WITH MD AND LEFT PRIOR TO RECEIVING PAPWERWORK. LEFT AT CHARGE DESK.
== END 2021-03-14 17:30 | disposition home or self-care (01) ==
LOC: ED 15:57
DX: R07.89 Other chest pain (principal); G89.29 Other chronic pain; R94.31 Abnormal electrocardiogram [ECG] [EKG]; J44.9 Chronic obstructive pulmonary disease, unspecified; I25.10 Atherosclerotic heart disease of native coronary artery without angina pectoris; K21.9 Gastro-esophageal reflux disease without esophagitis; I48.91 Unspecified atrial fibrillation; I13.0 Hypertensive heart and chronic kidney disease with heart failure and stage 1 through stage 4 chronic kidney disease, or unspecified chronic kidney disease; N18.2 Chronic kidney disease, stage 2 (mild); I50.9 Heart failure, unspecified; E78.5 Hyperlipidemia, unspecified; E03.5 Myxedema coma; Z86.73 Personal history of transient ischemic attack (TIA), and cerebral infarction without residual deficits; Z90.89 Acquired absence of other organs; Z90.49 Acquired absence of other specified parts of digestive tract; Z90.710 Acquired absence of both cervix and uterus; Z95.0 Presence of cardiac pacemaker
CPT/HCPCS: 36415; 80048; 84484; 93005; 99284

== ENCOUNTER 2021-03-20 12:21 | Emergency (ER) | payer MEDICARE ==
[~2021-03-20] VITALS: Ht 157.5 cm; Wt 78.0 kg
[~2021-03-20 12:21] MED LIST changes: -OMEP40CA42 PO; +OMEP40CA8 PO
--- NOTE | 2021-03-20 12:32 | NUR ---
EKG DONE IN TRIAGE.
--- NOTE | 2021-03-20 13:44 | NUR ---
RADIOLOGY NOTIFIED THIS RN. 3 ATTEMPTS TO CONTACT PT WITH NO RESPONSE
--- NOTE | 2021-03-20 15:02 | NUR ---
PATIENT ASSISTED TO [facility] FOR URINE SAMPLE.
--- NOTE | 2021-03-20 15:15 | NUR ---
PATIENT BACK IN [facility], CONNECTED TO MONITOR, VSS, NADN, CALL LIGHT WITHIN REACH. URINE COLLECTED AND SENT TO LAB.
[2021-03-20] MEDS ORDERED: ONDANSETRON ODT 8 MG ONE (15:18)
[2021-03-20 15:25] LABS: MICROSCOPIC AUTO
[2021-03-20] MEDS ORDERED: ONDANSETRON ODT 8 MG PO ONE (15:30)
[2021-03-20 15:42] LABS: BASOPHILS % (AUTO) 1 % (0-1); EOSINOPHILS % (AUTO) 6 % (1-7); LYMPHOCYTES % (AUTO) 30 % (22-44); MEAN CORPUSCULAR HEMOGLOBIN 27.5 pg (27.0-34.8); MEAN CORPUSCULAR HGB CONC 33.1 g/dL (32.4-35.8); MEAN PLATELET VOLUME 7.9 fL (7.4-10.4); MONOCYTES % (AUTO) 11 % (2-9); NEUTROPHILS % (AUTO) 52 % (42-75); PLATELET COUNT 214 x10^3/uL (130-400); RED BLOOD COUNT 4.16 x10^6/uL (3.82-5.3); RED CELL DISTRIBUTION WIDTH 19.7 % (9.6-15.2)
[2021-03-20 15:43] LABS: ALANINE AMINOTRANSFERASE 15 U/L (12-78); ALBUMIN 3.1 g/dL (3.4-5.0); ANION GAP 7 mmol/L (5-15); CALCIUM 8.2 mg/dL (8.5-10.1); CHLORIDE 112 mmol/L (98-107); CREATININE 1.26 mg/dL (0.55-1.02); MD NO
[2021-03-20 15:48] LABS: ALKALINE PHOSPHATASE 51 U/L (45-117); BILIRUBIN,TOTAL 0.2 mg/dL (0.2-1.0); TOTAL PROTEIN 6.4 g/dL (6.4-8.2); TROPONIN I < 0.015 ng/mL (0.000-0.045)
[2021-03-20] MEDS ORDERED: FOSFOMYCIN 3 GM PACKET PO ONE (16:00)
[2021-03-20] MEDS ORDERED: FOSFOMYCIN 3 GM PACKET ONE (16:13)
[2021-03-20 16:14] VITALS: BP 140/95
--- NOTE | 2021-03-20 16:16 | NUR ---
PATIENT MEDICATED PER eMAR, CONNECTED TO MONITOR, VSS, NADN, CALL LIGHT WITHIN REACH, NO FURTHER NEEDS AT THIS TIME.
--- NOTE | 2021-03-20 17:35 | NUR ---
PATIENT TOOK OFF ALL MONITORING EQUIPMENT AND GOT DRESSED, LEFT WITHOUT DISCHARGE PAPERWORK.
== END 2021-03-20 17:36 | disposition home or self-care (01) ==
LOC: ED 16:10
DX: N39.0 Urinary tract infection, site not specified (principal); R11.2 Nausea with vomiting, unspecified; E86.0 Dehydration; R05 Cough; J44.9 Chronic obstructive pulmonary disease, unspecified; I25.10 Atherosclerotic heart disease of native coronary artery without angina pectoris; K21.9 Gastro-esophageal reflux disease without esophagitis; I12.9 Hypertensive chronic kidney disease with stage 1 through stage 4 chronic kidney disease, or unspecified chronic kidney disease; N18.2 Chronic kidney disease, stage 2 (mild); E78.5 Hyperlipidemia, unspecified; E03.9 Hypothyroidism, unspecified; Z86.73 Personal history of transient ischemic attack (TIA), and cerebral infarction without residual deficits; Z90.89 Acquired absence of other organs; Z90.49 Acquired absence of other specified parts of digestive tract; Z95.0 Presence of cardiac pacemaker
CPT/HCPCS: 36415; 71045; 80053; 81001; 83690; 84484; 85025; 87086; 93005; 99285; Q0162

== ENCOUNTER 2021-03-23 16:52 | Emergency (ER) | payer MEDICARE ==
[~2021-03-23] VITALS: Ht 157.5 cm; Wt 82.6 kg
--- NOTE | 2021-03-23 17:10 | NUR ---
PT CECELIA PENA TODAY, CALLED FROM [facility] WHERE PT HAD NEAR SYNCOPE EVENT. PT ALSO WITH C/O INTERMITTANT CP FOR APPROX TWO WEEKS WITH COUGH. PT REFUSED ASA ON HOG WORKER FOR EMS, CONTINUES TO REFUSE STATES "I DONT LIKE THE TASTE OF IT", PT RATES CP 07/27. NO IV ON ARRIVAL, EMS TRIED X2. PT TO CARD MONITOR, BP, CONT PULSE OX. AWAITING MD ORDERS
[2021-03-23] MEDS ORDERED: LORazepam 1MG TABLET ONE (17:27)
[2021-03-23] MEDS ORDERED: LORazepam 1MG TABLET PO ONE (17:30)
[2021-03-23 17:48] LABS: BASOPHILS % (AUTO) 1 % (0-1); EOSINOPHILS % (AUTO) 6 % (1-7); LYMPHOCYTES % (AUTO) 33 % (22-44); MD MORPH REVIEW ONLY; MEAN CORPUSCULAR HEMOGLOBIN 27.3 pg (27.0-34.8); MEAN CORPUSCULAR HGB CONC 33.1 g/dL (32.4-35.8); MEAN PLATELET VOLUME 8.1 fL (7.4-10.4); MONOCYTES % (AUTO) 10 % (2-9); NEUTROPHILS % (AUTO) 50 % (42-75); PLATELET COUNT 169 x10^3/uL (130-400); RED BLOOD COUNT 4.16 x10^6/uL (3.82-5.3); RED CELL DISTRIBUTION WIDTH 19.5 % (9.6-15.2)
[2021-03-23 17:54] LABS: ALBUMIN 3.2 g/dL (3.4-5.0); ANION GAP 8 mmol/L (5-15); CALCIUM 8.1 mg/dL (8.5-10.1); CHLORIDE 115 mmol/L (98-107); CREATININE 1.23 mg/dL (0.55-1.02)
[2021-03-23 17:57] LABS: ANISOCYTOSIS 1+; TROPONIN I < 0.015 ng/mL (0.000-0.045)
[2021-03-23 17:58] LABS: OVALOCYTES 1+
[2021-03-23 17:59] LABS: <PLATELET ESTIMATE> ADEQUATE; <PLT MORPHOLOGY> NORMAL PLT MORPH
--- NOTE | 2021-03-23 18:02 | NUR ---
PT MEDICATED PER MAR, BP REMAINS ELEVATED, ERP UPDATED. PT STATES NO RELEIF.
--- NOTE | 2021-03-23 18:49 | NUR ---
Report from Joyce JACKSON
--- NOTE | 2021-03-23 19:01 | NUR ---
Pt resting in bed, sitting up, with eyes closed, even chest rise. BP elevated, provider made aware. BRIAN
--- NOTE | 2021-03-23 19:16 | NUR ---
Pt given another warm blanket and assisted up to bedside comode, BP meds requested from provider
[2021-03-23] MEDS ORDERED: CARVEDILOL 25 MG TABLET PO ONE (19:45)
[2021-03-23] MEDS ORDERED: CARVEDILOL 12.5 MG TABLET ONE (20:11)
[2021-03-23 20:26] VITALS: BP 237/89
[2021-03-23] MEDS ORDERED: hydrALAzine 20 MG/ML, 1ML ONE (20:47)
[2021-03-23] MEDS ORDERED: hydrALAzine 20 MG/ML, 1ML IV ONE (21:00)
== END 2021-03-23 21:47 | disposition home or self-care (01) ==
LOC: ED 19:05
DX: R07.2 Precordial pain (principal); I45.19 Other right bundle-branch block; E11.22 Type 2 diabetes mellitus with diabetic chronic kidney disease; I13.0 Hypertensive heart and chronic kidney disease with heart failure and stage 1 through stage 4 chronic kidney disease, or unspecified chronic kidney disease; N18.2 Chronic kidney disease, stage 2 (mild); I50.9 Heart failure, unspecified; E03.9 Hypothyroidism, unspecified; E78.5 Hyperlipidemia, unspecified; K21.9 Gastro-esophageal reflux disease without esophagitis; J44.9 Chronic obstructive pulmonary disease, unspecified; I48.91 Unspecified atrial fibrillation; I25.10 Atherosclerotic heart disease of native coronary artery without angina pectoris; M19.90 Unspecified osteoarthritis, unspecified site; Z90.49 Acquired absence of other specified parts of digestive tract
CPT/HCPCS: 36415; 71045; 80048; 82040; 84484; 85025; 93005; 99285

== ENCOUNTER 2021-03-23 22:32 | Emergency (ER) | payer MEDICARE ==
[~2021-03-23] VITALS: Ht 157.5 cm; Wt 86.0 kg
[2021-03-23 22:52] VITALS: BP 162/85
--- NOTE | 2021-03-24 01:07 | NUR ---
NIL X 1
--- NOTE | 2021-03-24 01:17 | NUR ---
NIL X 2
--- NOTE | 2021-03-24 01:28 | NUR ---
NIL X 3
== END 2021-03-24 01:30 | disposition left against medical advice (07) ==
LOC: ED 22:42
DX: G47.9 Sleep disorder, unspecified (principal)
CPT/HCPCS: 99281

== ENCOUNTER 2021-03-31 20:21 | Emergency (ER) | payer MEDICARE ==
[~2021-03-31] VITALS: Ht 162.6 cm; Wt 75.0 kg
[2021-03-31 20:29] VITALS: BP 143/79
--- NOTE | 2021-03-31 22:36 | NUR ---
actimize architect: Called for patient. Pt not in lobby at this time.
--- NOTE | 2021-03-31 22:58 | NUR ---
Ironer Machine: Called for patient. Pt not in lobby at this time. 2nd attempt.
--- NOTE | 2021-03-31 23:09 | NUR ---
autocad operator: Called for patient. Pt not in lobby for 3rd attmept.
== END 2021-03-31 23:30 | disposition left against medical advice (07) ==
LOC: ED 21:59
DX: R05 Cough (principal); R50.9 Fever, unspecified
CPT/HCPCS: 71045; 99283

== ENCOUNTER 2021-04-02 15:05 | Emergency (ER) | payer MEDICARE ==
[~2021-04-02] VITALS: Ht 157.5 cm; Wt 80.0 kg
[2021-04-02 18:36] VITALS: BP 171/85
--- NOTE | 2021-04-02 19:17 | NUR ---
First contact with patient. Wheeled to room in wheelchair and assisted to faby.
[2021-04-02] MEDS ORDERED: IBUPROFEN 200 MG TABLET PO ONE (20:30)
== END 2021-04-02 21:41 | disposition home or self-care (01) ==
LOC: ED 15:30
DX: G89.11 Acute pain due to trauma (principal); M25.562 Pain in left knee; M24.10 Other articular cartilage disorders, unspecified site; I11.0 Hypertensive heart disease with heart failure; I50.9 Heart failure, unspecified; E78.5 Hyperlipidemia, unspecified; E03.9 Hypothyroidism, unspecified; Z86.73 Personal history of transient ischemic attack (TIA), and cerebral infarction without residual deficits; X50.0XXA Overexertion from strenuous movement or load, initial encounter; Y93.89 Activity, other specified; Y92.89 Other specified places as the place of occurrence of the external cause; Y99.8 Other external cause status
CPT/HCPCS: 99283

== ENCOUNTER 2021-04-05 19:17 | Emergency (ER) | payer MEDICARE ==
--- NOTE | 2021-04-05 19:40 | NUR ---
pt presents to ed with left knee pain, and states she cannot walk. pt was able to get up onto gurney withount assistance, placed on continuous monitoring.
[2021-04-05 20:37] LABS: TROPONIN I < 0.015 ng/mL (0.000-0.045)
--- NOTE | 2021-04-05 20:54 | NUR ---
pt back from us, pt resting on faby, denies needs at this time.
[2021-04-05 20:58] VITALS: BP 203/95
--- NOTE | 2021-04-05 21:30 | NUR ---
pt had replaced her brace and needed a bandaid for a toenail she got caught with the brace. this rn placed bandaid. pt resting on [place], denies needs at this time.
--- NOTE | 2021-04-05 21:45 | NUR ---
pt up sitting in chair, out of bed again.
--- NOTE | 2021-04-05 22:00 | NUR ---
pt standing at door way complaining of being cold and her leg hurt. pt got back on the gurney independently and was given another warm blanket.
--- NOTE | 2021-04-05 22:39 | NUR ---
pt refused vitals at this time.
--- NOTE | 2021-04-05 22:39 | NUR ---
Patient given discharge instructions and they have confirmed that they understand the instructions. Patient ambulatory with steady gait.
== END 2021-04-05 22:40 | disposition home or self-care (01) ==
LOC: ED 22:33
DX: S83.92XA Sprain of unspecified site of left knee, initial encounter (principal); R07.89 Other chest pain; I45.19 Other right bundle-branch block; Z72.9 Problem related to lifestyle, unspecified; I13.0 Hypertensive heart and chronic kidney disease with heart failure and stage 1 through stage 4 chronic kidney disease, or unspecified chronic kidney disease; I50.9 Heart failure, unspecified; N18.2 Chronic kidney disease, stage 2 (mild); E03.9 Hypothyroidism, unspecified; Z86.73 Personal history of transient ischemic attack (TIA), and cerebral infarction without residual deficits; X58.XXXA Exposure to other specified factors, initial encounter; Y93.89 Activity, other specified; Y92.89 Other specified places as the place of occurrence of the external cause; Y99.8 Other external cause status
CPT/HCPCS: 36415; 84484; 93005; 99285

== ENCOUNTER 2021-04-14 10:55 | Emergency (ER) | payer MEDICARE ==
[~2021-04-14] VITALS: Ht 157.5 cm; Wt 85.9 kg
[2021-04-14 11:00] VITALS: BP 158/61
[2021-04-14] MEDS ORDERED: ACETAMINOPHEN 500 MG TABLET PO ONE (11:30)
[2021-04-14] MEDS ORDERED: ACETAMINOPHEN 500 MG TABLET ONE (11:46)
--- NOTE | 2021-04-14 11:49 | NUR ---
US IN WITH. PT REFUSED TYLENOL
--- NOTE | 2021-04-14 12:56 | NUR ---
TASK RN: PT NOTED TO AMBULATED STEADILY OUT OF DEPARTMENT W USE OF CANE.
== END 2021-04-14 12:58 | disposition home or self-care (01) ==
LOC: ED 12:50
DX: S63.521A Sprain of radiocarpal joint of right wrist, initial encounter (principal); R60.0 Localized edema; I87.2 Venous insufficiency (chronic) (peripheral); E11.22 Type 2 diabetes mellitus with diabetic chronic kidney disease; I13.0 Hypertensive heart and chronic kidney disease with heart failure and stage 1 through stage 4 chronic kidney disease, or unspecified chronic kidney disease; N18.2 Chronic kidney disease, stage 2 (mild); J44.9 Chronic obstructive pulmonary disease, unspecified; K21.9 Gastro-esophageal reflux disease without esophagitis; I25.10 Atherosclerotic heart disease of native coronary artery without angina pectoris; I48.91 Unspecified atrial fibrillation; E78.5 Hyperlipidemia, unspecified; E11.40 Type 2 diabetes mellitus with diabetic neuropathy, unspecified; E03.9 Hypothyroidism, unspecified; Z86.73 Personal history of transient ischemic attack (TIA), and cerebral infarction without residual deficits; Z90.49 Acquired absence of other specified parts of digestive tract; X58.XXXA Exposure to other specified factors, initial encounter; Y93.89 Activity, other specified; Y92.89 Other specified places as the place of occurrence of the external cause; Y99.8 Other external cause status
CPT/HCPCS: 99284

== ENCOUNTER 2021-04-16 21:11 | Emergency (ER) | payer MEDICARE ==
[~2021-04-16] VITALS: Ht 157.5 cm; Wt 68.5 kg
--- NOTE | 2021-04-16 21:34 | NUR ---
BIBA WITH CC OF LOWER MIDDLE BACK PAIN AND BILAT LEG PAIN AFTER MOVING BOXES YESTERDAY. PT BELIEVES SHE HURT HER BACK LIFTING BOXES. PT STATES PAIN IS 10/10 AND "SO BAD I CANT GET OUT OF BED, I THINK I PULLED SOMETHING". PT DENIES NUMBNESS AND TINGLING.
[2021-04-16] MEDS ORDERED: IBUPROFEN 600 MG TABLET PO ONE (22:00)
[2021-04-16] MEDS ORDERED: ACETAMINOPHEN 325 MG TABLET PO ONE (22:00)
[2021-04-16] MEDS ORDERED: CYCLOBENZAPRINE 10 MG TABLET PO ONE (22:00)
[2021-04-16] MEDS ORDERED: IBUPROFEN 600 MG TABLET ONE (22:01)
[2021-04-16] MEDS ORDERED: CYCLOBENZAPRINE 10 MG TABLET ONE (22:01)
[2021-04-16] MEDS ORDERED: ACETAMINOPHEN 325 MG TABLET ONE ×2 (22:01→22:03)
[2021-04-16 22:24] VITALS: BP 58/70
== END 2021-04-16 22:26 | disposition home or self-care (01) ==
LOC: ED 21:47
DX: S39.012A Strain of muscle, fascia and tendon of lower back, initial encounter (principal); I10 Essential (primary) hypertension; I25.10 Atherosclerotic heart disease of native coronary artery without angina pectoris; E11.9 Type 2 diabetes mellitus without complications; I48.91 Unspecified atrial fibrillation; K21.9 Gastro-esophageal reflux disease without esophagitis; J44.9 Chronic obstructive pulmonary disease, unspecified; E03.9 Hypothyroidism, unspecified; Z86.73 Personal history of transient ischemic attack (TIA), and cerebral infarction without residual deficits; Z90.49 Acquired absence of other specified parts of digestive tract; X58.XXXA Exposure to other specified factors, initial encounter; Y93.89 Activity, other specified; Y92.89 Other specified places as the place of occurrence of the external cause; Y99.8 Other external cause status
CPT/HCPCS: 99284

== ENCOUNTER 2021-04-20 05:43 | Emergency (ER) | payer MEDICARE ==
[~2021-04-20] VITALS: Ht 157.5 cm; Wt 70.0 kg
--- NOTE | 2021-04-20 05:53 | NUR ---
ASSUMED CARE OF PT. BIB [facility] FOR C/O OF BACK PAIN X3 DAYS, PT BELIEVES HER DISC IS OUT. NO RECENT TRAUMA. HAS NOT SEEN SPECIALIST STILL. HAS BEEN MANAGING W/ TYLENOL AND ADVIL BUT REPORTS SHE RAN OUT. VS 135/95, HR 80 96% RA. NO INTERVENTIONS DIRECTOR STAFFING. PT PLACED IN GOWN, HOOKED TO MONITOR. PT REPORTS LBP THAT RUNS DOWN HER LEG, CAUSING N/T BILATERALLY. SHE HASN'T SEEN SPECIALIST, BECAUSE REFERRAL IS ONE BY [facility], "I DON'T LIKE [facility] IM NOT GOING TO THEM" PAIN 07/27. NADN, CALL LIGHT W/IN REACH.
[2021-04-20] MEDS ORDERED: CARVEDILOL 25 MG TABLET PO ONE (06:35)
[2021-04-20] MEDS ORDERED: CARVEDILOL 12.5 MG TABLET ONE (06:39)
[2021-04-20] MEDS ORDERED: KETOROLAC 30 MG/1 ML ONE (06:39)
--- NOTE | 2021-04-20 06:46 | NUR ---
PT MEDICATED PER MAR, HTN STILL. VSS, NADN. CALL LIGHT W/IN REACH.
[2021-04-20] MEDS ORDERED: KETOROLAC 30 MG/1 ML IM ONE (07:00)
--- NOTE | 2021-04-20 07:06 | NUR ---
PT UP TO BATHROOM AND BACK W/O INCIDENT, SHE WAS STABLE W/ CANE. PT BACK IN BED, PROVIDED WARM BLANKET. PT STILL HTN OTHER VSS. PT UPDATED ON POC. CALL LIGHT W/IN REACH.
--- NOTE | 2021-04-20 07:19 | NUR ---
PT TO CT
[2021-04-20 08:02] VITALS: BP 193/100
--- NOTE | 2021-04-20 08:02 | NUR ---
PT WALKED TO RESTROOM AND BACK W/O INCIDENT, HTN STILL OTHER VS WNL. NADN, CALL LIGHT W/IN REACH.
--- NOTE | 2021-04-20 09:05 | NUR ---
PT WAS COMING OUT OF ROOM WAS DRESSED AND HAD HER BELONGINGS, SHE STATES "I CAN'T WAIT IN THAT COLD ROOM ANYMORE" I EXPLAINED SHE IS BEING DC'D BUT WAITING ON PAPERWORK. SHE SAYS I WILL WAIT DOWN IN CHAIRS FOR IT.
--- NOTE | 2021-04-20 09:15 | NUR ---
Patient given discharge instructions and they have confirmed that they understand the instructions. Patient ambulatory with steady gait.
== END 2021-04-20 09:16 | disposition home or self-care (01) ==
LOC: ED 08:23
DX: M47.816 Spondylosis without myelopathy or radiculopathy, lumbar region (principal); M51.36 Other intervertebral disc degeneration, lumbar region; K21.9 Gastro-esophageal reflux disease without esophagitis; E11.22 Type 2 diabetes mellitus with diabetic chronic kidney disease; I13.0 Hypertensive heart and chronic kidney disease with heart failure and stage 1 through stage 4 chronic kidney disease, or unspecified chronic kidney disease; N18.2 Chronic kidney disease, stage 2 (mild); I50.9 Heart failure, unspecified; J44.9 Chronic obstructive pulmonary disease, unspecified; I48.91 Unspecified atrial fibrillation; Z86.73 Personal history of transient ischemic attack (TIA), and cerebral infarction without residual deficits; Z90.49 Acquired absence of other specified parts of digestive tract
CPT/HCPCS: 72131; 96372; 99284; J1885

== ENCOUNTER 2021-04-21 20:21 | Emergency (ER) | payer MEDICARE ==
[~2021-04-21] VITALS: Ht 157.5 cm; Wt 80.0 kg
--- NOTE | 2021-04-21 20:56 | NUR ---
CHRONIC BACK PAIN NOW WORSE D/T NO MONEY TO BUY MEDS IBUPROFEN
[2021-04-21 21:25] VITALS: BP 225/100
[2021-04-21] MEDS ORDERED: METHOCARBAMOL 750 MG TABLET PO ONE (21:30)
[2021-04-21] MEDS ORDERED: KETOROLAC 30 MG/1 ML IM ONE (21:30)
== END 2021-04-21 22:14 | disposition home or self-care (01) ==
LOC: ED 20:51
DX: S39.012A Strain of muscle, fascia and tendon of lower back, initial encounter (principal); E03.9 Hypothyroidism, unspecified; K21.9 Gastro-esophageal reflux disease without esophagitis; E11.22 Type 2 diabetes mellitus with diabetic chronic kidney disease; I13.0 Hypertensive heart and chronic kidney disease with heart failure and stage 1 through stage 4 chronic kidney disease, or unspecified chronic kidney disease; N18.2 Chronic kidney disease, stage 2 (mild); I50.9 Heart failure, unspecified; E11.40 Type 2 diabetes mellitus with diabetic neuropathy, unspecified; I48.91 Unspecified atrial fibrillation; Z90.49 Acquired absence of other specified parts of digestive tract; X58.XXXA Exposure to other specified factors, initial encounter; Y93.89 Activity, other specified; Y92.89 Other specified places as the place of occurrence of the external cause; Y99.8 Other external cause status
CPT/HCPCS: 96372; 99283; J1885

== ENCOUNTER 2021-04-23 09:48 | Emergency (ER) | payer MEDICARE ==
[~2021-04-23] VITALS: Ht 157.5 cm; Wt 86.2 kg
[2021-04-23 09:55] VITALS: BP 171/85
[2021-04-23] MEDS ORDERED: KETOROLAC 30 MG/1 ML IM ONE (10:00)
[2021-04-23] MEDS ORDERED: METHOCARBAMOL 750 MG TABLET PO ONE (10:00)
[2021-04-23] MEDS ORDERED: METHOCARBAMOL 750 MG TABLET ONE (10:09)
[2021-04-23] MEDS ORDERED: KETOROLAC 30 MG/1 ML ONE ×2 (10:09→10:11)
[2021-04-23 12:31] LABS: BASOPHILS % (AUTO) 1 % (0-1); EOSINOPHILS % (AUTO) 5 % (1-7); LYMPHOCYTES % (AUTO) 41 % (22-44); MEAN CORPUSCULAR HEMOGLOBIN 27.5 pg (27.0-34.8); MEAN CORPUSCULAR HGB CONC 32.9 g/dL (32.4-35.8); MEAN PLATELET VOLUME 7.9 fL (7.4-10.4); MONOCYTES % (AUTO) 12 % (2-9); NEUTROPHILS % (AUTO) 42 % (42-75); PLATELET COUNT 190 x10^3/uL (130-400); RED BLOOD COUNT 4.48 x10^6/uL (3.82-5.3); RED CELL DISTRIBUTION WIDTH 18.3 % (9.6-15.2)
[2021-04-23 12:41] LABS: ALBUMIN 3.4 g/dL (3.4-5.0); ANION GAP 6 mmol/L (5-15); CALCIUM 8.6 mg/dL (8.5-10.1); CHLORIDE 113 mmol/L (98-107)
[2021-04-23 12:46] LABS: CREATININE 1.07 mg/dL (0.55-1.02); TROPONIN I < 0.015 ng/mL (0.000-0.045)
--- NOTE | 2021-04-23 13:27 | NUR ---
BREAK RN: PT VERBALIZED UNDERSTANDING OF DC INSTRUCTIONS. PT REFUSING DC VITALS, RIPPED OFF ALL MONITORING. PT EMOTINALLY DISTRESSED MAKING STATEMENTS SUCH "IF I FALL DO NOT HELP ME, I RATHER THEN COME BACK HERE, I HOPE I GET POLIO, WHEELCHAIRS ARE FOR LOSERS, THE SURGEON LIED TO ME, I'M NEVER COMING BACK HERE, IF I DO NOT BRING ME HERE". PT DENIES SI/HI. PT W/ SLOW AMBULATION, OFFERED WHEELCHAIR MULTIPLE TIMES BUT REFUSING. WHILE WALKING DOWN BOWEN, ANOTHER RN BROUGHT WHEELCHAIR FOR PT, PT TURNED AWAY AND STATES "GET THAT THING AWAY FROM, WHEELCHAIRS ARE FOR LOSERS!". PT CONTINUED TO REFUSE WHEELCHAIR WHILE AMBULATING TO DC DESK.
[2021-04-24] MEDS ORDERED: IBUP-1223 PO (14:24)
[2021-04-24] MEDS ORDERED: LEVO100T5 PO (14:24)
[2021-04-24] MEDS ORDERED: CARV-39 PO (14:24)
== END 2021-04-23 13:35 | disposition home or self-care (01) ==
LOC: ED 10:09
DX: M54.5 Low back pain (principal); G89.29 Other chronic pain; R07.89 Other chest pain; I45.19 Other right bundle-branch block; I11.0 Hypertensive heart disease with heart failure; I50.9 Heart failure, unspecified; I25.10 Atherosclerotic heart disease of native coronary artery without angina pectoris; J44.9 Chronic obstructive pulmonary disease, unspecified; K21.9 Gastro-esophageal reflux disease without esophagitis; E11.9 Type 2 diabetes mellitus without complications; I48.91 Unspecified atrial fibrillation; E78.5 Hyperlipidemia, unspecified; E03.9 Hypothyroidism, unspecified; Z86.73 Personal history of transient ischemic attack (TIA), and cerebral infarction without residual deficits
CPT/HCPCS: 36415; 71045; 80048; 82040; 83880; 84484; 85025; 93005; 96372; 99285; J1885

== ENCOUNTER 2021-04-24 13:25 | Emergency (ER) | payer MEDICARE ==
[~2021-04-24] VITALS: Ht 157.5 cm; Wt 84.5 kg
[2021-04-24 13:28] VITALS: BP 138/66
--- NOTE | 2021-04-24 13:35 | NUR ---
PT A&OX4, RESP EVEN & UNLABORED, SPEECH CLEAR, SKIN WNL. ELASTIC KNEE BRACE PRESENT ON LT KNEE. PT DC'D FROM [facility] 04/23/21; WAS ADMITTED FOR BACK PAIN AND HINSON'S CYST. PT C/O LOWER JAW PAIN, LT KNEE PAIN, BACK PAIN. HAS NOT FOLLOWED UP W/ SWEETWATER PAIN AND SPINE INSTRUCTED PER [facility]. STATES "I JUST TOOK MY MORNING PILLS, ALL OF THEM"; INCLUDED IBUPROFEN. DENIES NARCOTIC USE.
[2021-04-24] MEDS ORDERED: IBUP-1223 PO (14:24)
[2021-04-24] MEDS ORDERED: LEVO100T5 PO (14:24)
[2021-04-24] MEDS ORDERED: CARV-39 PO (14:24)
--- NOTE | 2021-04-24 14:30 | NUR ---
PT DRESSED, SITTING ON SIDE OF GURNEY. REFUSED ADDITIONAL VS CHECK. WRITTEN DC INSTRUCTIONS DISCUSSED W/ PT. URGED PT TO ELEVATE HER LEGS WHILE SITTING TO RELIEVE KNEE SWELLING AND PEDAL EDEMA.
== END 2021-04-24 14:45 | disposition home or self-care (01) ==
LOC: ED 14:00
DX: R53.1 Weakness (principal); R07.89 Other chest pain; M54.9 Dorsalgia, unspecified; I45.10 Unspecified right bundle-branch block; J44.9 Chronic obstructive pulmonary disease, unspecified; K21.9 Gastro-esophageal reflux disease without esophagitis; I48.91 Unspecified atrial fibrillation; I11.0 Hypertensive heart disease with heart failure; I50.9 Heart failure, unspecified; E78.5 Hyperlipidemia, unspecified; E03.9 Hypothyroidism, unspecified; Z86.73 Personal history of transient ischemic attack (TIA), and cerebral infarction without residual deficits
CPT/HCPCS: 93005; 99283

== ENCOUNTER 2021-04-27 08:47 | Emergency (ER) | payer MEDICARE ==
[~2021-04-27] VITALS: Ht 157.5 cm; Wt 180.0 kg
[~2021-04-27 08:47] MED LIST changes: +CARV-39 PO; +IBUP-1223 PO
--- NOTE | 2021-04-27 09:21 | NUR ---
pt presents to ed with c/o R knee pain, states she was seen at [facility] on 04/24/21 and diagnosed with Bakre's cyst. pt has brace on R knee, states she is here because she believes "cysr is growing and needs to see a surgeon".
[2021-04-27 09:30] VITALS: BP 177/69
--- NOTE | 2021-04-27 10:10 | NUR ---
pt eductaed on discharge and follow-up, verbalized understanding. ambulatory to discharge with steady gait.
== END 2021-04-27 10:12 | disposition home or self-care (01) ==
LOC: ED 09:49
DX: M25.562 Pain in left knee (principal); M71.22 Synovial cyst of popliteal space [Baker], left knee; I25.10 Atherosclerotic heart disease of native coronary artery without angina pectoris; J44.9 Chronic obstructive pulmonary disease, unspecified; K21.9 Gastro-esophageal reflux disease without esophagitis; E11.9 Type 2 diabetes mellitus without complications; I48.91 Unspecified atrial fibrillation; I11.0 Hypertensive heart disease with heart failure; I50.9 Heart failure, unspecified; E78.5 Hyperlipidemia, unspecified; E03.9 Hypothyroidism, unspecified; Z90.49 Acquired absence of other specified parts of digestive tract
CPT/HCPCS: 99281

== ENCOUNTER 2021-04-30 18:11 | Emergency (ER) | payer MEDICARE ==
[~2021-04-30] VITALS: Ht 157.5 cm; Wt 78.8 kg
[2021-04-30 18:24] VITALS: BP 127/97
--- NOTE | 2021-04-30 20:51 | NUR ---
PT PRESENTS TO ER FOR LEFT KNEE PAIN, PT STATES THERE IS A SAC A FLUID THAT HAS RUPTURED IN HER KNEE, PT STATES SHE IS IN A LOT OF PAIN AND CAN HARDLY WALK OR LAY DOWN OR MOVE IT, PT HAS A KNEE BRACE ON, A/OX4, ALL NEEDS IN REACH, CALL LIGHT IN REACH
[2021-04-30] MEDS ORDERED: KETOROLAC 30 MG/1 ML ONE (21:37)
--- NOTE | 2021-04-30 21:46 | NUR ---
PT EVALUATED BY PROVIDED, PT COMPLAINING THAT SHE CANT LAY DOWN OR WALK YET PT WAS LAYING IN BED WITH HER LEGS RAISED, PT GOT OUT OF BED ON HER OWN AND AMBULATED WITH HER CANE, PT PROVIDED SCRIPT UPON DISCHARGE, NAD
[2021-04-30] MEDS ORDERED: KETOROLAC 30 MG/1 ML IM ONE ×2 (22:00)
== END 2021-04-30 21:49 | disposition home or self-care (01) ==
LOC: ED 21:05
DX: S39.012A Strain of muscle, fascia and tendon of lower back, initial encounter (principal); M25.562 Pain in left knee; I25.10 Atherosclerotic heart disease of native coronary artery without angina pectoris; J44.9 Chronic obstructive pulmonary disease, unspecified; I13.0 Hypertensive heart and chronic kidney disease with heart failure and stage 1 through stage 4 chronic kidney disease, or unspecified chronic kidney disease; E11.22 Type 2 diabetes mellitus with diabetic chronic kidney disease; N18.2 Chronic kidney disease, stage 2 (mild); I50.9 Heart failure, unspecified; K21.9 Gastro-esophageal reflux disease without esophagitis; M19.90 Unspecified osteoarthritis, unspecified site; I48.91 Unspecified atrial fibrillation; G89.29 Other chronic pain; E78.5 Hyperlipidemia, unspecified; E03.9 Hypothyroidism, unspecified; Z90.89 Acquired absence of other organs; Z86.73 Personal history of transient ischemic attack (TIA), and cerebral infarction without residual deficits; Z90.49 Acquired absence of other specified parts of digestive tract; Z90.710 Acquired absence of both cervix and uterus; Z95.0 Presence of cardiac pacemaker; X58.XXXA Exposure to other specified factors, initial encounter; Y93.89 Activity, other specified; Y92.89 Other specified places as the place of occurrence of the external cause; Y99.8 Other external cause status
CPT/HCPCS: 96372; 99283; J1885

== ENCOUNTER 2021-06-04 01:57 | Emergency (ER) | payer MEDICARE ==
[~2021-06-04] VITALS: Ht 157.5 cm; Wt 84.7 kg
[2021-06-04 02:21] VITALS: BP 175/85
[2021-06-04] MEDS ORDERED: IBUPROFEN 200 MG TABLET PO ONE (03:00)
[2021-06-04] MEDS ORDERED: IBUPROFEN 600 MG TABLET ONE (03:00)
--- NOTE | 2021-06-04 03:03 | NUR ---
PT IN CHAIR AT BEDSIDE, UP BY SELF WITHOUT INCIDENT, TOOK OFF MONITORING EQUIPMENT AND REFUSES VITALS
--- NOTE | 2021-06-04 03:35 | NUR ---
pt remains in chair, refuses bed, still refuses vitals to be taken
--- NOTE | 2021-06-04 03:53 | NUR ---
pt ambulated to BR with cane, without difficulty
--- NOTE | 2021-06-04 04:06 | NUR ---
CAB CALLED AND VOUCHER GIVEN, PT AMBULATED TO EXIT WITH CANE, REFUSES MASK, REFUSES D'C PAPERS, REFUSES PRESCRIPTIONS.
== END 2021-06-04 04:12 | disposition home or self-care (01) ==
LOC: ED 02:02
DX: J06.9 Acute upper respiratory infection, unspecified (principal); Z20.822 Contact with and (suspected) exposure to COVID-19; R94.31 Abnormal electrocardiogram [ECG] [EKG]; I13.10 Hypertensive heart and chronic kidney disease without heart failure, with stage 1 through stage 4 chronic kidney disease, or unspecified chronic kidney disease; E11.22 Type 2 diabetes mellitus with diabetic chronic kidney disease; N18.2 Chronic kidney disease, stage 2 (mild); I50.9 Heart failure, unspecified; J44.9 Chronic obstructive pulmonary disease, unspecified; K21.9 Gastro-esophageal reflux disease without esophagitis; G89.29 Other chronic pain; I48.91 Unspecified atrial fibrillation; I25.10 Atherosclerotic heart disease of native coronary artery without angina pectoris; E03.9 Hypothyroidism, unspecified; Z86.73 Personal history of transient ischemic attack (TIA), and cerebral infarction without residual deficits; Z90.89 Acquired absence of other organs; Z90.49 Acquired absence of other specified parts of digestive tract; Z90.710 Acquired absence of both cervix and uterus; Z95.0 Presence of cardiac pacemaker
CPT/HCPCS: 71045; 93005; 99285; U0003; U0005

== ENCOUNTER 2021-06-11 12:02 | Emergency (ER) | payer MEDICARE ==
[~2021-06-11] VITALS: Ht 157.5 cm; Wt 78.4 kg
--- NOTE | 2021-06-11 12:05 | NUR ---
PT SITTING ON BED, REPORTS COUGH X2 WEEKS "BUT I HAVE IT UNDER CONTROL" PT REFUSES ANY ASSESSMENTS BY RN AND REFUSES TO CHANGE INTO GOWN. PT EDUCATED ON NEED FOR FULL ASSESSMENT AND TO PREPARE FOR ERMD EVALUATION BY CHANGING INTO GOWN. PT REFUSES.
[2021-06-11 12:06] VITALS: BP 138/61
--- NOTE | 2021-06-11 12:57 | NUR ---
CXR AT BEDSIDE. NAD NOTED AT THIS TIME.
[2021-06-11 13:19] LABS: BASOPHILS % (AUTO) 1 % (0-1); EOSINOPHILS % (AUTO) 3 % (1-7); LYMPHOCYTES % (AUTO) 31 % (22-44); MEAN CORPUSCULAR HEMOGLOBIN 28.7 pg (27.0-34.8); MEAN CORPUSCULAR HGB CONC 32.9 g/dL (32.4-35.8); MEAN PLATELET VOLUME 8.5 fL (7.4-10.4); MONOCYTES % (AUTO) 10 % (2-9); NEUTROPHILS % (AUTO) 56 % (42-75); PLATELET COUNT 181 x10^3/uL (130-400); RED BLOOD COUNT 4.53 x10^6/uL (3.82-5.3); RED CELL DISTRIBUTION WIDTH 18.1 % (9.6-15.2)
--- NOTE | 2021-06-11 13:30 | NUR ---
PT VERBALLY ABUSIVE TO STAFF. SHOUTING TO GO HOME, AND ABOUT TRANSPORTATION HOME.
[2021-06-11 13:31] LABS: ALANINE AMINOTRANSFERASE 47 U/L (12-78); ALBUMIN 3.2 g/dL (3.4-5.0); ANION GAP 9 mmol/L (5-15); CALCIUM 8.6 mg/dL (8.5-10.1); CHLORIDE 113 mmol/L (98-107); CREATININE 1.28 mg/dL (0.55-1.02)
[2021-06-11 13:33] LABS: ALKALINE PHOSPHATASE 56 U/L (45-117); BILIRUBIN,TOTAL 0.4 mg/dL (0.2-1.0); TOTAL PROTEIN 6.8 g/dL (6.4-8.2)
--- NOTE | 2021-06-11 13:45 | NUR ---
PT REFUSING FURTHER CARE AND MONITORING. "I JUST WANT TO LEAVE. ANYTHING THEY SAY WILL BE A LIE." RN ENCOURAGES PT TO STAY AND SEE RESULTS. PT PACING ED HALLWAY.
[2021-06-11] MEDS ORDERED: POTASSIUM CHLORIDE 20 MEQ PACKET PO ONE (14:00)
[2021-06-11] MEDS ORDERED: POTASSIUM CHLORIDE 20 MEQ TAB.ER.PRT ONE (14:04)
--- NOTE | 2021-06-11 14:11 | NUR ---
PT REFUSES FURTHER CARE, SHOUTS AT RN WHEN RN ENCOURAGES PT TO STAY, PT SAYING "IT'LL ALL BE LIES ANYWAY. GET ME OUT OF HERE." PACING HOSPITAL HALLWAY.
== END 2021-06-11 14:14 | disposition left against medical advice (07) ==
LOC: ED 12:07
DX: R42 Dizziness and giddiness (principal); R11.2 Nausea with vomiting, unspecified; E87.6 Hypokalemia; I10 Essential (primary) hypertension; E03.9 Hypothyroidism, unspecified; Z86.73 Personal history of transient ischemic attack (TIA), and cerebral infarction without residual deficits
CPT/HCPCS: 36415; 71045; 80053; 85025; 99284